=== PATIENT | female | born 1965 | race Caucasian/White ===

== ENCOUNTER 2017-02-28 13:21 | Inpatient (IN) | payer OTHER ==
[2017-02-28] MEDS: SOD CHLORIDE 0.9% 1,000 ML IV ×2 (13:58→19:38)
[2017-02-28 14:04] LABS: ABNORMAL IP MESSAGE 1; HEMATOCRIT 34.6 % (37.0-47.0); MEAN CORPUSCULAR HEMOGLOBIN 30.1 pg (29.0-33.0); MEAN CORPUSCULAR HGB CONC 31.8 g/dl (32.0-37.0); MEAN CORPUSCULAR VOLUME 94.5 fl (82.0-101.0); MEAN PLATELET VOLUME 11.5 fl (7.4-10.4); NUCLEATED RED BLOOD CELLS% 0.1 /100WBC (0.0-0.0); PLATELET COUNT 403 10^3/UL (140-415); RED BLOOD COUNT 3.66 10^6/ul (4.20-5.40)
[2017-02-28 14:04] LABS: WHITE BLOOD COUNT 38.8 10^3/ul (4.8-10.8)
[2017-02-28 14:05] LABS: POSITIVE DIFF @See below
[2017-02-28 14:06] LABS: ADD MAN DIFF? YES
[2017-02-28 14:19] LABS: INR 1.16; PARTIAL THROMBOPLASTIN TIME 26.4 Sec (25.0-35.0); PROTIME 14.8 Sec (12.2-14.2); PT RATIO 1.2
[2017-02-28 14:21] LABS: ALANINE AMINOTRANSFERASE 29 IU/L (13-69); ALBUMIN 2.8 g/dl (3.3-4.9); ALBUMIN/GLOBULIN RATIO 0.77; ALKALINE PHOSPHATASE 102 IU/L (42-121); ANION GAP 28 (8-16); ASPARTATE AMINO TRANSFERASE 15 IU/L (15-46); BLOOD UREA NITROGEN 88 mg/dl (7-20); CALCIUM 7.5 mg/dl (8.4-10.2); CARBON DIOXIDE 19 mmol/L (21-31); CHLORIDE 94 mmol/L (97-110); CREATININE 6.68 mg/dl (0.44-1.00); GLUCOSE 90 mg/dl (70-220); POTASSIUM 3.8 mmol/L (3.5-5.1); SODIUM 137 mmol/L (135-144); TOTAL PROTEIN 6.4 g/dl (6.1-8.1)
[2017-02-28] MEDS: VANCOMYCIN 1 GM (PMX) 250 ML IVPB (14:24)
[2017-02-28 14:32] LABS: TROPONIN-I < 0.012 ng/ml (0.00-0.12)
[2017-02-28 14:34] LABS: LACTIC ACID 3.2 mmol/L (0.5-2.0)
[2017-02-28 14:36] LABS: BAND NEUTROPHILS #M 9.3 10^3/ul (0.0-0.6); BAND NEUTROPHILS % (M) 24 % (0-4); GIANT THROMBO% (M) 1 % (0-0); LYMPHOCYTES #M 3.1 10^3/ul (0.8-2.9); LYMPHOCYTES % (M) 8 % (15-51); MONOCYTE #M 6.2 10^3/ul (0.3-0.9); MONOCYTES % (M) 16 % (0-11); PLATELET ESTIMATE NORMAL; POIKILOCYTOSIS 1+ (0-0); POLYCHROMASIA 1+ (0-0); RBC MORPHOLOGY COMMENT @See below; SEG NEUT #M 23.8 10^3/ul (1.7-7.5); SEGMENTED NEUTROPHILS (M) % 52 % (39-77); WBC MORPHOLOGY COMMENT @See below
[2017-02-28 14:43] LABS: LIPASE 10 U/L (23-300)
[2017-02-28] MEDS: AZTREONAM 1 GM/NS (PMX) 50 ML IVPB (15:11)
[2017-02-28] MEDS: NORepinephrine 8MG/250 ML (PMX 250 ML IV (16:29)
[2017-02-28 17:18] LABS: LACTIC ACID 2.3 mmol/L (0.5-2.0)
[2017-02-28] MEDS: CIPROFLOXACIN 400 MG in D5W 200 ML IVPB (18:00)
[2017-02-28] MEDS ORDERED: morphine 4 MG/ML VIAL (18:21)
[2017-02-28] MEDS: morphine 4 MG/ML VIAL IV (18:25)
[2017-02-28] MEDS ORDERED: GLUCOSE GEL 15 GRAM TUBE PO ×4 (19:30→21:00)
[2017-02-28] MEDS ORDERED: GLUCAGON 1 MG INJ IM ×2 (19:30→21:00)
[2017-02-28] MEDS ORDERED: GLUCOSE GEL 15 GRAM TUBE BUCCAL ×2 (19:30→21:00)
[2017-02-28] MEDS ORDERED: DEXTROSE 50% 50 ML SYRINGE IV ×4 (19:30→21:00)
[2017-02-28] MEDS ORDERED: CIPROFLOXACIN 200 MG/D5W IVPB 100 ML IVPB (21:00)
[2017-02-28] MEDS: DOCUSATE SODIUM 100 MG CAP PO (21:00)
[2017-02-28] MEDS: INSULIN ASPART [NOVOLOG] 3 ML PEN SC (21:00)
[2017-02-28] MEDS: LEVETIRACETAM (100 MG/ML) 5ML CUP PO (21:34)
[2017-02-28] MEDS: GABAPENTIN 300 MG CAP PO (21:34)
[2017-02-28] MEDS: metroNIDAZOLE 500 MG/NS (PMX) 250 MG in EVAC CONTAINER 1 BOTTLE IVPB (22:07)
[2017-03-01] MEDS: VANCOMYCIN HCL 250 MG/5ML POSYG PO ×4 (00:18→18:54)
[2017-03-01] MEDS: HYDROCODONE/APAP (5/325) TAB PO ×4 (00:53→17:34)
[2017-03-01] MEDS: ACCU-CHEK XX (01:55)
[2017-03-01 05:51] LABS: ABNORMAL IP MESSAGE 1; HEMATOCRIT 36.5 % (37.0-47.0); MEAN CORPUSCULAR HEMOGLOBIN 30.5 pg (29.0-33.0); MEAN CORPUSCULAR HGB CONC 32.9 g/dl (32.0-37.0); MEAN CORPUSCULAR VOLUME 92.6 fl (82.0-101.0); MEAN PLATELET VOLUME 11.4 fl (7.4-10.4); PLATELET COUNT 509 10^3/UL (140-415); RED BLOOD COUNT 3.94 10^6/ul (4.20-5.40); RED CELL DISTRIBUTION WIDTH 15.1 % (11.5-14.5)
[2017-03-01 05:51] LABS: WHITE BLOOD COUNT 49.6 10^3/ul (4.8-10.8)
[2017-03-01 06:02] LABS: POSITIVE DIFF @See below
[2017-03-01 06:03] LABS: ADD MAN DIFF? YES
[2017-03-01] MEDS: metroNIDAZOLE 500 MG/NS (PMX) 250 MG in EVAC CONTAINER 1 BOTTLE IVPB (06:11)
[2017-03-01 06:21] LABS: ALANINE AMINOTRANSFERASE 29 IU/L (13-69); ALBUMIN 2.6 g/dl (3.3-4.9); ALBUMIN/GLOBULIN RATIO 0.74; ALKALINE PHOSPHATASE 116 IU/L (42-121); ANION GAP 26 (8-16); ASPARTATE AMINO TRANSFERASE 16 IU/L (15-46); BLOOD UREA NITROGEN 93 mg/dl (7-20); CARBON DIOXIDE 17 mmol/L (21-31); CHLORIDE 100 mmol/L (97-110); GLUCOSE 95 mg/dl (70-220); POTASSIUM 3.8 mmol/L (3.5-5.1); SODIUM 139 mmol/L (135-144); TOTAL PROTEIN 6.1 g/dl (6.1-8.1)
[2017-03-01 06:30] LABS: CREATININE 6.85 mg/dl (0.44-1.00)
[2017-03-01 06:58] LABS: ANISOCYTOSIS 1+ (0-0); BAND NEUTROPHILS #M 9.4 10^3/ul (0.0-0.6); BAND NEUTROPHILS % (M) 19 % (0-4); EOSINOPHILS % (M) 1 % (0-7); LYMPHOCYTES #M 3.4 10^3/ul (0.8-2.9); LYMPHOCYTES % (M) 7 % (15-51); METAMYELOCYTES #M 0.9 10^3/ul (0.0-0.0); METAMYELOCYTES %M 2 % (0-0); MONOCYTE #M 2.9 10^3/ul (0.3-0.9); MONOCYTES % (M) 6 % (0-11); PLATELET ESTIMATE NORMAL; POIKILOCYTOSIS 2+ (0-0); POLYCHROMASIA 3+ (0-0); PROMYELOCYTES #M 0.4 10^3/ul (0-0); PROMYELOCYTES % (M) 1 % (0-0); SEG NEUT #M 36.4 10^3/ul (1.7-7.5); SEGMENTED NEUTROPHILS (M) % 64 % (39-77); SMUDGE%M 2 % (0-0)
[2017-03-01] MEDS ORDERED: PHENYLephrine 20MG IN 250 ML 250 ML ×2 (07:18→10:03)
[2017-03-01] MEDS ORDERED: NORepinephrine 8MG/250 ML (PMX 250 ML IV (07:30)
[2017-03-01] MEDS: INSULIN ASPART [NOVOLOG] 3 ML PEN SC ×7 (07:35→20:21)
[2017-03-01] MEDS: SOD CHLORIDE 0.9% 500 ML IV (08:30)
[2017-03-01] MEDS ORDERED: PANTOPRAZOLE 40 MG INJ IV (09:00)
[2017-03-01] MEDS: SOD CHLORIDE 0.9% 1,000 ML IV ×2 (09:01→20:22)
[2017-03-01] MEDS: ZINC SULFATE 220 MG CAP PO (09:13)
[2017-03-01] MEDS: FLUOXETINE 20 MG CAP PO (09:13)
[2017-03-01] MEDS: LEVETIRACETAM (100 MG/ML) 5ML CUP PO ×2 (09:13→20:18)
[2017-03-01] MEDS: MULTIVIT/CA CARB/B CMPLX/FA TAB PO (09:13)
[2017-03-01] MEDS: CALCIUM CARBONATE 1.25 GM TAB PO (09:13)
[2017-03-01] MEDS: PANTOPRAZOLE (EC) 40 MG TAB PO (09:13)
[2017-03-01] MEDS: VITAMIN B COMPLEX/VIT C CAP PO (09:14)
[2017-03-01] MEDS: ASPIRIN (EC) 81 MG TAB PO (09:14)
[2017-03-01] MEDS: FOLIC ACID 1 MG TAB PO (09:14)
[2017-03-01] MEDS: MULTIVITAMINS THERAPEUTIC TAB PO (09:14)
[2017-03-01] MEDS: GABAPENTIN 300 MG CAP PO ×3 (09:14→20:18)
[2017-03-01] MEDS: ENOXAPARIN 30 MG/0.3 ML SYG SC (09:15)
[2017-03-01] MEDS: PHENYLephrine 160 MG in DEXTROSE 5% 484 ML IV ×2 (12:20→13:02)
[2017-03-01] MEDS ORDERED: AMIKACIN IV PER PHARMACY XX (13:00)
[2017-03-01] MEDS: metroNIDAZOLE 500 MG/NS (PMX) 100 ML IVPB ×2 (14:54→20:18)
[2017-03-01] MEDS: AMIKACIN 500 MG in DEXTROSE 5% 100 ML IVPB (17:00)
[2017-03-01] MEDS: DOCUSATE SODIUM 100 MG CAP PO (20:23)
[2017-03-02] MEDS: VANCOMYCIN HCL 250 MG/5ML POSYG PO ×5 (00:15→23:29)
[2017-03-02] MEDS: NORepinephrine 32 MG in DEXTROSE 5% 218 ML IV ×3 (01:32→20:51)
[2017-03-02] MEDS: ACCU-CHEK XX (01:59)
[2017-03-02 05:45] LABS: ABNORMAL IP MESSAGE 1; HEMATOCRIT 41.4 % (37.0-47.0); HEMOGLOBIN 13.1 g/dl (12.0-16.0); MEAN CORPUSCULAR HEMOGLOBIN 29.4 pg (29.0-33.0); MEAN CORPUSCULAR HGB CONC 31.6 g/dl (32.0-37.0); MEAN CORPUSCULAR VOLUME 92.8 fl (82.0-101.0); MEAN PLATELET VOLUME 11.3 fl (7.4-10.4); PLATELET COUNT 572 10^3/UL (140-415); RED BLOOD COUNT 4.46 10^6/ul (4.20-5.40); RED CELL DISTRIBUTION WIDTH 14.9 % (11.5-14.5)
[2017-03-02 05:45] LABS: WHITE BLOOD COUNT 60.5 10^3/ul (4.8-10.8)
[2017-03-02 05:48] LABS: ADD MAN DIFF? YES; POSITIVE DIFF @See below
[2017-03-02 06:31] LABS: ALANINE AMINOTRANSFERASE 24 IU/L (13-69); ALBUMIN 2.3 g/dl (3.3-4.9); ALBUMIN/GLOBULIN RATIO 0.69; ALKALINE PHOSPHATASE 140 IU/L (42-121); ANION GAP 27 (8-16); ASPARTATE AMINO TRANSFERASE 27 IU/L (15-46); BLOOD UREA NITROGEN 90 mg/dl (7-20); CALCIUM 7.3 mg/dl (8.4-10.2); CARBON DIOXIDE 13 mmol/L (21-31); CHLORIDE 98 mmol/L (97-110); GLUCOSE 237 mg/dl (70-220); POTASSIUM 3.7 mmol/L (3.5-5.1); SODIUM 134 mmol/L (135-144); TOTAL PROTEIN 5.6 g/dl (6.1-8.1)
[2017-03-02 06:42] LABS: CREATININE 7.04 mg/dl (0.44-1.00)
[2017-03-02] MEDS: SOD CHLORIDE 0.9% 1,000 ML IV ×2 (06:55→16:07)
[2017-03-02] MEDS: HYDROCODONE/APAP (5/325) TAB PO (09:20)
[2017-03-02] MEDS: INSULIN ASPART [NOVOLOG] 3 ML PEN SC ×7 (09:24→20:43)
[2017-03-02] MEDS: LEVETIRACETAM (100 MG/ML) 5ML CUP PO ×2 (09:39→20:42)
[2017-03-02] MEDS: ALBUMIN HUMAN 25% 100 ML IV (09:40)
[2017-03-02] MEDS: VITAMIN B COMPLEX/VIT C CAP PO (09:40)
[2017-03-02] MEDS: MULTIVIT/CA CARB/B CMPLX/FA TAB PO (09:40)
[2017-03-02] MEDS: ZINC SULFATE 220 MG CAP PO (09:41)
[2017-03-02] MEDS: ASPIRIN (EC) 81 MG TAB PO (09:41)
[2017-03-02] MEDS: PANTOPRAZOLE (EC) 40 MG TAB PO (09:41)
[2017-03-02] MEDS: metroNIDAZOLE 500 MG/NS (PMX) 100 ML IVPB ×2 (09:41→20:42)
[2017-03-02] MEDS: GABAPENTIN 300 MG CAP PO ×3 (09:41→20:42)
[2017-03-02] MEDS: FOLIC ACID 1 MG TAB PO (09:41)
[2017-03-02] MEDS: FLUOXETINE 20 MG CAP PO (09:41)
[2017-03-02] MEDS: CALCIUM CARBONATE 1.25 GM TAB PO (09:41)
[2017-03-02] MEDS: MULTIVITAMINS THERAPEUTIC TAB PO (09:42)
[2017-03-02] MEDS: ENOXAPARIN 30 MG/0.3 ML SYG SC (09:43)
[2017-03-02] MEDS: COLLAGENASE 30 GM TUBE TOP ×2 (10:00→13:00)
[2017-03-02 10:20] LABS: ANISOCYTOSIS 1+ (0-0); BAND NEUTROPHILS #M 12.1 10^3/ul (0.0-0.6); BAND NEUTROPHILS % (M) 20 % (0-4); BURR CELLS 3+ (0-0); GIANT THROMBO% (M) 1 % (0-0); LYMPHOCYTES #M 1.2 10^3/ul (0.8-2.9); LYMPHOCYTES % (M) 2 % (15-51); MONOCYTES % (M) 10 % (0-11); PLATELET ESTIMATE INCREASED; POIKILOCYTOSIS 3+ (0-0); POLYCHROMASIA 2+ (0-0); SEG NEUT #M 48.5 10^3/ul (1.7-7.5); SEGMENTED NEUTROPHILS (M) % 68 % (39-77); SMUDGE%M 8 % (0-0)
[2017-03-02] MEDS: AMIKACIN 350 MG in DEXTROSE 5% 100 ML IVPB (16:07)
[2017-03-02] MEDS: LINEZOLID 600 MG/D5W (PMX) 300 ML IVPB ×2 (16:08→23:29)
[2017-03-02] MEDS: DOCUSATE SODIUM 100 MG CAP PO (20:39)
[2017-03-02] MEDS: SACCHAROMYCES BOULARDII 250 MG CAP PO (20:42)
[2017-03-02] MEDS: ACETAMINOPHEN 650MG/20.3ML CUP PO (23:39)
[2017-03-03] MEDS: HYDROCODONE/APAP (5/325) TAB PO ×2 (01:40→05:36)
[2017-03-03] MEDS: ACCU-CHEK XX ×8 (02:28→23:00)
[2017-03-03 05:12] LABS: ABNORMAL IP MESSAGE 1; HEMATOCRIT 42.4 % (37.0-47.0); HEMOGLOBIN 13.4 g/dl (12.0-16.0); MEAN CORPUSCULAR HEMOGLOBIN 29.1 pg (29.0-33.0); MEAN CORPUSCULAR HGB CONC 31.6 g/dl (32.0-37.0); MEAN PLATELET VOLUME 11.4 fl (7.4-10.4); PLATELET COUNT 523 10^3/UL (140-415); RED BLOOD COUNT 4.61 10^6/ul (4.20-5.40); RED CELL DISTRIBUTION WIDTH 15.2 % (11.5-14.5)
[2017-03-03 05:29] LABS: POSITIVE DIFF @See below
[2017-03-03 05:30] LABS: WHITE BLOOD COUNT 53.5 10^3/ul (4.8-10.8)
[2017-03-03 05:31] LABS: ADD MAN DIFF? YES
[2017-03-03] MEDS: SOD CHLORIDE 0.9% 1,000 ML IV ×2 (05:35→13:04)
[2017-03-03] MEDS: VANCOMYCIN HCL 250 MG/5ML POSYG PO ×3 (05:35→18:28)
[2017-03-03] MEDS: ACETAMINOPHEN 650MG/20.3ML CUP PO (05:35)
[2017-03-03 05:54] LABS: ALANINE AMINOTRANSFERASE 28 IU/L (13-69); ALBUMIN 2.2 g/dl (3.3-4.9); ALBUMIN/GLOBULIN RATIO 0.84; ALKALINE PHOSPHATASE 113 IU/L (42-121); ANION GAP 20 (8-16); ASPARTATE AMINO TRANSFERASE 11 IU/L (15-46); BLOOD UREA NITROGEN 55 mg/dl (7-20); CALCIUM 7.7 mg/dl (8.4-10.2); CARBON DIOXIDE 16 mmol/L (21-31); CHLORIDE 103 mmol/L (97-110); GLUCOSE 269 mg/dl (70-220); POTASSIUM 3.1 mmol/L (3.5-5.1); SODIUM 136 mmol/L (135-144); TOTAL PROTEIN 4.8 g/dl (6.1-8.1)
[2017-03-03 06:14] LABS: CREATININE 5.23 mg/dl (0.44-1.00)
[2017-03-03 07:41] LABS: ANISOCYTOSIS 1+ (0-0); BAND NEUTROPHILS % (M) 15 % (0-4); BURR CELLS 1+ (0-0); HYPOCHROMASIA 1+ (0-0); LYMPHOCYTES #M 5.3 10^3/ul (0.8-2.9); LYMPHOCYTES % (M) 10 % (15-51); METAMYELOCYTES #M 1.6 10^3/ul (0.0-0.0); METAMYELOCYTES %M 3 % (0-0); MONOCYTE #M 2.6 10^3/ul (0.3-0.9); MONOCYTES % (M) 5 % (0-11); PLATELET ESTIMATE INCREASED; POIKILOCYTOSIS 1+ (0-0); POLYCHROMASIA 2+ (0-0); PROMYELOCYTES #M 0.5 10^3/ul (0-0); PROMYELOCYTES % (M) 1 % (0-0); SEG NEUT #M 38.5 10^3/ul (1.7-7.5); SEGMENTED NEUTROPHILS (M) % 64 % (39-77)
[2017-03-03] MEDS: metroNIDAZOLE 500 MG/NS (PMX) 100 ML IVPB ×2 (09:10→21:46)
[2017-03-03] MEDS: PANTOPRAZOLE (EC) 40 MG TAB PO (09:10)
[2017-03-03] MEDS: ASPIRIN (EC) 81 MG TAB PO (09:10)
[2017-03-03] MEDS: MULTIVITAMINS THERAPEUTIC TAB PO (09:10)
[2017-03-03] MEDS: SACCHAROMYCES BOULARDII 250 MG CAP PO ×2 (09:10→21:47)
[2017-03-03] MEDS: VITAMIN B COMPLEX/VIT C CAP PO (09:10)
[2017-03-03] MEDS: FOLIC ACID 1 MG TAB PO (09:10)
[2017-03-03] MEDS: GABAPENTIN 300 MG CAP PO ×3 (09:10→21:47)
[2017-03-03] MEDS: MULTIVIT/CA CARB/B CMPLX/FA TAB PO (09:10)
[2017-03-03] MEDS: FLUOXETINE 20 MG CAP PO (09:10)
[2017-03-03] MEDS: LINEZOLID 600 MG/D5W (PMX) 300 ML IVPB ×2 (09:10→21:47)
[2017-03-03] MEDS: CALCIUM CARBONATE 1.25 GM TAB PO (09:10)
[2017-03-03] MEDS: LEVETIRACETAM (100 MG/ML) 5ML CUP PO ×2 (09:10→21:47)
[2017-03-03] MEDS: ZINC SULFATE 220 MG CAP PO (09:10)
[2017-03-03] MEDS: INSULIN ASPART [NOVOLOG] 3 ML PEN SC ×4 (09:14→13:03)
[2017-03-03] MEDS: ENOXAPARIN 30 MG/0.3 ML SYG SC (09:16)
[2017-03-03] MEDS: PHENYLephrine 160 MG in DEXTROSE 5% 484 ML IV (11:21)
[2017-03-03] MEDS: POTASSIUM CHLORIDE 30 MEQ in DEXTROSE 5% 250 ML IVPB (11:45)
[2017-03-03 15:05] LABS: ANION GAP 23 (8-16); BLOOD UREA NITROGEN 62 mg/dl (7-20); CALCIUM 7.5 mg/dl (8.4-10.2); CARBON DIOXIDE 11 mmol/L (21-31); CHLORIDE 101 mmol/L (97-110); POTASSIUM 3.2 mmol/L (3.5-5.1); SODIUM 132 mmol/L (135-144)
[2017-03-03 15:35] LABS: CREATININE 5.45 mg/dl (0.44-1.00); GLUCOSE 424 mg/dl (70-220)
[2017-03-03] MEDS: INSULIN GLARGINE [LANtus] 3 ML PEN SC (15:46)
[2017-03-03] MEDS ORDERED: DEXTROSE 50% 50 ML SYRINGE IV ×2 (17:00)
[2017-03-03] MEDS: POTASSIUM CHLORIDE 30 MEQ in SOD CHLORIDE 0.9% 150 ML IVPB (18:21)
[2017-03-03] MEDS: INSULIN HUMAN REGULAR 100 UNIT in SOD CHLORIDE 0.9% 99 ML IV (18:24)
[2017-03-03] MEDS ORDERED: SODIUM BICARBONATE (IV ADD) 100 MEQ in DEXTROSE 5% 1,000 ML IV (19:00)
[2017-03-03] MEDS: SODIUM BICARBONATE (IV ADD) 100 MEQ in SOD CHLORIDE 0.45% 900 ML IV (21:00)
[2017-03-03] MEDS: DOCUSATE SODIUM 100 MG CAP PO (21:00)
[2017-03-04] MEDS: VANCOMYCIN HCL 250 MG/5ML POSYG PO ×4 (00:38→17:38)
[2017-03-04] MEDS: ACCU-CHEK XX ×24 (01:00→23:30)
[2017-03-04] MEDS: PHENYLephrine 160 MG in DEXTROSE 5% 484 ML IV (02:45)
[2017-03-04] MEDS: SODIUM BICARBONATE (IV ADD) 100 MEQ in SOD CHLORIDE 0.45% 900 ML IV ×3 (05:00→20:05)
[2017-03-04] MEDS: ACETAMINOPHEN 325 MG TAB PO (05:07)
[2017-03-04 06:40] LABS: ABNORMAL IP MESSAGE 1; HEMOGLOBIN 12.3 g/dl (12.0-16.0); MEAN CORPUSCULAR HEMOGLOBIN 29.9 pg (29.0-33.0); MEAN CORPUSCULAR HGB CONC 32.4 g/dl (32.0-37.0); MEAN CORPUSCULAR VOLUME 92.2 fl (82.0-101.0); MEAN PLATELET VOLUME 11.3 fl (7.4-10.4); NUCLEATED RED BLOOD CELLS% 0.1 /100WBC (0.0-0.0); PLATELET COUNT 467 10^3/UL (140-415); RED BLOOD COUNT 4.12 10^6/ul (4.20-5.40); RED CELL DISTRIBUTION WIDTH 15.2 % (11.5-14.5)
[2017-03-04 06:40] LABS: WHITE BLOOD COUNT 61.9 10^3/ul (4.8-10.8)
[2017-03-04 06:49] LABS: ADD MAN DIFF? YES; POSITIVE DIFF @See below
[2017-03-04 07:11] LABS: ALANINE AMINOTRANSFERASE 26 IU/L (13-69); ALKALINE PHOSPHATASE 108 IU/L (42-121); ANION GAP 21 (8-16); ASPARTATE AMINO TRANSFERASE 23 IU/L (15-46); BLOOD UREA NITROGEN 74 mg/dl (7-20); CALCIUM 7.9 mg/dl (8.4-10.2); CARBON DIOXIDE 16 mmol/L (21-31); CHLORIDE 101 mmol/L (97-110); GLUCOSE 156 mg/dl (70-220); POTASSIUM 3.2 mmol/L (3.5-5.1); SODIUM 135 mmol/L (135-144); TOTAL PROTEIN 4.5 g/dl (6.1-8.1)
[2017-03-04 07:39] LABS: CREATININE 5.96 mg/dl (0.44-1.00)
[2017-03-04] MEDS: INSULIN HUMAN REGULAR 100 UNIT in SOD CHLORIDE 0.9% 99 ML IV ×3 (08:50→20:48)
[2017-03-04] MEDS: VITAMIN B COMPLEX/VIT C CAP PO (09:03)
[2017-03-04] MEDS: MULTIVITAMINS THERAPEUTIC TAB PO (09:03)
[2017-03-04] MEDS: PANTOPRAZOLE (EC) 40 MG TAB PO (09:03)
[2017-03-04] MEDS: MULTIVIT/CA CARB/B CMPLX/FA TAB PO (09:03)
[2017-03-04] MEDS: FLUOXETINE 20 MG CAP PO (09:03)
[2017-03-04] MEDS: GABAPENTIN 300 MG CAP PO ×3 (09:03→20:36)
[2017-03-04] MEDS: LEVETIRACETAM (100 MG/ML) 5ML CUP PO ×2 (09:03→20:35)
[2017-03-04] MEDS: ZINC SULFATE 220 MG CAP PO (09:03)
[2017-03-04] MEDS: FOLIC ACID 1 MG TAB PO (09:03)
[2017-03-04] MEDS: SACCHAROMYCES BOULARDII 250 MG CAP PO ×2 (09:03→21:28)
[2017-03-04] MEDS: CALCIUM CARBONATE 1.25 GM TAB PO (09:04)
[2017-03-04] MEDS: ASPIRIN (EC) 81 MG TAB PO (09:04)
[2017-03-04 09:08] LABS: ANISOCYTOSIS 1+ (0-0); BAND NEUTROPHILS #M 2.4 10^3/ul (0.0-0.6); BAND NEUTROPHILS % (M) 4 % (0-4); BURR CELLS 2+ (0-0); LYMPHOCYTES #M 5.5 10^3/ul (0.8-2.9); LYMPHOCYTES % (M) 9 % (15-51); MONOCYTE #M 8.6 10^3/ul (0.3-0.9); MONOCYTES % (M) 14 % (0-11); PLATELET ESTIMATE NORMAL; POIKILOCYTOSIS 2+ (0-0); POLYCHROMASIA 1+ (0-0); SEG NEUT #M 46.7 10^3/ul (1.7-7.5); SEGMENTED NEUTROPHILS (M) % 73 % (39-77); SMUDGE%M 3 % (0-0)
[2017-03-04] MEDS: COLLAGENASE 30 GM TUBE TOP (09:10)
[2017-03-04] MEDS: ENOXAPARIN 30 MG/0.3 ML SYG SC (09:13)
[2017-03-04] MEDS: ALBUMIN HUMAN 25% 100 ML IV (09:15)
[2017-03-04] MEDS: LINEZOLID 600 MG/D5W (PMX) 300 ML IVPB ×2 (11:41→20:34)
[2017-03-04] MEDS: metroNIDAZOLE 500 MG/NS (PMX) 100 ML IVPB ×2 (11:41→20:34)
[2017-03-04] MEDS: HYDROCODONE/APAP (5/325) TAB PO ×3 (13:43→20:35)
[2017-03-04] MEDS: FIDAXOMICIN 200 MG TABLET PO ×2 (13:43→23:29)
[2017-03-04] MEDS: DOCUSATE SODIUM 100 MG CAP PO (20:36)
[2017-03-04] MEDS: ZOLPIDEM 5 MG TAB PO (21:28)
[2017-03-04] MEDS: traMADol 50 MG TAB PO (23:29)
[2017-03-05] MEDS: NORepinephrine 32 MG in DEXTROSE 5% 218 ML IV (00:01)
[2017-03-05] MEDS: VANCOMYCIN HCL 250 MG/5ML POSYG PO ×4 (00:43→17:54)
[2017-03-05] MEDS: ACCU-CHEK XX ×16 (01:00→21:02)
[2017-03-05 05:17] LABS: ABNORMAL IP MESSAGE 1; HEMOGLOBIN 11.2 g/dl (12.0-16.0); MEAN CORPUSCULAR HEMOGLOBIN 29.3 pg (29.0-33.0); MEAN CORPUSCULAR HGB CONC 32.9 g/dl (32.0-37.0); MEAN PLATELET VOLUME 11.3 fl (7.4-10.4); NUCLEATED RED BLOOD CELLS% 0.2 /100WBC (0.0-0.0); PLATELET COUNT 385 10^3/UL (140-415); RED BLOOD COUNT 3.82 10^6/ul (4.20-5.40); RED CELL DISTRIBUTION WIDTH 15.5 % (11.5-14.5)
[2017-03-05 05:17] LABS: WHITE BLOOD COUNT 45.7 10^3/ul (4.8-10.8)
[2017-03-05 05:39] LABS: ADD MAN DIFF? YES; POSITIVE DIFF @See below
[2017-03-05 06:08] LABS: ALANINE AMINOTRANSFERASE 23 IU/L (13-69); ALBUMIN 2.2 g/dl (3.3-4.9); ALKALINE PHOSPHATASE 83 IU/L (42-121); ANION GAP 19 (8-16); ASPARTATE AMINO TRANSFERASE 22 IU/L (15-46); BLOOD UREA NITROGEN 52 mg/dl (7-20); CALCIUM 7.2 mg/dl (8.4-10.2); CARBON DIOXIDE 21 mmol/L (21-31); CHLORIDE 94 mmol/L (97-110); CREATININE 4.47 mg/dl (0.44-1.00); GLUCOSE 123 mg/dl (70-220); SODIUM 132 mmol/L (135-144); TOTAL PROTEIN 4.4 g/dl (6.1-8.1)
[2017-03-05] MEDS: SODIUM BICARBONATE (IV ADD) 100 MEQ in SOD CHLORIDE 0.45% 900 ML IV ×2 (06:19→20:57)
[2017-03-05 07:07] LABS: POTASSIUM 2.2 mmol/L (3.5-5.1)
[2017-03-05 07:43] LABS: BAND NEUTROPHILS #M 1.3 10^3/ul (0.0-0.6); BAND NEUTROPHILS % (M) 3 % (0-4); BURR CELLS 1+ (0-0); EOSINOPHILS % (M) 1 % (0-7); LYMPHOCYTES #M 4.1 10^3/ul (0.8-2.9); LYMPHOCYTES % (M) 9 % (15-51); METAMYELOCYTES #M 1.3 10^3/ul (0.0-0.0); METAMYELOCYTES %M 3 % (0-0); MONOCYTE #M 4.1 10^3/ul (0.3-0.9); MONOCYTES % (M) 9 % (0-11); MYELOCYTES #M 0.4 10^3/ul (0.0-0.0); MYELOCYTES % (M) 1 % (0-0); PLATELET ESTIMATE NORMAL; POIKILOCYTOSIS 1+ (0-0); POLYCHROMASIA 1+ (0-0); SEG NEUT #M 34.4 10^3/ul (1.7-7.5); SEGMENTED NEUTROPHILS (M) % 74 % (39-77)
[2017-03-05] MEDS: LINEZOLID 600 MG/D5W (PMX) 300 ML IVPB ×2 (08:07→20:31)
[2017-03-05] MEDS: MULTIVIT/CA CARB/B CMPLX/FA TAB PO (08:08)
[2017-03-05] MEDS: VITAMIN B COMPLEX/VIT C CAP PO (08:08)
[2017-03-05] MEDS: LEVETIRACETAM (100 MG/ML) 5ML CUP PO ×2 (08:08→20:30)
[2017-03-05] MEDS: FOLIC ACID 1 MG TAB PO (08:08)
[2017-03-05] MEDS: ZINC SULFATE 220 MG CAP PO (08:08)
[2017-03-05] MEDS: FIDAXOMICIN 200 MG TABLET PO ×2 (08:08→20:30)
[2017-03-05] MEDS: MULTIVITAMINS THERAPEUTIC TAB PO (08:08)
[2017-03-05] MEDS: SACCHAROMYCES BOULARDII 250 MG CAP PO ×2 (08:08→20:33)
[2017-03-05] MEDS: FLUOXETINE 20 MG CAP PO (08:09)
[2017-03-05] MEDS: PANTOPRAZOLE (EC) 40 MG TAB PO (08:09)
[2017-03-05] MEDS: CALCIUM CARBONATE 1.25 GM TAB PO (08:09)
[2017-03-05] MEDS: GABAPENTIN 300 MG CAP PO ×3 (08:09→20:30)
[2017-03-05] MEDS: ASPIRIN (EC) 81 MG TAB PO (08:09)
[2017-03-05] MEDS: ENOXAPARIN 30 MG/0.3 ML SYG SC (08:13)
[2017-03-05] MEDS: ONDANSETRON 4 MG INJ IV (08:26)
[2017-03-05] MEDS: POTASSIUM CHLORIDE (SR) 20 MEQ TAB PO (08:27)
[2017-03-05] MEDS: metroNIDAZOLE 500 MG/NS (PMX) 100 ML IVPB ×2 (08:27→21:02)
[2017-03-05] MEDS: COLLAGENASE 30 GM TUBE TOP (10:40)
[2017-03-05] MEDS: HYDROCODONE/APAP (5/325) TAB PO ×2 (10:40→20:30)
[2017-03-05] MEDS: POTASSIUM CHLORIDE 250 ML IVPB (11:30)
[2017-03-05] MEDS: INSULIN HUMAN REGULAR 100 UNIT in SOD CHLORIDE 0.9% 99 ML IV (12:44)
[2017-03-05] MEDS: INSULIN ASPART [NOVOLOG] 3 ML PEN SC ×3 (17:05→20:19)
[2017-03-05] MEDS: DOCUSATE SODIUM 100 MG CAP PO (20:33)
[2017-03-05] MEDS: ZOLPIDEM 5 MG TAB PO (22:06)
[2017-03-06] MEDS: VANCOMYCIN HCL 250 MG/5ML POSYG PO ×4 (00:24→17:09)
[2017-03-06] MEDS: ACCU-CHEK XX ×5 (02:00→21:33)
[2017-03-06] MEDS: HYDROCODONE/APAP (5/325) TAB PO ×3 (03:15→17:08)
[2017-03-06] MEDS: NORepinephrine 32 MG in DEXTROSE 5% 218 ML IV (04:12)
[2017-03-06 04:57] LABS: ABNORMAL IP MESSAGE 1; HEMATOCRIT 30.8 % (37.0-47.0); HEMOGLOBIN 10.1 g/dl (12.0-16.0); MEAN CORPUSCULAR HEMOGLOBIN 29.3 pg (29.0-33.0); MEAN CORPUSCULAR HGB CONC 32.8 g/dl (32.0-37.0); MEAN CORPUSCULAR VOLUME 89.3 fl (82.0-101.0); MEAN PLATELET VOLUME 11.5 fl (7.4-10.4); NUCLEATED RED BLOOD CELLS% 0.1 /100WBC (0.0-0.0); PLATELET COUNT 344 10^3/UL (140-415); RED BLOOD COUNT 3.45 10^6/ul (4.20-5.40); RED CELL DISTRIBUTION WIDTH 15.6 % (11.5-14.5)
[2017-03-06 04:57] LABS: WHITE BLOOD COUNT 31.3 10^3/ul (4.8-10.8)
[2017-03-06 05:17] LABS: ADD MAN DIFF? YES; POSITIVE DIFF @See below
[2017-03-06 05:32] LABS: ANION GAP 15 (8-16); BLOOD UREA NITROGEN 57 mg/dl (7-20); CALCIUM 6.3 mg/dl (8.4-10.2); CARBON DIOXIDE 24 mmol/L (21-31); CHLORIDE 92 mmol/L (97-110); GLUCOSE 337 mg/dl (70-220); SODIUM 128 mmol/L (135-144)
[2017-03-06 05:51] LABS: ANISOCYTOSIS 1+ (0-0); BAND NEUTROPHILS #M 1.8 10^3/ul (0.0-0.6); BAND NEUTROPHILS % (M) 6 % (0-4); BURR CELLS 1+ (0-0); EOSINOPHILS % (M) 8 % (0-7); LYMPHOCYTES #M 2.5 10^3/ul (0.8-2.9); LYMPHOCYTES % (M) 8 % (15-51); METAMYELOCYTES #M 0.3 10^3/ul (0.0-0.0); METAMYELOCYTES %M 1 % (0-0); MONOCYTE #M 0.9 10^3/ul (0.3-0.9); MONOCYTES % (M) 3 % (0-11); MYELOCYTES #M 0.3 10^3/ul (0.0-0.0); MYELOCYTES % (M) 1 % (0-0); PLATELET ESTIMATE NORMAL; POIKILOCYTOSIS 2+ (0-0); POLYCHROMASIA 1+ (0-0); PROMYELOCYTES #M 0.3 10^3/ul (0-0); PROMYELOCYTES % (M) 1 % (0-0); REACTIVE LYMPHOCYTES #M 0.3 10^3/ul (0.0-0.0); REACTIVE LYMPHOCYTES% (M) 1 % (0-0); SEG NEUT #M 22.8 10^3/ul (1.7-7.5); SEGMENTED NEUTROPHILS (M) % 71 % (39-77); SMUDGE%M 14 % (0-0)
[2017-03-06 05:55] LABS: POTASSIUM 2.6 mmol/L (3.5-5.1)
[2017-03-06] MEDS: SODIUM BICARBONATE (IV ADD) 100 MEQ in SOD CHLORIDE 0.45% 900 ML IV ×2 (07:00→18:19)
[2017-03-06 07:27] LABS: MAGNESIUM 1.2 mg/dl (1.7-2.5); PHOSPHORUS 4.8 mg/dl (2.5-4.9)
[2017-03-06] MEDS: FOLIC ACID 1 MG TAB PO (09:00)
[2017-03-06] MEDS: CALCIUM CARBONATE 1.25 GM TAB PO (09:00)
[2017-03-06] MEDS: SACCHAROMYCES BOULARDII 250 MG CAP PO ×2 (09:00→20:13)
[2017-03-06] MEDS: MULTIVITAMINS THERAPEUTIC TAB PO (09:00)
[2017-03-06] MEDS: PANTOPRAZOLE (EC) 40 MG TAB PO (09:00)
[2017-03-06] MEDS: ZINC SULFATE 220 MG CAP PO (09:00)
[2017-03-06] MEDS: MULTIVIT/CA CARB/B CMPLX/FA TAB PO (09:00)
[2017-03-06] MEDS: VITAMIN B COMPLEX/VIT C CAP PO (09:00)
[2017-03-06] MEDS: LEVETIRACETAM (100 MG/ML) 5ML CUP PO ×2 (09:09→20:12)
[2017-03-06] MEDS: POTASSIUM CHLORIDE (SR) 20 MEQ TAB PO ×2 (09:09→20:13)
[2017-03-06] MEDS: ASPIRIN (EC) 81 MG TAB PO (09:09)
[2017-03-06] MEDS: GABAPENTIN 300 MG CAP PO ×3 (09:09→20:13)
[2017-03-06] MEDS: INSULIN DETEMIR [LEVEMIR] 3ML CART SC ×2 (09:11→20:28)
[2017-03-06] MEDS: INSULIN ASPART [NOVOLOG] 3 ML PEN SC ×7 (09:12→20:29)
[2017-03-06] MEDS: COLLAGENASE 30 GM TUBE TOP (09:13)
[2017-03-06] MEDS: FIDAXOMICIN 200 MG TABLET PO ×2 (09:22→20:13)
[2017-03-06] MEDS: FLUOXETINE 20 MG CAP PO (09:22)
[2017-03-06] MEDS: ENOXAPARIN 30 MG/0.3 ML SYG SC (09:28)
[2017-03-06] MEDS: POTASSIUM CHLORIDE 250 ML IVPB (10:03)
[2017-03-06] MEDS: LINEZOLID 600 MG/D5W (PMX) 300 ML IVPB ×2 (12:25→20:12)
[2017-03-06] MEDS: metroNIDAZOLE 500 MG/NS (PMX) 100 ML IVPB ×2 (12:26→20:12)
[2017-03-06] MEDS: AMIKACIN 350 MG in DEXTROSE 5% 100 ML IVPB (12:29)
[2017-03-06] MEDS: ZOLPIDEM 5 MG TAB PO (20:12)
[2017-03-06] MEDS: DOCUSATE SODIUM 100 MG CAP PO (20:13)
[2017-03-06] MEDS: traMADol 50 MG TAB PO (20:13)
[2017-03-07] MEDS: VANCOMYCIN HCL 250 MG/5ML POSYG PO ×4 (00:54→18:56)
[2017-03-07] MEDS: HYDROCODONE/APAP (5/325) TAB PO ×3 (00:54→19:35)
[2017-03-07] MEDS: ACCU-CHEK XX ×5 (02:00→20:31)
[2017-03-07] MEDS: SODIUM BICARBONATE (IV ADD) 100 MEQ in SOD CHLORIDE 0.45% 900 ML IV (04:48)
[2017-03-07] MEDS: INSULIN ASPART [NOVOLOG] 3 ML PEN SC ×7 (07:05→20:30)
[2017-03-07 07:22] LABS: ABNORMAL IP MESSAGE 1; HEMATOCRIT 31.5 % (37.0-47.0); HEMOGLOBIN 10.3 g/dl (12.0-16.0); MEAN CORPUSCULAR HEMOGLOBIN 29.6 pg (29.0-33.0); MEAN CORPUSCULAR HGB CONC 32.7 g/dl (32.0-37.0); MEAN CORPUSCULAR VOLUME 90.5 fl (82.0-101.0); MEAN PLATELET VOLUME 11.2 fl (7.4-10.4); NUCLEATED RED BLOOD CELLS% 0.1 /100WBC (0.0-0.0); PLATELET COUNT 337 10^3/UL (140-415); RED BLOOD COUNT 3.48 10^6/ul (4.20-5.40); RED CELL DISTRIBUTION WIDTH 15.6 % (11.5-14.5)
[2017-03-07 07:22] LABS: WHITE BLOOD COUNT 29.6 10^3/ul (4.8-10.8)
[2017-03-07 07:29] LABS: ADD MAN DIFF? YES; POSITIVE DIFF @See below
[2017-03-07] MEDS: INSULIN DETEMIR [LEVEMIR] 3ML CART SC (08:00)
[2017-03-07] MEDS: POTASSIUM CHLORIDE (SR) 20 MEQ TAB PO ×3 (08:29→20:23)
[2017-03-07] MEDS: metroNIDAZOLE 500 MG/NS (PMX) 100 ML IVPB ×2 (08:29→20:23)
[2017-03-07] MEDS: LINEZOLID 600 MG/D5W (PMX) 300 ML IVPB ×2 (08:29→20:22)
[2017-03-07] MEDS: ASPIRIN (EC) 81 MG TAB PO (08:30)
[2017-03-07] MEDS: FOLIC ACID 1 MG TAB PO (08:30)
[2017-03-07] MEDS: SACCHAROMYCES BOULARDII 250 MG CAP PO ×2 (08:30→20:23)
[2017-03-07] MEDS: MULTIVIT/CA CARB/B CMPLX/FA TAB PO (08:30)
[2017-03-07] MEDS: PANTOPRAZOLE (EC) 40 MG TAB PO (08:30)
[2017-03-07] MEDS: FIDAXOMICIN 200 MG TABLET PO ×2 (08:30→20:23)
[2017-03-07] MEDS: GABAPENTIN 300 MG CAP PO ×3 (08:30→20:23)
[2017-03-07] MEDS: LEVETIRACETAM (100 MG/ML) 5ML CUP PO ×2 (08:30→20:23)
[2017-03-07] MEDS: FLUOXETINE 20 MG CAP PO (08:30)
[2017-03-07] MEDS: CALCIUM CARBONATE 1.25 GM TAB PO (08:31)
[2017-03-07 08:39] LABS: ANION GAP 13 (8-16); BLOOD UREA NITROGEN 40 mg/dl (7-20); CALCIUM 6.5 mg/dl (8.4-10.2); CARBON DIOXIDE 27 mmol/L (21-31); CHLORIDE 100 mmol/L (97-110); CREATININE 3.87 mg/dl (0.44-1.00); GLUCOSE 57 mg/dl (70-220); SODIUM 137 mmol/L (135-144)
[2017-03-07 08:43] LABS: POTASSIUM 2.6 mmol/L (3.5-5.1)
[2017-03-07] MEDS: VITAMIN B COMPLEX/VIT C CAP PO (09:30)
[2017-03-07] MEDS: COLLAGENASE 30 GM TUBE TOP (09:30)
[2017-03-07] MEDS: ZINC SULFATE 220 MG CAP PO (09:30)
[2017-03-07] MEDS: MULTIVITAMINS THERAPEUTIC TAB PO (09:30)
[2017-03-07] MEDS: ENOXAPARIN 30 MG/0.3 ML SYG SC (09:31)
[2017-03-07 09:51] LABS: ANISOCYTOSIS 1+ (0-0); BAND NEUTROPHILS #M 0.5 10^3/ul (0.0-0.6); BAND NEUTROPHILS % (M) 2 % (0-4); EOSINOPHILS % (M) 14 % (0-7); ERYTHROBLAST% (NRBC) (M) 1 % (0-0); GIANT THROMBO% (M) 1 % (0-0); HYPOCHROMASIA 2+ (0-0); LYMPHOCYTES #M 5.3 10^3/ul (0.8-2.9); LYMPHOCYTES % (M) 18 % (15-51); METAMYELOCYTES #M 0.2 10^3/ul (0.0-0.0); METAMYELOCYTES %M 1 % (0-0); MONOCYTE #M 1.4 10^3/ul (0.3-0.9); MONOCYTES % (M) 5 % (0-11); PLATELET ESTIMATE NORMAL; POLYCHROMASIA 3+ (0-0); SEG NEUT #M 17.9 10^3/ul (1.7-7.5); SEGMENTED NEUTROPHILS (M) % 60 % (39-77); SMUDGE%M 1 % (0-0)
[2017-03-07] MEDS: POTASSIUM CHLORIDE 250 ML IVPB (12:56)
[2017-03-07] MEDS: DOCUSATE SODIUM 100 MG CAP PO (20:23)
[2017-03-07] MEDS: ZOLPIDEM 5 MG TAB PO (21:44)
[2017-03-08] MEDS: VANCOMYCIN HCL 250 MG/5ML POSYG PO ×4 (01:05→17:30)
[2017-03-08] MEDS: ACCU-CHEK XX ×5 (02:00→21:00)
[2017-03-08] MEDS: HYDROCODONE/APAP (5/325) TAB PO ×4 (02:38→21:37)
[2017-03-08 05:02] LABS: ADD MAN DIFF? NO
[2017-03-08 05:18] LABS: WHITE BLOOD COUNT 30.1 10^3/ul (4.8-10.8)
[2017-03-08 05:18] LABS: ABNORMAL IP MESSAGE 1; BASOPHIL # 0.1 10^3/ul (0.0-0.1); BASOPHILS % 0.5 % (0.0-2.0); EOSINOPHILS # 1.4 10^3/ul (0.0-0.5); EOSINOPHILS % 4.7 % (0.0-7.0); HEMATOCRIT 31.3 % (37.0-47.0); HEMOGLOBIN 10.4 g/dl (12.0-16.0); LYMPHOCYTES # 4.2 10^3/ul (0.8-2.9); LYMPHOCYTES % 13.9 % (15.0-51.0); MEAN CORPUSCULAR HEMOGLOBIN 29.7 pg (29.0-33.0); MEAN CORPUSCULAR HGB CONC 33.2 g/dl (32.0-37.0); MEAN CORPUSCULAR VOLUME 89.4 fl (82.0-101.0); MEAN PLATELET VOLUME 11.4 fl (7.4-10.4); MONOCYTE # 1.8 10^3/ul (0.3-0.9); NEUTROPHILS % 66.5 % (39.0-77.0); NUCLEATED RED BLOOD CELLS% 0.1 /100WBC (0.0-0.0); PLATELET COUNT 385 10^3/UL (140-415)
[2017-03-08 05:30] LABS: POSITIVE DIFF @See below
[2017-03-08 05:52] LABS: ALANINE AMINOTRANSFERASE 35 IU/L (13-69); ALBUMIN/GLOBULIN RATIO 0.95; ALKALINE PHOSPHATASE 64 IU/L (42-121); ANION GAP 13 (8-16); ASPARTATE AMINO TRANSFERASE 23 IU/L (15-46); BLOOD UREA NITROGEN 45 mg/dl (7-20); CALCIUM 6.4 mg/dl (8.4-10.2); CARBON DIOXIDE 24 mmol/L (21-31); CHLORIDE 101 mmol/L (97-110); CREATININE 4.37 mg/dl (0.44-1.00); GLUCOSE 191 mg/dl (70-220); POTASSIUM 3.4 mmol/L (3.5-5.1); SODIUM 135 mmol/L (135-144); TOTAL PROTEIN 4.1 g/dl (6.1-8.1)
[2017-03-08] MEDS: LEVETIRACETAM (100 MG/ML) 5ML CUP PO ×2 (08:08→21:04)
[2017-03-08] MEDS: ASPIRIN (EC) 81 MG TAB PO (08:09)
[2017-03-08] MEDS: VITAMIN B COMPLEX/VIT C CAP PO (08:09)
[2017-03-08] MEDS: MULTIVIT/CA CARB/B CMPLX/FA TAB PO (08:09)
[2017-03-08] MEDS: ZINC SULFATE 220 MG CAP PO (08:09)
[2017-03-08] MEDS: MULTIVITAMINS THERAPEUTIC TAB PO (08:09)
[2017-03-08] MEDS: SACCHAROMYCES BOULARDII 250 MG CAP PO ×2 (08:09→21:03)
[2017-03-08] MEDS: PANTOPRAZOLE (EC) 40 MG TAB PO (08:09)
[2017-03-08] MEDS: POTASSIUM CHLORIDE (SR) 20 MEQ TAB PO ×3 (08:09→21:04)
[2017-03-08] MEDS: GABAPENTIN 300 MG CAP PO ×3 (08:09→21:26)
[2017-03-08] MEDS: FLUOXETINE 20 MG CAP PO (08:09)
[2017-03-08] MEDS: CALCIUM CARBONATE 1.25 GM TAB PO (08:09)
[2017-03-08] MEDS: FIDAXOMICIN 200 MG TABLET PO ×2 (08:09→21:04)
[2017-03-08] MEDS: FOLIC ACID 1 MG TAB PO (08:09)
[2017-03-08] MEDS: COLLAGENASE 30 GM TUBE TOP (08:10)
[2017-03-08] MEDS: LINEZOLID 600 MG/D5W (PMX) 300 ML IVPB ×2 (08:10→21:05)
[2017-03-08] MEDS: metroNIDAZOLE 500 MG/NS (PMX) 100 ML IVPB ×2 (08:10→21:05)
[2017-03-08] MEDS: ENOXAPARIN 30 MG/0.3 ML SYG SC (08:20)
[2017-03-08] MEDS: INSULIN DETEMIR [LEVEMIR] 3ML CART SC (08:30)
[2017-03-08] MEDS: INSULIN ASPART [NOVOLOG] 3 ML PEN SC ×7 (08:34→21:00)
[2017-03-08] MEDS: traMADol 50 MG TAB PO (18:41)
[2017-03-08] MEDS: DOCUSATE SODIUM 100 MG CAP PO (21:00)
[2017-03-08] MEDS: ZOLPIDEM 5 MG TAB PO (21:37)
[2017-03-09] MEDS: HYDROCODONE/APAP (5/325) TAB PO ×4 (01:37→23:52)
[2017-03-09] MEDS: ACCU-CHEK XX ×5 (02:00→21:16)
[2017-03-09 05:49] LABS: ABNORMAL IP MESSAGE 1; HEMOGLOBIN 10.3 g/dl (12.0-16.0); MEAN CORPUSCULAR HEMOGLOBIN 29.3 pg (29.0-33.0); MEAN CORPUSCULAR HGB CONC 32.2 g/dl (32.0-37.0); MEAN CORPUSCULAR VOLUME 91.2 fl (82.0-101.0); MEAN PLATELET VOLUME 10.8 fl (7.4-10.4); PLATELET COUNT 441 10^3/UL (140-415); RED BLOOD COUNT 3.51 10^6/ul (4.20-5.40); RED CELL DISTRIBUTION WIDTH 16.7 % (11.5-14.5)
[2017-03-09] MEDS: VANCOMYCIN HCL 250 MG/5ML POSYG PO ×5 (06:03→23:49)
[2017-03-09 06:20] LABS: POSITIVE DIFF @See below
[2017-03-09 06:21] LABS: ADD MAN DIFF? YES
[2017-03-09 06:43] LABS: ANION GAP 16 (8-16); BLOOD UREA NITROGEN 40 mg/dl (7-20); CALCIUM 7.2 mg/dl (8.4-10.2); CARBON DIOXIDE 24 mmol/L (21-31); CHLORIDE 100 mmol/L (97-110); CREATININE 4.49 mg/dl (0.44-1.00); GLUCOSE 181 mg/dl (70-220); POTASSIUM 3.6 mmol/L (3.5-5.1); SODIUM 136 mmol/L (135-144)
[2017-03-09] MEDS: VITAMIN B COMPLEX/VIT C CAP PO (08:24)
[2017-03-09] MEDS: GABAPENTIN 300 MG CAP PO ×3 (08:24→21:16)
[2017-03-09] MEDS: PANTOPRAZOLE (EC) 40 MG TAB PO (08:24)
[2017-03-09] MEDS: CALCIUM CARBONATE 1.25 GM TAB PO (08:24)
[2017-03-09] MEDS: metroNIDAZOLE 500 MG/NS (PMX) 100 ML IVPB ×2 (08:24→21:16)
[2017-03-09] MEDS: POTASSIUM CHLORIDE (SR) 20 MEQ TAB PO ×3 (08:24→21:15)
[2017-03-09] MEDS: ASPIRIN (EC) 81 MG TAB PO (08:24)
[2017-03-09] MEDS: LEVETIRACETAM (100 MG/ML) 5ML CUP PO ×2 (08:24→21:15)
[2017-03-09] MEDS: ZINC SULFATE 220 MG CAP PO (08:24)
[2017-03-09] MEDS: FIDAXOMICIN 200 MG TABLET PO ×2 (08:24→21:15)
[2017-03-09] MEDS: MULTIVITAMINS THERAPEUTIC TAB PO (08:24)
[2017-03-09] MEDS: MULTIVIT/CA CARB/B CMPLX/FA TAB PO (08:24)
[2017-03-09] MEDS: LINEZOLID 600 MG/D5W (PMX) 300 ML IVPB (08:24)
[2017-03-09] MEDS: FOLIC ACID 1 MG TAB PO (08:24)
[2017-03-09] MEDS: FLUOXETINE 20 MG CAP PO (08:25)
[2017-03-09] MEDS: INSULIN ASPART [NOVOLOG] 3 ML PEN SC ×7 (08:26→21:28)
[2017-03-09] MEDS: ENOXAPARIN 30 MG/0.3 ML SYG SC (08:26)
[2017-03-09] MEDS: INSULIN DETEMIR [LEVEMIR] 3ML CART SC (08:28)
[2017-03-09] MEDS: COLLAGENASE 30 GM TUBE TOP (08:32)
[2017-03-09 09:25] LABS: ANISOCYTOSIS 1+ (0-0); BAND NEUTROPHILS #M 1.3 10^3/ul (0.0-0.6); BAND NEUTROPHILS % (M) 4 % (0-4); EOSINOPHILS % (M) 4 % (0-7); GIANT THROMBO% (M) 2 % (0-0); LYMPHOCYTES #M 2.6 10^3/ul (0.8-2.9); LYMPHOCYTES % (M) 8 % (15-51); METAMYELOCYTES #M 0.6 10^3/ul (0.0-0.0); METAMYELOCYTES %M 2 % (0-0); MONOCYTE #M 0.9 10^3/ul (0.3-0.9); MONOCYTES % (M) 3 % (0-11); MYELOCYTES #M 0.3 10^3/ul (0.0-0.0); MYELOCYTES % (M) 1 % (0-0); OVALOCYTES 1+ (0-0); PLATELET ESTIMATE NORMAL; POLYCHROMASIA 2+ (0-0); SEG NEUT #M 26.2 10^3/ul (1.7-7.5); SEGMENTED NEUTROPHILS (M) % 78 % (39-77); SMUDGE%M 20 % (0-0)
[2017-03-09] MEDS: SACCHAROMYCES BOULARDII 250 MG CAP PO ×2 (10:00→21:15)
[2017-03-09] MEDS ORDERED: VANCOMYCIN IV PER PHARMACY XX (12:00)
[2017-03-09] MEDS: ACETAMINOPHEN 650MG/20.3ML CUP PO (13:22)
[2017-03-09] MEDS: traMADol 50 MG TAB PO (13:23)
[2017-03-09] MEDS: VANCOMYCIN 1.5 GM in SOD CHLORIDE 0.9% 250 ML IVPB (14:18)
[2017-03-09] MEDS ORDERED: AMIKACIN 350 MG in DEXTROSE 5% 100 ML IVPB (15:30)
[2017-03-09] MEDS: DOCUSATE SODIUM 100 MG CAP PO (21:00)
[2017-03-09] MEDS: ZOLPIDEM 5 MG TAB PO (21:47)
[2017-03-10] MEDS: ACCU-CHEK XX ×5 (01:24→21:09)
[2017-03-10 05:01] LABS: ADD MAN DIFF? NO
[2017-03-10 05:12] LABS: ABNORMAL IP MESSAGE 1; BASOPHIL # 0.1 10^3/ul (0.0-0.1); BASOPHILS % 0.4 % (0.0-2.0); EOSINOPHILS # 0.7 10^3/ul (0.0-0.5); EOSINOPHILS % 2.4 % (0.0-7.0); HEMATOCRIT 31.6 % (37.0-47.0); HEMOGLOBIN 10.2 g/dl (12.0-16.0); LYMPHOCYTES # 5.2 10^3/ul (0.8-2.9); LYMPHOCYTES % 17.3 % (15.0-51.0); MEAN CORPUSCULAR HEMOGLOBIN 29.8 pg (29.0-33.0); MEAN CORPUSCULAR HGB CONC 32.3 g/dl (32.0-37.0); MEAN CORPUSCULAR VOLUME 92.4 fl (82.0-101.0); MEAN PLATELET VOLUME 10.9 fl (7.4-10.4); MONOCYTE # 1.9 10^3/ul (0.3-0.9); MONOCYTES % 6.4 % (0.0-11.0); NEUTROPHIL # 20.3 10^3/ul (1.6-7.5); NEUTROPHILS % 67.9 % (39.0-77.0); PLATELET COUNT 445 10^3/UL (140-415); RED BLOOD COUNT 3.42 10^6/ul (4.20-5.40); RED CELL DISTRIBUTION WIDTH 17.2 % (11.5-14.5)
[2017-03-10 05:25] LABS: ALANINE AMINOTRANSFERASE 36 IU/L (13-69); ALBUMIN 1.9 g/dl (3.3-4.9); ALBUMIN/GLOBULIN RATIO 0.79; ALKALINE PHOSPHATASE 53 IU/L (42-121); ANION GAP 16 (8-16); ASPARTATE AMINO TRANSFERASE 14 IU/L (15-46); BLOOD UREA NITROGEN 51 mg/dl (7-20); CALCIUM 7.4 mg/dl (8.4-10.2); CARBON DIOXIDE 21 mmol/L (21-31); CHLORIDE 103 mmol/L (97-110); CREATININE 5.02 mg/dl (0.44-1.00); GLUCOSE 201 mg/dl (70-220); POTASSIUM 3.2 mmol/L (3.5-5.1); SODIUM 137 mmol/L (135-144); TOTAL PROTEIN 4.3 g/dl (6.1-8.1)
[2017-03-10 05:31] LABS: POSITIVE DIFF @See below
[2017-03-10 05:35] LABS: WHITE BLOOD COUNT 29.8 10^3/ul (4.8-10.8)
[2017-03-10] MEDS: VANCOMYCIN HCL 250 MG/5ML POSYG PO ×4 (05:40→23:31)
[2017-03-10] MEDS: HYDROCODONE/APAP (5/325) TAB PO ×2 (05:40→23:31)
[2017-03-10] MEDS: MULTIVIT/CA CARB/B CMPLX/FA TAB PO (08:46)
[2017-03-10] MEDS: VITAMIN B COMPLEX/VIT C CAP PO (08:46)
[2017-03-10] MEDS: POTASSIUM CHLORIDE (SR) 20 MEQ TAB PO ×3 (08:47→20:59)
[2017-03-10] MEDS: FOLIC ACID 1 MG TAB PO (08:47)
[2017-03-10] MEDS: FLUOXETINE 20 MG CAP PO (08:47)
[2017-03-10] MEDS: MULTIVITAMINS THERAPEUTIC TAB PO (08:47)
[2017-03-10] MEDS: GABAPENTIN 300 MG CAP PO ×3 (08:47→20:59)
[2017-03-10] MEDS: CALCIUM CARBONATE 1.25 GM TAB PO (08:47)
[2017-03-10] MEDS: ZINC SULFATE 220 MG CAP PO (08:47)
[2017-03-10] MEDS: PANTOPRAZOLE (EC) 40 MG TAB PO (08:47)
[2017-03-10] MEDS: FIDAXOMICIN 200 MG TABLET PO ×2 (08:47→20:59)
[2017-03-10] MEDS: metroNIDAZOLE 500 MG/NS (PMX) 100 ML IVPB ×2 (08:47→21:00)
[2017-03-10] MEDS: LEVETIRACETAM (100 MG/ML) 5ML CUP PO ×2 (08:47→20:59)
[2017-03-10] MEDS: SACCHAROMYCES BOULARDII 250 MG CAP PO ×2 (08:47→20:59)
[2017-03-10] MEDS: ASPIRIN (EC) 81 MG TAB PO (08:47)
[2017-03-10] MEDS: INSULIN ASPART [NOVOLOG] 3 ML PEN SC ×7 (08:51→21:09)
[2017-03-10] MEDS: ENOXAPARIN 30 MG/0.3 ML SYG SC (08:53)
[2017-03-10] MEDS: INSULIN DETEMIR [LEVEMIR] 3ML CART SC (08:53)
[2017-03-10] MEDS: COLLAGENASE 30 GM TUBE TOP (08:58)
[2017-03-10] MEDS: AMIKACIN 350 MG in DEXTROSE 5% 100 ML IVPB (18:09)
[2017-03-10] MEDS: DOCUSATE SODIUM 100 MG CAP PO (21:00)
[2017-03-11] MEDS ORDERED: ACCU-CHEK XX (02:00)
[2017-03-11] MEDS: ACCU-CHEK XX ×5 (02:59→21:38)
[2017-03-11] MEDS: HYDROCODONE/APAP (5/325) TAB PO ×4 (05:12→21:37)
[2017-03-11] MEDS: VANCOMYCIN HCL 250 MG/5ML POSYG PO ×4 (05:13→23:31)
[2017-03-11 05:51] LABS: ABNORMAL IP MESSAGE 1; HEMATOCRIT 29.9 % (37.0-47.0); HEMOGLOBIN 9.5 g/dl (12.0-16.0); MEAN CORPUSCULAR HEMOGLOBIN 29.4 pg (29.0-33.0); MEAN CORPUSCULAR HGB CONC 31.8 g/dl (32.0-37.0); MEAN CORPUSCULAR VOLUME 92.6 fl (82.0-101.0); MEAN PLATELET VOLUME 10.8 fl (7.4-10.4); PLATELET COUNT 426 10^3/UL (140-415); RED BLOOD COUNT 3.23 10^6/ul (4.20-5.40); RED CELL DISTRIBUTION WIDTH 17.2 % (11.5-14.5)
[2017-03-11 05:51] LABS: WHITE BLOOD COUNT 26.3 10^3/ul (4.8-10.8)
[2017-03-11 06:16] LABS: ALANINE AMINOTRANSFERASE 33 IU/L (13-69); ALBUMIN 1.8 g/dl (3.3-4.9); ALBUMIN/GLOBULIN RATIO 0.85; ALKALINE PHOSPHATASE 48 IU/L (42-121); ANION GAP 14 (8-16); ASPARTATE AMINO TRANSFERASE 15 IU/L (15-46); BLOOD UREA NITROGEN 46 mg/dl (7-20); CALCIUM 7.3 mg/dl (8.4-10.2); CARBON DIOXIDE 21 mmol/L (21-31); CHLORIDE 104 mmol/L (97-110); CREATININE 4.35 mg/dl (0.44-1.00); GLUCOSE 154 mg/dl (70-220); SODIUM 136 mmol/L (135-144); TOTAL PROTEIN 3.9 g/dl (6.1-8.1)
[2017-03-11 06:26] LABS: ADD MAN DIFF? YES; POSITIVE DIFF @See below
[2017-03-11] MEDS: INSULIN ASPART [NOVOLOG] 3 ML PEN SC ×7 (08:19→21:18)
[2017-03-11] MEDS: INSULIN DETEMIR [LEVEMIR] 3ML CART SC ×2 (08:21→21:18)
[2017-03-11 09:52] LABS: ANISOCYTOSIS 1+ (0-0); BAND NEUTROPHILS #M 0.5 10^3/ul (0.0-0.6); BAND NEUTROPHILS % (M) 2 % (0-4); BASOPHIL #M 0.2 10^3/ul (0.0-0.0); BASOPHILS % (M) 1 % (0-2); EOSINOPHILS % (M) 2 % (0-7); LYMPHOCYTES #M 3.1 10^3/ul (0.8-2.9); LYMPHOCYTES % (M) 12 % (15-51); MONOCYTES % (M) 4 % (0-11); MYELOCYTES #M 0.2 10^3/ul (0.0-0.0); MYELOCYTES % (M) 1 % (0-0); PLATELET ESTIMATE NORMAL; POIKILOCYTOSIS 2+ (0-0); POLYCHROMASIA 3+ (0-0); PROMYELOCYTES #M 0.2 10^3/ul (0-0); PROMYELOCYTES % (M) 1 % (0-0); SEG NEUT #M 20.4 10^3/ul (1.7-7.5); SEGMENTED NEUTROPHILS (M) % 77 % (39-77); SMUDGE%M 8 % (0-0)
[2017-03-11] MEDS: metroNIDAZOLE 500 MG/NS (PMX) 100 ML IVPB ×2 (09:57→20:58)
[2017-03-11] MEDS: FOLIC ACID 1 MG TAB PO (10:06)
[2017-03-11] MEDS: GABAPENTIN 300 MG CAP PO ×3 (10:06→20:59)
[2017-03-11] MEDS: FLUOXETINE 20 MG CAP PO (10:06)
[2017-03-11] MEDS: MULTIVITAMINS THERAPEUTIC TAB PO (10:06)
[2017-03-11] MEDS: ZINC SULFATE 220 MG CAP PO (10:06)
[2017-03-11] MEDS: ASPIRIN (EC) 81 MG TAB PO (10:06)
[2017-03-11] MEDS: CALCIUM CARBONATE 1.25 GM TAB PO (10:06)
[2017-03-11] MEDS: PANTOPRAZOLE (EC) 40 MG TAB PO (10:07)
[2017-03-11] MEDS: FIDAXOMICIN 200 MG TABLET PO ×2 (10:07→20:58)
[2017-03-11] MEDS: MULTIVIT/CA CARB/B CMPLX/FA TAB PO (10:07)
[2017-03-11] MEDS: VITAMIN B COMPLEX/VIT C CAP PO (10:07)
[2017-03-11] MEDS: POTASSIUM CHLORIDE (SR) 20 MEQ TAB PO ×3 (10:07→20:59)
[2017-03-11] MEDS: LEVETIRACETAM (100 MG/ML) 5ML CUP PO ×2 (10:07→20:58)
[2017-03-11] MEDS: ENOXAPARIN 30 MG/0.3 ML SYG SC (10:16)
[2017-03-11] MEDS: SOD CHLORIDE 0.9% 500 ML IV ×2 (11:11→12:30)
[2017-03-11] MEDS: SACCHAROMYCES BOULARDII 250 MG CAP PO ×2 (11:20→20:58)
[2017-03-11] MEDS: COLLAGENASE 30 GM TUBE TOP (11:20)
[2017-03-11] MEDS: POTASSIUM CHLORIDE 30 MEQ in DEXTROSE 5% 250 ML IVPB (11:20)
[2017-03-11] MEDS: ALBUMIN HUMAN 25% 50 ML IV ×2 (16:03→23:00)
[2017-03-11] MEDS: DOCUSATE SODIUM 100 MG CAP PO (20:59)
[2017-03-11] MEDS: ZOLPIDEM 5 MG TAB PO (21:16)
[2017-03-11] MEDS: ALBUMIN HUMAN 25% 100 ML IV ×2 (23:32→23:33)
[2017-03-12] MEDS: ACCU-CHEK XX ×5 (01:54→21:08)
[2017-03-12] MEDS: HYDROCODONE/APAP (5/325) TAB PO ×5 (03:34→21:10)
[2017-03-12 05:33] LABS: ADD MAN DIFF? NO
[2017-03-12 05:43] LABS: ABNORMAL IP MESSAGE 1; BASOPHILS % 0.2 % (0.0-2.0); EOSINOPHILS # 0.5 10^3/ul (0.0-0.5); EOSINOPHILS % 2.3 % (0.0-7.0); HEMATOCRIT 26.2 % (37.0-47.0); HEMOGLOBIN 8.4 g/dl (12.0-16.0); LYMPHOCYTES # 3.6 10^3/ul (0.8-2.9); MEAN CORPUSCULAR HEMOGLOBIN 30.2 pg (29.0-33.0); MEAN CORPUSCULAR HGB CONC 32.1 g/dl (32.0-37.0); MEAN CORPUSCULAR VOLUME 94.2 fl (82.0-101.0); MEAN PLATELET VOLUME 10.7 fl (7.4-10.4); MONOCYTE # 1.8 10^3/ul (0.3-0.9); NEUTROPHIL # 15.7 10^3/ul (1.6-7.5); NEUTROPHILS % 69.3 % (39.0-77.0); PLATELET COUNT 349 10^3/UL (140-415); RED BLOOD COUNT 2.78 10^6/ul (4.20-5.40); RED CELL DISTRIBUTION WIDTH 17.6 % (11.5-14.5)
[2017-03-12 05:43] LABS: WHITE BLOOD COUNT 22.6 10^3/ul (4.8-10.8)
[2017-03-12] MEDS: VANCOMYCIN HCL 250 MG/5ML POSYG PO ×3 (05:59→17:33)
[2017-03-12 06:06] LABS: POSITIVE DIFF @See below
[2017-03-12] MEDS: ALBUMIN HUMAN 25% 100 ML IV (06:55)
[2017-03-12] MEDS: ALBUMIN HUMAN 25% 50 ML IV ×2 (07:34→08:23)
[2017-03-12] MEDS: MULTIVITAMINS THERAPEUTIC TAB PO (08:23)
[2017-03-12] MEDS: FLUOXETINE 20 MG CAP PO (08:23)
[2017-03-12] MEDS: FIDAXOMICIN 200 MG TABLET PO ×2 (08:23→21:09)
[2017-03-12] MEDS: LEVETIRACETAM (100 MG/ML) 5ML CUP PO ×2 (08:23→21:10)
[2017-03-12] MEDS: GABAPENTIN 300 MG CAP PO ×3 (08:23→21:09)
[2017-03-12] MEDS: ZINC SULFATE 220 MG CAP PO (08:23)
[2017-03-12] MEDS: FOLIC ACID 1 MG TAB PO (08:23)
[2017-03-12] MEDS: metroNIDAZOLE 500 MG/NS (PMX) 100 ML IVPB ×2 (08:23→21:09)
[2017-03-12] MEDS: SACCHAROMYCES BOULARDII 250 MG CAP PO ×2 (08:23→21:09)
[2017-03-12] MEDS: POTASSIUM CHLORIDE (SR) 20 MEQ TAB PO ×3 (08:24→21:09)
[2017-03-12] MEDS: VITAMIN B COMPLEX/VIT C CAP PO (08:24)
[2017-03-12] MEDS: CALCIUM CARBONATE 1.25 GM TAB PO (08:24)
[2017-03-12] MEDS: ASPIRIN (EC) 81 MG TAB PO (08:24)
[2017-03-12] MEDS: MULTIVIT/CA CARB/B CMPLX/FA TAB PO (08:24)
[2017-03-12] MEDS: PANTOPRAZOLE (EC) 40 MG TAB PO (08:24)
[2017-03-12] MEDS: COLLAGENASE 30 GM TUBE TOP (08:25)
[2017-03-12] MEDS: ENOXAPARIN 30 MG/0.3 ML SYG SC (08:40)
[2017-03-12 08:48] LABS: ALANINE AMINOTRANSFERASE 32 IU/L (13-69); ALBUMIN 1.9 g/dl (3.3-4.9); ALBUMIN/GLOBULIN RATIO 0.95; ALKALINE PHOSPHATASE 40 IU/L (42-121); ANION GAP 15 (8-16); ASPARTATE AMINO TRANSFERASE 32 IU/L (15-46); BLOOD UREA NITROGEN 53 mg/dl (7-20); CALCIUM 7.5 mg/dl (8.4-10.2); CARBON DIOXIDE 18 mmol/L (21-31); CHLORIDE 106 mmol/L (97-110); CREATININE 4.87 mg/dl (0.44-1.00); GLUCOSE 129 mg/dl (70-220); POTASSIUM 3.3 mmol/L (3.5-5.1); SODIUM 136 mmol/L (135-144); TOTAL PROTEIN 3.9 g/dl (6.1-8.1)
[2017-03-12] MEDS: INSULIN ASPART [NOVOLOG] 3 ML PEN SC ×7 (09:40→21:00)
[2017-03-12] MEDS: VANCOMYCIN 1 GM in NS 250 ML IVPB (10:25)
[2017-03-12] MEDS: DOCUSATE SODIUM 100 MG CAP PO (21:00)
[2017-03-12] MEDS: INSULIN DETEMIR [LEVEMIR] 3ML CART SC (21:29)
[2017-03-13] MEDS: traMADol 50 MG TAB PO (00:44)
[2017-03-13] MEDS: VANCOMYCIN HCL 250 MG/5ML POSYG PO ×4 (00:44→18:24)
[2017-03-13] MEDS: ACCU-CHEK XX ×5 (02:00→20:45)
[2017-03-13] MEDS: HYDROCODONE/APAP (5/325) TAB PO ×4 (03:02→20:46)
[2017-03-13] MEDS: INSULIN ASPART [NOVOLOG] 3 ML PEN SC ×7 (08:43→20:50)
[2017-03-13] MEDS: FIDAXOMICIN 200 MG TABLET PO ×2 (09:00→20:44)
[2017-03-13] MEDS: VITAMIN B COMPLEX/VIT C CAP PO (09:11)
[2017-03-13] MEDS: SACCHAROMYCES BOULARDII 250 MG CAP PO ×2 (09:11→20:45)
[2017-03-13] MEDS: metroNIDAZOLE 500 MG/NS (PMX) 100 ML IVPB ×2 (09:11→20:44)
[2017-03-13] MEDS: FOLIC ACID 1 MG TAB PO (09:12)
[2017-03-13] MEDS: LEVETIRACETAM (100 MG/ML) 5ML CUP PO ×2 (09:12→20:44)
[2017-03-13] MEDS: ASPIRIN (EC) 81 MG TAB PO (09:12)
[2017-03-13] MEDS: GABAPENTIN 300 MG CAP PO ×3 (09:12→20:44)
[2017-03-13] MEDS: POTASSIUM CHLORIDE (SR) 20 MEQ TAB PO ×2 (09:12→13:09)
[2017-03-13] MEDS: PANTOPRAZOLE (EC) 40 MG TAB PO (09:12)
[2017-03-13] MEDS: CALCIUM CARBONATE 1.25 GM TAB PO (09:12)
[2017-03-13] MEDS: FLUOXETINE 20 MG CAP PO (09:12)
[2017-03-13] MEDS: MULTIVIT/CA CARB/B CMPLX/FA TAB PO (09:12)
[2017-03-13] MEDS: ZINC SULFATE 220 MG CAP PO (09:13)
[2017-03-13] MEDS: MULTIVITAMINS THERAPEUTIC TAB PO (09:13)
[2017-03-13] MEDS: ENOXAPARIN 30 MG/0.3 ML SYG SC (09:13)
[2017-03-13] MEDS: COLLAGENASE 30 GM TUBE TOP (09:14)
[2017-03-13] MEDS: DOCUSATE SODIUM 100 MG CAP PO (20:45)
[2017-03-13] MEDS: INSULIN DETEMIR [LEVEMIR] 3ML CART SC (20:50)
[2017-03-13] MEDS: ZOLPIDEM 5 MG TAB PO (22:26)
[2017-03-14] MEDS: ACCU-CHEK XX ×5 (01:53→21:00)
[2017-03-14] MEDS: VANCOMYCIN HCL 250 MG/5ML POSYG PO ×5 (05:52→23:07)
[2017-03-14] MEDS: MULTIVIT/CA CARB/B CMPLX/FA TAB PO (08:08)
[2017-03-14] MEDS: PANTOPRAZOLE (EC) 40 MG TAB PO (08:08)
[2017-03-14] MEDS: LEVETIRACETAM (100 MG/ML) 5ML CUP PO ×2 (08:08→20:54)
[2017-03-14] MEDS: CALCIUM CARBONATE 1.25 GM TAB PO (08:08)
[2017-03-14] MEDS: VITAMIN B COMPLEX/VIT C CAP PO (08:08)
[2017-03-14] MEDS: GABAPENTIN 300 MG CAP PO ×3 (08:08→20:54)
[2017-03-14] MEDS: SACCHAROMYCES BOULARDII 250 MG CAP PO ×2 (08:08→20:54)
[2017-03-14] MEDS: FOLIC ACID 1 MG TAB PO (08:08)
[2017-03-14] MEDS: FLUOXETINE 20 MG CAP PO (08:08)
[2017-03-14] MEDS: ASPIRIN (EC) 81 MG TAB PO (08:08)
[2017-03-14] MEDS: COLLAGENASE 30 GM TUBE TOP (08:09)
[2017-03-14] MEDS: HYDROCODONE/APAP (5/325) TAB PO ×2 (08:09→15:43)
[2017-03-14] MEDS: INSULIN ASPART [NOVOLOG] 3 ML PEN SC ×7 (08:18→21:03)
[2017-03-14] MEDS: ENOXAPARIN 30 MG/0.3 ML SYG SC (08:18)
[2017-03-14] MEDS: metroNIDAZOLE 500 MG/NS (PMX) 100 ML IVPB ×2 (08:19→20:54)
[2017-03-14] MEDS: AMIKACIN 350 MG in DEXTROSE 5% 100 ML IVPB (16:28)
[2017-03-14 16:38] LABS: ADD MAN DIFF? NO
[2017-03-14 16:40] LABS: WHITE BLOOD COUNT 18.8 10^3/ul (4.8-10.8)
[2017-03-14 16:40] LABS: BASOPHIL # 0.1 10^3/ul (0.0-0.1); BASOPHILS % 0.3 % (0.0-2.0); EOSINOPHILS # 0.4 10^3/ul (0.0-0.5); EOSINOPHILS % 1.9 % (0.0-7.0); HEMATOCRIT 25.2 % (37.0-47.0); HEMOGLOBIN 7.9 g/dl (12.0-16.0); LYMPHOCYTES # 2.3 10^3/ul (0.8-2.9); MEAN CORPUSCULAR HGB CONC 31.3 g/dl (32.0-37.0); MEAN CORPUSCULAR VOLUME 95.8 fl (82.0-101.0); MEAN PLATELET VOLUME 10.8 fl (7.4-10.4); MONOCYTE # 1.4 10^3/ul (0.3-0.9); MONOCYTES % 7.7 % (0.0-11.0); NEUTROPHIL # 14.2 10^3/ul (1.6-7.5); NEUTROPHILS % 75.8 % (39.0-77.0); PLATELET COUNT 398 10^3/UL (140-415); RED BLOOD COUNT 2.63 10^6/ul (4.20-5.40); RED CELL DISTRIBUTION WIDTH 18.8 % (11.5-14.5)
[2017-03-14] MEDS: DOCUSATE SODIUM 100 MG CAP PO (20:54)
[2017-03-14] MEDS: INSULIN DETEMIR [LEVEMIR] 3ML CART SC (20:59)
[2017-03-15] MEDS: ALBUTEROL 0.083% (NEB) 2.5 MG/3 ML AMP NEB (01:48)
[2017-03-15] MEDS: ACCU-CHEK XX ×5 (02:00→21:00)
[2017-03-15] MEDS: VANCOMYCIN HCL 250 MG/5ML POSYG PO ×4 (05:10→23:13)
[2017-03-15] MEDS: HYDROCODONE/APAP (5/325) TAB PO ×2 (05:34→18:10)
[2017-03-15 05:44] LABS: ADD MAN DIFF? NO
[2017-03-15 06:00] LABS: BASOPHIL # 0.1 10^3/ul (0.0-0.1); BASOPHILS % 0.4 % (0.0-2.0); EOSINOPHILS # 0.2 10^3/ul (0.0-0.5); EOSINOPHILS % 1.5 % (0.0-7.0); HEMATOCRIT 22.7 % (37.0-47.0); HEMOGLOBIN 7.3 g/dl (12.0-16.0); LYMPHOCYTES # 2.4 10^3/ul (0.8-2.9); LYMPHOCYTES % 14.8 % (15.0-51.0); MEAN CORPUSCULAR HEMOGLOBIN 30.5 pg (29.0-33.0); MEAN CORPUSCULAR HGB CONC 32.2 g/dl (32.0-37.0); MEAN PLATELET VOLUME 10.9 fl (7.4-10.4); MONOCYTE # 1.3 10^3/ul (0.3-0.9); MONOCYTES % 7.7 % (0.0-11.0); NEUTROPHIL # 11.9 10^3/ul (1.6-7.5); NEUTROPHILS % 73.5 % (39.0-77.0); PLATELET COUNT 363 10^3/UL (140-415); RED BLOOD COUNT 2.39 10^6/ul (4.20-5.40); RED CELL DISTRIBUTION WIDTH 18.8 % (11.5-14.5)
[2017-03-15 06:00] LABS: WHITE BLOOD COUNT 16.2 10^3/ul (4.8-10.8)
[2017-03-15 06:20] LABS: ALANINE AMINOTRANSFERASE 34 IU/L (13-69); ALBUMIN 1.9 g/dl (3.3-4.9); ALBUMIN/GLOBULIN RATIO 0.95; ALKALINE PHOSPHATASE 41 IU/L (42-121); ANION GAP 15 (8-16); ASPARTATE AMINO TRANSFERASE 17 IU/L (15-46); BLOOD UREA NITROGEN 43 mg/dl (7-20); CALCIUM 7.4 mg/dl (8.4-10.2); CARBON DIOXIDE 18 mmol/L (21-31); CHLORIDE 108 mmol/L (97-110); CREATININE 3.93 mg/dl (0.44-1.00); GLUCOSE 210 mg/dl (70-220); SODIUM 138 mmol/L (135-144); TOTAL PROTEIN 3.9 g/dl (6.1-8.1)
[2017-03-15 06:27] LABS: POTASSIUM 2.7 mmol/L (3.5-5.1)
[2017-03-15] MEDS: INSULIN ASPART [NOVOLOG] 3 ML PEN SC ×7 (07:55→21:53)
[2017-03-15] MEDS: POTASSIUM CHLORIDE 250 ML IVPB (08:02)
[2017-03-15] MEDS: GABAPENTIN 300 MG CAP PO ×3 (08:57→21:38)
[2017-03-15] MEDS: LEVETIRACETAM (100 MG/ML) 5ML CUP PO ×2 (08:57→21:39)
[2017-03-15] MEDS: FOLIC ACID 1 MG TAB PO (08:57)
[2017-03-15] MEDS: CALCIUM CARBONATE 1.25 GM TAB PO (08:57)
[2017-03-15] MEDS: ASPIRIN (EC) 81 MG TAB PO (08:57)
[2017-03-15] MEDS: FLUOXETINE 20 MG CAP PO (08:57)
[2017-03-15] MEDS: metroNIDAZOLE 500 MG/NS (PMX) 100 ML IVPB (08:58)
[2017-03-15] MEDS: ENOXAPARIN 30 MG/0.3 ML SYG SC (09:01)
[2017-03-15] MEDS: VITAMIN B COMPLEX/VIT C CAP PO (09:12)
[2017-03-15] MEDS: SACCHAROMYCES BOULARDII 250 MG CAP PO ×2 (09:12→21:38)
[2017-03-15] MEDS: PANTOPRAZOLE (EC) 40 MG TAB PO (09:12)
[2017-03-15] MEDS: MULTIVIT/CA CARB/B CMPLX/FA TAB PO (09:21)
[2017-03-15] MEDS: COLLAGENASE 30 GM TUBE TOP (09:21)
[2017-03-15 12:13] LABS: ANION GAP 13 (8-16); BLOOD UREA NITROGEN 45 mg/dl (7-20); CALCIUM 7.4 mg/dl (8.4-10.2); CARBON DIOXIDE 19 mmol/L (21-31); CHLORIDE 108 mmol/L (97-110); CREATININE 3.97 mg/dl (0.44-1.00); GLUCOSE 162 mg/dl (70-220); SODIUM 137 mmol/L (135-144)
[2017-03-15] MEDS: BISACODYL (EC) 5 MG TAB PO ×2 (13:24→21:39)
[2017-03-15] MEDS: PEG/ELECTROLYTES 4L BTL PO ×2 (13:24→21:38)
[2017-03-15 13:33] LABS: IMMEDIATE SPIN CROSSMATCH 1 1
[2017-03-15] MEDS: SOD CHLORIDE 0.9% 250 ML IV* (13:54)
[2017-03-15] MEDS: VANCOMYCIN 1 GM in NS 250 ML IVPB (18:11)
[2017-03-15] MEDS: DOCUSATE SODIUM 100 MG CAP PO (21:39)
[2017-03-15] MEDS: INSULIN DETEMIR [LEVEMIR] 3ML CART SC (21:54)
[2017-03-15] MEDS: ZOLPIDEM 5 MG TAB PO (22:17)
[2017-03-15] MEDS: metroNIDAZOLE 500 MG TAB PO (22:17)
[2017-03-15] MEDS: traMADol 50 MG TAB PO (23:13)
[2017-03-16] MEDS: HYDROCODONE/APAP (5/325) TAB PO ×2 (01:15→14:05)
[2017-03-16] MEDS: ACCU-CHEK XX ×5 (02:00→21:08)
[2017-03-16] MEDS: metroNIDAZOLE 500 MG TAB PO ×3 (06:00→21:07)
[2017-03-16] MEDS: VANCOMYCIN HCL 250 MG/5ML POSYG PO ×4 (06:00→22:38)
[2017-03-16] MEDS: ENOXAPARIN 30 MG/0.3 ML SYG SC (09:00)
[2017-03-16] MEDS: INSULIN ASPART [NOVOLOG] 3 ML PEN SC ×7 (09:27→21:15)
[2017-03-16] MEDS: ASPIRIN (EC) 81 MG TAB PO (09:30)
[2017-03-16] MEDS: LEVETIRACETAM (100 MG/ML) 5ML CUP PO ×2 (09:30→21:07)
[2017-03-16] MEDS: GABAPENTIN 300 MG CAP PO ×3 (09:30→21:07)
[2017-03-16] MEDS: FOLIC ACID 1 MG TAB PO (09:31)
[2017-03-16] MEDS: PANTOPRAZOLE (EC) 40 MG TAB PO (09:31)
[2017-03-16] MEDS: FLUOXETINE 20 MG CAP PO (09:31)
[2017-03-16] MEDS: SACCHAROMYCES BOULARDII 250 MG CAP PO ×2 (09:31→21:07)
[2017-03-16] MEDS: VITAMIN B COMPLEX/VIT C CAP PO (09:31)
[2017-03-16] MEDS: CALCIUM CARBONATE 1.25 GM TAB PO (09:31)
[2017-03-16] MEDS: MULTIVIT/CA CARB/B CMPLX/FA TAB PO (09:31)
[2017-03-16] MEDS: COLLAGENASE 30 GM TUBE TOP (09:36)
[2017-03-16] MEDS: ALBUMIN HUMAN 25% 100 ML IV (10:37)
[2017-03-16] MEDS: ZYVOX 600 MG TAB PO ×2 (14:04→22:38)
[2017-03-16 14:27] LABS: ADD MAN DIFF? NO
[2017-03-16 14:29] LABS: WHITE BLOOD COUNT 18.4 10^3/ul (4.8-10.8)
[2017-03-16 14:29] LABS: BASOPHIL # 0.1 10^3/ul (0.0-0.1); BASOPHILS % 0.4 % (0.0-2.0); EOSINOPHILS # 0.3 10^3/ul (0.0-0.5); EOSINOPHILS % 1.4 % (0.0-7.0); HEMATOCRIT 26.7 % (37.0-47.0); HEMOGLOBIN 8.8 g/dl (12.0-16.0); MEAN CORPUSCULAR HEMOGLOBIN 30.7 pg (29.0-33.0); MEAN PLATELET VOLUME 10.7 fl (7.4-10.4); MONOCYTE # 1.5 10^3/ul (0.3-0.9); MONOCYTES % 8.1 % (0.0-11.0); NEUTROPHIL # 14.3 10^3/ul (1.6-7.5); NEUTROPHILS % 77.5 % (39.0-77.0); PLATELET COUNT 378 10^3/UL (140-415); RED BLOOD COUNT 2.87 10^6/ul (4.20-5.40); RED CELL DISTRIBUTION WIDTH 18.9 % (11.5-14.5)
[2017-03-16 14:57] LABS: ANION GAP 15 (8-16); BLOOD UREA NITROGEN 38 mg/dl (7-20); CARBON DIOXIDE 21 mmol/L (21-31); CHLORIDE 106 mmol/L (97-110); CREATININE 3.48 mg/dl (0.44-1.00); GLUCOSE 162 mg/dl (70-220); SODIUM 139 mmol/L (135-144)
[2017-03-16 14:59] LABS: POTASSIUM 2.9 mmol/L (3.5-5.1)
[2017-03-16] MEDS: POTASSIUM CHLORIDE (SR) 20 MEQ TAB PO (18:32)
[2017-03-16] MEDS: DOCUSATE SODIUM 100 MG CAP PO (21:00)
[2017-03-16] MEDS: INSULIN DETEMIR [LEVEMIR] 3ML CART SC (21:15)
[2017-03-16] MEDS: ZOLPIDEM 5 MG TAB PO (22:38)
[2017-03-17] MEDS: HYDROCODONE/APAP (5/325) TAB PO ×2 (01:20→18:25)
[2017-03-17] MEDS: ACCU-CHEK XX ×5 (02:43→21:00)
[2017-03-17] MEDS: traMADol 50 MG TAB PO (04:16)
[2017-03-17] MEDS: VANCOMYCIN HCL 250 MG/5ML POSYG PO ×3 (05:34→17:46)
[2017-03-17] MEDS: metroNIDAZOLE 500 MG TAB PO ×3 (05:34→21:50)
[2017-03-17] MEDS: ENOXAPARIN 30 MG/0.3 ML SYG SC (09:00)
[2017-03-17 09:20] LABS: ADD MAN DIFF? NO
[2017-03-17] MEDS: INSULIN ASPART [NOVOLOG] 3 ML PEN SC ×7 (09:21→21:28)
[2017-03-17 09:25] LABS: WHITE BLOOD COUNT 17.7 10^3/ul (4.8-10.8)
[2017-03-17 09:25] LABS: BASOPHIL # 0.1 10^3/ul (0.0-0.1); BASOPHILS % 0.5 % (0.0-2.0); EOSINOPHILS # 0.3 10^3/ul (0.0-0.5); EOSINOPHILS % 1.4 % (0.0-7.0); HEMATOCRIT 25.6 % (37.0-47.0); HEMOGLOBIN 8.5 g/dl (12.0-16.0); LYMPHOCYTES # 2.3 10^3/ul (0.8-2.9); LYMPHOCYTES % 12.9 % (15.0-51.0); MEAN CORPUSCULAR HEMOGLOBIN 30.9 pg (29.0-33.0); MEAN CORPUSCULAR HGB CONC 33.2 g/dl (32.0-37.0); MEAN CORPUSCULAR VOLUME 93.1 fl (82.0-101.0); MEAN PLATELET VOLUME 10.8 fl (7.4-10.4); MONOCYTE # 1.4 10^3/ul (0.3-0.9); MONOCYTES % 7.7 % (0.0-11.0); NEUTROPHIL # 13.6 10^3/ul (1.6-7.5); NEUTROPHILS % 76.4 % (39.0-77.0); PLATELET COUNT 373 10^3/UL (140-415); RED BLOOD COUNT 2.75 10^6/ul (4.20-5.40); RED CELL DISTRIBUTION WIDTH 19.7 % (11.5-14.5)
[2017-03-17 09:40] LABS: ANION GAP 16 (8-16); BLOOD UREA NITROGEN 52 mg/dl (7-20); CALCIUM 7.7 mg/dl (8.4-10.2); CARBON DIOXIDE 17 mmol/L (21-31); CHLORIDE 110 mmol/L (97-110); CREATININE 4.34 mg/dl (0.44-1.00); GLUCOSE 186 mg/dl (70-220); POTASSIUM 3.1 mmol/L (3.5-5.1); SODIUM 140 mmol/L (135-144)
[2017-03-17] MEDS: ASPIRIN (EC) 81 MG TAB PO (10:33)
[2017-03-17] MEDS: GABAPENTIN 300 MG CAP PO ×3 (10:33→21:50)
[2017-03-17] MEDS: SACCHAROMYCES BOULARDII 250 MG CAP PO ×2 (10:33→21:49)
[2017-03-17] MEDS: MULTIVIT/CA CARB/B CMPLX/FA TAB PO (10:33)
[2017-03-17] MEDS: VITAMIN B COMPLEX/VIT C CAP PO (10:33)
[2017-03-17] MEDS: FLUOXETINE 20 MG CAP PO (10:34)
[2017-03-17] MEDS: PANTOPRAZOLE (EC) 40 MG TAB PO (10:34)
[2017-03-17] MEDS: FOLIC ACID 1 MG TAB PO (10:34)
[2017-03-17] MEDS: LEVETIRACETAM (100 MG/ML) 5ML CUP PO ×2 (10:34→21:49)
[2017-03-17] MEDS: CALCIUM CARBONATE 1.25 GM TAB PO (10:35)
[2017-03-17] MEDS: ZYVOX 600 MG TAB PO ×2 (10:35→21:50)
[2017-03-17] MEDS: COLLAGENASE 30 GM TUBE TOP (10:50)
[2017-03-17] MEDS: INSULIN DETEMIR [LEVEMIR] 3ML CART SC (21:27)
[2017-03-17] MEDS: DOCUSATE SODIUM 100 MG CAP PO (21:50)
[2017-03-17] MEDS: POTASSIUM CHLORIDE 20 MEQ in DEXTROSE 5% 100 ML IVPB (21:57)
[2017-03-18] MEDS: VANCOMYCIN HCL 250 MG/5ML POSYG PO ×4 (00:09→17:54)
[2017-03-18] MEDS: ACCU-CHEK XX ×5 (02:38→21:46)
[2017-03-18] MEDS ORDERED: VANCOMYCIN IV PER PHARMACY XX (03:00)
[2017-03-18] MEDS: metroNIDAZOLE 500 MG TAB PO ×3 (05:08→21:31)
[2017-03-18] MEDS: traMADol 50 MG TAB PO ×2 (06:51→21:32)
[2017-03-18 07:00] LABS: ADD MAN DIFF? NO
[2017-03-18 07:01] LABS: BASOPHIL # 0.1 10^3/ul (0.0-0.1); BASOPHILS % 0.7 % (0.0-2.0); EOSINOPHILS # 0.4 10^3/ul (0.0-0.5); EOSINOPHILS % 2.5 % (0.0-7.0); HEMATOCRIT 25.5 % (37.0-47.0); HEMOGLOBIN 8.1 g/dl (12.0-16.0); LYMPHOCYTES # 2.6 10^3/ul (0.8-2.9); LYMPHOCYTES % 17.5 % (15.0-51.0); MEAN CORPUSCULAR HEMOGLOBIN 30.5 pg (29.0-33.0); MEAN CORPUSCULAR HGB CONC 31.8 g/dl (32.0-37.0); MEAN CORPUSCULAR VOLUME 95.9 fl (82.0-101.0); MEAN PLATELET VOLUME 11.3 fl (7.4-10.4); MONOCYTE # 1.1 10^3/ul (0.3-0.9); MONOCYTES % 7.5 % (0.0-11.0); NEUTROPHIL # 10.7 10^3/ul (1.6-7.5); NEUTROPHILS % 71.1 % (39.0-77.0); PLATELET COUNT 318 10^3/UL (140-415); RED BLOOD COUNT 2.66 10^6/ul (4.20-5.40); RED CELL DISTRIBUTION WIDTH 19.5 % (11.5-14.5)
[2017-03-18 07:35] LABS: ANION GAP 19 (8-16); BLOOD UREA NITROGEN 65 mg/dl (7-20); CALCIUM 7.5 mg/dl (8.4-10.2); CARBON DIOXIDE 14 mmol/L (21-31); CHLORIDE 109 mmol/L (97-110); CREATININE 4.89 mg/dl (0.44-1.00); GLUCOSE 135 mg/dl (70-220); SODIUM 139 mmol/L (135-144)
[2017-03-18 07:45] LABS: POTASSIUM 2.7 mmol/L (3.5-5.1)
[2017-03-18] MEDS: LOSARTAN 50 MG TAB PO (09:00)
[2017-03-18] MEDS: LIDOCAINE 5% PATCH TD (09:00)
[2017-03-18] MEDS: ENOXAPARIN 30 MG/0.3 ML SYG SC (09:00)
[2017-03-18] MEDS: metroNIDAZOLE 500 MG/NS (PMX) 100 ML IVPB (09:28)
[2017-03-18] MEDS: ASPIRIN (EC) 81 MG TAB PO (09:31)
[2017-03-18] MEDS: FLUOXETINE 20 MG CAP PO (09:32)
[2017-03-18] MEDS: FIDAXOMICIN 200 MG TABLET PO (09:32)
[2017-03-18] MEDS: ASCORBIC ACID 500 MG TAB PO ×3 (09:32→21:32)
[2017-03-18] MEDS: PANTOPRAZOLE (EC) 40 MG TAB PO (09:32)
[2017-03-18] MEDS: ZYVOX 600 MG TAB PO ×2 (09:32→21:32)
[2017-03-18] MEDS: MULTIVIT/CA CARB/B CMPLX/FA TAB PO (09:33)
[2017-03-18] MEDS: NEUTRA-PHOS 250 MG PACKET PO (09:33)
[2017-03-18] MEDS: GABAPENTIN 300 MG CAP PO ×3 (09:33→21:31)
[2017-03-18] MEDS: POTASSIUM CHLORIDE (SR) 20 MEQ TAB PO ×3 (09:33→21:32)
[2017-03-18] MEDS: SACCHAROMYCES BOULARDII 250 MG CAP PO ×2 (09:33→21:31)
[2017-03-18] MEDS: FOLIC ACID 1 MG TAB PO (09:34)
[2017-03-18] MEDS: LEVETIRACETAM (100 MG/ML) 5ML CUP PO ×2 (09:34→21:31)
[2017-03-18] MEDS: CALCIUM CARBONATE 1.25 GM TAB PO (09:34)
[2017-03-18] MEDS: VITAMIN B COMPLEX/VIT C CAP PO (09:35)
[2017-03-18] MEDS: COLLAGENASE 30 GM TUBE TOP (09:47)
[2017-03-18] MEDS: INSULIN ASPART [NOVOLOG] 3 ML PEN SC ×7 (10:01→21:00)
[2017-03-18] MEDS ORDERED: [UNRECOGNIZED DRUG - REMARK] XX (12:00)
[2017-03-18] MEDS: POTASSIUM CHLORIDE 250 ML IVPB (12:33)
[2017-03-18] MEDS: HYDROCODONE/APAP (5/325) TAB PO (13:50)
[2017-03-18] MEDS: AMIKACIN 350 MG in DEXTROSE 5% 100 ML IVPB (17:54)
[2017-03-18] MEDS: AMLODIPINE 5 MG TAB PO (21:00)
[2017-03-18] MEDS: INSULIN DETEMIR [LEVEMIR] 3ML CART SC (21:42)
[2017-03-18] MEDS: ZOLPIDEM 5 MG TAB PO (21:46)
[2017-03-19] MEDS: VANCOMYCIN HCL 250 MG/5ML POSYG PO ×5 (00:48→23:41)
[2017-03-19] MEDS: ACCU-CHEK XX ×5 (02:18→21:16)
[2017-03-19] MEDS: HYDROCODONE/APAP (5/325) TAB PO ×4 (03:17→20:04)
[2017-03-19] MEDS: metroNIDAZOLE 500 MG TAB PO ×3 (05:05→22:33)
[2017-03-19 06:34] LABS: ADD MAN DIFF? NO
[2017-03-19 06:41] LABS: WHITE BLOOD COUNT 15.3 10^3/ul (4.8-10.8)
[2017-03-19 06:41] LABS: BASOPHIL # 0.1 10^3/ul (0.0-0.1); BASOPHILS % 0.6 % (0.0-2.0); EOSINOPHILS # 0.4 10^3/ul (0.0-0.5); EOSINOPHILS % 2.6 % (0.0-7.0); HEMATOCRIT 23.4 % (37.0-47.0); HEMOGLOBIN 7.7 g/dl (12.0-16.0); LYMPHOCYTES # 2.2 10^3/ul (0.8-2.9); LYMPHOCYTES % 14.3 % (15.0-51.0); MEAN CORPUSCULAR HGB CONC 32.9 g/dl (32.0-37.0); MEAN CORPUSCULAR VOLUME 94.4 fl (82.0-101.0); MEAN PLATELET VOLUME 10.8 fl (7.4-10.4); MONOCYTE # 0.9 10^3/ul (0.3-0.9); NEUTROPHIL # 11.5 10^3/ul (1.6-7.5); NEUTROPHILS % 75.1 % (39.0-77.0); PLATELET COUNT 336 10^3/UL (140-415); RED BLOOD COUNT 2.48 10^6/ul (4.20-5.40); RED CELL DISTRIBUTION WIDTH 18.9 % (11.5-14.5)
[2017-03-19 07:04] LABS: ANION GAP 20 (8-16); BLOOD UREA NITROGEN 76 mg/dl (7-20); CALCIUM 7.7 mg/dl (8.4-10.2); CARBON DIOXIDE 13 mmol/L (21-31); CHLORIDE 111 mmol/L (97-110); CREATININE 5.61 mg/dl (0.44-1.00); GLUCOSE 154 mg/dl (70-220); POTASSIUM 3.5 mmol/L (3.5-5.1); SODIUM 140 mmol/L (135-144)
[2017-03-19] MEDS: CALCIUM CARBONATE 1.25 GM TAB PO (08:14)
[2017-03-19] MEDS: ZYVOX 600 MG TAB PO ×2 (08:14→21:04)
[2017-03-19] MEDS: POTASSIUM CHLORIDE (SR) 20 MEQ TAB PO ×3 (08:14→21:05)
[2017-03-19] MEDS: GABAPENTIN 300 MG CAP PO ×3 (08:14→21:04)
[2017-03-19] MEDS: LEVETIRACETAM (100 MG/ML) 5ML CUP PO ×2 (08:14→21:03)
[2017-03-19] MEDS: VITAMIN B COMPLEX/VIT C CAP PO (08:15)
[2017-03-19] MEDS: MULTIVIT/CA CARB/B CMPLX/FA TAB PO (08:15)
[2017-03-19] MEDS: FOLIC ACID 1 MG TAB PO (08:15)
[2017-03-19] MEDS: PANTOPRAZOLE (EC) 40 MG TAB PO (08:15)
[2017-03-19] MEDS: ASPIRIN (EC) 81 MG TAB PO (08:15)
[2017-03-19] MEDS: SACCHAROMYCES BOULARDII 250 MG CAP PO ×2 (08:15→21:04)
[2017-03-19] MEDS: ASCORBIC ACID 500 MG TAB PO ×3 (08:15→21:05)
[2017-03-19] MEDS: FLUOXETINE 20 MG CAP PO (08:16)
[2017-03-19] MEDS: ENOXAPARIN 30 MG/0.3 ML SYG SC (08:17)
[2017-03-19] MEDS: COLLAGENASE 30 GM TUBE TOP (08:17)
[2017-03-19] MEDS: INSULIN ASPART [NOVOLOG] 3 ML PEN SC ×7 (08:29→21:14)
[2017-03-19] MEDS: INSULIN DETEMIR [LEVEMIR] 3ML CART SC (21:00)
[2017-03-19] MEDS: AMLODIPINE 5 MG TAB PO (21:05)
[2017-03-20] MEDS: HYDROCODONE/APAP (5/325) TAB PO ×5 (00:46→20:27)
[2017-03-20] MEDS: ACCU-CHEK XX ×5 (02:07→20:33)
[2017-03-20] MEDS: metroNIDAZOLE 500 MG TAB PO ×3 (05:49→21:32)
[2017-03-20] MEDS: VANCOMYCIN HCL 250 MG/5ML POSYG PO ×4 (05:49→23:34)
[2017-03-20] MEDS: traMADol 50 MG TAB PO (06:51)
[2017-03-20] MEDS: INSULIN ASPART [NOVOLOG] 3 ML PEN SC ×7 (07:55→20:32)
[2017-03-20] MEDS: POTASSIUM CHLORIDE (SR) 20 MEQ TAB PO ×3 (08:43→20:24)
[2017-03-20] MEDS: MULTIVIT/CA CARB/B CMPLX/FA TAB PO (08:43)
[2017-03-20] MEDS: FLUOXETINE 20 MG CAP PO (08:43)
[2017-03-20] MEDS: LEVETIRACETAM (100 MG/ML) 5ML CUP PO ×2 (08:43→20:26)
[2017-03-20] MEDS: SACCHAROMYCES BOULARDII 250 MG CAP PO ×2 (08:43→20:24)
[2017-03-20] MEDS: CALCIUM CARBONATE 1.25 GM TAB PO (08:43)
[2017-03-20] MEDS: PANTOPRAZOLE (EC) 40 MG TAB PO (08:43)
[2017-03-20] MEDS: GABAPENTIN 300 MG CAP PO ×3 (08:44→20:24)
[2017-03-20] MEDS: ZYVOX 600 MG TAB PO ×2 (08:44→20:24)
[2017-03-20] MEDS: ASPIRIN (EC) 81 MG TAB PO (08:44)
[2017-03-20] MEDS: COLLAGENASE 30 GM TUBE TOP (08:44)
[2017-03-20] MEDS: ASCORBIC ACID 500 MG TAB PO ×2 (08:44→12:28)
[2017-03-20] MEDS: FOLIC ACID 1 MG TAB PO (08:44)
[2017-03-20] MEDS ORDERED: INSULIN ASPART [NOVOLOG] 3 ML PEN SC (17:55)
[2017-03-20] MEDS: AMLODIPINE 5 MG TAB PO (20:25)
[2017-03-20] MEDS: INSULIN DETEMIR [LEVEMIR] 3ML CART SC (20:31)
[2017-03-20] MEDS ORDERED: INSULIN DETEMIR [LEVEMIR] 3ML CART SC ×2 (21:00)
[2017-03-21] MEDS: ACCU-CHEK XX ×5 (01:28→21:50)
[2017-03-21] MEDS: VANCOMYCIN HCL 250 MG/5ML POSYG PO ×4 (06:13→23:21)
[2017-03-21] MEDS: metroNIDAZOLE 500 MG TAB PO ×3 (06:13→21:36)
[2017-03-21] MEDS: ZYVOX 600 MG TAB PO ×2 (08:28→21:36)
[2017-03-21] MEDS: LEVETIRACETAM (100 MG/ML) 5ML CUP PO ×2 (08:28→21:35)
[2017-03-21] MEDS: ASPIRIN (EC) 81 MG TAB PO (08:28)
[2017-03-21] MEDS: CALCIUM CARBONATE 1.25 GM TAB PO (08:28)
[2017-03-21] MEDS: PANTOPRAZOLE (EC) 40 MG TAB PO (08:28)
[2017-03-21] MEDS: SACCHAROMYCES BOULARDII 250 MG CAP PO ×2 (08:28→21:36)
[2017-03-21] MEDS: GABAPENTIN 300 MG CAP PO ×3 (08:28→21:36)
[2017-03-21] MEDS: MULTIVIT/CA CARB/B CMPLX/FA TAB PO (08:28)
[2017-03-21] MEDS: POTASSIUM CHLORIDE (SR) 20 MEQ TAB PO (08:28)
[2017-03-21] MEDS: FLUOXETINE 20 MG CAP PO (08:28)
[2017-03-21] MEDS: HYDROCODONE/APAP (5/325) TAB PO (08:29)
[2017-03-21] MEDS: INSULIN ASPART [NOVOLOG] 3 ML PEN SC ×7 (08:40→21:00)
[2017-03-21] MEDS: COLLAGENASE 30 GM TUBE TOP (08:41)
[2017-03-21 11:13] LABS: ADD MAN DIFF? NO
[2017-03-21 11:26] LABS: BASOPHIL # 0.1 10^3/ul (0.0-0.1); BASOPHILS % 0.4 % (0.0-2.0); EOSINOPHILS # 0.3 10^3/ul (0.0-0.5); EOSINOPHILS % 2.4 % (0.0-7.0); HEMATOCRIT 23.3 % (37.0-47.0); HEMOGLOBIN 7.4 g/dl (12.0-16.0); LYMPHOCYTES # 1.9 10^3/ul (0.8-2.9); LYMPHOCYTES % 13.1 % (15.0-51.0); MEAN CORPUSCULAR HEMOGLOBIN 30.7 pg (29.0-33.0); MEAN CORPUSCULAR HGB CONC 31.8 g/dl (32.0-37.0); MEAN CORPUSCULAR VOLUME 96.7 fl (82.0-101.0); MEAN PLATELET VOLUME 10.9 fl (7.4-10.4); MONOCYTES % 6.7 % (0.0-11.0); NEUTROPHIL # 10.9 10^3/ul (1.6-7.5); NEUTROPHILS % 76.7 % (39.0-77.0); PLATELET COUNT 316 10^3/UL (140-415); RED BLOOD COUNT 2.41 10^6/ul (4.20-5.40); RED CELL DISTRIBUTION WIDTH 18.4 % (11.5-14.5)
[2017-03-21 11:26] LABS: WHITE BLOOD COUNT 14.3 10^3/ul (4.8-10.8)
[2017-03-21 11:49] LABS: ANION GAP 22 (8-16); BLOOD UREA NITROGEN 86 mg/dl (7-20); CALCIUM 6.8 mg/dl (8.4-10.2); CARBON DIOXIDE 11 mmol/L (21-31); CHLORIDE 109 mmol/L (97-110); CREATININE 5.64 mg/dl (0.44-1.00); GLUCOSE 136 mg/dl (70-220); POTASSIUM 3.6 mmol/L (3.5-5.1); SODIUM 138 mmol/L (135-144)
[2017-03-21] MEDS: CHOLESTYRAMINE 4 GM PACKET PO ×2 (12:58→21:36)
[2017-03-21] MEDS: FIDAXOMICIN 200 MG TABLET PO (21:36)
[2017-03-21] MEDS: INSULIN DETEMIR [LEVEMIR] 3ML CART SC (21:50)
[2017-03-21] MEDS: ZOLPIDEM 5 MG TAB PO (23:11)
[2017-03-22] MEDS: ACCU-CHEK XX ×5 (01:50→21:01)
[2017-03-22] MEDS: metroNIDAZOLE 500 MG TAB PO ×3 (05:33→21:25)
[2017-03-22] MEDS: VANCOMYCIN HCL 250 MG/5ML POSYG PO ×4 (05:33→23:49)
[2017-03-22] MEDS: HYDROCODONE/APAP (5/325) TAB PO ×4 (05:38→21:00)
[2017-03-22] MEDS: INSULIN ASPART [NOVOLOG] 3 ML PEN SC ×7 (07:55→20:59)
[2017-03-22] MEDS: PANTOPRAZOLE (EC) 40 MG TAB PO (10:05)
[2017-03-22] MEDS: CHOLESTYRAMINE 4 GM PACKET PO ×2 (10:05→21:00)
[2017-03-22] MEDS: MULTIVIT/CA CARB/B CMPLX/FA TAB PO (10:05)
[2017-03-22] MEDS: SACCHAROMYCES BOULARDII 250 MG CAP PO ×2 (10:05→21:00)
[2017-03-22] MEDS: ASPIRIN (EC) 81 MG TAB PO (10:05)
[2017-03-22] MEDS: FLUOXETINE 20 MG CAP PO (10:05)
[2017-03-22] MEDS: GABAPENTIN 300 MG CAP PO ×3 (10:05→21:00)
[2017-03-22] MEDS: FIDAXOMICIN 200 MG TABLET PO (10:05)
[2017-03-22] MEDS: ZYVOX 600 MG TAB PO ×2 (10:05→21:00)
[2017-03-22] MEDS: LEVETIRACETAM (100 MG/ML) 5ML CUP PO ×2 (10:05→21:00)
[2017-03-22] MEDS: COLLAGENASE 30 GM TUBE TOP (10:07)
[2017-03-22] MEDS: traMADol 50 MG TAB PO (14:09)
[2017-03-22] MEDS: AMIKACIN 350 MG in DEXTROSE 5% 100 ML IVPB (18:29)
[2017-03-22] MEDS: INSULIN DETEMIR [LEVEMIR] 3ML CART SC (21:08)
[2017-03-22] MEDS: ZOLPIDEM 5 MG TAB PO (21:25)
[2017-03-23] MEDS: ACCU-CHEK XX ×4 (02:21→21:00)
[2017-03-23] MEDS: HYDROCODONE/APAP (5/325) TAB PO ×3 (03:21→20:45)
[2017-03-23] MEDS: metroNIDAZOLE 500 MG TAB PO ×3 (06:11→21:46)
[2017-03-23] MEDS: VANCOMYCIN HCL 250 MG/5ML POSYG PO ×3 (06:11→20:42)
[2017-03-23] MEDS: traMADol 50 MG TAB PO ×2 (06:34→18:06)
[2017-03-23] MEDS: INSULIN ASPART [NOVOLOG] 3 ML PEN SC ×9 (07:55→20:55)
[2017-03-23] MEDS: CHOLESTYRAMINE 4 GM PACKET PO ×2 (09:00→20:46)
[2017-03-23 09:15] LABS: WHITE BLOOD COUNT 13.3 10^3/ul (4.8-10.8)
[2017-03-23 09:15] LABS: ABNORMAL IP MESSAGE 1; HEMATOCRIT 18.5 % (37.0-47.0); MEAN CORPUSCULAR HEMOGLOBIN 30.7 pg (29.0-33.0); MEAN CORPUSCULAR HGB CONC 33.5 g/dl (32.0-37.0); MEAN CORPUSCULAR VOLUME 91.6 fl (82.0-101.0); MEAN PLATELET VOLUME 10.8 fl (7.4-10.4); PLATELET COUNT 232 10^3/UL (140-415); RED BLOOD COUNT 2.02 10^6/ul (4.20-5.40); RED CELL DISTRIBUTION WIDTH 18.1 % (11.5-14.5)
[2017-03-23] MEDS: GABAPENTIN 300 MG CAP PO ×3 (09:21→20:42)
[2017-03-23] MEDS: MULTIVIT/CA CARB/B CMPLX/FA TAB PO (09:21)
[2017-03-23] MEDS: PANTOPRAZOLE (EC) 40 MG TAB PO (09:21)
[2017-03-23] MEDS: LEVETIRACETAM (100 MG/ML) 5ML CUP PO ×2 (09:22→20:42)
[2017-03-23] MEDS: FLUOXETINE 20 MG CAP PO (09:22)
[2017-03-23] MEDS: SACCHAROMYCES BOULARDII 250 MG CAP PO ×2 (09:23→21:01)
[2017-03-23] MEDS: ZYVOX 600 MG TAB PO ×2 (09:23→20:46)
[2017-03-23] MEDS: ASPIRIN (EC) 81 MG TAB PO (09:28)
[2017-03-23 09:41] LABS: HEMOGLOBIN 6.2 g/dl (12.0-16.0)
[2017-03-23 09:42] LABS: ADD MAN DIFF? YES; POSITIVE DIFF @See below
[2017-03-23 09:50] LABS: PHOSPHORUS 12.2 mg/dl (2.5-4.9)
[2017-03-23 09:50] LABS: MAGNESIUM 1.2 mg/dl (1.7-2.5)
[2017-03-23 09:59] LABS: ALANINE AMINOTRANSFERASE 32 IU/L (13-69); ALBUMIN 2.1 g/dl (3.3-4.9); ALKALINE PHOSPHATASE 43 IU/L (42-121); ANION GAP 21 (8-16); ASPARTATE AMINO TRANSFERASE 17 IU/L (15-46); BLOOD UREA NITROGEN 87 mg/dl (7-20); CARBON DIOXIDE 14 mmol/L (21-31); CHLORIDE 103 mmol/L (97-110); CREATININE 5.27 mg/dl (0.44-1.00); GLUCOSE 84 mg/dl (70-220); SODIUM 135 mmol/L (135-144); TOTAL PROTEIN 4.7 g/dl (6.1-8.1)
[2017-03-23 10:01] LABS: CALCIUM 5.7 mg/dl (8.4-10.2); POTASSIUM 2.8 mmol/L (3.5-5.1)
[2017-03-23 10:23] LABS: ANISOCYTOSIS 1+ (0-0); BASOPHIL #M 0.2 10^3/ul (0.0-0.0); BASOPHILS % (M) 2 % (0-2); EOSINOPHILS % (M) 7 % (0-7); GIANT THROMBO% (M) 1 % (0-0); LYMPHOCYTES #M 0.9 10^3/ul (0.8-2.9); LYMPHOCYTES % (M) 7 % (15-51); MONOCYTE #M 0.7 10^3/ul (0.3-0.9); MONOCYTES % (M) 6 % (0-11); PLATELET ESTIMATE NORMAL; POIKILOCYTOSIS 1+ (0-0); SEGMENTED NEUTROPHILS (M) % 78 % (39-77); SMUDGE%M 4 % (0-0)
[2017-03-23] MEDS: CALCIUM ACETATE 667 MG CAP NGT ×2 (12:15→17:57)
[2017-03-23] MEDS ORDERED: POTASSIUM CHLORIDE 30 MEQ in DEXTROSE 5% 250 ML IVPB (13:00)
[2017-03-23] MEDS: POTASSIUM CHLORIDE (SR) 20 MEQ TAB PO ×3 (13:18→20:45)
[2017-03-23] MEDS: MAGNESIUM OXIDE 400 MG TAB PO (13:19)
[2017-03-23] MEDS: ACETAMINOPHEN 650MG/20.3ML CUP PO (13:20)
[2017-03-23] MEDS ORDERED: MAGNESIUM SULFATE 2 GM/50 ML 50 ML IVPB (13:30)
[2017-03-23 15:02] LABS: MAGNESIUM 1.2 mg/dl (1.7-2.5)
[2017-03-23 15:02] LABS: POTASSIUM 3.4 mmol/L (3.5-5.1)
[2017-03-23] MEDS: COLLAGENASE 30 GM TUBE TOP (16:22)
[2017-03-23] MEDS: SOD CHLORIDE 0.9% 250 ML IV* (16:24)
[2017-03-23] MEDS: INSULIN DETEMIR [LEVEMIR] 3ML CART SC (20:59)
[2017-03-24] MEDS: VANCOMYCIN HCL 250 MG/5ML POSYG PO ×5 (00:33→23:54)
[2017-03-24] MEDS: ZOLPIDEM 5 MG TAB PO (00:33)
[2017-03-24] MEDS: ACCU-CHEK XX ×5 (00:50→20:42)
[2017-03-24] MEDS: HYDROCODONE/APAP (5/325) TAB PO ×5 (02:56→22:42)
[2017-03-24] MEDS: metroNIDAZOLE 500 MG TAB PO ×3 (05:32→21:43)
[2017-03-24 06:09] LABS: ABNORMAL IP MESSAGE 1; HEMATOCRIT 19.6 % (37.0-47.0); MEAN CORPUSCULAR HEMOGLOBIN 30.5 pg (29.0-33.0); MEAN CORPUSCULAR HGB CONC 34.2 g/dl (32.0-37.0); MEAN CORPUSCULAR VOLUME 89.1 fl (82.0-101.0); MEAN PLATELET VOLUME 10.5 fl (7.4-10.4); PLATELET COUNT 181 10^3/UL (140-415); RED CELL DISTRIBUTION WIDTH 18.1 % (11.5-14.5)
[2017-03-24 06:09] LABS: WHITE BLOOD COUNT 11.1 10^3/ul (4.8-10.8)
[2017-03-24 06:41] LABS: MAGNESIUM 1.3 mg/dl (1.7-2.5)
[2017-03-24 06:41] LABS: PHOSPHORUS 8.1 mg/dl (2.5-4.9)
[2017-03-24 06:59] LABS: POSITIVE DIFF @See below
[2017-03-24 07:00] LABS: ADD MAN DIFF? YES; ALANINE AMINOTRANSFERASE 31 IU/L (13-69); ALBUMIN 2.2 g/dl (3.3-4.9); ALBUMIN/GLOBULIN RATIO 0.78; ALKALINE PHOSPHATASE 45 IU/L (42-121); ANION GAP 21 (8-16); ASPARTATE AMINO TRANSFERASE 14 IU/L (15-46); BLOOD UREA NITROGEN 66 mg/dl (7-20); CALCIUM 6.1 mg/dl (8.4-10.2); CARBON DIOXIDE 17 mmol/L (21-31); CHLORIDE 105 mmol/L (97-110); CREATININE 4.17 mg/dl (0.44-1.00); GLUCOSE 136 mg/dl (70-220); HEMOGLOBIN 6.7 g/dl (12.0-16.0); POTASSIUM 3.1 mmol/L (3.5-5.1); SODIUM 140 mmol/L (135-144)
[2017-03-24] MEDS: INSULIN ASPART [NOVOLOG] 3 ML PEN SC ×7 (08:15→20:41)
[2017-03-24] MEDS: COLLAGENASE 30 GM TUBE TOP (09:00)
[2017-03-24] MEDS: CALCIUM ACETATE 667 MG CAP NGT ×3 (09:18→17:41)
[2017-03-24] MEDS: LEVETIRACETAM (100 MG/ML) 5ML CUP PO ×2 (09:23→20:41)
[2017-03-24] MEDS: SACCHAROMYCES BOULARDII 250 MG CAP PO ×2 (09:23→20:41)
[2017-03-24] MEDS: ASPIRIN (EC) 81 MG TAB PO (09:23)
[2017-03-24] MEDS: FLUOXETINE 20 MG CAP PO (09:24)
[2017-03-24] MEDS: GABAPENTIN 300 MG CAP PO ×3 (09:24→20:41)
[2017-03-24] MEDS: PANTOPRAZOLE (EC) 40 MG TAB PO (09:24)
[2017-03-24] MEDS: POTASSIUM CHLORIDE (SR) 20 MEQ TAB PO ×3 (09:24→20:42)
[2017-03-24] MEDS: ZYVOX 600 MG TAB PO ×2 (09:25→20:42)
[2017-03-24] MEDS: MULTIVIT/CA CARB/B CMPLX/FA TAB PO (09:25)
[2017-03-24] MEDS: ACETAMINOPHEN 650MG/20.3ML CUP PO (09:25)
[2017-03-24 09:38] LABS: IMMEDIATE SPIN CROSSMATCH 1 5
[2017-03-24] MEDS: CHOLESTYRAMINE 4 GM PACKET PO ×2 (11:45→20:42)
[2017-03-24] MEDS: MAGNESIUM SULFATE 2 GM/50 ML 50 ML IVPB (14:00)
[2017-03-24] MEDS: traMADol 50 MG TAB PO (14:08)
[2017-03-24 16:15] LABS: ADD MAN DIFF? NO
[2017-03-24 16:19] LABS: ABNORMAL IP MESSAGE 1; BASOPHIL # 0.1 10^3/ul (0.0-0.1); BASOPHILS % 0.4 % (0.0-2.0); EOSINOPHILS # 0.5 10^3/ul (0.0-0.5); EOSINOPHILS % 4.4 % (0.0-7.0); HEMATOCRIT 22.9 % (37.0-47.0); HEMOGLOBIN 7.8 g/dl (12.0-16.0); MEAN CORPUSCULAR HEMOGLOBIN 30.4 pg (29.0-33.0); MEAN CORPUSCULAR HGB CONC 34.1 g/dl (32.0-37.0); MEAN CORPUSCULAR VOLUME 89.1 fl (82.0-101.0); MEAN PLATELET VOLUME 10.5 fl (7.4-10.4); MONOCYTE # 1.7 10^3/ul (0.3-0.9); MONOCYTES % 14.1 % (0.0-11.0); NEUTROPHIL # 7.4 10^3/ul (1.6-7.5); NEUTROPHILS % 63.2 % (39.0-77.0); PLATELET COUNT 177 10^3/UL (140-415); RED BLOOD COUNT 2.57 10^6/ul (4.20-5.40); RED CELL DISTRIBUTION WIDTH 17.9 % (11.5-14.5)
[2017-03-24 16:19] LABS: WHITE BLOOD COUNT 11.7 10^3/ul (4.8-10.8)
[2017-03-24 16:26] LABS: POSITIVE DIFF @See below
[2017-03-24] MEDS: POTASSIUM CHLORIDE 30 MEQ in DEXTROSE 5% 250 ML IVPB (16:32)
[2017-03-24] MEDS: INSULIN DETEMIR [LEVEMIR] 3ML CART SC (20:46)
[2017-03-25] MEDS: ACCU-CHEK XX ×5 (01:56→21:00)
[2017-03-25] MEDS: HYDROCODONE/APAP (5/325) TAB PO ×4 (03:15→20:56)
[2017-03-25] MEDS: metroNIDAZOLE 500 MG TAB PO ×3 (05:58→22:00)
[2017-03-25] MEDS: VANCOMYCIN HCL 250 MG/5ML POSYG PO ×3 (05:58→17:55)
[2017-03-25] MEDS: traMADol 50 MG TAB PO ×2 (06:03→19:16)
[2017-03-25] MEDS: INSULIN ASPART [NOVOLOG] 3 ML PEN SC ×7 (08:15→21:00)
[2017-03-25] MEDS: SACCHAROMYCES BOULARDII 250 MG CAP PO ×2 (08:41→20:57)
[2017-03-25] MEDS: GABAPENTIN 300 MG CAP PO ×3 (08:42→20:56)
[2017-03-25] MEDS: LEVETIRACETAM (100 MG/ML) 5ML CUP PO ×2 (08:42→20:57)
[2017-03-25] MEDS: ASPIRIN (EC) 81 MG TAB PO (08:42)
[2017-03-25] MEDS: POTASSIUM CHLORIDE (SR) 20 MEQ TAB PO ×3 (08:42→20:56)
[2017-03-25] MEDS: PANTOPRAZOLE (EC) 40 MG TAB PO (08:42)
[2017-03-25] MEDS: MULTIVIT/CA CARB/B CMPLX/FA TAB PO (08:43)
[2017-03-25] MEDS: ZYVOX 600 MG TAB PO (08:43)
[2017-03-25] MEDS: FLUOXETINE 20 MG CAP PO (08:43)
[2017-03-25] MEDS: CALCIUM ACETATE 667 MG CAP NGT ×3 (08:44→17:47)
[2017-03-25 10:58] LABS: ADD MAN DIFF? NO
[2017-03-25 11:01] LABS: WHITE BLOOD COUNT 12.6 10^3/ul (4.8-10.8)
[2017-03-25 11:01] LABS: BASOPHIL # 0.1 10^3/ul (0.0-0.1); BASOPHILS % 0.4 % (0.0-2.0); EOSINOPHILS # 0.6 10^3/ul (0.0-0.5); EOSINOPHILS % 4.8 % (0.0-7.0); HEMOGLOBIN 7.8 g/dl (12.0-16.0); LYMPHOCYTES # 1.8 10^3/ul (0.8-2.9); LYMPHOCYTES % 14.4 % (15.0-51.0); MEAN CORPUSCULAR HGB CONC 33.9 g/dl (32.0-37.0); MEAN CORPUSCULAR VOLUME 91.3 fl (82.0-101.0); MEAN PLATELET VOLUME 10.8 fl (7.4-10.4); MONOCYTE # 1.3 10^3/ul (0.3-0.9); MONOCYTES % 10.7 % (0.0-11.0); NEUTROPHIL # 8.7 10^3/ul (1.6-7.5); NEUTROPHILS % 68.8 % (39.0-77.0); PLATELET COUNT 170 10^3/UL (140-415); RED BLOOD COUNT 2.52 10^6/ul (4.20-5.40); RED CELL DISTRIBUTION WIDTH 18.3 % (11.5-14.5)
[2017-03-25 11:20] LABS: ANION GAP 21 (8-16); BLOOD UREA NITROGEN 83 mg/dl (7-20); CALCIUM 6.2 mg/dl (8.4-10.2); CARBON DIOXIDE 12 mmol/L (21-31); CHLORIDE 105 mmol/L (97-110); CREATININE 4.88 mg/dl (0.44-1.00); GLUCOSE 120 mg/dl (70-220); POTASSIUM 3.4 mmol/L (3.5-5.1); SODIUM 135 mmol/L (135-144)
[2017-03-25] MEDS: CHOLESTYRAMINE 4 GM PACKET PO ×3 (11:40→20:57)
[2017-03-25] MEDS: ALBUMIN HUMAN 25% 100 ML IV (15:01)
[2017-03-25] MEDS: COLLAGENASE 30 GM TUBE TOP (16:05)
[2017-03-25] MEDS: DAPTOMYCIN IVPB (16:05)
[2017-03-25] MEDS: SOD CHLORIDE 0.9% IVPB (16:05)
[2017-03-25] MEDS ORDERED: INSULIN DETEMIR [LEVEMIR] 3ML CART SC (21:00)
[2017-03-25] MEDS: INSULIN DETEMIR [LEVEMIR] 3ML CART SC (21:08)
[2017-03-26] MEDS: ACCU-CHEK XX ×5 (02:00→21:20)
[2017-03-26] MEDS: VANCOMYCIN HCL 250 MG/5ML POSYG PO ×5 (06:00→23:51)
[2017-03-26] MEDS: metroNIDAZOLE 500 MG TAB PO ×3 (06:00→21:17)
[2017-03-26] MEDS: COLLAGENASE 30 GM TUBE TOP ×2 (06:15→09:52)
[2017-03-26] MEDS: HYDROCODONE/APAP (5/325) TAB PO ×3 (06:20→21:16)
[2017-03-26 07:19] LABS: CREATINE KINASE 36 IU/L (23-200)
[2017-03-26] MEDS: INSULIN ASPART [NOVOLOG] 3 ML PEN SC ×7 (08:25→21:20)
[2017-03-26] MEDS: FLUOXETINE 20 MG CAP PO (09:00)
[2017-03-26] MEDS: ASPIRIN (EC) 81 MG TAB PO (09:39)
[2017-03-26] MEDS: POTASSIUM CHLORIDE (SR) 20 MEQ TAB PO ×3 (09:39→21:17)
[2017-03-26] MEDS: GABAPENTIN 300 MG CAP PO ×3 (09:39→21:16)
[2017-03-26] MEDS: SACCHAROMYCES BOULARDII 250 MG CAP PO ×2 (09:39→21:17)
[2017-03-26] MEDS: MULTIVIT/CA CARB/B CMPLX/FA TAB PO (09:39)
[2017-03-26] MEDS: PANTOPRAZOLE (EC) 40 MG TAB PO (09:40)
[2017-03-26] MEDS: CALCIUM ACETATE 667 MG CAP NGT ×3 (09:42→17:39)
[2017-03-26] MEDS: LEVETIRACETAM (100 MG/ML) 5ML CUP PO ×2 (09:43→21:15)
[2017-03-26] MEDS: CHOLESTYRAMINE 4 GM PACKET PO ×3 (09:43→21:16)
[2017-03-26] MEDS: AMIKACIN 350 MG in DEXTROSE 5% 100 ML IVPB (16:35)
[2017-03-26] MEDS: INSULIN DETEMIR [LEVEMIR] 3ML CART SC (21:19)
[2017-03-26] MEDS: ZOLPIDEM 5 MG TAB PO (22:12)
[2017-03-27] MEDS: ACCU-CHEK XX ×5 (02:00→21:49)
[2017-03-27] MEDS: VANCOMYCIN HCL 250 MG/5ML POSYG PO ×4 (05:50→23:56)
[2017-03-27] MEDS: metroNIDAZOLE 500 MG TAB PO ×3 (05:50→21:30)
[2017-03-27 06:25] LABS: ANION GAP 22 (8-16); BLOOD UREA NITROGEN 81 mg/dl (7-20); CARBON DIOXIDE 15 mmol/L (21-31); CHLORIDE 111 mmol/L (97-110); CREATININE 5.33 mg/dl (0.44-1.00); GLUCOSE 146 mg/dl (70-220); POTASSIUM 3.6 mmol/L (3.5-5.1); SODIUM 144 mmol/L (135-144)
[2017-03-27] MEDS: INSULIN ASPART [NOVOLOG] 3 ML PEN SC ×7 (08:15→21:00)
[2017-03-27] MEDS: MULTIVIT/CA CARB/B CMPLX/FA TAB PO (08:37)
[2017-03-27] MEDS: FLUOXETINE 20 MG CAP PO (08:38)
[2017-03-27] MEDS: CHOLESTYRAMINE 4 GM PACKET PO ×3 (08:38→21:31)
[2017-03-27] MEDS: GABAPENTIN 300 MG CAP PO ×3 (08:38→21:31)
[2017-03-27] MEDS: ASPIRIN (EC) 81 MG TAB PO (08:38)
[2017-03-27] MEDS: PANTOPRAZOLE (EC) 40 MG TAB PO (08:38)
[2017-03-27] MEDS: SACCHAROMYCES BOULARDII 250 MG CAP PO ×2 (08:38→21:48)
[2017-03-27] MEDS: LEVETIRACETAM (100 MG/ML) 5ML CUP PO ×2 (08:38→21:30)
[2017-03-27] MEDS: POTASSIUM CHLORIDE (SR) 20 MEQ TAB PO ×3 (08:38→21:48)
[2017-03-27] MEDS: CALCIUM ACETATE 667 MG CAP NGT ×2 (08:39→12:33)
[2017-03-27] MEDS: COLLAGENASE 30 GM TUBE TOP (09:19)
[2017-03-27] MEDS: DAPTOMYCIN IVPB (12:33)
[2017-03-27] MEDS: SOD CHLORIDE 0.9% IVPB (12:33)
[2017-03-27] MEDS: HYDROCODONE/APAP (5/325) TAB PO ×2 (12:51→18:39)
[2017-03-27] MEDS: CHOLECALCIFEROL 2,000 UNIT CAP PO (14:30)
[2017-03-27] MEDS: SEVELAMER 400 MG TAB PO (18:37)
[2017-03-27] MEDS: BISACODYL (EC) 5 MG TAB PO ×2 (18:38→21:31)
[2017-03-27] MEDS: PEG/ELECTROLYTES 4L BTL PO ×2 (18:40→21:32)
[2017-03-27] MEDS: INSULIN DETEMIR [LEVEMIR] 3ML CART SC (22:26)
[2017-03-27] MEDS: ZOLPIDEM 5 MG TAB PO (23:56)
[2017-03-28] MEDS: ACCU-CHEK XX ×5 (01:59→20:54)
[2017-03-28] MEDS: metroNIDAZOLE 500 MG TAB PO (05:53)
[2017-03-28] MEDS: VANCOMYCIN HCL 250 MG/5ML POSYG PO ×3 (05:53→17:34)
[2017-03-28 05:55] LABS: ADD MAN DIFF? NO
[2017-03-28 06:23] LABS: WHITE BLOOD COUNT 9.4 10^3/ul (4.8-10.8)
[2017-03-28 06:23] LABS: BASOPHIL # 0.1 10^3/ul (0.0-0.1); BASOPHILS % 0.6 % (0.0-2.0); EOSINOPHILS % 10.6 % (0.0-7.0); HEMOGLOBIN 7.8 g/dl (12.0-16.0); LYMPHOCYTES # 1.7 10^3/ul (0.8-2.9); LYMPHOCYTES % 18.3 % (15.0-51.0); MEAN CORPUSCULAR HEMOGLOBIN 30.6 pg (29.0-33.0); MEAN CORPUSCULAR HGB CONC 32.5 g/dl (32.0-37.0); MEAN CORPUSCULAR VOLUME 94.1 fl (82.0-101.0); MEAN PLATELET VOLUME 10.7 fl (7.4-10.4); MONOCYTE # 1.2 10^3/ul (0.3-0.9); MONOCYTES % 12.5 % (0.0-11.0); NEUTROPHIL # 5.3 10^3/ul (1.6-7.5); NEUTROPHILS % 56.9 % (39.0-77.0); PLATELET COUNT 250 10^3/UL (140-415); RED BLOOD COUNT 2.55 10^6/ul (4.20-5.40); RED CELL DISTRIBUTION WIDTH 17.6 % (11.5-14.5)
[2017-03-28 06:47] LABS: ALANINE AMINOTRANSFERASE 27 IU/L (13-69); ALBUMIN 2.7 g/dl (3.3-4.9); ALBUMIN/GLOBULIN RATIO 0.87; ALKALINE PHOSPHATASE 50 IU/L (42-121); ANION GAP 18 (8-16); ASPARTATE AMINO TRANSFERASE 18 IU/L (15-46); BLOOD UREA NITROGEN 56 mg/dl (7-20); CALCIUM 7.5 mg/dl (8.4-10.2); CARBON DIOXIDE 22 mmol/L (21-31); CHLORIDE 110 mmol/L (97-110); CREATININE 3.84 mg/dl (0.44-1.00); GLUCOSE 130 mg/dl (70-220); POTASSIUM 3.3 mmol/L (3.5-5.1); SODIUM 147 mmol/L (135-144); TOTAL PROTEIN 5.8 g/dl (6.1-8.1)
[2017-03-28] MEDS: SEVELAMER 400 MG TAB PO ×3 (08:05→17:34)
[2017-03-28] MEDS: INSULIN ASPART [NOVOLOG] 3 ML PEN SC ×7 (08:05→20:53)
[2017-03-28] MEDS: ASPIRIN (EC) 81 MG TAB PO (08:06)
[2017-03-28] MEDS: SACCHAROMYCES BOULARDII 250 MG CAP PO ×2 (08:06→20:45)
[2017-03-28] MEDS: POTASSIUM CHLORIDE (SR) 20 MEQ TAB PO ×3 (08:06→20:45)
[2017-03-28] MEDS: GABAPENTIN 300 MG CAP PO ×3 (08:06→20:45)
[2017-03-28] MEDS: LEVETIRACETAM (100 MG/ML) 5ML CUP PO ×2 (08:06→20:44)
[2017-03-28] MEDS: MULTIVIT/CA CARB/B CMPLX/FA TAB PO (08:07)
[2017-03-28] MEDS: FLUOXETINE 20 MG CAP PO (08:07)
[2017-03-28] MEDS: CHOLESTYRAMINE 4 GM PACKET PO ×3 (08:07→20:46)
[2017-03-28] MEDS: CHOLECALCIFEROL 2,000 UNIT CAP PO (08:07)
[2017-03-28] MEDS: PANTOPRAZOLE (EC) 40 MG TAB PO (08:07)
[2017-03-28] MEDS: COLLAGENASE 30 GM TUBE TOP (08:08)
[2017-03-28] MEDS: LIDOCAINE 2% (SDV) 5 ML INJ (10:08)
[2017-03-28] MEDS: PROPOFOL 60 ML (10:08)
[2017-03-28] MEDS: ZOLPIDEM 5 MG TAB PO (22:30)
[2017-03-28] MEDS: INSULIN DETEMIR [LEVEMIR] 3ML CART SC (22:51)
[2017-03-29] MEDS: VANCOMYCIN HCL 250 MG/5ML POSYG PO ×4 (00:13→17:46)
[2017-03-29] MEDS: ACCU-CHEK XX ×5 (02:00→20:37)
[2017-03-29] MEDS: DIPHENHYDRAMINE 50 MG INJ IV ×2 (05:20→21:36)
[2017-03-29] MEDS: INSULIN ASPART [NOVOLOG] 3 ML PEN SC ×7 (08:11→20:37)
[2017-03-29] MEDS: SEVELAMER 400 MG TAB PO ×3 (08:12→17:46)
[2017-03-29] MEDS: CHOLECALCIFEROL 2,000 UNIT CAP PO (08:14)
[2017-03-29] MEDS: PANTOPRAZOLE (EC) 40 MG TAB PO (08:14)
[2017-03-29] MEDS: FLUOXETINE 20 MG CAP PO (08:14)
[2017-03-29] MEDS: MULTIVIT/CA CARB/B CMPLX/FA TAB PO (08:14)
[2017-03-29] MEDS: SACCHAROMYCES BOULARDII 250 MG CAP PO ×2 (08:14→20:36)
[2017-03-29] MEDS: LEVETIRACETAM (100 MG/ML) 5ML CUP PO ×2 (08:14→20:36)
[2017-03-29] MEDS: POTASSIUM CHLORIDE (SR) 20 MEQ TAB PO ×3 (08:14→20:36)
[2017-03-29] MEDS: GABAPENTIN 300 MG CAP PO ×3 (08:14→20:36)
[2017-03-29] MEDS: ASPIRIN (EC) 81 MG TAB PO (08:14)
[2017-03-29] MEDS: HYDROCODONE/APAP (5/325) TAB PO ×2 (08:15→09:26)
[2017-03-29 08:24] LABS: ANION GAP 20 (8-16); BLOOD UREA NITROGEN 66 mg/dl (7-20); CALCIUM 7.2 mg/dl (8.4-10.2); CARBON DIOXIDE 20 mmol/L (21-31); CHLORIDE 112 mmol/L (97-110); CREATININE 4.75 mg/dl (0.44-1.00); GLUCOSE 126 mg/dl (70-220); POTASSIUM 3.4 mmol/L (3.5-5.1); SODIUM 149 mmol/L (135-144)
[2017-03-29] MEDS: CHOLESTYRAMINE 4 GM PACKET PO ×3 (11:34→20:36)
[2017-03-29] MEDS: COLLAGENASE 30 GM TUBE TOP (11:35)
[2017-03-29 13:01] LABS: ANION GAP 20 (8-16); BLOOD UREA NITROGEN 59 mg/dl (7-20); CARBON DIOXIDE 21 mmol/L (21-31); CHLORIDE 111 mmol/L (97-110); CREATININE 4.55 mg/dl (0.44-1.00); GLUCOSE 146 mg/dl (70-220); POTASSIUM 3.7 mmol/L (3.5-5.1); SODIUM 148 mmol/L (135-144)
[2017-03-29] MEDS: traMADol 50 MG TAB PO (14:08)
[2017-03-29] MEDS: INSULIN DETEMIR [LEVEMIR] 3ML CART SC (20:48)
[2017-03-30] MEDS: VANCOMYCIN HCL 250 MG/5ML POSYG PO ×4 (00:14→17:50)
[2017-03-30] MEDS: ACCU-CHEK XX ×5 (02:00→20:38)
[2017-03-30 06:40] LABS: ADD MAN DIFF? NO
[2017-03-30 06:45] LABS: WHITE BLOOD COUNT 10.3 10^3/ul (4.8-10.8)
[2017-03-30 06:45] LABS: BASOPHIL # 0.1 10^3/ul (0.0-0.1); BASOPHILS % 0.6 % (0.0-2.0); EOSINOPHILS # 1.3 10^3/ul (0.0-0.5); EOSINOPHILS % 12.2 % (0.0-7.0); HEMATOCRIT 25.3 % (37.0-47.0); LYMPHOCYTES # 2.4 10^3/ul (0.8-2.9); LYMPHOCYTES % 23.4 % (15.0-51.0); MEAN CORPUSCULAR HEMOGLOBIN 30.2 pg (29.0-33.0); MEAN CORPUSCULAR HGB CONC 31.6 g/dl (32.0-37.0); MEAN CORPUSCULAR VOLUME 95.5 fl (82.0-101.0); MEAN PLATELET VOLUME 11.3 fl (7.4-10.4); MONOCYTE # 1.2 10^3/ul (0.3-0.9); MONOCYTES % 11.7 % (0.0-11.0); NEUTROPHIL # 5.3 10^3/ul (1.6-7.5); NEUTROPHILS % 51.2 % (39.0-77.0); PLATELET COUNT 292 10^3/UL (140-415); RED BLOOD COUNT 2.65 10^6/ul (4.20-5.40); RED CELL DISTRIBUTION WIDTH 17.2 % (11.5-14.5)
[2017-03-30 06:55] LABS: POSITIVE DIFF @See below
[2017-03-30 07:03] LABS: PHOSPHORUS 5.9 mg/dl (2.5-4.9)
[2017-03-30 07:03] LABS: MAGNESIUM 1.6 mg/dl (1.7-2.5)
[2017-03-30 07:12] LABS: ANION GAP 19 (8-16); BLOOD UREA NITROGEN 53 mg/dl (7-20); CARBON DIOXIDE 22 mmol/L (21-31); CHLORIDE 110 mmol/L (97-110); CREATININE 4.37 mg/dl (0.44-1.00); GLUCOSE 122 mg/dl (70-220); POTASSIUM 3.8 mmol/L (3.5-5.1); SODIUM 147 mmol/L (135-144)
[2017-03-30] MEDS: HYDROCODONE/APAP (5/325) TAB PO ×2 (07:43→20:30)
[2017-03-30] MEDS: INSULIN ASPART [NOVOLOG] 3 ML PEN SC ×7 (08:15→20:34)
[2017-03-30] MEDS: SEVELAMER 400 MG TAB PO ×3 (08:27→17:50)
[2017-03-30] MEDS: SACCHAROMYCES BOULARDII 250 MG CAP PO ×2 (08:28→20:20)
[2017-03-30] MEDS: ASPIRIN (EC) 81 MG TAB PO (08:29)
[2017-03-30] MEDS: POTASSIUM CHLORIDE (SR) 20 MEQ TAB PO ×3 (08:29→20:19)
[2017-03-30] MEDS: CHOLECALCIFEROL 2,000 UNIT CAP PO (08:29)
[2017-03-30] MEDS: MULTIVIT/CA CARB/B CMPLX/FA TAB PO (08:29)
[2017-03-30] MEDS: LEVETIRACETAM (100 MG/ML) 5ML CUP PO ×2 (08:29→20:20)
[2017-03-30] MEDS: FLUOXETINE 20 MG CAP PO (08:29)
[2017-03-30] MEDS: GABAPENTIN 300 MG CAP PO ×3 (08:29→20:19)
[2017-03-30] MEDS: PANTOPRAZOLE (EC) 40 MG TAB PO (08:29)
[2017-03-30] MEDS: COLLAGENASE 30 GM TUBE TOP (08:30)
[2017-03-30] MEDS: CHOLESTYRAMINE 4 GM PACKET PO ×3 (10:21→20:20)
[2017-03-30] MEDS: MAGNESIUM SULFATE 2 GM/50 ML 50 ML IVPB (10:24)
[2017-03-30] MEDS ORDERED: LIDOCAINE 1% (MDV) 20 ML INJ (10:52)
[2017-03-30] MEDS: DIPHENHYDRAMINE 50 MG INJ IV (13:24)
[2017-03-30] MEDS: SILVER NITRATE SWAB TOP (13:30)
[2017-03-30 16:55] LABS: HAAIG REFLEX REFLEX FILED
[2017-03-30 17:53] LABS: HEPATITIS B SURFACE ANTIGEN NEGATIVE (NEGATIVE)
[2017-03-30 18:11] LABS: HEPATITIS B CORE ANTIBODY NEGATIVE (NEGATIVE)
[2017-03-30 18:20] LABS: HEPATITIS C VIRAL ANTIBODY REACTIVE (NEGATIVE)
[2017-03-30] MEDS: INSULIN DETEMIR [LEVEMIR] 3ML CART SC (20:29)
[2017-03-30] MEDS: ZOLPIDEM 5 MG TAB PO (22:13)
[2017-03-31] MEDS: VANCOMYCIN HCL 250 MG/5ML POSYG PO ×5 (00:06→23:07)
[2017-03-31] MEDS: ACCU-CHEK XX ×5 (02:00→21:00)
[2017-03-31] MEDS: INSULIN ASPART [NOVOLOG] 3 ML PEN SC ×7 (08:15→21:00)
[2017-03-31] MEDS: MULTIVIT/CA CARB/B CMPLX/FA TAB PO (08:36)
[2017-03-31] MEDS: LEVETIRACETAM (100 MG/ML) 5ML CUP PO ×2 (08:36→20:32)
[2017-03-31] MEDS: CHOLESTYRAMINE 4 GM PACKET PO ×3 (08:36→20:32)
[2017-03-31] MEDS: SEVELAMER 400 MG TAB PO ×3 (08:36→17:33)
[2017-03-31] MEDS: PANTOPRAZOLE (EC) 40 MG TAB PO (08:37)
[2017-03-31] MEDS: GABAPENTIN 300 MG CAP PO ×3 (08:37→20:32)
[2017-03-31] MEDS: CHOLECALCIFEROL 2,000 UNIT CAP PO (08:37)
[2017-03-31] MEDS: SACCHAROMYCES BOULARDII 250 MG CAP PO ×2 (08:37→20:32)
[2017-03-31] MEDS: FLUOXETINE 20 MG CAP PO (08:38)
[2017-03-31] MEDS: POTASSIUM CHLORIDE (SR) 20 MEQ TAB PO ×3 (08:38→20:32)
[2017-03-31] MEDS: ASPIRIN (EC) 81 MG TAB PO (08:38)
[2017-03-31] MEDS: DIPHENHYDRAMINE 25 MG CAP PO ×2 (08:38→20:32)
[2017-03-31] MEDS: COLLAGENASE 30 GM TUBE TOP (08:40)
[2017-03-31] MEDS: ACETAMINOPHEN 650MG/20.3ML CUP PO (13:27)
[2017-03-31] MEDS: ZOLPIDEM 5 MG TAB PO (21:43)
[2017-03-31] MEDS: INSULIN DETEMIR [LEVEMIR] 3ML CART SC (21:44)
[2017-04-01] MEDS: ACCU-CHEK XX ×5 (02:00→21:45)
[2017-04-01] MEDS: DIPHENHYDRAMINE 25 MG CAP PO (05:01)
[2017-04-01] MEDS: VANCOMYCIN HCL 250 MG/5ML POSYG PO ×3 (05:01→17:44)
[2017-04-01] MEDS: HYDROCODONE/APAP (5/325) TAB PO ×3 (06:17→19:03)
[2017-04-01] MEDS: INSULIN ASPART [NOVOLOG] 3 ML PEN SC ×7 (08:15→21:00)
[2017-04-01] MEDS: CHOLESTYRAMINE 4 GM PACKET PO ×3 (08:17→21:39)
[2017-04-01] MEDS: SEVELAMER 400 MG TAB PO ×3 (08:18→17:44)
[2017-04-01] MEDS: POTASSIUM CHLORIDE (SR) 20 MEQ TAB PO ×3 (08:18→21:40)
[2017-04-01] MEDS: CHOLECALCIFEROL 2,000 UNIT CAP PO (08:18)
[2017-04-01] MEDS: GABAPENTIN 300 MG CAP PO ×3 (08:18→21:40)
[2017-04-01] MEDS: MULTIVIT/CA CARB/B CMPLX/FA TAB PO (08:18)
[2017-04-01] MEDS: SACCHAROMYCES BOULARDII 250 MG CAP PO ×2 (08:18→21:40)
[2017-04-01] MEDS: LEVETIRACETAM (100 MG/ML) 5ML CUP PO ×2 (08:18→21:40)
[2017-04-01] MEDS: FLUOXETINE 20 MG CAP PO (08:18)
[2017-04-01] MEDS: PANTOPRAZOLE (EC) 40 MG TAB PO (08:18)
[2017-04-01] MEDS: ASPIRIN (EC) 81 MG TAB PO (08:19)
[2017-04-01] MEDS: DIPHENHYDRAMINE 50 MG INJ IV (10:16)
[2017-04-01] MEDS: COLLAGENASE 30 GM TUBE TOP (17:44)
[2017-04-01] MEDS: ZOLPIDEM 5 MG TAB PO (21:41)
[2017-04-01] MEDS: INSULIN DETEMIR [LEVEMIR] 3ML CART SC (21:43)
[2017-04-02] MEDS: VANCOMYCIN HCL 250 MG/5ML POSYG PO ×4 (00:31→17:27)
[2017-04-02] MEDS: ACCU-CHEK XX ×5 (02:00→20:40)
[2017-04-02] MEDS: POTASSIUM CHLORIDE (SR) 20 MEQ TAB PO ×3 (08:27→20:36)
[2017-04-02] MEDS: GABAPENTIN 300 MG CAP PO ×3 (08:27→20:36)
[2017-04-02] MEDS: LEVETIRACETAM (100 MG/ML) 5ML CUP PO ×2 (08:27→20:36)
[2017-04-02] MEDS: FLUOXETINE 20 MG CAP PO (08:27)
[2017-04-02] MEDS: ASPIRIN (EC) 81 MG TAB PO (08:27)
[2017-04-02] MEDS: MULTIVIT/CA CARB/B CMPLX/FA TAB PO (08:27)
[2017-04-02] MEDS: PANTOPRAZOLE (EC) 40 MG TAB PO (08:27)
[2017-04-02] MEDS: CHOLECALCIFEROL 2,000 UNIT CAP PO (08:27)
[2017-04-02] MEDS: SEVELAMER 400 MG TAB PO ×3 (08:27→17:27)
[2017-04-02] MEDS: SACCHAROMYCES BOULARDII 250 MG CAP PO ×2 (08:27→20:36)
[2017-04-02] MEDS: COLLAGENASE 30 GM TUBE TOP (08:28)
[2017-04-02] MEDS: CHOLESTYRAMINE 4 GM PACKET PO ×3 (08:28→20:36)
[2017-04-02] MEDS: INSULIN ASPART [NOVOLOG] 3 ML PEN SC ×7 (08:29→20:39)
[2017-04-02] MEDS: DIPHENHYDRAMINE 25 MG CAP PO (12:29)
[2017-04-02] MEDS: INSULIN DETEMIR [LEVEMIR] 3ML CART SC (20:47)
[2017-04-02] MEDS: ZOLPIDEM 5 MG TAB PO (22:36)
[2017-04-03] MEDS: VANCOMYCIN HCL 250 MG/5ML POSYG PO ×4 (00:14→17:24)
[2017-04-03] MEDS: ACCU-CHEK XX ×5 (02:00→21:00)
[2017-04-03] MEDS: INSULIN ASPART [NOVOLOG] 3 ML PEN SC ×7 (08:15→21:09)
[2017-04-03] MEDS: SEVELAMER 400 MG TAB PO ×3 (08:31→17:24)
[2017-04-03] MEDS: LEVETIRACETAM (100 MG/ML) 5ML CUP PO ×2 (08:31→20:58)
[2017-04-03] MEDS: POTASSIUM CHLORIDE (SR) 20 MEQ TAB PO ×3 (08:31→20:58)
[2017-04-03] MEDS: PANTOPRAZOLE (EC) 40 MG TAB PO (08:31)
[2017-04-03] MEDS: FLUOXETINE 20 MG CAP PO (08:31)
[2017-04-03] MEDS: CHOLESTYRAMINE 4 GM PACKET PO ×3 (08:31→20:59)
[2017-04-03] MEDS: SACCHAROMYCES BOULARDII 250 MG CAP PO ×2 (08:32→20:59)
[2017-04-03] MEDS: MULTIVIT/CA CARB/B CMPLX/FA TAB PO (08:32)
[2017-04-03] MEDS: ASPIRIN (EC) 81 MG TAB PO (08:32)
[2017-04-03] MEDS: GABAPENTIN 300 MG CAP PO ×3 (08:32→20:59)
[2017-04-03] MEDS: CHOLECALCIFEROL 2,000 UNIT CAP PO (08:32)
[2017-04-03] MEDS: COLLAGENASE 30 GM TUBE TOP (08:33)
[2017-04-03] MEDS: DIPHENHYDRAMINE 25 MG CAP PO ×2 (09:46→20:59)
[2017-04-03] MEDS: HYDROCODONE/APAP (5/325) TAB PO (16:11)
[2017-04-03] MEDS: INSULIN DETEMIR [LEVEMIR] 3ML CART SC (21:08)
[2017-04-03] MEDS: ZOLPIDEM 5 MG TAB PO (22:17)
[2017-04-04] MEDS: VANCOMYCIN HCL 250 MG/5ML POSYG PO ×5 (00:40→23:45)
[2017-04-04] MEDS: ACCU-CHEK XX ×5 (02:00→21:00)
[2017-04-04] MEDS: DIPHENHYDRAMINE 25 MG CAP PO ×2 (04:40→16:01)
[2017-04-04] MEDS: CHOLESTYRAMINE 4 GM PACKET PO ×3 (08:32→21:28)
[2017-04-04] MEDS: GABAPENTIN 300 MG CAP PO ×3 (08:32→21:28)
[2017-04-04] MEDS: SEVELAMER 400 MG TAB PO ×3 (08:32→17:48)
[2017-04-04] MEDS: CHOLECALCIFEROL 2,000 UNIT CAP PO (08:33)
[2017-04-04] MEDS: FLUOXETINE 20 MG CAP PO (08:33)
[2017-04-04] MEDS: POTASSIUM CHLORIDE (SR) 20 MEQ TAB PO ×2 (08:33→12:03)
[2017-04-04] MEDS: ASPIRIN (EC) 81 MG TAB PO (08:33)
[2017-04-04] MEDS: LEVETIRACETAM (100 MG/ML) 5ML CUP PO ×2 (08:33→21:28)
[2017-04-04] MEDS: PANTOPRAZOLE (EC) 40 MG TAB PO (08:33)
[2017-04-04] MEDS: SACCHAROMYCES BOULARDII 250 MG CAP PO ×2 (08:33→21:28)
[2017-04-04] MEDS: MULTIVIT/CA CARB/B CMPLX/FA TAB PO (08:33)
[2017-04-04] MEDS: INSULIN ASPART [NOVOLOG] 3 ML PEN SC ×7 (08:58→21:00)
[2017-04-04] MEDS: COLLAGENASE 30 GM TUBE TOP (09:00)
[2017-04-04 12:50] LABS: ANION GAP 21 (8-16); BLOOD UREA NITROGEN 67 mg/dl (7-20); CALCIUM 8.4 mg/dl (8.4-10.2); CARBON DIOXIDE 18 mmol/L (21-31); CHLORIDE 112 mmol/L (97-110); CREATININE 5.24 mg/dl (0.44-1.00); GLUCOSE 125 mg/dl (70-220); SODIUM 145 mmol/L (135-144)
[2017-04-04] MEDS: NA POLYST SULFON 15 GM/60 ML BTL PO ×2 (16:02→22:35)
[2017-04-04 21:22] LABS: POTASSIUM 6.3 mmol/L (3.5-5.1)
[2017-04-04] MEDS: INSULIN DETEMIR [LEVEMIR] 3ML CART SC (21:33)
[2017-04-04] MEDS: HYDROCODONE/APAP (5/325) TAB PO (22:31)
[2017-04-04] MEDS: ZOLPIDEM 5 MG TAB PO (23:48)
[2017-04-05] MEDS: ACCU-CHEK XX ×5 (02:00→21:00)
[2017-04-05] MEDS: NA POLYST SULFON 15 GM/60 ML BTL PO (02:35)
[2017-04-05] MEDS: VANCOMYCIN HCL 250 MG/5ML POSYG PO ×2 (05:50→21:46)
[2017-04-05 07:31] LABS: POTASSIUM 5.4 mmol/L (3.5-5.1)
[2017-04-05] MEDS: MULTIVIT/CA CARB/B CMPLX/FA TAB PO (08:08)
[2017-04-05] MEDS: LEVETIRACETAM (100 MG/ML) 5ML CUP PO ×2 (08:08→21:32)
[2017-04-05] MEDS: ASPIRIN (EC) 81 MG TAB PO (08:08)
[2017-04-05] MEDS: GABAPENTIN 300 MG CAP PO ×3 (08:08→21:33)
[2017-04-05] MEDS: SEVELAMER 400 MG TAB PO ×3 (08:08→17:19)
[2017-04-05] MEDS: PANTOPRAZOLE (EC) 40 MG TAB PO (08:09)
[2017-04-05] MEDS: CHOLECALCIFEROL 2,000 UNIT CAP PO (08:09)
[2017-04-05] MEDS: FLUOXETINE 20 MG CAP PO (08:09)
[2017-04-05] MEDS: COLLAGENASE 30 GM TUBE TOP (08:10)
[2017-04-05] MEDS: INSULIN ASPART [NOVOLOG] 3 ML PEN SC ×7 (08:14→21:00)
[2017-04-05] MEDS: CHOLESTYRAMINE 4 GM PACKET PO ×3 (08:17→21:36)
[2017-04-05] MEDS: SACCHAROMYCES BOULARDII 250 MG CAP PO ×2 (08:23→21:33)
[2017-04-05] MEDS: DIPHENHYDRAMINE 25 MG CAP PO ×2 (13:31→21:33)
[2017-04-05] MEDS: INSULIN DETEMIR [LEVEMIR] 3ML CART SC (21:43)
[2017-04-05] MEDS: ZOLPIDEM 5 MG TAB PO (22:42)
[2017-04-06] MEDS: ACCU-CHEK XX ×5 (02:00→21:16)
[2017-04-06] MEDS: INSULIN ASPART [NOVOLOG] 3 ML PEN SC ×7 (08:15→21:00)
[2017-04-06] MEDS: CHOLESTYRAMINE 4 GM PACKET PO ×3 (08:29→21:16)
[2017-04-06] MEDS: MULTIVIT/CA CARB/B CMPLX/FA TAB PO (08:29)
[2017-04-06] MEDS: SACCHAROMYCES BOULARDII 250 MG CAP PO ×2 (08:29→21:16)
[2017-04-06] MEDS: GABAPENTIN 300 MG CAP PO ×3 (08:29→21:16)
[2017-04-06] MEDS: CHOLECALCIFEROL 2,000 UNIT CAP PO (08:29)
[2017-04-06] MEDS: SEVELAMER 400 MG TAB PO ×3 (08:29→17:43)
[2017-04-06] MEDS: LEVETIRACETAM (100 MG/ML) 5ML CUP PO ×2 (08:29→21:16)
[2017-04-06] MEDS: FLUOXETINE 20 MG CAP PO (08:30)
[2017-04-06] MEDS: PANTOPRAZOLE (EC) 40 MG TAB PO (08:30)
[2017-04-06] MEDS: ASPIRIN (EC) 81 MG TAB PO (08:30)
[2017-04-06] MEDS: COLLAGENASE 30 GM TUBE TOP (08:31)
[2017-04-06] MEDS: VANCOMYCIN HCL 250 MG/5ML POSYG PO ×2 (09:27→21:16)
[2017-04-06] MEDS: DIPHENHYDRAMINE 25 MG CAP PO ×2 (13:08→22:35)
[2017-04-06] MEDS: INSULIN DETEMIR [LEVEMIR] 3ML CART SC (21:24)
[2017-04-07] MEDS: ACCU-CHEK XX ×5 (01:04→20:48)
[2017-04-07 06:54] LABS: ANION GAP 30 (8-16); BLOOD UREA NITROGEN 84 mg/dl (7-20); CALCIUM 7.3 mg/dl (8.4-10.2); CARBON DIOXIDE 14 mmol/L (21-31); CHLORIDE 109 mmol/L (97-110); CREATININE 5.45 mg/dl (0.44-1.00); GLUCOSE 117 mg/dl (70-220); POTASSIUM 4.4 mmol/L (3.5-5.1); SODIUM 149 mmol/L (135-144)
[2017-04-07] MEDS: INSULIN ASPART [NOVOLOG] 3 ML PEN SC ×7 (08:15→20:55)
[2017-04-07] MEDS: MULTIVIT/CA CARB/B CMPLX/FA TAB PO (08:31)
[2017-04-07] MEDS: CHOLECALCIFEROL 2,000 UNIT CAP PO (08:31)
[2017-04-07] MEDS: CHOLESTYRAMINE 4 GM PACKET PO ×3 (08:31→20:48)
[2017-04-07] MEDS: SEVELAMER 400 MG TAB PO ×3 (08:31→17:03)
[2017-04-07] MEDS: ASPIRIN (EC) 81 MG TAB PO (08:31)
[2017-04-07] MEDS: FLUOXETINE 20 MG CAP PO (08:31)
[2017-04-07] MEDS: GABAPENTIN 300 MG CAP PO ×3 (08:31→20:48)
[2017-04-07] MEDS: LEVETIRACETAM (100 MG/ML) 5ML CUP PO ×2 (08:31→20:48)
[2017-04-07] MEDS: SACCHAROMYCES BOULARDII 250 MG CAP PO ×2 (08:31→20:48)
[2017-04-07] MEDS: VANCOMYCIN HCL 250 MG/5ML POSYG PO ×2 (08:31→20:48)
[2017-04-07] MEDS: PANTOPRAZOLE (EC) 40 MG TAB PO (08:31)
[2017-04-07] MEDS: COLLAGENASE 30 GM TUBE TOP (09:00)
[2017-04-07] MEDS: DIPHENHYDRAMINE 25 MG CAP PO ×2 (10:49→17:03)
[2017-04-07] MEDS: ACETAMINOPHEN 650MG/20.3ML CUP PO (17:03)
[2017-04-07] MEDS: INSULIN DETEMIR [LEVEMIR] 3ML CART SC (20:57)
[2017-04-08] MEDS: ACCU-CHEK XX ×5 (01:41→20:34)
[2017-04-08] MEDS: HYDROCODONE/APAP (5/325) TAB PO ×3 (02:47→18:31)
[2017-04-08] MEDS: INSULIN ASPART [NOVOLOG] 3 ML PEN SC ×7 (08:15→20:34)
[2017-04-08] MEDS: DIPHENHYDRAMINE 25 MG CAP PO ×2 (08:37→18:31)
[2017-04-08] MEDS: MULTIVIT/CA CARB/B CMPLX/FA TAB PO (08:37)
[2017-04-08] MEDS: SACCHAROMYCES BOULARDII 250 MG CAP PO ×2 (08:37→20:31)
[2017-04-08] MEDS: FLUOXETINE 20 MG CAP PO (08:38)
[2017-04-08] MEDS: CHOLECALCIFEROL 2,000 UNIT CAP PO (08:38)
[2017-04-08] MEDS: GABAPENTIN 300 MG CAP PO ×3 (08:38→20:31)
[2017-04-08] MEDS: LEVETIRACETAM (100 MG/ML) 5ML CUP PO ×2 (08:38→20:31)
[2017-04-08] MEDS: CHOLESTYRAMINE 4 GM PACKET PO ×3 (08:38→20:31)
[2017-04-08] MEDS: PANTOPRAZOLE (EC) 40 MG TAB PO (08:38)
[2017-04-08] MEDS: SEVELAMER 400 MG TAB PO ×3 (08:50→17:35)
[2017-04-08] MEDS: ASPIRIN (EC) 81 MG TAB PO (09:28)
[2017-04-08] MEDS: VANCOMYCIN HCL 250 MG/5ML POSYG PO ×2 (10:52→20:31)
[2017-04-08] MEDS: COLLAGENASE 30 GM TUBE TOP (13:52)
[2017-04-08] MEDS: INSULIN DETEMIR [LEVEMIR] 3ML CART SC (20:37)
[2017-04-08] MEDS: ZOLPIDEM 5 MG TAB PO (21:59)
[2017-04-09] MEDS: ACCU-CHEK XX ×5 (01:13→21:09)
[2017-04-09] MEDS: INSULIN ASPART [NOVOLOG] 3 ML PEN SC ×7 (08:15→21:00)
[2017-04-09] MEDS: FLUOXETINE 20 MG CAP PO (08:44)
[2017-04-09] MEDS: CHOLECALCIFEROL 2,000 UNIT CAP PO (08:44)
[2017-04-09] MEDS: LEVETIRACETAM (100 MG/ML) 5ML CUP PO ×2 (08:44→21:07)
[2017-04-09] MEDS: SEVELAMER 400 MG TAB PO ×3 (08:44→18:21)
[2017-04-09] MEDS: MULTIVIT/CA CARB/B CMPLX/FA TAB PO (08:44)
[2017-04-09] MEDS: ASPIRIN (EC) 81 MG TAB PO (08:44)
[2017-04-09] MEDS: VANCOMYCIN HCL 250 MG/5ML POSYG PO ×2 (08:44→21:07)
[2017-04-09] MEDS: PANTOPRAZOLE (EC) 40 MG TAB PO (08:44)
[2017-04-09] MEDS: GABAPENTIN 300 MG CAP PO ×3 (08:44→21:07)
[2017-04-09] MEDS: SACCHAROMYCES BOULARDII 250 MG CAP PO ×2 (08:44→21:07)
[2017-04-09] MEDS: COLLAGENASE 30 GM TUBE TOP (08:45)
[2017-04-09] MEDS: CHOLESTYRAMINE 4 GM PACKET PO ×3 (08:46→21:07)
[2017-04-09] MEDS: DIPHENHYDRAMINE 25 MG CAP PO ×2 (10:37→21:06)
[2017-04-09] MEDS: HYDROCODONE/APAP (5/325) TAB PO (21:06)
[2017-04-09] MEDS: INSULIN DETEMIR [LEVEMIR] 3ML CART SC (21:14)
[2017-04-09] MEDS: ZOLPIDEM 5 MG TAB PO (22:07)
[2017-04-10] MEDS: ACCU-CHEK XX ×5 (01:58→21:03)
[2017-04-10] MEDS: INSULIN ASPART [NOVOLOG] 3 ML PEN SC ×7 (08:25→21:00)
[2017-04-10] MEDS: CHOLESTYRAMINE 4 GM PACKET PO ×3 (08:52→21:03)
[2017-04-10] MEDS: LEVETIRACETAM (100 MG/ML) 5ML CUP PO ×2 (08:52→21:01)
[2017-04-10] MEDS: COLLAGENASE 30 GM TUBE TOP (08:52)
[2017-04-10] MEDS: SACCHAROMYCES BOULARDII 250 MG CAP PO ×2 (08:53→21:01)
[2017-04-10] MEDS: PANTOPRAZOLE (EC) 40 MG TAB PO (08:53)
[2017-04-10] MEDS: ASPIRIN (EC) 81 MG TAB PO (08:53)
[2017-04-10] MEDS: FLUOXETINE 20 MG CAP PO (08:53)
[2017-04-10] MEDS: SEVELAMER 400 MG TAB PO ×3 (08:53→17:20)
[2017-04-10] MEDS: CHOLECALCIFEROL 2,000 UNIT CAP PO (08:53)
[2017-04-10] MEDS: MULTIVIT/CA CARB/B CMPLX/FA TAB PO (08:53)
[2017-04-10] MEDS: GABAPENTIN 300 MG CAP PO ×3 (08:53→21:02)
[2017-04-10] MEDS: VANCOMYCIN HCL 250 MG/5ML POSYG PO ×2 (09:30→21:01)
[2017-04-10] MEDS: DIPHENHYDRAMINE 25 MG CAP PO ×2 (10:41→21:02)
[2017-04-10] MEDS: HYDROCODONE/APAP (5/325) TAB PO (21:02)
[2017-04-10] MEDS: INSULIN DETEMIR [LEVEMIR] 3ML CART SC (21:12)
[2017-04-11] MEDS: ACCU-CHEK XX ×5 (01:42→21:23)
[2017-04-11 06:52] LABS: ANION GAP 23 (8-16); BLOOD UREA NITROGEN 77 mg/dl (7-20); CALCIUM 8.3 mg/dl (8.4-10.2); CARBON DIOXIDE 21 mmol/L (21-31); CHLORIDE 102 mmol/L (97-110); CREATININE 5.37 mg/dl (0.44-1.00); GLUCOSE 105 mg/dl (70-220); POTASSIUM 4.9 mmol/L (3.5-5.1); SODIUM 141 mmol/L (135-144)
[2017-04-11] MEDS: INSULIN ASPART [NOVOLOG] 3 ML PEN SC ×7 (08:15→21:00)
[2017-04-11] MEDS: ASPIRIN (EC) 81 MG TAB PO (08:16)
[2017-04-11] MEDS: CHOLESTYRAMINE 4 GM PACKET PO ×3 (08:16→21:08)
[2017-04-11] MEDS: SACCHAROMYCES BOULARDII 250 MG CAP PO ×2 (08:16→21:07)
[2017-04-11] MEDS: LEVETIRACETAM (100 MG/ML) 5ML CUP PO ×2 (08:16→21:08)
[2017-04-11] MEDS: MULTIVIT/CA CARB/B CMPLX/FA TAB PO (08:16)
[2017-04-11] MEDS: CHOLECALCIFEROL 2,000 UNIT CAP PO (08:16)
[2017-04-11] MEDS: PANTOPRAZOLE (EC) 40 MG TAB PO (08:16)
[2017-04-11] MEDS: GABAPENTIN 300 MG CAP PO ×3 (08:16→21:08)
[2017-04-11] MEDS: FLUOXETINE 20 MG CAP PO (08:16)
[2017-04-11] MEDS: SEVELAMER 400 MG TAB PO ×3 (08:16→17:26)
[2017-04-11] MEDS: VANCOMYCIN HCL 250 MG/5ML POSYG PO ×2 (09:21→21:07)
[2017-04-11] MEDS: DIPHENHYDRAMINE 25 MG CAP PO (09:21)
[2017-04-11] MEDS: COLLAGENASE 30 GM TUBE TOP (09:21)
[2017-04-11] MEDS: INSULIN DETEMIR [LEVEMIR] 3ML CART SC (21:23)
[2017-04-11] MEDS: ZOLPIDEM 5 MG TAB PO (22:11)
[2017-04-12] MEDS: ACCU-CHEK XX ×5 (01:03→21:02)
[2017-04-12] MEDS: INSULIN ASPART [NOVOLOG] 3 ML PEN SC ×7 (08:08→21:00)
[2017-04-12] MEDS: MULTIVIT/CA CARB/B CMPLX/FA TAB PO (08:19)
[2017-04-12] MEDS: SEVELAMER 400 MG TAB PO ×3 (08:19→17:54)
[2017-04-12] MEDS: LEVETIRACETAM (100 MG/ML) 5ML CUP PO ×2 (08:19→20:55)
[2017-04-12] MEDS: CHOLESTYRAMINE 4 GM PACKET PO ×3 (08:19→20:56)
[2017-04-12] MEDS: ASPIRIN (EC) 81 MG TAB PO (08:19)
[2017-04-12] MEDS: SACCHAROMYCES BOULARDII 250 MG CAP PO ×2 (08:20→20:56)
[2017-04-12] MEDS: CHOLECALCIFEROL 2,000 UNIT CAP PO (08:20)
[2017-04-12] MEDS: PANTOPRAZOLE (EC) 40 MG TAB PO (08:20)
[2017-04-12] MEDS: GABAPENTIN 300 MG CAP PO ×3 (08:20→20:56)
[2017-04-12] MEDS: FLUOXETINE 20 MG CAP PO (08:21)
[2017-04-12] MEDS: COLLAGENASE 30 GM TUBE TOP (08:21)
[2017-04-12] MEDS: VANCOMYCIN HCL 250 MG/5ML POSYG PO ×2 (08:24→20:56)
[2017-04-12] MEDS: DIPHENHYDRAMINE 25 MG CAP PO ×2 (10:22→20:56)
[2017-04-12] MEDS: INSULIN DETEMIR [LEVEMIR] 3ML CART SC (21:01)
[2017-04-12] MEDS: ZOLPIDEM 5 MG TAB PO (22:12)
[2017-04-13] MEDS: ACCU-CHEK XX ×5 (01:39→20:52)
[2017-04-13] MEDS: INSULIN ASPART [NOVOLOG] 3 ML PEN SC ×7 (08:15→20:42)
[2017-04-13] MEDS: PANTOPRAZOLE (EC) 40 MG TAB PO (08:51)
[2017-04-13] MEDS: SEVELAMER 400 MG TAB PO ×3 (08:51→17:42)
[2017-04-13] MEDS: GABAPENTIN 300 MG CAP PO ×3 (08:51→20:30)
[2017-04-13] MEDS: CHOLECALCIFEROL 2,000 UNIT CAP PO (08:51)
[2017-04-13] MEDS: ASPIRIN (EC) 81 MG TAB PO (08:51)
[2017-04-13] MEDS: LEVETIRACETAM (100 MG/ML) 5ML CUP PO ×2 (08:51→20:30)
[2017-04-13] MEDS: MULTIVIT/CA CARB/B CMPLX/FA TAB PO (08:51)
[2017-04-13] MEDS: SACCHAROMYCES BOULARDII 250 MG CAP PO ×2 (08:51→20:30)
[2017-04-13] MEDS: FLUOXETINE 20 MG CAP PO (08:51)
[2017-04-13] MEDS: CHOLESTYRAMINE 4 GM PACKET PO ×3 (08:51→20:31)
[2017-04-13] MEDS: COLLAGENASE 30 GM TUBE TOP (08:53)
[2017-04-13] MEDS: VANCOMYCIN HCL 250 MG/5ML POSYG PO (09:44)
[2017-04-13] MEDS: INSULIN DETEMIR [LEVEMIR] 3ML CART SC (20:42)
[2017-04-13] MEDS: ZOLPIDEM 5 MG TAB PO (21:32)
[2017-04-14] MEDS: ACCU-CHEK XX ×5 (02:37→20:18)
[2017-04-14] MEDS: HYDROCODONE/APAP (5/325) TAB PO ×2 (06:00→19:04)
[2017-04-14 06:01] LABS: ADD MAN DIFF? NO
[2017-04-14] MEDS: COLLAGENASE 30 GM TUBE TOP ×2 (06:24→08:56)
[2017-04-14 07:00] LABS: ANION GAP 21 (8-16); BLOOD UREA NITROGEN 60 mg/dl (7-20); CALCIUM 8.4 mg/dl (8.4-10.2); CARBON DIOXIDE 24 mmol/L (21-31); CHLORIDE 99 mmol/L (97-110); CREATININE 4.23 mg/dl (0.44-1.00); GLUCOSE 124 mg/dl (70-220); POTASSIUM 4.4 mmol/L (3.5-5.1); SODIUM 140 mmol/L (135-144)
[2017-04-14 07:37] LABS: PHOSPHORUS 6.3 mg/dl (2.5-4.9)
[2017-04-14 07:37] LABS: MAGNESIUM 1.6 mg/dl (1.7-2.5)
[2017-04-14] MEDS: INSULIN ASPART [NOVOLOG] 3 ML PEN SC ×7 (08:15→20:23)
[2017-04-14] MEDS: SACCHAROMYCES BOULARDII 250 MG CAP PO ×2 (08:24→20:18)
[2017-04-14] MEDS: CHOLESTYRAMINE 4 GM PACKET PO ×3 (08:24→20:18)
[2017-04-14] MEDS: PANTOPRAZOLE (EC) 40 MG TAB PO (08:24)
[2017-04-14] MEDS: MULTIVIT/CA CARB/B CMPLX/FA TAB PO (08:24)
[2017-04-14] MEDS: FLUOXETINE 20 MG CAP PO (08:24)
[2017-04-14] MEDS: CHOLECALCIFEROL 2,000 UNIT CAP PO (08:24)
[2017-04-14] MEDS: ASPIRIN (EC) 81 MG TAB PO (08:25)
[2017-04-14] MEDS: LEVETIRACETAM (100 MG/ML) 5ML CUP PO ×2 (08:25→20:18)
[2017-04-14] MEDS: GABAPENTIN 300 MG CAP PO ×3 (08:25→20:18)
[2017-04-14] MEDS: SEVELAMER 400 MG TAB PO ×3 (08:25→17:37)
[2017-04-14] MEDS: VANCOMYCIN HCL 250 MG/5ML POSYG PO (08:56)
[2017-04-14 12:25] LABS: BASOPHIL # 0.1 10^3/ul (0.0-0.1); BASOPHILS % 0.6 % (0.0-2.0); EOSINOPHILS # 0.5 10^3/ul (0.0-0.5); EOSINOPHILS % 5.2 % (0.0-7.0); HEMATOCRIT 25.3 % (37.0-47.0); HEMOGLOBIN 8.1 g/dl (12.0-16.0); LYMPHOCYTES # 2.4 10^3/ul (0.8-2.9); LYMPHOCYTES % 27.1 % (15.0-51.0); MEAN CORPUSCULAR HEMOGLOBIN 30.1 pg (29.0-33.0); MEAN CORPUSCULAR VOLUME 94.1 fl (82.0-101.0); MEAN PLATELET VOLUME 11.9 fl (7.4-10.4); MONOCYTE # 1.3 10^3/ul (0.3-0.9); MONOCYTES % 14.3 % (0.0-11.0); NEUTROPHIL # 4.6 10^3/ul (1.6-7.5); NEUTROPHILS % 52.5 % (39.0-77.0); PLATELET COUNT 291 10^3/UL (140-415); RED BLOOD COUNT 2.69 10^6/ul (4.20-5.40)
[2017-04-14 12:25] LABS: WHITE BLOOD COUNT 8.7 10^3/ul (4.8-10.8)
[2017-04-14] MEDS: MAGNESIUM OXIDE 400 MG TAB PO (17:37)
[2017-04-14] MEDS: CALCIUM CARBONATE 500 MG CHEW TAB PO (17:37)
[2017-04-14] MEDS: INSULIN DETEMIR [LEVEMIR] 3ML CART SC (20:24)
[2017-04-15] MEDS: ACCU-CHEK XX ×5 (02:54→21:00)
[2017-04-15 05:53] LABS: ADD MAN DIFF? NO
[2017-04-15 05:55] LABS: WHITE BLOOD COUNT 8.7 10^3/ul (4.8-10.8)
[2017-04-15 05:55] LABS: BASOPHIL # 0.1 10^3/ul (0.0-0.1); BASOPHILS % 0.6 % (0.0-2.0); EOSINOPHILS # 0.5 10^3/ul (0.0-0.5); EOSINOPHILS % 5.9 % (0.0-7.0); HEMATOCRIT 24.9 % (37.0-47.0); HEMOGLOBIN 8.2 g/dl (12.0-16.0); LYMPHOCYTES # 2.8 10^3/ul (0.8-2.9); LYMPHOCYTES % 32.1 % (15.0-51.0); MEAN CORPUSCULAR HEMOGLOBIN 30.6 pg (29.0-33.0); MEAN CORPUSCULAR HGB CONC 32.9 g/dl (32.0-37.0); MEAN CORPUSCULAR VOLUME 92.9 fl (82.0-101.0); MEAN PLATELET VOLUME 11.9 fl (7.4-10.4); MONOCYTE # 1.3 10^3/ul (0.3-0.9); MONOCYTES % 14.8 % (0.0-11.0); NEUTROPHILS % 46.3 % (39.0-77.0); PLATELET COUNT 293 10^3/UL (140-415); RED BLOOD COUNT 2.68 10^6/ul (4.20-5.40); RED CELL DISTRIBUTION WIDTH 13.9 % (11.5-14.5)
[2017-04-15 06:34] LABS: ALANINE AMINOTRANSFERASE 28 IU/L (13-69); ALBUMIN 3.4 g/dl (3.3-4.9); ALBUMIN/GLOBULIN RATIO 0.97; ALKALINE PHOSPHATASE 65 IU/L (42-121); ANION GAP 22 (8-16); ASPARTATE AMINO TRANSFERASE 24 IU/L (15-46); BLOOD UREA NITROGEN 88 mg/dl (7-20); CALCIUM 8.6 mg/dl (8.4-10.2); CARBON DIOXIDE 22 mmol/L (21-31); CHLORIDE 100 mmol/L (97-110); CREATININE 5.79 mg/dl (0.44-1.00); GLUCOSE 114 mg/dl (70-220); POTASSIUM 4.5 mmol/L (3.5-5.1); SODIUM 139 mmol/L (135-144); TOTAL PROTEIN 6.9 g/dl (6.1-8.1)
[2017-04-15 07:40] LABS: MAGNESIUM 1.7 mg/dl (1.7-2.5)
[2017-04-15] MEDS: INSULIN ASPART [NOVOLOG] 3 ML PEN SC ×7 (08:13→20:38)
[2017-04-15] MEDS: CHOLESTYRAMINE 4 GM PACKET PO ×3 (09:01→20:35)
[2017-04-15] MEDS: LEVETIRACETAM (100 MG/ML) 5ML CUP PO ×2 (09:01→20:34)
[2017-04-15] MEDS: GABAPENTIN 300 MG CAP PO ×3 (09:02→20:34)
[2017-04-15] MEDS: CALCIUM CARBONATE 500 MG CHEW TAB PO ×3 (09:02→17:53)
[2017-04-15] MEDS: SEVELAMER 400 MG TAB PO ×3 (09:02→17:53)
[2017-04-15] MEDS: SACCHAROMYCES BOULARDII 250 MG CAP PO ×2 (09:02→20:34)
[2017-04-15] MEDS: traMADol 50 MG TAB PO ×2 (09:03→20:34)
[2017-04-15] MEDS: FLUOXETINE 20 MG CAP PO (09:03)
[2017-04-15] MEDS: MULTIVIT/CA CARB/B CMPLX/FA TAB PO (09:03)
[2017-04-15] MEDS: MAGNESIUM OXIDE 400 MG TAB PO (09:03)
[2017-04-15] MEDS: PANTOPRAZOLE (EC) 40 MG TAB PO (09:03)
[2017-04-15] MEDS: ASPIRIN (EC) 81 MG TAB PO (09:03)
[2017-04-15] MEDS: CHOLECALCIFEROL 2,000 UNIT CAP PO (09:03)
[2017-04-15] MEDS: COLLAGENASE 30 GM TUBE TOP (09:05)
[2017-04-15] MEDS: VANCOMYCIN HCL 250 MG/5ML POSYG PO (09:09)
[2017-04-15] MEDS: DIPHENHYDRAMINE 25 MG CAP PO (20:34)
[2017-04-15] MEDS: INSULIN DETEMIR [LEVEMIR] 3ML CART SC (20:50)
[2017-04-15] MEDS: ZOLPIDEM 5 MG TAB PO (23:38)
[2017-04-16] MEDS: ACCU-CHEK XX ×5 (01:32→21:38)
[2017-04-16] MEDS: COLLAGENASE 30 GM TUBE TOP ×2 (06:09→08:47)
[2017-04-16] MEDS: HYDROCODONE/APAP (5/325) TAB PO ×3 (06:39→19:50)
[2017-04-16] MEDS: INSULIN ASPART [NOVOLOG] 3 ML PEN SC ×7 (08:15→20:41)
[2017-04-16] MEDS: MAGNESIUM OXIDE 400 MG TAB PO (08:46)
[2017-04-16] MEDS: GABAPENTIN 300 MG CAP PO ×3 (08:46→20:38)
[2017-04-16] MEDS: FLUOXETINE 20 MG CAP PO (08:46)
[2017-04-16] MEDS: SEVELAMER 400 MG TAB PO ×3 (08:46→17:20)
[2017-04-16] MEDS: LEVETIRACETAM (100 MG/ML) 5ML CUP PO ×2 (08:46→20:38)
[2017-04-16] MEDS: SACCHAROMYCES BOULARDII 250 MG CAP PO ×2 (08:46→20:38)
[2017-04-16] MEDS: ASPIRIN (EC) 81 MG TAB PO (08:46)
[2017-04-16] MEDS: CHOLECALCIFEROL 2,000 UNIT CAP PO (08:46)
[2017-04-16] MEDS: MULTIVIT/CA CARB/B CMPLX/FA TAB PO (08:46)
[2017-04-16] MEDS: CHOLESTYRAMINE 4 GM PACKET PO ×3 (08:47→20:39)
[2017-04-16] MEDS: PANTOPRAZOLE (EC) 40 MG TAB PO (08:47)
[2017-04-16] MEDS: CALCIUM CARBONATE 500 MG CHEW TAB PO ×3 (08:47→17:20)
[2017-04-16] MEDS: VANCOMYCIN HCL 250 MG/5ML POSYG PO (08:55)
[2017-04-16] MEDS: DIPHENHYDRAMINE 25 MG CAP PO (20:38)
[2017-04-16] MEDS: INSULIN DETEMIR [LEVEMIR] 3ML CART SC (20:48)
[2017-04-16] MEDS: ZOLPIDEM 5 MG TAB PO (21:36)
[2017-04-16] MEDS: traMADol 50 MG TAB PO (22:22)
[2017-04-17] MEDS: ACCU-CHEK XX ×5 (02:00→21:34)
[2017-04-17] MEDS: SEVELAMER 400 MG TAB PO ×3 (08:29→17:27)
[2017-04-17] MEDS: VANCOMYCIN HCL 250 MG/5ML POSYG PO (08:30)
[2017-04-17] MEDS: SACCHAROMYCES BOULARDII 250 MG CAP PO ×2 (08:30→21:13)
[2017-04-17] MEDS: ASPIRIN (EC) 81 MG TAB PO (08:30)
[2017-04-17] MEDS: MULTIVIT/CA CARB/B CMPLX/FA TAB PO (08:30)
[2017-04-17] MEDS: CALCIUM CARBONATE 500 MG CHEW TAB PO ×3 (08:30→17:27)
[2017-04-17] MEDS: LEVETIRACETAM (100 MG/ML) 5ML CUP PO ×2 (08:30→21:13)
[2017-04-17] MEDS: GABAPENTIN 300 MG CAP PO ×3 (08:30→21:13)
[2017-04-17] MEDS: CHOLESTYRAMINE 4 GM PACKET PO ×3 (08:30→21:00)
[2017-04-17] MEDS: PANTOPRAZOLE (EC) 40 MG TAB PO (08:31)
[2017-04-17] MEDS: CHOLECALCIFEROL 2,000 UNIT CAP PO (08:31)
[2017-04-17] MEDS: FLUOXETINE 20 MG CAP PO (08:31)
[2017-04-17] MEDS: MAGNESIUM OXIDE 400 MG TAB PO (08:31)
[2017-04-17] MEDS: COLLAGENASE 30 GM TUBE TOP (08:33)
[2017-04-17] MEDS: INSULIN ASPART [NOVOLOG] 3 ML PEN SC ×7 (08:35→21:00)
[2017-04-17] MEDS: HYDROCODONE/APAP (5/325) TAB PO ×3 (11:03→21:12)
[2017-04-17] MEDS: DIPHENHYDRAMINE 25 MG CAP PO (18:38)
[2017-04-17] MEDS: INSULIN DETEMIR [LEVEMIR] 3ML CART SC (21:31)
[2017-04-17] MEDS: ZOLPIDEM 5 MG TAB PO (22:11)
[2017-04-18] MEDS: ACCU-CHEK XX ×5 (02:00→23:54)
[2017-04-18] MEDS: HYDROCODONE/APAP (5/325) TAB PO ×2 (04:16→23:53)
[2017-04-18] MEDS: INSULIN ASPART [NOVOLOG] 3 ML PEN SC ×8 (08:15→23:53)
[2017-04-18] MEDS: COLLAGENASE 30 GM TUBE TOP ×2 (09:00→17:54)
[2017-04-18] MEDS: SEVELAMER 400 MG TAB PO ×3 (09:25→17:43)
[2017-04-18] MEDS: MULTIVIT/CA CARB/B CMPLX/FA TAB PO (09:26)
[2017-04-18] MEDS: MAGNESIUM OXIDE 400 MG TAB PO (09:26)
[2017-04-18] MEDS: CHOLECALCIFEROL 2,000 UNIT CAP PO (09:26)
[2017-04-18] MEDS: GABAPENTIN 300 MG CAP PO ×3 (09:26→23:52)
[2017-04-18] MEDS: SACCHAROMYCES BOULARDII 250 MG CAP PO ×2 (09:26→23:52)
[2017-04-18] MEDS: ASPIRIN (EC) 81 MG TAB PO (09:26)
[2017-04-18] MEDS: FLUOXETINE 20 MG CAP PO (09:26)
[2017-04-18] MEDS: CALCIUM CARBONATE 500 MG CHEW TAB PO ×3 (09:27→17:43)
[2017-04-18] MEDS: PANTOPRAZOLE (EC) 40 MG TAB PO (09:27)
[2017-04-18] MEDS: LEVETIRACETAM (100 MG/ML) 5ML CUP PO ×2 (09:27→23:53)
[2017-04-18] MEDS: CHOLESTYRAMINE 4 GM PACKET PO ×3 (09:27→23:52)
[2017-04-18] MEDS: VANCOMYCIN HCL 250 MG/5ML POSYG PO (09:27)
[2017-04-18] MEDS: DIPHENHYDRAMINE 25 MG CAP PO (16:02)
[2017-04-18] MEDS: INSULIN DETEMIR [LEVEMIR] 3ML CART SC (23:58)
[2017-04-19] MEDS: ACCU-CHEK XX ×5 (02:00→21:47)
[2017-04-19] MEDS: INSULIN ASPART [NOVOLOG] 3 ML PEN SC ×7 (08:15→21:08)
[2017-04-19] MEDS: MAGNESIUM OXIDE 400 MG TAB PO (08:34)
[2017-04-19] MEDS: LEVETIRACETAM (100 MG/ML) 5ML CUP PO ×2 (08:34→21:00)
[2017-04-19] MEDS: CALCIUM CARBONATE 500 MG CHEW TAB PO ×3 (08:34→17:34)
[2017-04-19] MEDS: SEVELAMER 400 MG TAB PO ×3 (08:35→17:34)
[2017-04-19] MEDS: PANTOPRAZOLE (EC) 40 MG TAB PO (08:35)
[2017-04-19] MEDS: CHOLECALCIFEROL 2,000 UNIT CAP PO (08:35)
[2017-04-19] MEDS: MULTIVIT/CA CARB/B CMPLX/FA TAB PO (08:35)
[2017-04-19] MEDS: FLUOXETINE 20 MG CAP PO (08:35)
[2017-04-19] MEDS: SACCHAROMYCES BOULARDII 250 MG CAP PO ×2 (08:35→21:00)
[2017-04-19] MEDS: ASPIRIN (EC) 81 MG TAB PO (08:35)
[2017-04-19] MEDS: GABAPENTIN 300 MG CAP PO ×3 (08:35→21:00)
[2017-04-19] MEDS: COLLAGENASE 30 GM TUBE TOP (08:41)
[2017-04-19] MEDS: CHOLESTYRAMINE 4 GM PACKET PO ×3 (08:42→21:00)
[2017-04-19] MEDS: VANCOMYCIN HCL 250 MG/5ML POSYG PO (09:41)
[2017-04-19] MEDS: HYDROCODONE/APAP (5/325) TAB PO ×3 (10:38→18:49)
[2017-04-19] MEDS: ZOLPIDEM 5 MG TAB PO (21:00)
[2017-04-19] MEDS: INSULIN DETEMIR [LEVEMIR] 3ML CART SC (21:07)
[2017-04-20] MEDS: ACCU-CHEK XX ×5 (01:39→20:30)
[2017-04-20] MEDS: CALCIUM CARBONATE 500 MG CHEW TAB PO ×3 (08:18→17:46)
[2017-04-20] MEDS: SEVELAMER 400 MG TAB PO ×3 (08:19→17:46)
[2017-04-20] MEDS: INSULIN ASPART [NOVOLOG] 3 ML PEN SC ×7 (08:20→20:39)
[2017-04-20] MEDS: ASPIRIN (EC) 81 MG TAB PO (08:22)
[2017-04-20] MEDS: MAGNESIUM OXIDE 400 MG TAB PO (08:22)
[2017-04-20] MEDS: CHOLESTYRAMINE 4 GM PACKET PO ×3 (08:22→20:27)
[2017-04-20] MEDS: LEVETIRACETAM (100 MG/ML) 5ML CUP PO ×2 (08:22→20:30)
[2017-04-20] MEDS: VANCOMYCIN HCL 250 MG/5ML POSYG PO (08:22)
[2017-04-20] MEDS: FLUOXETINE 20 MG CAP PO (08:23)
[2017-04-20] MEDS: CHOLECALCIFEROL 2,000 UNIT CAP PO (08:23)
[2017-04-20] MEDS: PANTOPRAZOLE (EC) 40 MG TAB PO (08:23)
[2017-04-20] MEDS: MULTIVIT/CA CARB/B CMPLX/FA TAB PO (08:23)
[2017-04-20] MEDS: GABAPENTIN 300 MG CAP PO ×3 (09:53→20:41)
[2017-04-20] MEDS: SACCHAROMYCES BOULARDII 250 MG CAP PO ×2 (09:53→20:27)
[2017-04-20] MEDS: COLLAGENASE 30 GM TUBE TOP (09:54)
[2017-04-20 19:19] LABS: INR 1.09; PARTIAL THROMBOPLASTIN TIME 31.1 Sec (25.0-35.0); PROTIME 14.2 Sec (11.9-14.9); PT RATIO 1.1
[2017-04-20] MEDS: HYDROCODONE/APAP (5/325) TAB PO (20:26)
[2017-04-20] MEDS: INSULIN DETEMIR [LEVEMIR] 3ML CART SC (20:40)
[2017-04-20] MEDS: ZOLPIDEM 5 MG TAB PO (21:57)
[2017-04-21] MEDS: ACCU-CHEK XX ×5 (01:30→22:00)
[2017-04-21] MEDS ORDERED: CIPRO 400 MG/200 ML D5W IVPB (07:00)
[2017-04-21] MEDS: CALCIUM CARBONATE 500 MG CHEW TAB PO ×3 (08:15→17:56)
[2017-04-21] MEDS: SEVELAMER 400 MG TAB PO ×3 (08:15→17:56)
[2017-04-21] MEDS: INSULIN ASPART [NOVOLOG] 3 ML PEN SC ×7 (08:15→21:58)
[2017-04-21] MEDS: ASPIRIN (EC) 81 MG TAB PO (08:26)
[2017-04-21] MEDS: LEVETIRACETAM (100 MG/ML) 5ML CUP PO ×2 (08:26→22:00)
[2017-04-21] MEDS: FLUOXETINE 20 MG CAP PO (08:27)
[2017-04-21] MEDS: PANTOPRAZOLE (EC) 40 MG TAB PO (08:27)
[2017-04-21] MEDS: MAGNESIUM OXIDE 400 MG TAB PO (08:27)
[2017-04-21] MEDS: SACCHAROMYCES BOULARDII 250 MG CAP PO ×2 (08:27→22:00)
[2017-04-21] MEDS: CHOLESTYRAMINE 4 GM PACKET PO ×3 (08:27→22:00)
[2017-04-21] MEDS: GABAPENTIN 300 MG CAP PO ×3 (08:27→22:00)
[2017-04-21] MEDS: VANCOMYCIN HCL 250 MG/5ML POSYG PO (08:28)
[2017-04-21] MEDS: CHOLECALCIFEROL 2,000 UNIT CAP PO (08:28)
[2017-04-21] MEDS: MULTIVIT/CA CARB/B CMPLX/FA TAB PO (08:28)
[2017-04-21] MEDS: COLLAGENASE 30 GM TUBE TOP (09:50)
[2017-04-21 12:29] LABS: TROPONIN-I < 0.012 ng/ml (0.00-0.12)
[2017-04-21] MEDS ORDERED: ROCURONIUM 50 MG INJ (16:14)
[2017-04-21] MEDS ORDERED: PROPOFOL 20 ML (16:14)
[2017-04-21] MEDS ORDERED: NEOSTIGMINE 3 MG/3 ML SYRINGE ×2 (16:14→18:49)
[2017-04-21] MEDS ORDERED: SUCCINYLCHOLINE CHLORIDE 100 MG/5 ML SYG IV (16:14)
[2017-04-21] MEDS ORDERED: GLYCOPYRROLATE 0.4 MG INJ ×2 (16:14→18:49)
[2017-04-21] MEDS ORDERED: MEPERIDINE 100 MG INJ (16:15)
[2017-04-21] MEDS ORDERED: DIPHENHYDRAMINE 50 MG INJ IV (16:30)
[2017-04-21] MEDS ORDERED: MEPERIDINE 25 MG INJ IV (16:30)
[2017-04-21] MEDS ORDERED: FENTAnyl 50 MCG/ML VIAL IV ×3 (16:30)
[2017-04-21] MEDS ORDERED: hydrALAzine 20 MG INJ IV (16:30)
[2017-04-21] MEDS ORDERED: METOCLOPRAMIDE 10 MG INJ IV (16:30)
[2017-04-21] MEDS ORDERED: ONDANSETRON 4 MG INJ IV (16:30)
[2017-04-21] MEDS ORDERED: LABETALOL HCL 20MG INJ IV (16:30)
[2017-04-21] MEDS ORDERED: HYDROmorphONE (0.2 MG/ML) 10ML SYG IV ×3 (16:30)
[2017-04-21] MEDS ORDERED: MIDAZOLAM 1 MG/ML 2 ML INJ IV (16:30)
[2017-04-21] MEDS ORDERED: EPHEDrine SULFATE 50 MG/5 ML SYG IV (16:30)
[2017-04-21] MEDS ORDERED: OXYCODONE/ACETAMINOPHEN (5/325) TAB PO ×2 (16:30)
[2017-04-21] MEDS: BUPIVACAINE 0.5% (SDV) 30 ML INJ (17:41)
[2017-04-21] MEDS ORDERED: ONDANSETRON 4 MG INJ (18:49)
[2017-04-21] MEDS ORDERED: METOCLOPRAMIDE 10 MG INJ (18:50)
[2017-04-21] MEDS ORDERED: LIDOCAINE 100 MG SYRINGE (20:32)
[2017-04-21] MEDS: ONDANSETRON 4 MG INJ IV (21:44)
[2017-04-21] MEDS: morphine 2 MG INJ IV (21:54)
[2017-04-21] MEDS: INSULIN DETEMIR [LEVEMIR] 3ML CART SC (21:56)
[2017-04-21] MEDS: HYDROCODONE/APAP (5/325) TAB PO (23:36)
[2017-04-22] MEDS: morphine 2 MG INJ IV ×3 (01:50→20:59)
[2017-04-22] MEDS: ACCU-CHEK XX ×5 (02:09→20:59)
[2017-04-22] MEDS: ZOLPIDEM 5 MG TAB PO ×2 (02:40→21:56)
[2017-04-22] MEDS: HYDROCODONE/APAP (5/325) TAB PO ×2 (04:55→13:26)
[2017-04-22 06:14] LABS: ADD MAN DIFF? NO
[2017-04-22 06:29] LABS: WHITE BLOOD COUNT 11.1 10^3/ul (4.8-10.8)
[2017-04-22 06:29] LABS: BASOPHIL # 0.1 10^3/ul (0.0-0.1); BASOPHILS % 0.5 % (0.0-2.0); EOSINOPHILS # 0.1 10^3/ul (0.0-0.5); EOSINOPHILS % 0.6 % (0.0-7.0); HEMOGLOBIN 8.1 g/dl (12.0-16.0); LYMPHOCYTES # 1.8 10^3/ul (0.8-2.9); LYMPHOCYTES % 16.4 % (15.0-51.0); MEAN CORPUSCULAR HEMOGLOBIN 29.8 pg (29.0-33.0); MEAN CORPUSCULAR HGB CONC 31.2 g/dl (32.0-37.0); MEAN CORPUSCULAR VOLUME 95.6 fl (82.0-101.0); MEAN PLATELET VOLUME 11.7 fl (7.4-10.4); MONOCYTE # 0.8 10^3/ul (0.3-0.9); MONOCYTES % 7.6 % (0.0-11.0); NEUTROPHIL # 8.2 10^3/ul (1.6-7.5); NEUTROPHILS % 74.3 % (39.0-77.0); PLATELET COUNT 298 10^3/UL (140-415); RED BLOOD COUNT 2.72 10^6/ul (4.20-5.40); RED CELL DISTRIBUTION WIDTH 13.3 % (11.5-14.5)
[2017-04-22 07:11] LABS: ALANINE AMINOTRANSFERASE 50 IU/L (13-69); ALBUMIN 3.6 g/dl (3.3-4.9); ALBUMIN/GLOBULIN RATIO 0.94; ALKALINE PHOSPHATASE 78 IU/L (42-121); ANION GAP 22 (8-16); ASPARTATE AMINO TRANSFERASE 51 IU/L (15-46); BLOOD UREA NITROGEN 84 mg/dl (7-20); CALCIUM 8.9 mg/dl (8.4-10.2); CARBON DIOXIDE 21 mmol/L (21-31); CHLORIDE 101 mmol/L (97-110); CREATININE 5.58 mg/dl (0.44-1.00); GLUCOSE 178 mg/dl (70-220); SODIUM 138 mmol/L (135-144); TOTAL PROTEIN 7.4 g/dl (6.1-8.1)
[2017-04-22 07:14] LABS: CHOLESTEROL 120 mg/dl (100-200)
[2017-04-22 07:14] LABS: CHOL/HDL RATIO 4.4 RATIO; HDL CHOLESTEROL 27 mg/dl (37-92); LDL CHOLESTEROL,CALCULATED 58 mg/dl; TRIGLYCERIDES 174 mg/dl (0-149)
[2017-04-22 07:17] LABS: POTASSIUM 6.3 mmol/L (3.5-5.1)
[2017-04-22] MEDS: INSULIN ASPART [NOVOLOG] 3 ML PEN SC ×7 (08:08→20:49)
[2017-04-22] MEDS: ASPIRIN (EC) 81 MG TAB PO (08:34)
[2017-04-22] MEDS: GABAPENTIN 300 MG CAP PO ×3 (08:34→20:49)
[2017-04-22] MEDS: CALCIUM CARBONATE 500 MG CHEW TAB PO ×3 (08:35→17:35)
[2017-04-22] MEDS: CHOLESTYRAMINE 4 GM PACKET PO ×3 (08:35→20:49)
[2017-04-22] MEDS: SEVELAMER 400 MG TAB PO ×3 (08:35→17:35)
[2017-04-22] MEDS: FLUOXETINE 20 MG CAP PO (08:35)
[2017-04-22] MEDS: CHOLECALCIFEROL 2,000 UNIT CAP PO (08:35)
[2017-04-22] MEDS: PANTOPRAZOLE (EC) 40 MG TAB PO (08:35)
[2017-04-22] MEDS: MULTIVIT/CA CARB/B CMPLX/FA TAB PO (08:35)
[2017-04-22] MEDS: LEVETIRACETAM (100 MG/ML) 5ML CUP PO ×2 (08:35→20:49)
[2017-04-22] MEDS: SACCHAROMYCES BOULARDII 250 MG CAP PO ×2 (08:35→20:49)
[2017-04-22] MEDS: VANCOMYCIN HCL 250 MG/5ML POSYG PO (08:39)
[2017-04-22] MEDS: COLLAGENASE 30 GM TUBE TOP (15:33)
[2017-04-22 17:46] LABS: ANION GAP 21 (8-16); BLOOD UREA NITROGEN 35 mg/dl (7-20); CARBON DIOXIDE 28 mmol/L (21-31); CHLORIDE 99 mmol/L (97-110); CREATININE 2.97 mg/dl (0.44-1.00); GLUCOSE 155 mg/dl (70-220); SODIUM 144 mmol/L (135-144)
[2017-04-22] MEDS: INSULIN DETEMIR [LEVEMIR] 3ML CART SC (20:53)
[2017-04-23] MEDS: DIPHENHYDRAMINE 50 MG INJ IV (00:56)
[2017-04-23] MEDS: morphine 2 MG INJ IV ×3 (00:56→09:40)
[2017-04-23] MEDS: ACCU-CHEK XX ×2 (02:00→08:07)
[2017-04-23] MEDS: INSULIN ASPART [NOVOLOG] 3 ML PEN SC ×5 (08:15→21:00)
[2017-04-23] MEDS: LEVETIRACETAM (100 MG/ML) 5ML CUP PO ×2 (09:29→21:05)
[2017-04-23] MEDS: MULTIVIT/CA CARB/B CMPLX/FA TAB PO (09:29)
[2017-04-23] MEDS: CALCIUM CARBONATE 500 MG CHEW TAB PO ×3 (09:29→17:42)
[2017-04-23] MEDS: SEVELAMER 400 MG TAB PO ×3 (09:29→17:42)
[2017-04-23] MEDS: ASPIRIN (EC) 81 MG TAB PO (09:29)
[2017-04-23] MEDS: FLUOXETINE 20 MG CAP PO (09:30)
[2017-04-23] MEDS: CHOLECALCIFEROL 2,000 UNIT CAP PO (09:30)
[2017-04-23] MEDS: CHOLESTYRAMINE 4 GM PACKET PO ×3 (09:30→21:05)
[2017-04-23] MEDS: GABAPENTIN 300 MG CAP PO ×3 (09:30→21:05)
[2017-04-23] MEDS: PANTOPRAZOLE (EC) 40 MG TAB PO (09:30)
[2017-04-23] MEDS: VANCOMYCIN HCL 250 MG/5ML POSYG PO (09:40)
[2017-04-23] MEDS: SACCHAROMYCES BOULARDII 250 MG CAP PO ×2 (09:41→21:05)
[2017-04-23] MEDS: COLLAGENASE 30 GM TUBE TOP (09:41)
[2017-04-23] MEDS ORDERED: GLUCAGON 1 MG INJ IM (10:30)
[2017-04-23] MEDS ORDERED: GLUCOSE GEL 15 GRAM TUBE PO ×2 (10:30)
[2017-04-23] MEDS ORDERED: DEXTROSE 50% 50 ML SYRINGE IV ×2 (10:30)
[2017-04-23] MEDS ORDERED: GLUCOSE GEL 15 GRAM TUBE BUCCAL (10:30)
[2017-04-23] MEDS: DEXTROSE 5%-0.45% NACL 1,000 ML IV ×3 (11:22→17:52)
[2017-04-23] MEDS: HYDROCODONE/APAP (5/325) TAB PO (15:03)
[2017-04-23] MEDS: DIPHENHYDRAMINE 25 MG CAP PO (17:47)
[2017-04-24] MEDS: ACCU-CHEK XX ×2 (02:00→22:21)
[2017-04-24] MEDS: HYDROCODONE/APAP (5/325) TAB PO ×5 (02:56→22:20)
[2017-04-24] MEDS: DIPHENHYDRAMINE 25 MG CAP PO ×3 (06:48→17:33)
[2017-04-24] MEDS: INSULIN ASPART [NOVOLOG] 3 ML PEN SC ×4 (08:15→22:21)
[2017-04-24] MEDS: SEVELAMER 400 MG TAB PO ×3 (09:07→17:32)
[2017-04-24] MEDS: CALCIUM CARBONATE 500 MG CHEW TAB PO ×3 (09:07→17:23)
[2017-04-24] MEDS: ASPIRIN (EC) 81 MG TAB PO (09:08)
[2017-04-24] MEDS: LEVETIRACETAM (100 MG/ML) 5ML CUP PO ×2 (09:08→22:18)
[2017-04-24] MEDS: GABAPENTIN 300 MG CAP PO ×3 (09:08→22:18)
[2017-04-24] MEDS: SACCHAROMYCES BOULARDII 250 MG CAP PO ×2 (09:08→22:21)
[2017-04-24] MEDS: FLUOXETINE 20 MG CAP PO (09:09)
[2017-04-24] MEDS: VANCOMYCIN HCL 250 MG/5ML POSYG PO (09:09)
[2017-04-24] MEDS: PANTOPRAZOLE (EC) 40 MG TAB PO (09:09)
[2017-04-24] MEDS: MULTIVIT/CA CARB/B CMPLX/FA TAB PO (09:09)
[2017-04-24] MEDS: CHOLESTYRAMINE 4 GM PACKET PO ×3 (09:09→22:18)
[2017-04-24] MEDS: CHOLECALCIFEROL 2,000 UNIT CAP PO (09:09)
[2017-04-24] MEDS: DEXTROSE 5%-0.45% NACL 1,000 ML IV ×2 (10:30→22:22)
[2017-04-24] MEDS: COLLAGENASE 30 GM TUBE TOP (17:32)
[2017-04-24] MEDS: ZOLPIDEM 5 MG TAB PO (22:20)
[2017-04-25] MEDS: INSULIN ASPART [NOVOLOG] 3 ML PEN SC ×4 (08:15→21:32)
[2017-04-25] MEDS: CHOLESTYRAMINE 4 GM PACKET PO ×3 (09:00→21:13)
[2017-04-25] MEDS: LEVETIRACETAM (100 MG/ML) 5ML CUP PO ×2 (09:00→21:12)
[2017-04-25] MEDS: COLLAGENASE 30 GM TUBE TOP (09:00)
[2017-04-25] MEDS: MULTIVIT/CA CARB/B CMPLX/FA TAB PO (09:39)
[2017-04-25] MEDS: SEVELAMER 400 MG TAB PO ×3 (09:39→17:34)
[2017-04-25] MEDS: PANTOPRAZOLE (EC) 40 MG TAB PO (09:39)
[2017-04-25] MEDS: GABAPENTIN 300 MG CAP PO ×3 (09:40→21:13)
[2017-04-25] MEDS: CHOLECALCIFEROL 2,000 UNIT CAP PO (09:40)
[2017-04-25] MEDS: CALCIUM CARBONATE 500 MG CHEW TAB PO ×3 (09:40→17:41)
[2017-04-25] MEDS: SACCHAROMYCES BOULARDII 250 MG CAP PO ×2 (09:40→21:13)
[2017-04-25] MEDS: ASPIRIN (EC) 81 MG TAB PO (09:42)
[2017-04-25] MEDS: FLUOXETINE 20 MG CAP PO (09:42)
[2017-04-25] MEDS: VANCOMYCIN HCL 250 MG/5ML POSYG PO (09:45)
[2017-04-25] MEDS: HYDROCODONE/APAP (5/325) TAB PO ×2 (11:48→17:40)
[2017-04-25 12:08] LABS: ADD MAN DIFF? NO
[2017-04-25 12:22] LABS: BASOPHILS % 0.3 % (0.0-2.0); EOSINOPHILS # 0.9 10^3/ul (0.0-0.5); EOSINOPHILS % 8.2 % (0.0-7.0); HEMATOCRIT 21.4 % (37.0-47.0); HEMOGLOBIN 7.1 g/dl (12.0-16.0); LYMPHOCYTES # 1.6 10^3/ul (0.8-2.9); LYMPHOCYTES % 14.5 % (15.0-51.0); MEAN CORPUSCULAR HEMOGLOBIN 30.6 pg (29.0-33.0); MEAN CORPUSCULAR HGB CONC 33.2 g/dl (32.0-37.0); MEAN CORPUSCULAR VOLUME 92.2 fl (82.0-101.0); MEAN PLATELET VOLUME 11.2 fl (7.4-10.4); MONOCYTE # 0.9 10^3/ul (0.3-0.9); NEUTROPHIL # 7.5 10^3/ul (1.6-7.5); NEUTROPHILS % 68.2 % (39.0-77.0); PLATELET COUNT 224 10^3/UL (140-415); RED BLOOD COUNT 2.32 10^6/ul (4.20-5.40)
[2017-04-25] MEDS: morphine 2 MG INJ IV (13:53)
[2017-04-25] MEDS: DEXTROSE 5%-0.45% NACL 1,000 ML IV (21:13)
[2017-04-25] MEDS: DIPHENHYDRAMINE 25 MG CAP PO (21:13)
[2017-04-25] MEDS: ZOLPIDEM 5 MG TAB PO (21:13)
[2017-04-26] MEDS: ACCU-CHEK XX (02:00)
[2017-04-26] MEDS: HYDROCODONE/APAP (5/325) TAB PO ×2 (03:05→20:25)
[2017-04-26 05:44] LABS: ADD MAN DIFF? NO
[2017-04-26 05:48] LABS: ABNORMAL IP MESSAGE 1; BASOPHILS % 0.3 % (0.0-2.0); EOSINOPHILS % 7.4 % (0.0-7.0); HEMATOCRIT 20.6 % (37.0-47.0); LYMPHOCYTES # 2.1 10^3/ul (0.8-2.9); MEAN CORPUSCULAR HEMOGLOBIN 30.1 pg (29.0-33.0); MEAN CORPUSCULAR VOLUME 94.1 fl (82.0-101.0); MEAN PLATELET VOLUME 11.7 fl (7.4-10.4); MONOCYTE # 0.9 10^3/ul (0.3-0.9); MONOCYTES % 6.9 % (0.0-11.0); NEUTROPHIL # 9.3 10^3/ul (1.6-7.5); PLATELET COUNT 199 10^3/UL (140-415); RED BLOOD COUNT 2.19 10^6/ul (4.20-5.40)
[2017-04-26 05:48] LABS: WHITE BLOOD COUNT 13.4 10^3/ul (4.8-10.8)
[2017-04-26 06:20] LABS: POSITIVE DIFF @See below
[2017-04-26 06:21] LABS: HEMOGLOBIN 6.6 g/dl (12.0-16.0)
[2017-04-26 06:32] LABS: ALANINE AMINOTRANSFERASE 58 IU/L (13-69); ALBUMIN 2.9 g/dl (3.3-4.9); ALBUMIN/GLOBULIN RATIO 0.93; ALKALINE PHOSPHATASE 99 IU/L (42-121); ANION GAP 19 (8-16); ASPARTATE AMINO TRANSFERASE 22 IU/L (15-46); BLOOD UREA NITROGEN 40 mg/dl (7-20); CALCIUM 7.9 mg/dl (8.4-10.2); CARBON DIOXIDE 22 mmol/L (21-31); CHLORIDE 102 mmol/L (97-110); CREATININE 3.44 mg/dl (0.44-1.00); GLUCOSE 140 mg/dl (70-220); POTASSIUM 4.1 mmol/L (3.5-5.1); SODIUM 139 mmol/L (135-144)
[2017-04-26] MEDS: INSULIN ASPART [NOVOLOG] 3 ML PEN SC ×4 (08:14→20:26)
[2017-04-26] MEDS: LEVETIRACETAM (100 MG/ML) 5ML CUP PO ×2 (09:00→20:26)
[2017-04-26] MEDS: CHOLESTYRAMINE 4 GM PACKET PO ×3 (09:00→20:25)
[2017-04-26] MEDS: COLLAGENASE 30 GM TUBE TOP (09:00)
[2017-04-26] MEDS: SOD FERRIC GLUC COMPLX 125 MG in SOD CHLORIDE 0.9% 100 ML IVPB (09:12)
[2017-04-26] MEDS: CALCIUM CARBONATE 500 MG CHEW TAB PO ×3 (09:15→17:51)
[2017-04-26] MEDS: FLUOXETINE 20 MG CAP PO (09:15)
[2017-04-26] MEDS: SEVELAMER 400 MG TAB PO ×3 (09:16→17:51)
[2017-04-26] MEDS: CHOLECALCIFEROL 2,000 UNIT CAP PO (09:16)
[2017-04-26] MEDS: MULTIVIT/CA CARB/B CMPLX/FA TAB PO (09:16)
[2017-04-26] MEDS: ASPIRIN (EC) 81 MG TAB PO (09:16)
[2017-04-26] MEDS: GABAPENTIN 300 MG CAP PO ×3 (09:16→20:26)
[2017-04-26] MEDS: PANTOPRAZOLE (EC) 40 MG TAB PO (09:16)
[2017-04-26] MEDS: SACCHAROMYCES BOULARDII 250 MG CAP PO ×2 (09:17→20:25)
[2017-04-26] MEDS: VANCOMYCIN HCL 250 MG/5ML POSYG PO (09:20)
[2017-04-26] MEDS ORDERED: ALBUMIN HUMAN 25% 50 ML IV (16:30)
[2017-04-26] MEDS: EPOETIN 10000 UNITS/1 ML INJ (ESRD) SC (17:54)
[2017-04-26 20:22] LABS: IMMEDIATE SPIN CROSSMATCH 1 2
[2017-04-26] MEDS: DEXTROSE 5%-0.45% NACL 1,000 ML IV (20:25)
[2017-04-26] MEDS: DIPHENHYDRAMINE 25 MG CAP PO (20:39)
[2017-04-27] MEDS: HYDROCODONE/APAP (5/325) TAB PO (00:12)
[2017-04-27] MEDS: ACCU-CHEK XX (02:00)
[2017-04-27] MEDS: morphine 2 MG INJ IV (02:48)
[2017-04-27 06:16] LABS: ADD MAN DIFF? NO
[2017-04-27 06:22] LABS: WHITE BLOOD COUNT 14.6 10^3/ul (4.8-10.8)
[2017-04-27 06:22] LABS: BASOPHIL # 0.1 10^3/ul (0.0-0.1); BASOPHILS % 0.3 % (0.0-2.0); EOSINOPHILS # 1.4 10^3/ul (0.0-0.5); EOSINOPHILS % 9.3 % (0.0-7.0); HEMOGLOBIN 8.6 g/dl (12.0-16.0); LYMPHOCYTES # 2.5 10^3/ul (0.8-2.9); LYMPHOCYTES % 17.1 % (15.0-51.0); MEAN CORPUSCULAR HEMOGLOBIN 30.7 pg (29.0-33.0); MEAN CORPUSCULAR HGB CONC 34.4 g/dl (32.0-37.0); MEAN CORPUSCULAR VOLUME 89.3 fl (82.0-101.0); MEAN PLATELET VOLUME 11.2 fl (7.4-10.4); MONOCYTE # 1.3 10^3/ul (0.3-0.9); MONOCYTES % 8.7 % (0.0-11.0); NEUTROPHIL # 9.3 10^3/ul (1.6-7.5); NEUTROPHILS % 63.7 % (39.0-77.0); PLATELET COUNT 242 10^3/UL (140-415); RED CELL DISTRIBUTION WIDTH 14.6 % (11.5-14.5)
[2017-04-27 07:04] LABS: ALBUMIN/GLOBULIN RATIO 0.85; ANION GAP 21 (8-16)
[2017-04-27 07:05] LABS: ALANINE AMINOTRANSFERASE 42 IU/L (13-69); ALKALINE PHOSPHATASE 86 IU/L (42-121); ASPARTATE AMINO TRANSFERASE 19 IU/L (15-46); BLOOD UREA NITROGEN 37 mg/dl (7-20); CALCIUM 7.8 mg/dl (8.4-10.2); CARBON DIOXIDE 21 mmol/L (21-31); CHLORIDE 100 mmol/L (97-110); CREATININE 3.29 mg/dl (0.44-1.00); GLUCOSE 180 mg/dl (70-220); POTASSIUM 3.8 mmol/L (3.5-5.1); SODIUM 138 mmol/L (135-144); TOTAL PROTEIN 6.5 g/dl (6.1-8.1)
[2017-04-27] MEDS: LEVETIRACETAM (100 MG/ML) 5ML CUP PO ×2 (09:15→20:42)
[2017-04-27] MEDS: SACCHAROMYCES BOULARDII 250 MG CAP PO ×2 (09:15→20:42)
[2017-04-27] MEDS: CALCIUM CARBONATE 500 MG CHEW TAB PO ×3 (09:15→17:23)
[2017-04-27] MEDS: SEVELAMER 400 MG TAB PO ×3 (09:15→17:23)
[2017-04-27] MEDS: CHOLECALCIFEROL 2,000 UNIT CAP PO (09:15)
[2017-04-27] MEDS: GABAPENTIN 300 MG CAP PO ×3 (09:15→20:42)
[2017-04-27] MEDS: MULTIVIT/CA CARB/B CMPLX/FA TAB PO (09:16)
[2017-04-27] MEDS: PANTOPRAZOLE (EC) 40 MG TAB PO (09:16)
[2017-04-27] MEDS: CHOLESTYRAMINE 4 GM PACKET PO ×3 (09:16→20:43)
[2017-04-27] MEDS: ASPIRIN (EC) 81 MG TAB PO (09:16)
[2017-04-27] MEDS: FLUOXETINE 20 MG CAP PO (09:16)
[2017-04-27] MEDS: COLLAGENASE 30 GM TUBE TOP (09:16)
[2017-04-27] MEDS: INSULIN ASPART [NOVOLOG] 3 ML PEN SC ×4 (09:21→20:45)
[2017-04-27] MEDS: SOD FERRIC GLUC COMPLX 125 MG in SOD CHLORIDE 0.9% 100 ML IVPB (09:34)
[2017-04-27] MEDS: VANCOMYCIN HCL 250 MG/5ML POSYG PO (09:34)
[2017-04-27] MEDS: DEXTROSE 5%-0.45% NACL 1,000 ML IV (09:34)
[2017-04-27] MEDS ORDERED: ERTAPENEM SODIUM 1 GM in SOD CHLORIDE 0.9% 100 ML IVPB (14:00)
[2017-04-27] MEDS ORDERED: VANCOMYCIN IV PER PHARMACY XX (14:00)
[2017-04-27] MEDS: VANCOMYCIN 1.5 GM in DEXTROSE 5% 500 ML IVPB (16:51)
[2017-04-27] MEDS: ACETAMINOPHEN 650MG/20.3ML CUP PO (17:23)
[2017-04-27] MEDS: ERTAPENEM SODIUM 0.5 GM in SOD CHLORIDE 0.9% 100 ML IVPB ×2 (20:58→21:00)
[2017-04-28] MEDS ORDERED: MANNITOL 25% 50 ML IV
[2017-04-28] MEDS: ACCU-CHEK XX (02:00)
[2017-04-28] MEDS: HYDROCODONE/APAP (5/325) TAB PO (02:56)
[2017-04-28] MEDS: COLLAGENASE 30 GM TUBE TOP ×2 (05:27→08:48)
[2017-04-28 06:22] LABS: ADD MAN DIFF? NO
[2017-04-28 06:34] LABS: BASOPHIL # 0.1 10^3/ul (0.0-0.1); BASOPHILS % 0.4 % (0.0-2.0); EOSINOPHILS # 1.6 10^3/ul (0.0-0.5); EOSINOPHILS % 10.9 % (0.0-7.0); HEMATOCRIT 25.1 % (37.0-47.0); HEMOGLOBIN 8.4 g/dl (12.0-16.0); LYMPHOCYTES # 2.2 10^3/ul (0.8-2.9); LYMPHOCYTES % 14.5 % (15.0-51.0); MEAN CORPUSCULAR HEMOGLOBIN 30.1 pg (29.0-33.0); MEAN CORPUSCULAR HGB CONC 33.5 g/dl (32.0-37.0); MONOCYTE # 1.4 10^3/ul (0.3-0.9); NEUTROPHIL # 9.6 10^3/ul (1.6-7.5); NEUTROPHILS % 63.9 % (39.0-77.0); PLATELET COUNT 256 10^3/UL (140-415); RED BLOOD COUNT 2.79 10^6/ul (4.20-5.40)
[2017-04-28] MEDS: PANTOPRAZOLE (EC) 40 MG TAB PO (08:47)
[2017-04-28] MEDS: CALCIUM CARBONATE 500 MG CHEW TAB PO ×3 (08:47→18:03)
[2017-04-28] MEDS: MULTIVIT/CA CARB/B CMPLX/FA TAB PO (08:47)
[2017-04-28] MEDS: ASPIRIN (EC) 81 MG TAB PO (08:48)
[2017-04-28] MEDS: CHOLECALCIFEROL 2,000 UNIT CAP PO (08:48)
[2017-04-28] MEDS: FLUOXETINE 20 MG CAP PO (08:48)
[2017-04-28] MEDS: GABAPENTIN 300 MG CAP PO ×3 (08:48→23:14)
[2017-04-28] MEDS: SEVELAMER 400 MG TAB PO ×3 (08:48→17:25)
[2017-04-28] MEDS: CHOLESTYRAMINE 4 GM PACKET PO ×3 (08:49→23:13)
[2017-04-28] MEDS: SACCHAROMYCES BOULARDII 250 MG CAP PO ×2 (08:49→23:15)
[2017-04-28] MEDS: LEVETIRACETAM (100 MG/ML) 5ML CUP PO ×2 (08:49→23:13)
[2017-04-28] MEDS: INSULIN ASPART [NOVOLOG] 3 ML PEN SC ×4 (08:51→21:00)
[2017-04-28] MEDS: SOD FERRIC GLUC COMPLX 125 MG in SOD CHLORIDE 0.9% 100 ML IVPB (09:54)
[2017-04-28] MEDS: EPOETIN 10000 UNITS/1 ML INJ (ESRD) SC (17:00)
[2017-04-28] MEDS: DEXTROSE 5%-0.45% NACL 1,000 ML IV (17:23)
[2017-04-28] MEDS: ERTAPENEM SODIUM 0.5 GM in SOD CHLORIDE 0.9% 100 ML IVPB (23:16)
[2017-04-29] MEDS: ACCU-CHEK XX (02:00)
[2017-04-29] MEDS: EPOETIN 10000 UNITS/1 ML INJ (ESRD) SC (02:26)
[2017-04-29 05:54] LABS: ADD MAN DIFF? NO; BASOPHIL # 0.1 10^3/ul (0.0-0.1); BASOPHILS % 0.5 % (0.0-2.0); EOSINOPHILS # 1.6 10^3/ul (0.0-0.5); EOSINOPHILS % 13.5 % (0.0-7.0); HEMATOCRIT 25.4 % (37.0-47.0); HEMOGLOBIN 8.6 g/dl (12.0-16.0); LYMPHOCYTES % 16.6 % (15.0-51.0); MEAN CORPUSCULAR HEMOGLOBIN 30.6 pg (29.0-33.0); MEAN CORPUSCULAR HGB CONC 33.9 g/dl (32.0-37.0); MEAN CORPUSCULAR VOLUME 90.4 fl (82.0-101.0); MEAN PLATELET VOLUME 10.7 fl (7.4-10.4); MONOCYTE # 1.2 10^3/ul (0.3-0.9); MONOCYTES % 9.6 % (0.0-11.0); NEUTROPHIL # 7.1 10^3/ul (1.6-7.5); NEUTROPHILS % 58.6 % (39.0-77.0); PLATELET COUNT 283 10^3/UL (140-415); RED BLOOD COUNT 2.81 10^6/ul (4.20-5.40); RED CELL DISTRIBUTION WIDTH 13.6 % (11.5-14.5)
[2017-04-29 05:54] LABS: WHITE BLOOD COUNT 12.2 10^3/ul (4.8-10.8)
[2017-04-29 06:29] LABS: VANCOMYCIN,RANDOM 15.4 ug/ml
[2017-04-29] MEDS: CHOLESTYRAMINE 4 GM PACKET PO ×3 (08:23→21:22)
[2017-04-29] MEDS: ASPIRIN (EC) 81 MG TAB PO (08:23)
[2017-04-29] MEDS: CALCIUM CARBONATE 500 MG CHEW TAB PO ×3 (08:24→17:10)
[2017-04-29] MEDS: SEVELAMER 400 MG TAB PO ×3 (08:24→17:10)
[2017-04-29] MEDS: MULTIVIT/CA CARB/B CMPLX/FA TAB PO (08:24)
[2017-04-29] MEDS: PANTOPRAZOLE (EC) 40 MG TAB PO (08:24)
[2017-04-29] MEDS: GABAPENTIN 300 MG CAP PO ×3 (08:24→21:21)
[2017-04-29] MEDS: SACCHAROMYCES BOULARDII 250 MG CAP PO ×2 (08:25→21:21)
[2017-04-29] MEDS: FLUOXETINE 20 MG CAP PO (08:25)
[2017-04-29] MEDS: CHOLECALCIFEROL 2,000 UNIT CAP PO (08:25)
[2017-04-29] MEDS: LEVETIRACETAM (100 MG/ML) 5ML CUP PO ×2 (08:26→21:21)
[2017-04-29] MEDS: INSULIN ASPART [NOVOLOG] 3 ML PEN SC ×4 (08:33→21:00)
[2017-04-29] MEDS: COLLAGENASE 30 GM TUBE TOP (08:35)
[2017-04-29] MEDS: SOD FERRIC GLUC COMPLX 125 MG in SOD CHLORIDE 0.9% 100 ML IVPB (09:52)
[2017-04-29] MEDS: DEXTROSE 5%-0.45% NACL 1,000 ML IV (09:53)
[2017-04-29] MEDS: HYDROCODONE/APAP (5/325) TAB PO (11:56)
[2017-04-29] MEDS: VANCOMYCIN 1 GM 250 ML IVPB (17:13)
[2017-04-29] MEDS: ERTAPENEM SODIUM 0.5 GM in SOD CHLORIDE 0.9% 100 ML IVPB (21:21)
[2017-04-30] MEDS: ACCU-CHEK XX (02:00)
[2017-04-30 05:47] LABS: HAAIG REFLEX REFLEX FILED
[2017-04-30 06:52] LABS: HEPATITIS B SURFACE ANTIGEN NEGATIVE (NEGATIVE)
[2017-04-30 07:10] LABS: HEPATITIS B CORE ANTIBODY NEGATIVE (NEGATIVE)
[2017-04-30 07:12] LABS: HEPATITIS C VIRAL ANTIBODY REACTIVE (NEGATIVE)
[2017-04-30] MEDS: INSULIN ASPART [NOVOLOG] 3 ML PEN SC ×4 (08:45→21:11)
[2017-04-30] MEDS: COLLAGENASE 30 GM TUBE TOP (08:46)
[2017-04-30] MEDS: SEVELAMER 400 MG TAB PO ×3 (08:55→17:30)
[2017-04-30] MEDS: CALCIUM CARBONATE 500 MG CHEW TAB PO ×3 (08:55→17:30)
[2017-04-30] MEDS: CHOLESTYRAMINE 4 GM PACKET PO ×3 (08:55→21:08)
[2017-04-30] MEDS: LEVETIRACETAM (100 MG/ML) 5ML CUP PO ×2 (08:55→21:07)
[2017-04-30] MEDS: FLUOXETINE 20 MG CAP PO (08:56)
[2017-04-30] MEDS: GABAPENTIN 300 MG CAP PO ×3 (08:56→21:07)
[2017-04-30] MEDS: PANTOPRAZOLE (EC) 40 MG TAB PO (08:56)
[2017-04-30] MEDS: SACCHAROMYCES BOULARDII 250 MG CAP PO ×2 (08:56→21:07)
[2017-04-30] MEDS: CHOLECALCIFEROL 2,000 UNIT CAP PO (08:56)
[2017-04-30] MEDS: ASPIRIN (EC) 81 MG TAB PO (08:56)
[2017-04-30] MEDS: MULTIVIT/CA CARB/B CMPLX/FA TAB PO (08:56)
[2017-04-30] MEDS: SOD FERRIC GLUC COMPLX 125 MG in SOD CHLORIDE 0.9% 100 ML IVPB (11:01)
[2017-04-30] MEDS: DEXTROSE 5%-0.45% NACL 1,000 ML IV (11:01)
[2017-04-30] MEDS: HYDROCODONE/APAP (5/325) TAB PO (11:05)
[2017-04-30] MEDS: EPOETIN 10000 UNITS/1 ML INJ (ESRD) SC (17:32)
[2017-04-30 17:59] LABS: ANION GAP 15 (8-16); BLOOD UREA NITROGEN 49 mg/dl (7-20); CALCIUM 8.5 mg/dl (8.4-10.2); CARBON DIOXIDE 24 mmol/L (21-31); CHLORIDE 102 mmol/L (97-110); CREATININE 4.54 mg/dl (0.44-1.00); GLUCOSE 196 mg/dl (70-220); POTASSIUM 3.8 mmol/L (3.5-5.1); SODIUM 137 mmol/L (135-144)
[2017-04-30] MEDS ORDERED: INSULIN DETEMIR [LEVEMIR] 3ML CART SC (21:00)
[2017-04-30] MEDS: ERTAPENEM SODIUM 0.5 GM in SOD CHLORIDE 0.9% 100 ML IVPB (21:07)
[2017-04-30] MEDS: INSULIN GLARGINE [LANtus] 3 ML PEN SC (21:10)
[2017-05-01] MEDS: ACCU-CHEK XX (01:54)
[2017-05-01] MEDS: INSULIN ASPART [NOVOLOG] 3 ML PEN SC ×4 (08:15→20:52)
[2017-05-01] MEDS: FLUOXETINE 20 MG CAP PO (09:43)
[2017-05-01] MEDS: SACCHAROMYCES BOULARDII 250 MG CAP PO ×2 (09:43→20:42)
[2017-05-01] MEDS: LEVETIRACETAM (100 MG/ML) 5ML CUP PO ×2 (09:43→20:42)
[2017-05-01] MEDS: CALCIUM CARBONATE 500 MG CHEW TAB PO ×3 (09:44→17:55)
[2017-05-01] MEDS: GABAPENTIN 300 MG CAP PO ×3 (09:44→20:43)
[2017-05-01] MEDS: CHOLECALCIFEROL 2,000 UNIT CAP PO (09:44)
[2017-05-01] MEDS: SEVELAMER 400 MG TAB PO ×3 (09:44→17:55)
[2017-05-01] MEDS: ASPIRIN (EC) 81 MG TAB PO (09:44)
[2017-05-01] MEDS: PANTOPRAZOLE (EC) 40 MG TAB PO (09:44)
[2017-05-01] MEDS: MULTIVIT/CA CARB/B CMPLX/FA TAB PO (09:44)
[2017-05-01] MEDS: HYDROCODONE/APAP (5/325) TAB PO (09:45)
[2017-05-01] MEDS: COLLAGENASE 30 GM TUBE TOP (09:49)
[2017-05-01] MEDS: CHOLESTYRAMINE 4 GM PACKET PO ×3 (09:49→20:43)
[2017-05-01] MEDS: DEXTROSE 5%-0.45% NACL 1,000 ML IV ×2 (10:30→23:30)
[2017-05-01] MEDS: SOD FERRIC GLUC COMPLX 125 MG in SOD CHLORIDE 0.9% 100 ML IVPB (10:40)
[2017-05-01] MEDS: ERTAPENEM SODIUM 0.5 GM in SOD CHLORIDE 0.9% 100 ML IVPB (20:42)
[2017-05-01] MEDS: INSULIN GLARGINE [LANtus] 3 ML PEN SC (20:51)
[2017-05-01] MEDS: ZOLPIDEM 5 MG TAB PO (22:23)
[2017-05-02] MEDS: ACCU-CHEK XX (01:57)
[2017-05-02] MEDS: INSULIN ASPART [NOVOLOG] 3 ML PEN SC ×4 (08:00→21:05)
[2017-05-02] MEDS: LEVETIRACETAM (100 MG/ML) 5ML CUP PO ×2 (08:34→20:58)
[2017-05-02] MEDS: SEVELAMER 400 MG TAB PO ×3 (08:34→17:44)
[2017-05-02] MEDS: CHOLESTYRAMINE 4 GM PACKET PO ×3 (08:34→20:57)
[2017-05-02] MEDS: CALCIUM CARBONATE 500 MG CHEW TAB PO ×3 (08:34→17:44)
[2017-05-02] MEDS: SACCHAROMYCES BOULARDII 250 MG CAP PO ×2 (08:35→20:58)
[2017-05-02] MEDS: ASPIRIN (EC) 81 MG TAB PO (08:35)
[2017-05-02] MEDS: CHOLECALCIFEROL 2,000 UNIT CAP PO (08:35)
[2017-05-02] MEDS: GABAPENTIN 300 MG CAP PO ×3 (08:35→20:58)
[2017-05-02] MEDS: FLUOXETINE 20 MG CAP PO (08:35)
[2017-05-02] MEDS: MULTIVIT/CA CARB/B CMPLX/FA TAB PO (08:35)
[2017-05-02] MEDS: PANTOPRAZOLE (EC) 40 MG TAB PO (08:35)
[2017-05-02] MEDS: COLLAGENASE 30 GM TUBE TOP (08:36)
[2017-05-02 09:37] LABS: ADD MAN DIFF? NO
[2017-05-02] MEDS: HYDROCODONE/APAP (5/325) TAB PO (09:37)
[2017-05-02 09:42] LABS: BASOPHIL # 0.1 10^3/ul (0.0-0.1); BASOPHILS % 0.5 % (0.0-2.0); EOSINOPHILS # 1.8 10^3/ul (0.0-0.5); EOSINOPHILS % 11.1 % (0.0-7.0); HEMATOCRIT 27.7 % (37.0-47.0); HEMOGLOBIN 9.1 g/dl (12.0-16.0); LYMPHOCYTES # 3.2 10^3/ul (0.8-2.9); LYMPHOCYTES % 19.7 % (15.0-51.0); MEAN CORPUSCULAR HEMOGLOBIN 30.5 pg (29.0-33.0); MEAN CORPUSCULAR HGB CONC 32.9 g/dl (32.0-37.0); MONOCYTE # 1.4 10^3/ul (0.3-0.9); MONOCYTES % 8.8 % (0.0-11.0); NEUTROPHIL # 9.5 10^3/ul (1.6-7.5); NEUTROPHILS % 57.9 % (39.0-77.0); PLATELET COUNT 348 10^3/UL (140-415); RED BLOOD COUNT 2.98 10^6/ul (4.20-5.40); RED CELL DISTRIBUTION WIDTH 13.5 % (11.5-14.5)
[2017-05-02 09:42] LABS: WHITE BLOOD COUNT 16.4 10^3/ul (4.8-10.8)
[2017-05-02 10:09] LABS: ANION GAP 15 (8-16); BLOOD UREA NITROGEN 35 mg/dl (7-20); CARBON DIOXIDE 26 mmol/L (21-31); CHLORIDE 102 mmol/L (97-110); CREATININE 3.73 mg/dl (0.44-1.00); GLUCOSE 144 mg/dl (70-220); POTASSIUM 4.5 mmol/L (3.5-5.1); SODIUM 138 mmol/L (135-144)
[2017-05-02 10:17] LABS: MAGNESIUM 1.6 mg/dl (1.7-2.5)
[2017-05-02 10:17] LABS: PHOSPHORUS 2.9 mg/dl (2.5-4.9)
[2017-05-02] MEDS: DEXTROSE 5%-0.45% NACL 1,000 ML IV (10:30)
[2017-05-02] MEDS: morphine LIQ (10 MG/5 ML) CUP PO (15:30)
[2017-05-02] MEDS ORDERED: MAGNESIUM SULFATE 1 GM/D5W 100 ML IVPB (16:30)
[2017-05-02] MEDS: MAGNESIUM SULFATE 1 GM/D5W 100 ML IVPB (16:58)
[2017-05-02] MEDS: ERTAPENEM SODIUM 0.5 GM in SOD CHLORIDE 0.9% 100 ML IVPB (20:58)
[2017-05-02] MEDS: INSULIN GLARGINE [LANtus] 3 ML PEN SC (21:04)
[2017-05-03] MEDS: ACCU-CHEK XX (02:00)
[2017-05-03] MEDS: morphine LIQ (10 MG/5 ML) CUP PO (02:43)
[2017-05-03] MEDS: INSULIN ASPART [NOVOLOG] 3 ML PEN SC ×4 (08:08→20:37)
[2017-05-03] MEDS: SEVELAMER 400 MG TAB PO ×3 (08:15→17:28)
[2017-05-03] MEDS: CALCIUM CARBONATE 500 MG CHEW TAB PO ×3 (08:16→17:28)
[2017-05-03] MEDS: ASPIRIN (EC) 81 MG TAB PO (08:16)
[2017-05-03] MEDS: LEVETIRACETAM (100 MG/ML) 5ML CUP PO ×2 (08:16→20:30)
[2017-05-03] MEDS: GABAPENTIN 300 MG CAP PO ×3 (08:16→20:30)
[2017-05-03] MEDS: CHOLESTYRAMINE 4 GM PACKET PO ×3 (08:16→20:30)
[2017-05-03] MEDS: SACCHAROMYCES BOULARDII 250 MG CAP PO ×2 (08:16→20:30)
[2017-05-03] MEDS: PANTOPRAZOLE (EC) 40 MG TAB PO (08:16)
[2017-05-03] MEDS: MULTIVIT/CA CARB/B CMPLX/FA TAB PO (08:16)
[2017-05-03] MEDS: CHOLECALCIFEROL 2,000 UNIT CAP PO (08:17)
[2017-05-03] MEDS: HYDROCODONE/APAP (5/325) TAB PO ×2 (08:57→20:38)
[2017-05-03] MEDS: FLUOXETINE 20 MG CAP PO (08:57)
[2017-05-03] MEDS: COLLAGENASE 30 GM TUBE TOP (09:04)
[2017-05-03] MEDS: DEXTROSE 5%-0.45% NACL 1,000 ML IV (11:32)
[2017-05-03] MEDS: INSULIN GLARGINE [LANtus] 3 ML PEN SC (20:36)
[2017-05-04] MEDS: EPOETIN 10000 UNITS/1 ML INJ (ESRD) SC (01:41)
[2017-05-04] MEDS: ACCU-CHEK XX (01:53)
[2017-05-04] MEDS: HYDROCODONE/APAP (5/325) TAB PO ×2 (07:05→21:09)
[2017-05-04] MEDS: CALCIUM CARBONATE 500 MG CHEW TAB PO ×3 (08:34→17:04)
[2017-05-04] MEDS: CHOLECALCIFEROL 2,000 UNIT CAP PO (08:34)
[2017-05-04] MEDS: SEVELAMER 400 MG TAB PO ×3 (08:34→17:04)
[2017-05-04] MEDS: COLLAGENASE 30 GM TUBE TOP (08:34)
[2017-05-04] MEDS: GABAPENTIN 300 MG CAP PO ×3 (08:34→21:07)
[2017-05-04] MEDS: MULTIVIT/CA CARB/B CMPLX/FA TAB PO (08:34)
[2017-05-04] MEDS: CHOLESTYRAMINE 4 GM PACKET PO ×3 (08:34→21:00)
[2017-05-04] MEDS: SACCHAROMYCES BOULARDII 250 MG CAP PO ×2 (08:35→21:00)
[2017-05-04] MEDS: ASPIRIN (EC) 81 MG TAB PO (08:35)
[2017-05-04] MEDS: FLUOXETINE 20 MG CAP PO (08:35)
[2017-05-04] MEDS: PANTOPRAZOLE (EC) 40 MG TAB PO (08:35)
[2017-05-04] MEDS: LEVETIRACETAM (100 MG/ML) 5ML CUP PO ×2 (08:35→21:06)
[2017-05-04] MEDS: INSULIN ASPART [NOVOLOG] 3 ML PEN SC ×4 (08:37→21:17)
[2017-05-04 10:19] LABS: HEMOGLOBIN 9.4 g/dl (12.0-16.0)
[2017-05-04 10:19] LABS: HEMATOCRIT 28.8 % (37.0-47.0)
[2017-05-04] MEDS: DEXTROSE 5%-0.45% NACL 1,000 ML IV ×2 (10:30→19:57)
[2017-05-04] MEDS: INSULIN GLARGINE [LANtus] 3 ML PEN SC (21:17)
[2017-05-05] MEDS: ACCU-CHEK XX (02:09)
[2017-05-05] MEDS: HYDROCODONE/APAP (5/325) TAB PO (05:45)
[2017-05-05 06:05] LABS: ADD MAN DIFF? NO
[2017-05-05 06:11] LABS: WHITE BLOOD COUNT 18.8 10^3/ul (4.8-10.8)
[2017-05-05 06:11] LABS: ABNORMAL IP MESSAGE 1; BASOPHIL # 0.1 10^3/ul (0.0-0.1); BASOPHILS % 0.4 % (0.0-2.0); EOSINOPHILS # 2.9 10^3/ul (0.0-0.5); EOSINOPHILS % 15.1 % (0.0-7.0); HEMATOCRIT 25.9 % (37.0-47.0); HEMOGLOBIN 8.2 g/dl (12.0-16.0); LYMPHOCYTES # 3.5 10^3/ul (0.8-2.9); LYMPHOCYTES % 18.4 % (15.0-51.0); MEAN CORPUSCULAR HEMOGLOBIN 29.9 pg (29.0-33.0); MEAN CORPUSCULAR HGB CONC 31.7 g/dl (32.0-37.0); MEAN CORPUSCULAR VOLUME 94.5 fl (82.0-101.0); MEAN PLATELET VOLUME 10.2 fl (7.4-10.4); MONOCYTE # 1.8 10^3/ul (0.3-0.9); MONOCYTES % 9.5 % (0.0-11.0); NEUTROPHIL # 10.4 10^3/ul (1.6-7.5); NEUTROPHILS % 55.4 % (39.0-77.0); PLATELET COUNT 384 10^3/UL (140-415); RED BLOOD COUNT 2.74 10^6/ul (4.20-5.40); RED CELL DISTRIBUTION WIDTH 13.7 % (11.5-14.5)
[2017-05-05 06:29] LABS: POSITIVE DIFF @See below
[2017-05-05 06:44] LABS: ANION GAP 18 (8-16); BLOOD UREA NITROGEN 41 mg/dl (7-20); CALCIUM 7.4 mg/dl (8.4-10.2); CARBON DIOXIDE 17 mmol/L (21-31); CHLORIDE 100 mmol/L (97-110); CREATININE 3.52 mg/dl (0.44-1.00); SODIUM 131 mmol/L (135-144)
[2017-05-05 06:46] LABS: GLUCOSE 591 mg/dl (70-220)
[2017-05-05] MEDS: INSULIN ASPART [NOVOLOG] 3 ML PEN SC ×4 (08:15→21:00)
[2017-05-05] MEDS: SEVELAMER 400 MG TAB PO ×3 (08:31→17:37)
[2017-05-05] MEDS: CALCIUM CARBONATE 500 MG CHEW TAB PO ×3 (08:32→17:36)
[2017-05-05] MEDS: SACCHAROMYCES BOULARDII 250 MG CAP PO ×2 (08:32→21:25)
[2017-05-05] MEDS: GABAPENTIN 300 MG CAP PO ×3 (08:32→21:25)
[2017-05-05] MEDS: FLUOXETINE 20 MG CAP PO (08:32)
[2017-05-05] MEDS: CHOLECALCIFEROL 2,000 UNIT CAP PO (08:32)
[2017-05-05] MEDS: LEVETIRACETAM (100 MG/ML) 5ML CUP PO ×2 (08:32→21:25)
[2017-05-05] MEDS: ASPIRIN (EC) 81 MG TAB PO (08:32)
[2017-05-05] MEDS: MULTIVIT/CA CARB/B CMPLX/FA TAB PO (08:32)
[2017-05-05] MEDS: PANTOPRAZOLE (EC) 40 MG TAB PO (08:32)
[2017-05-05] MEDS: CHOLESTYRAMINE 4 GM PACKET PO ×3 (08:35→21:26)
[2017-05-05 09:29] LABS: GLUCOSE 122 mg/dl (70-220)
[2017-05-05] MEDS: DEXTROSE 5%-0.45% NACL 1,000 ML IV (10:30)
[2017-05-05] MEDS: COLLAGENASE 30 GM TUBE TOP (12:34)
[2017-05-05] MEDS: EPOETIN 10000 UNITS/1 ML INJ (ESRD) SC (17:39)
[2017-05-05] MEDS ORDERED: HEPARIN 1000 UNITS/ML 10 ML INJ HE (20:00)
[2017-05-05] MEDS ORDERED: SODIUM CHLORIDE 0.9% 1L BAG IV (20:00)
[2017-05-05] MEDS: INSULIN GLARGINE [LANtus] 3 ML PEN SC (21:29)
[2017-05-05] MEDS: ZOLPIDEM 5 MG TAB PO (22:44)
[2017-05-06] MEDS: HYDROCODONE/APAP (5/325) TAB PO ×2 (00:11→21:17)
[2017-05-06] MEDS: ACCU-CHEK XX (00:59)
[2017-05-06 06:27] LABS: ADD MAN DIFF? NO
[2017-05-06 06:33] LABS: WHITE BLOOD COUNT 18.1 10^3/ul (4.8-10.8)
[2017-05-06 06:33] LABS: ABNORMAL IP MESSAGE 1; BASOPHIL # 0.1 10^3/ul (0.0-0.1); BASOPHILS % 0.5 % (0.0-2.0); EOSINOPHILS # 3.2 10^3/ul (0.0-0.5); EOSINOPHILS % 17.4 % (0.0-7.0); HEMATOCRIT 26.8 % (37.0-47.0); HEMOGLOBIN 8.6 g/dl (12.0-16.0); LYMPHOCYTES # 3.5 10^3/ul (0.8-2.9); LYMPHOCYTES % 19.3 % (15.0-51.0); MEAN CORPUSCULAR HEMOGLOBIN 29.7 pg (29.0-33.0); MEAN CORPUSCULAR HGB CONC 32.1 g/dl (32.0-37.0); MEAN CORPUSCULAR VOLUME 92.4 fl (82.0-101.0); MEAN PLATELET VOLUME 10.3 fl (7.4-10.4); MONOCYTE # 1.6 10^3/ul (0.3-0.9); MONOCYTES % 8.9 % (0.0-11.0); NEUTROPHIL # 9.5 10^3/ul (1.6-7.5); NEUTROPHILS % 52.6 % (39.0-77.0); PLATELET COUNT 425 10^3/UL (140-415); RED CELL DISTRIBUTION WIDTH 13.5 % (11.5-14.5)
[2017-05-06 06:51] LABS: POSITIVE DIFF @See below
[2017-05-06 07:16] LABS: ANION GAP 18 (8-16); BLOOD UREA NITROGEN 60 mg/dl (7-20); CALCIUM 8.6 mg/dl (8.4-10.2); CARBON DIOXIDE 20 mmol/L (21-31); CHLORIDE 103 mmol/L (97-110); CREATININE 4.95 mg/dl (0.44-1.00); GLUCOSE 93 mg/dl (70-220); SODIUM 136 mmol/L (135-144)
[2017-05-06 07:19] LABS: PHOSPHORUS 4.9 mg/dl (2.5-4.9)
[2017-05-06 07:19] LABS: MAGNESIUM 1.7 mg/dl (1.7-2.5)
[2017-05-06 07:25] LABS: POTASSIUM 5.2 mmol/L (3.5-5.1)
[2017-05-06] MEDS: INSULIN ASPART [NOVOLOG] 3 ML PEN SC ×4 (08:15→21:28)
[2017-05-06] MEDS: SOD CHLORIDE 0.9% 100 ML (08:15)
[2017-05-06] MEDS: IODIXANOL LOCM 100 ML BTL (08:16)
[2017-05-06] MEDS: CALCIUM CARBONATE 500 MG CHEW TAB PO ×3 (09:16→17:17)
[2017-05-06] MEDS: FLUOXETINE 20 MG CAP PO (09:16)
[2017-05-06] MEDS: ASPIRIN (EC) 81 MG TAB PO (09:16)
[2017-05-06] MEDS: SACCHAROMYCES BOULARDII 250 MG CAP PO ×2 (09:16→21:16)
[2017-05-06] MEDS: LEVETIRACETAM (100 MG/ML) 5ML CUP PO ×2 (09:16→21:16)
[2017-05-06] MEDS: GABAPENTIN 300 MG CAP PO ×3 (09:16→21:16)
[2017-05-06] MEDS: SEVELAMER 400 MG TAB PO ×3 (09:16→17:16)
[2017-05-06] MEDS: CHOLESTYRAMINE 4 GM PACKET PO ×3 (09:16→21:18)
[2017-05-06] MEDS: MULTIVIT/CA CARB/B CMPLX/FA TAB PO (09:16)
[2017-05-06] MEDS: CHOLECALCIFEROL 2,000 UNIT CAP PO (09:17)
[2017-05-06] MEDS: COLLAGENASE 30 GM TUBE TOP (09:18)
[2017-05-06] MEDS: PANTOPRAZOLE (EC) 40 MG TAB PO (09:40)
[2017-05-06] MEDS ORDERED: VANCOMYCIN IV PER PHARMACY XX (13:00)
[2017-05-06] MEDS: MEROPENEM 500MG/50 ML (PMX) 50 ML IVPB (17:12)
[2017-05-06] MEDS: VANCOMYCIN 1.5 GM in DEXTROSE 5% 500 ML IVPB (18:03)
[2017-05-06] MEDS: INSULIN GLARGINE [LANtus] 3 ML PEN SC (21:27)
[2017-05-07] MEDS: ACCU-CHEK XX (02:12)
[2017-05-07] MEDS: INSULIN ASPART [NOVOLOG] 3 ML PEN SC ×4 (08:15→21:00)
[2017-05-07] MEDS: GABAPENTIN 300 MG CAP PO ×3 (08:20→20:20)
[2017-05-07] MEDS: CALCIUM CARBONATE 500 MG CHEW TAB PO ×3 (08:20→17:34)
[2017-05-07] MEDS: SEVELAMER 400 MG TAB PO ×3 (08:20→17:33)
[2017-05-07] MEDS: SACCHAROMYCES BOULARDII 250 MG CAP PO ×2 (08:20→20:20)
[2017-05-07] MEDS: CHOLECALCIFEROL 2,000 UNIT CAP PO (08:21)
[2017-05-07] MEDS: CHOLESTYRAMINE 4 GM PACKET PO ×3 (08:21→20:22)
[2017-05-07] MEDS: PANTOPRAZOLE (EC) 40 MG TAB PO (08:21)
[2017-05-07] MEDS: FLUOXETINE 20 MG CAP PO (08:21)
[2017-05-07] MEDS: MULTIVIT/CA CARB/B CMPLX/FA TAB PO (08:21)
[2017-05-07] MEDS: LEVETIRACETAM (100 MG/ML) 5ML CUP PO ×2 (08:21→20:20)
[2017-05-07] MEDS: ASPIRIN (EC) 81 MG TAB PO (08:21)
[2017-05-07] MEDS: COLLAGENASE 30 GM TUBE TOP (08:22)
[2017-05-07] MEDS: HYDROCODONE/APAP (5/325) TAB PO ×3 (08:23→20:21)
[2017-05-07 11:58] LABS: ADD MAN DIFF? NO
[2017-05-07 12:09] LABS: ABNORMAL IP MESSAGE 1; BASOPHIL # 0.1 10^3/ul (0.0-0.1); BASOPHILS % 0.7 % (0.0-2.0); EOSINOPHILS # 3.2 10^3/ul (0.0-0.5); EOSINOPHILS % 20.2 % (0.0-7.0); HEMATOCRIT 26.8 % (37.0-47.0); HEMOGLOBIN 8.6 g/dl (12.0-16.0); LYMPHOCYTES # 2.8 10^3/ul (0.8-2.9); MEAN CORPUSCULAR HEMOGLOBIN 29.4 pg (29.0-33.0); MEAN CORPUSCULAR HGB CONC 32.1 g/dl (32.0-37.0); MEAN CORPUSCULAR VOLUME 91.5 fl (82.0-101.0); MEAN PLATELET VOLUME 10.3 fl (7.4-10.4); MONOCYTE # 1.3 10^3/ul (0.3-0.9); MONOCYTES % 8.6 % (0.0-11.0); NEUTROPHIL # 8.1 10^3/ul (1.6-7.5); NEUTROPHILS % 51.4 % (39.0-77.0); PLATELET COUNT 495 10^3/UL (140-415); RED BLOOD COUNT 2.93 10^6/ul (4.20-5.40); RED CELL DISTRIBUTION WIDTH 13.5 % (11.5-14.5)
[2017-05-07 12:09] LABS: WHITE BLOOD COUNT 15.7 10^3/ul (4.8-10.8)
[2017-05-07 12:10] LABS: POSITIVE DIFF @See below
[2017-05-07] MEDS: DOCUSATE SODIUM 100 MG CAP PO ×2 (13:25→20:20)
[2017-05-07] MEDS: MEROPENEM 500MG/50 ML (PMX) 50 ML IVPB (13:26)
[2017-05-07] MEDS: NA POLYST SULFON 15 GM/60 ML BTL PR (17:32)
[2017-05-07] MEDS: EPOETIN 10000 UNITS/1 ML INJ (ESRD) SC (17:33)
[2017-05-07] MEDS: INSULIN GLARGINE [LANtus] 3 ML PEN SC (22:04)
[2017-05-08] MEDS: ACCU-CHEK XX (02:00)
[2017-05-08 05:21] LABS: VANCOMYCIN,RANDOM 25.1 ug/ml
[2017-05-08 07:28] LABS: INR 1.24; PARTIAL THROMBOPLASTIN TIME 36.2 Sec (25.0-35.0); PROTIME 15.8 Sec (11.9-14.9); PT RATIO 1.2
[2017-05-08] MEDS: HYDROCODONE/APAP (5/325) TAB PO ×2 (08:06→12:46)
[2017-05-08] MEDS: INSULIN ASPART [NOVOLOG] 3 ML PEN SC ×4 (08:09→21:00)
[2017-05-08] MEDS: SEVELAMER 400 MG TAB PO ×3 (08:15→17:29)
[2017-05-08] MEDS: CALCIUM CARBONATE 500 MG CHEW TAB PO ×3 (08:15→17:29)
[2017-05-08] MEDS: CHOLESTYRAMINE 4 GM PACKET PO ×2 (09:00→12:41)
[2017-05-08] MEDS: CHOLECALCIFEROL 2,000 UNIT CAP PO ×2 (09:00→12:43)
[2017-05-08] MEDS: GABAPENTIN 300 MG CAP PO ×3 (09:00→21:00)
[2017-05-08] MEDS: PANTOPRAZOLE (EC) 40 MG TAB PO ×2 (09:00→12:42)
[2017-05-08] MEDS: SACCHAROMYCES BOULARDII 250 MG CAP PO ×2 (09:00→21:00)
[2017-05-08] MEDS: LEVETIRACETAM (100 MG/ML) 5ML CUP PO ×2 (09:00→21:00)
[2017-05-08] MEDS: FLUOXETINE 20 MG CAP PO ×2 (09:00→12:43)
[2017-05-08] MEDS: ASPIRIN (EC) 81 MG TAB PO ×2 (09:00→12:43)
[2017-05-08] MEDS: COLLAGENASE 30 GM TUBE TOP ×2 (09:00→12:43)
[2017-05-08] MEDS: MULTIVIT/CA CARB/B CMPLX/FA TAB PO ×2 (09:00→12:42)
[2017-05-08] MEDS ORDERED: VITAMIN A & D 5 GM OINT PACKET TOP (11:58)
[2017-05-08] MEDS: MEROPENEM 500MG/50 ML (PMX) 50 ML IVPB (14:30)
[2017-05-08] MEDS: INSULIN GLARGINE [LANtus] 3 ML PEN SC (21:00)
[2017-05-09] MEDS: GABAPENTIN 300 MG CAP PO ×4 (01:51→21:06)
[2017-05-09] MEDS: SACCHAROMYCES BOULARDII 250 MG CAP PO ×3 (01:51→21:05)
[2017-05-09] MEDS: LEVETIRACETAM (100 MG/ML) 5ML CUP PO ×3 (01:51→21:06)
[2017-05-09] MEDS: INSULIN GLARGINE [LANtus] 3 ML PEN SC ×2 (02:00→21:12)
[2017-05-09] MEDS: ACCU-CHEK XX (02:00)
[2017-05-09] MEDS: HYDROCODONE/APAP (5/325) TAB PO ×2 (03:05→17:31)
[2017-05-09 06:08] LABS: ADD MAN DIFF? NO
[2017-05-09 06:18] LABS: ABNORMAL IP MESSAGE 1; BASOPHIL # 0.1 10^3/ul (0.0-0.1); BASOPHILS % 0.8 % (0.0-2.0); EOSINOPHILS # 3.7 10^3/ul (0.0-0.5); HEMATOCRIT 27.3 % (37.0-47.0); HEMOGLOBIN 8.8 g/dl (12.0-16.0); LYMPHOCYTES # 2.4 10^3/ul (0.8-2.9); LYMPHOCYTES % 14.5 % (15.0-51.0); MEAN CORPUSCULAR HEMOGLOBIN 29.4 pg (29.0-33.0); MEAN CORPUSCULAR HGB CONC 32.2 g/dl (32.0-37.0); MEAN CORPUSCULAR VOLUME 91.3 fl (82.0-101.0); MEAN PLATELET VOLUME 9.9 fl (7.4-10.4); MONOCYTE # 1.3 10^3/ul (0.3-0.9); NEUTROPHIL # 8.6 10^3/ul (1.6-7.5); NEUTROPHILS % 52.6 % (39.0-77.0); PLATELET COUNT 561 10^3/UL (140-415); RED BLOOD COUNT 2.99 10^6/ul (4.20-5.40); RED CELL DISTRIBUTION WIDTH 13.5 % (11.5-14.5)
[2017-05-09 06:18] LABS: WHITE BLOOD COUNT 16.3 10^3/ul (4.8-10.8)
[2017-05-09 06:57] LABS: ALANINE AMINOTRANSFERASE 27 IU/L (13-69); ALBUMIN 2.9 g/dl (3.3-4.9); ALBUMIN/GLOBULIN RATIO 0.85; ALKALINE PHOSPHATASE 84 IU/L (42-121); ANION GAP 13 (8-16); ASPARTATE AMINO TRANSFERASE 17 IU/L (15-46); BLOOD UREA NITROGEN 31 mg/dl (7-20); CALCIUM 8.8 mg/dl (8.4-10.2); CARBON DIOXIDE 28 mmol/L (21-31); CHLORIDE 102 mmol/L (97-110); CREATININE 3.41 mg/dl (0.44-1.00); GLUCOSE 180 mg/dl (70-220); POTASSIUM 4.3 mmol/L (3.5-5.1); SODIUM 139 mmol/L (135-144); TOTAL PROTEIN 6.3 g/dl (6.1-8.1)
[2017-05-09 07:15] LABS: POSITIVE DIFF @See below
[2017-05-09 07:16] LABS: EOSINOPHILS % 22.8 % (0.0-7.0)
[2017-05-09] MEDS: INSULIN ASPART [NOVOLOG] 3 ML PEN SC ×4 (08:14→21:13)
[2017-05-09] MEDS: ASPIRIN (EC) 81 MG TAB PO (08:45)
[2017-05-09] MEDS: CHOLECALCIFEROL 2,000 UNIT CAP PO (08:45)
[2017-05-09] MEDS: CALCIUM CARBONATE 500 MG CHEW TAB PO ×3 (08:45→17:30)
[2017-05-09] MEDS: PANTOPRAZOLE (EC) 40 MG TAB PO (08:45)
[2017-05-09] MEDS: MULTIVIT/CA CARB/B CMPLX/FA TAB PO (08:45)
[2017-05-09] MEDS: SEVELAMER 400 MG TAB PO ×3 (08:46→17:30)
[2017-05-09] MEDS: FLUOXETINE 20 MG CAP PO (08:53)
[2017-05-09] MEDS: COLLAGENASE 30 GM TUBE TOP (08:55)
[2017-05-09] MEDS: MEROPENEM 500MG/50 ML (PMX) 50 ML IVPB (15:35)
[2017-05-10] MEDS: ACCU-CHEK XX (01:52)
[2017-05-10] MEDS: HYDROCODONE/APAP (5/325) TAB PO ×3 (01:53→17:29)
[2017-05-10] MEDS: VANCOMYCIN 1 GM 250 ML IVPB (05:30)
[2017-05-10 06:11] LABS: ADD MAN DIFF? NO
[2017-05-10 06:15] LABS: WHITE BLOOD COUNT 15.8 10^3/ul (4.8-10.8)
[2017-05-10 06:15] LABS: ABNORMAL IP MESSAGE 1; BASOPHIL # 0.1 10^3/ul (0.0-0.1); BASOPHILS % 0.6 % (0.0-2.0); EOSINOPHILS # 3.8 10^3/ul (0.0-0.5); EOSINOPHILS % 24.2 % (0.0-7.0); HEMATOCRIT 26.2 % (37.0-47.0); HEMOGLOBIN 8.2 g/dl (12.0-16.0); LYMPHOCYTES # 3.3 10^3/ul (0.8-2.9); LYMPHOCYTES % 21.1 % (15.0-51.0); MEAN CORPUSCULAR HEMOGLOBIN 28.8 pg (29.0-33.0); MEAN CORPUSCULAR HGB CONC 31.3 g/dl (32.0-37.0); MEAN CORPUSCULAR VOLUME 91.9 fl (82.0-101.0); MEAN PLATELET VOLUME 10.1 fl (7.4-10.4); MONOCYTE # 1.5 10^3/ul (0.3-0.9); MONOCYTES % 9.4 % (0.0-11.0); NEUTROPHIL # 6.8 10^3/ul (1.6-7.5); NEUTROPHILS % 42.9 % (39.0-77.0); PLATELET COUNT 584 10^3/UL (140-415); RED BLOOD COUNT 2.85 10^6/ul (4.20-5.40); RED CELL DISTRIBUTION WIDTH 13.7 % (11.5-14.5)
[2017-05-10 06:21] LABS: POSITIVE DIFF @See below
[2017-05-10 06:52] LABS: ANION GAP 18 (8-16); BLOOD UREA NITROGEN 52 mg/dl (7-20); CALCIUM 8.2 mg/dl (8.4-10.2); CARBON DIOXIDE 24 mmol/L (21-31); CHLORIDE 105 mmol/L (97-110); CREATININE 4.56 mg/dl (0.44-1.00); GLUCOSE 155 mg/dl (70-220); POTASSIUM 4.7 mmol/L (3.5-5.1); SODIUM 142 mmol/L (135-144)
[2017-05-10] MEDS: SEVELAMER 400 MG TAB PO ×3 (08:19→17:29)
[2017-05-10] MEDS: CALCIUM CARBONATE 500 MG CHEW TAB PO ×3 (08:19→17:29)
[2017-05-10] MEDS: SACCHAROMYCES BOULARDII 250 MG CAP PO ×2 (08:19→20:34)
[2017-05-10] MEDS: CHOLECALCIFEROL 2,000 UNIT CAP PO (08:19)
[2017-05-10] MEDS: PANTOPRAZOLE (EC) 40 MG TAB PO (08:19)
[2017-05-10] MEDS: MULTIVIT/CA CARB/B CMPLX/FA TAB PO (08:19)
[2017-05-10] MEDS: FLUOXETINE 20 MG CAP PO (08:19)
[2017-05-10] MEDS: LEVETIRACETAM (100 MG/ML) 5ML CUP PO ×2 (08:19→20:34)
[2017-05-10] MEDS: GABAPENTIN 300 MG CAP PO ×3 (08:20→20:34)
[2017-05-10] MEDS: ASPIRIN (EC) 81 MG TAB PO (08:20)
[2017-05-10] MEDS: COLLAGENASE 30 GM TUBE TOP (08:21)
[2017-05-10] MEDS: INSULIN ASPART [NOVOLOG] 3 ML PEN SC ×4 (08:30→20:38)
[2017-05-10] MEDS: MEROPENEM 500MG/50 ML (PMX) 50 ML IVPB (13:34)
[2017-05-10] MEDS: EPOETIN 10000 UNITS/1 ML INJ (ESRD) SC (17:29)
[2017-05-10] MEDS ORDERED: SODIUM CHLORIDE 0.9% 1L BAG IV (19:00)
[2017-05-10] MEDS ORDERED: ALBUMIN HUMAN 25% 50 ML IV (19:00)
[2017-05-10] MEDS ORDERED: HEPARIN 1000 UNITS/ML 10 ML INJ CATHETER (19:00)
[2017-05-10] MEDS: INSULIN GLARGINE [LANtus] 3 ML PEN SC (20:41)
[2017-05-11] MEDS: HYDROCODONE/APAP (5/325) TAB PO ×3 (00:20→16:40)
[2017-05-11] MEDS: ACCU-CHEK XX (01:06)
[2017-05-11] MEDS: SACCHAROMYCES BOULARDII 250 MG CAP PO ×2 (08:06→21:35)
[2017-05-11] MEDS: PANTOPRAZOLE (EC) 40 MG TAB PO (08:06)
[2017-05-11] MEDS: SEVELAMER 400 MG TAB PO ×3 (08:07→17:41)
[2017-05-11] MEDS: GABAPENTIN 300 MG CAP PO ×3 (08:07→21:35)
[2017-05-11] MEDS: CALCIUM CARBONATE 500 MG CHEW TAB PO ×3 (08:07→17:41)
[2017-05-11] MEDS: ASPIRIN (EC) 81 MG TAB PO (08:07)
[2017-05-11] MEDS: LEVETIRACETAM (100 MG/ML) 5ML CUP PO ×2 (08:07→21:35)
[2017-05-11] MEDS: FLUOXETINE 20 MG CAP PO (08:07)
[2017-05-11] MEDS: CHOLECALCIFEROL 2,000 UNIT CAP PO (08:07)
[2017-05-11] MEDS: MULTIVIT/CA CARB/B CMPLX/FA TAB PO (08:07)
[2017-05-11] MEDS: COLLAGENASE 30 GM TUBE TOP (08:08)
[2017-05-11] MEDS: INSULIN ASPART [NOVOLOG] 3 ML PEN SC ×4 (08:13→21:00)
[2017-05-11 10:50] LABS: ADD MAN DIFF? NO
[2017-05-11 10:56] LABS: ABNORMAL IP MESSAGE 1; BASOPHIL # 0.2 10^3/ul (0.0-0.1); BASOPHILS % 0.9 % (0.0-2.0); EOSINOPHILS # 3.4 10^3/ul (0.0-0.5); HEMATOCRIT 27.3 % (37.0-47.0); HEMOGLOBIN 8.8 g/dl (12.0-16.0); LYMPHOCYTES # 3.4 10^3/ul (0.8-2.9); LYMPHOCYTES % 20.5 % (15.0-51.0); MEAN CORPUSCULAR HEMOGLOBIN 29.5 pg (29.0-33.0); MEAN CORPUSCULAR HGB CONC 32.2 g/dl (32.0-37.0); MEAN CORPUSCULAR VOLUME 91.6 fl (82.0-101.0); MEAN PLATELET VOLUME 9.6 fl (7.4-10.4); MONOCYTE # 1.3 10^3/ul (0.3-0.9); MONOCYTES % 8.1 % (0.0-11.0); NEUTROPHIL # 7.8 10^3/ul (1.6-7.5); NEUTROPHILS % 47.9 % (39.0-77.0); PLATELET COUNT 601 10^3/UL (140-415); RED BLOOD COUNT 2.98 10^6/ul (4.20-5.40); RED CELL DISTRIBUTION WIDTH 13.8 % (11.5-14.5)
[2017-05-11 10:56] LABS: WHITE BLOOD COUNT 16.3 10^3/ul (4.8-10.8)
[2017-05-11 11:15] LABS: ANION GAP 21 (8-16); BLOOD UREA NITROGEN 70 mg/dl (7-20); CALCIUM 8.4 mg/dl (8.4-10.2); CARBON DIOXIDE 22 mmol/L (21-31); CHLORIDE 103 mmol/L (97-110); CREATININE 5.97 mg/dl (0.44-1.00); GLUCOSE 159 mg/dl (70-220); POTASSIUM 4.5 mmol/L (3.5-5.1); SODIUM 141 mmol/L (135-144)
[2017-05-11] MEDS: MEROPENEM 500MG/50 ML (PMX) 50 ML IVPB (13:56)
[2017-05-11] MEDS: INSULIN GLARGINE [LANtus] 3 ML PEN SC (21:39)
[2017-05-12] MEDS: HYDROCODONE/APAP (5/325) TAB PO ×4 (00:47→12:15)
[2017-05-12] MEDS: ACCU-CHEK XX (02:00)
[2017-05-12] MEDS: INSULIN ASPART [NOVOLOG] 3 ML PEN SC ×4 (08:15→21:58)
[2017-05-12] MEDS: MULTIVIT/CA CARB/B CMPLX/FA TAB PO (08:43)
[2017-05-12] MEDS: PANTOPRAZOLE (EC) 40 MG TAB PO (08:43)
[2017-05-12] MEDS: SACCHAROMYCES BOULARDII 250 MG CAP PO ×2 (08:43→21:50)
[2017-05-12] MEDS: LEVETIRACETAM (100 MG/ML) 5ML CUP PO ×2 (08:43→21:50)
[2017-05-12] MEDS: SEVELAMER 400 MG TAB PO ×3 (08:43→17:02)
[2017-05-12] MEDS: CALCIUM CARBONATE 500 MG CHEW TAB PO ×3 (08:43→17:02)
[2017-05-12] MEDS: GABAPENTIN 300 MG CAP PO ×3 (08:44→21:50)
[2017-05-12] MEDS: CHOLECALCIFEROL 2,000 UNIT CAP PO (08:44)
[2017-05-12] MEDS: FLUOXETINE 20 MG CAP PO (08:44)
[2017-05-12] MEDS: ASPIRIN (EC) 81 MG TAB PO (08:44)
[2017-05-12] MEDS: COLLAGENASE 30 GM TUBE TOP (08:46)
[2017-05-12] MEDS: MEROPENEM 500MG/50 ML (PMX) 50 ML IVPB (13:25)
[2017-05-12 13:37] LABS: HEMOGLOBIN 8.9 g/dl (12.0-16.0)
[2017-05-12 13:37] LABS: HEMATOCRIT 28.2 % (37.0-47.0)
[2017-05-12] MEDS: EPOETIN 10000 UNITS/1 ML INJ (ESRD) SC (17:03)
[2017-05-12] MEDS ORDERED: SOD CHLORIDE 0.9% 1,000 ML IV (19:39)
[2017-05-12] MEDS ORDERED: ALBUMIN HUMAN 25% 50 ML IV (20:00)
[2017-05-12] MEDS ORDERED: SODIUM CHLORIDE 0.9% 1L BAG IV (20:00)
[2017-05-12] MEDS: INSULIN GLARGINE [LANtus] 3 ML PEN SC (21:58)
[2017-05-12] MEDS: ZOLPIDEM 5 MG TAB PO (22:48)
[2017-05-13] MEDS: ACCU-CHEK XX (02:00)
[2017-05-13 05:52] LABS: ADD MAN DIFF? NO
[2017-05-13 05:59] LABS: WHITE BLOOD COUNT 14.6 10^3/ul (4.8-10.8)
[2017-05-13 05:59] LABS: ABNORMAL IP MESSAGE 1; BASOPHIL # 0.1 10^3/ul (0.0-0.1); BASOPHILS % 0.8 % (0.0-2.0); EOSINOPHILS # 3.3 10^3/ul (0.0-0.5); EOSINOPHILS % 22.4 % (0.0-7.0); HEMATOCRIT 27.9 % (37.0-47.0); LYMPHOCYTES # 3.1 10^3/ul (0.8-2.9); LYMPHOCYTES % 20.9 % (15.0-51.0); MEAN CORPUSCULAR HEMOGLOBIN 28.8 pg (29.0-33.0); MEAN CORPUSCULAR HGB CONC 32.3 g/dl (32.0-37.0); MEAN CORPUSCULAR VOLUME 89.4 fl (82.0-101.0); MEAN PLATELET VOLUME 9.5 fl (7.4-10.4); MONOCYTE # 1.4 10^3/ul (0.3-0.9); MONOCYTES % 9.2 % (0.0-11.0); NEUTROPHIL # 6.6 10^3/ul (1.6-7.5); NEUTROPHILS % 45.2 % (39.0-77.0); PLATELET COUNT 558 10^3/UL (140-415); RED BLOOD COUNT 3.12 10^6/ul (4.20-5.40); RED CELL DISTRIBUTION WIDTH 13.8 % (11.5-14.5)
[2017-05-13 06:29] LABS: POSITIVE DIFF @See below
[2017-05-13 06:44] LABS: ANION GAP 16 (8-16); BLOOD UREA NITROGEN 60 mg/dl (7-20); CALCIUM 8.6 mg/dl (8.4-10.2); CARBON DIOXIDE 24 mmol/L (21-31); CHLORIDE 103 mmol/L (97-110); GLUCOSE 104 mg/dl (70-220); POTASSIUM 4.4 mmol/L (3.5-5.1); SODIUM 139 mmol/L (135-144)
[2017-05-13 06:45] LABS: MAGNESIUM 1.5 mg/dl (1.7-2.5)
[2017-05-13 06:45] LABS: PHOSPHORUS 3.7 mg/dl (2.5-4.9)
[2017-05-13] MEDS: INSULIN ASPART [NOVOLOG] 3 ML PEN SC ×4 (08:02→20:54)
[2017-05-13] MEDS: MULTIVIT/CA CARB/B CMPLX/FA TAB PO (08:15)
[2017-05-13] MEDS: SEVELAMER 400 MG TAB PO ×3 (08:15→17:21)
[2017-05-13] MEDS: FLUOXETINE 20 MG CAP PO (08:15)
[2017-05-13] MEDS: CALCIUM CARBONATE 500 MG CHEW TAB PO ×3 (08:15→17:21)
[2017-05-13] MEDS: ASPIRIN (EC) 81 MG TAB PO (08:16)
[2017-05-13] MEDS: GABAPENTIN 300 MG CAP PO ×3 (08:16→20:50)
[2017-05-13] MEDS: SACCHAROMYCES BOULARDII 250 MG CAP PO ×2 (08:16→20:50)
[2017-05-13] MEDS: CHOLECALCIFEROL 2,000 UNIT CAP PO (08:16)
[2017-05-13] MEDS: PANTOPRAZOLE (EC) 40 MG TAB PO (08:16)
[2017-05-13] MEDS: LEVETIRACETAM (100 MG/ML) 5ML CUP PO ×2 (08:16→20:50)
[2017-05-13] MEDS: COLLAGENASE 30 GM TUBE TOP (08:17)
[2017-05-13] MEDS: MAGNESIUM OXIDE 400 MG TAB NGT ×2 (13:48→20:50)
[2017-05-13] MEDS: MEROPENEM 500MG/50 ML (PMX) 50 ML IVPB (15:17)
[2017-05-13] MEDS: INSULIN GLARGINE [LANtus] 3 ML PEN SC (20:55)
[2017-05-13] MEDS: ZOLPIDEM 5 MG TAB PO (21:56)
[2017-05-14] MEDS: ACCU-CHEK XX (02:00)
[2017-05-14 07:33] LABS: VANCOMYCIN,TROUGH 16.5 ug/ml (10.0-20.0)
[2017-05-14] MEDS: SEVELAMER 400 MG TAB PO ×3 (08:03→18:06)
[2017-05-14] MEDS: HYDROCODONE/APAP (5/325) TAB PO ×2 (08:03→18:16)
[2017-05-14] MEDS: CALCIUM CARBONATE 500 MG CHEW TAB PO ×3 (08:03→18:06)
[2017-05-14] MEDS: INSULIN ASPART [NOVOLOG] 3 ML PEN SC ×4 (08:15→20:55)
[2017-05-14] MEDS: VANCOMYCIN 1 GM 250 ML IVPB (08:16)
[2017-05-14] MEDS: FLUOXETINE 20 MG CAP PO (10:20)
[2017-05-14] MEDS: PANTOPRAZOLE (EC) 40 MG TAB PO (10:20)
[2017-05-14] MEDS: SACCHAROMYCES BOULARDII 250 MG CAP PO ×2 (10:20→20:54)
[2017-05-14] MEDS: CHOLECALCIFEROL 2,000 UNIT CAP PO (10:21)
[2017-05-14] MEDS: MULTIVIT/CA CARB/B CMPLX/FA TAB PO (10:21)
[2017-05-14] MEDS: ASPIRIN (EC) 81 MG TAB PO (10:21)
[2017-05-14] MEDS: GABAPENTIN 300 MG CAP PO ×3 (10:21→20:54)
[2017-05-14] MEDS: LEVETIRACETAM (100 MG/ML) 5ML CUP PO ×2 (10:21→20:54)
[2017-05-14] MEDS: COLLAGENASE 30 GM TUBE TOP (10:22)
[2017-05-14] MEDS: MEROPENEM 500MG/50 ML (PMX) 50 ML IVPB (13:43)
[2017-05-14] MEDS: EPOETIN 10000 UNITS/1 ML INJ (ESRD) SC (18:07)
[2017-05-14] MEDS: INSULIN GLARGINE [LANtus] 3 ML PEN SC (20:59)
[2017-05-14] MEDS: ZOLPIDEM 5 MG TAB PO (22:20)
[2017-05-15] MEDS: ACCU-CHEK XX (02:00)
[2017-05-15] MEDS: HYDROCODONE/APAP (5/325) TAB PO ×2 (07:30→15:13)
[2017-05-15] MEDS: INSULIN ASPART [NOVOLOG] 3 ML PEN SC ×4 (08:15→21:00)
[2017-05-15] MEDS: CALCIUM CARBONATE 500 MG CHEW TAB PO ×3 (10:37→17:43)
[2017-05-15] MEDS: SEVELAMER 400 MG TAB PO ×3 (10:37→17:42)
[2017-05-15] MEDS: SACCHAROMYCES BOULARDII 250 MG CAP PO ×2 (10:39→21:40)
[2017-05-15] MEDS: FLUOXETINE 20 MG CAP PO (10:39)
[2017-05-15] MEDS: GABAPENTIN 300 MG CAP PO ×3 (10:39→21:40)
[2017-05-15] MEDS: LEVETIRACETAM (100 MG/ML) 5ML CUP PO ×2 (10:39→21:40)
[2017-05-15] MEDS: PANTOPRAZOLE (EC) 40 MG TAB PO (10:39)
[2017-05-15] MEDS: ASPIRIN (EC) 81 MG TAB PO (10:39)
[2017-05-15] MEDS: MULTIVIT/CA CARB/B CMPLX/FA TAB PO (10:40)
[2017-05-15] MEDS: CHOLECALCIFEROL 2,000 UNIT CAP PO (10:40)
[2017-05-15] MEDS: COLLAGENASE 30 GM TUBE TOP (10:41)
[2017-05-15] MEDS: MEROPENEM 500MG/50 ML (PMX) 50 ML IVPB (13:14)
[2017-05-15] MEDS: INSULIN GLARGINE [LANtus] 3 ML PEN SC (21:46)
[2017-05-16] MEDS: ACCU-CHEK XX (01:55)
[2017-05-16 05:20] LABS: ADD MAN DIFF? NO
[2017-05-16 05:32] LABS: ABNORMAL IP MESSAGE 1; BASOPHIL # 0.1 10^3/ul (0.0-0.1); BASOPHILS % 0.8 % (0.0-2.0); EOSINOPHILS # 3.7 10^3/ul (0.0-0.5); EOSINOPHILS % 24.1 % (0.0-7.0); HEMATOCRIT 27.9 % (37.0-47.0); LYMPHOCYTES # 3.4 10^3/ul (0.8-2.9); LYMPHOCYTES % 22.1 % (15.0-51.0); MEAN CORPUSCULAR HEMOGLOBIN 28.7 pg (29.0-33.0); MEAN CORPUSCULAR HGB CONC 32.3 g/dl (32.0-37.0); MEAN CORPUSCULAR VOLUME 88.9 fl (82.0-101.0); MEAN PLATELET VOLUME 9.7 fl (7.4-10.4); MONOCYTE # 1.2 10^3/ul (0.3-0.9); MONOCYTES % 7.5 % (0.0-11.0); NEUTROPHIL # 6.8 10^3/ul (1.6-7.5); NEUTROPHILS % 44.1 % (39.0-77.0); PLATELET COUNT 511 10^3/UL (140-415); RED BLOOD COUNT 3.14 10^6/ul (4.20-5.40); RED CELL DISTRIBUTION WIDTH 14.3 % (11.5-14.5)
[2017-05-16 05:32] LABS: WHITE BLOOD COUNT 15.5 10^3/ul (4.8-10.8)
[2017-05-16 05:39] LABS: POSITIVE DIFF @See below
[2017-05-16 06:14] LABS: ALANINE AMINOTRANSFERASE 19 IU/L (13-69); ALBUMIN 2.9 g/dl (3.3-4.9); ALBUMIN/GLOBULIN RATIO 0.82; ALKALINE PHOSPHATASE 69 IU/L (42-121); ANION GAP 20 (8-16); ASPARTATE AMINO TRANSFERASE 20 IU/L (15-46); BLOOD UREA NITROGEN 67 mg/dl (7-20); CALCIUM 8.9 mg/dl (8.4-10.2); CARBON DIOXIDE 22 mmol/L (21-31); CHLORIDE 104 mmol/L (97-110); CREATININE 5.93 mg/dl (0.44-1.00); GLUCOSE 178 mg/dl (70-220); POTASSIUM 4.8 mmol/L (3.5-5.1); SODIUM 141 mmol/L (135-144); TOTAL PROTEIN 6.4 g/dl (6.1-8.1)
[2017-05-16] MEDS: LEVETIRACETAM (100 MG/ML) 5ML CUP PO ×2 (08:23→21:20)
[2017-05-16] MEDS: ASPIRIN (EC) 81 MG TAB PO (08:24)
[2017-05-16] MEDS: CALCIUM CARBONATE 500 MG CHEW TAB PO ×3 (08:24→17:04)
[2017-05-16] MEDS: SACCHAROMYCES BOULARDII 250 MG CAP PO ×2 (08:24→21:20)
[2017-05-16] MEDS: PANTOPRAZOLE (EC) 40 MG TAB PO (08:24)
[2017-05-16] MEDS: CHOLECALCIFEROL 2,000 UNIT CAP PO (08:24)
[2017-05-16] MEDS: COLLAGENASE 30 GM TUBE TOP (08:24)
[2017-05-16] MEDS: SEVELAMER 400 MG TAB PO ×3 (08:24→17:03)
[2017-05-16] MEDS: FLUOXETINE 20 MG CAP PO (08:24)
[2017-05-16] MEDS: GABAPENTIN 300 MG CAP PO ×3 (08:24→21:20)
[2017-05-16] MEDS: MULTIVIT/CA CARB/B CMPLX/FA TAB PO (08:24)
[2017-05-16] MEDS: INSULIN ASPART [NOVOLOG] 3 ML PEN SC ×4 (08:36→21:25)
[2017-05-16] MEDS: BARIUM SULF 2% 450 ML BTL (BERRY SMOOTHIE) PO (12:00)
[2017-05-16] MEDS: MEROPENEM 500MG/50 ML (PMX) 50 ML IVPB (14:01)
[2017-05-16] MEDS: INSULIN GLARGINE [LANtus] 3 ML PEN SC (21:24)
[2017-05-17] MEDS: ZOLPIDEM 5 MG TAB PO ×2 (00:08→22:42)
[2017-05-17] MEDS: ACCU-CHEK XX (02:00)
[2017-05-17 06:03] LABS: ADD MAN DIFF? NO
[2017-05-17 06:12] LABS: WHITE BLOOD COUNT 15.2 10^3/ul (4.8-10.8)
[2017-05-17 06:12] LABS: ABNORMAL IP MESSAGE 1; BASOPHIL # 0.1 10^3/ul (0.0-0.1); BASOPHILS % 0.9 % (0.0-2.0); EOSINOPHILS # 3.2 10^3/ul (0.0-0.5); EOSINOPHILS % 20.8 % (0.0-7.0); HEMATOCRIT 29.4 % (37.0-47.0); HEMOGLOBIN 9.5 g/dl (12.0-16.0); LYMPHOCYTES # 3.5 10^3/ul (0.8-2.9); LYMPHOCYTES % 23.2 % (15.0-51.0); MEAN CORPUSCULAR HEMOGLOBIN 28.8 pg (29.0-33.0); MEAN CORPUSCULAR HGB CONC 32.3 g/dl (32.0-37.0); MEAN CORPUSCULAR VOLUME 89.1 fl (82.0-101.0); MEAN PLATELET VOLUME 9.9 fl (7.4-10.4); MONOCYTE # 1.4 10^3/ul (0.3-0.9); MONOCYTES % 8.9 % (0.0-11.0); NEUTROPHIL # 6.9 10^3/ul (1.6-7.5); PLATELET COUNT 516 10^3/UL (140-415); RED CELL DISTRIBUTION WIDTH 14.2 % (11.5-14.5)
[2017-05-17 06:21] LABS: POSITIVE DIFF @See below
[2017-05-17] MEDS: INSULIN ASPART [NOVOLOG] 3 ML PEN SC ×4 (08:15→20:15)
[2017-05-17] MEDS: SEVELAMER 400 MG TAB PO ×3 (08:41→17:04)
[2017-05-17] MEDS: MULTIVIT/CA CARB/B CMPLX/FA TAB PO (08:41)
[2017-05-17] MEDS: LEVETIRACETAM (100 MG/ML) 5ML CUP PO ×2 (08:41→20:10)
[2017-05-17] MEDS: CALCIUM CARBONATE 500 MG CHEW TAB PO ×3 (08:42→17:04)
[2017-05-17] MEDS: SACCHAROMYCES BOULARDII 250 MG CAP PO ×2 (08:42→20:10)
[2017-05-17] MEDS: ASPIRIN (EC) 81 MG TAB PO (08:43)
[2017-05-17] MEDS: CHOLECALCIFEROL 2,000 UNIT CAP PO (08:43)
[2017-05-17] MEDS: PANTOPRAZOLE (EC) 40 MG TAB PO (08:43)
[2017-05-17] MEDS: GABAPENTIN 300 MG CAP PO ×3 (08:43→20:10)
[2017-05-17] MEDS: FLUOXETINE 20 MG CAP PO (08:43)
[2017-05-17] MEDS: COLLAGENASE 30 GM TUBE TOP (08:44)
[2017-05-17] MEDS: MEROPENEM 500MG/50 ML (PMX) 50 ML IVPB (13:42)
[2017-05-17] MEDS: HYDROCODONE/APAP (5/325) TAB PO (16:38)
[2017-05-17] MEDS ORDERED: SOD CHLORIDE 0.9% 1,000 ML IV (16:52)
[2017-05-17] MEDS ORDERED: ALBUMIN HUMAN 25% 50 ML IV (17:00)
[2017-05-17] MEDS ORDERED: SODIUM CHLORIDE 0.9% 1L BAG IV (17:00)
[2017-05-17] MEDS: EPOETIN 10000 UNITS/1 ML INJ (ESRD) SC (17:05)
[2017-05-17] MEDS: INSULIN GLARGINE [LANtus] 3 ML PEN SC (20:16)
[2017-05-18] MEDS: COLLAGENASE 30 GM TUBE TOP ×2 (00:05→05:33)
[2017-05-18] MEDS: ACCU-CHEK XX (02:26)
[2017-05-18] MEDS: VANCOMYCIN 1 GM 250 ML IVPB (05:34)
[2017-05-18] MEDS: SOD CHLORIDE 0.9% 100 ML (09:07)
[2017-05-18] MEDS: IOHEXOL 300MG/ML 150 ML BTL (09:08)
[2017-05-18] MEDS: SEVELAMER 400 MG TAB PO ×3 (09:20→17:33)
[2017-05-18] MEDS: CALCIUM CARBONATE 500 MG CHEW TAB PO ×3 (09:20→17:33)
[2017-05-18] MEDS: PANTOPRAZOLE (EC) 40 MG TAB PO (09:21)
[2017-05-18] MEDS: ASPIRIN (EC) 81 MG TAB PO (09:21)
[2017-05-18] MEDS: MULTIVIT/CA CARB/B CMPLX/FA TAB PO (09:21)
[2017-05-18] MEDS: LEVETIRACETAM (100 MG/ML) 5ML CUP PO ×2 (09:21→20:50)
[2017-05-18] MEDS: GABAPENTIN 300 MG CAP PO ×3 (09:21→20:49)
[2017-05-18] MEDS: CHOLECALCIFEROL 2,000 UNIT CAP PO (09:21)
[2017-05-18] MEDS: FLUOXETINE 20 MG CAP PO (09:21)
[2017-05-18] MEDS: SACCHAROMYCES BOULARDII 250 MG CAP PO ×2 (09:21→20:49)
[2017-05-18] MEDS: INSULIN ASPART [NOVOLOG] 3 ML PEN SC ×4 (09:25→20:53)
[2017-05-18] MEDS: MEROPENEM 500MG/50 ML (PMX) 50 ML IVPB (16:39)
[2017-05-18] MEDS: LUBIPROSTONE 24 MCG CAP PO (20:49)
[2017-05-18] MEDS: INSULIN GLARGINE [LANtus] 3 ML PEN SC (20:52)
[2017-05-18] MEDS: ZOLPIDEM 5 MG TAB PO (22:13)
[2017-05-19] MEDS: HYDROCODONE/APAP (5/325) TAB PO ×2 (01:52→05:23)
[2017-05-19] MEDS: ACCU-CHEK XX (02:21)
[2017-05-19] MEDS: traMADol 50 MG TAB PO (04:15)
[2017-05-19] MEDS: CALCIUM CARBONATE 500 MG CHEW TAB PO ×2 (08:33→11:56)
[2017-05-19] MEDS: SEVELAMER 400 MG TAB PO ×2 (08:33→11:56)
[2017-05-19] MEDS: SACCHAROMYCES BOULARDII 250 MG CAP PO (08:34)
[2017-05-19] MEDS: CHOLECALCIFEROL 2,000 UNIT CAP PO (08:34)
[2017-05-19] MEDS: GABAPENTIN 300 MG CAP PO ×2 (08:34→13:13)
[2017-05-19] MEDS: ASPIRIN (EC) 81 MG TAB PO (08:34)
[2017-05-19] MEDS: PANTOPRAZOLE (EC) 40 MG TAB PO (08:34)
[2017-05-19] MEDS: MULTIVIT/CA CARB/B CMPLX/FA TAB PO (08:34)
[2017-05-19] MEDS: LUBIPROSTONE 24 MCG CAP PO (08:34)
[2017-05-19] MEDS: LEVETIRACETAM (100 MG/ML) 5ML CUP PO (08:36)
[2017-05-19] MEDS: FLUOXETINE 20 MG CAP PO (08:36)
[2017-05-19] MEDS: INSULIN ASPART [NOVOLOG] 3 ML PEN SC ×2 (08:38→11:57)
[2017-05-19] MEDS: COLLAGENASE 30 GM TUBE TOP (11:56)
[2017-05-19] MEDS: MEROPENEM 500MG/50 ML (PMX) 50 ML IVPB (14:41)
[2017-05-19] MEDS ORDERED: INSULIN GLARGINE [LANtus] 3 ML PEN SC (21:00)
== END 2017-05-19 16:20 | DRG 853 ==
LOC: TEL 03-13 15:57 → MS2 03-23 12:01 → E/R 13:21 → ICU 14:59
PROC: 05HM33Z Insertion of Infusion Device into Right Internal Jugular Vein, Percutaneous Approach (ICD-10-PCS; principal; 2017-03-28 10:00)
PROC: 0TT04ZZ Resection of Right Kidney, Percutaneous Endoscopic Approach (ICD-10-PCS; 2017-03-28 10:00)
PROC: 07BD4ZX Excision of Aortic Lymphatic, Percutaneous Endoscopic Approach, Diagnostic (ICD-10-PCS; 2017-03-28 10:00)
PROC: 0JB70ZZ Excision of Back Subcutaneous Tissue and Fascia, Open Approach (ICD-10-PCS; 2017-03-28 10:00)
PROC: 0DBN8ZX Excision of Sigmoid Colon, Via Natural or Artificial Opening Endoscopic, Diagnostic (ICD-10-PCS; 2017-03-28 10:00)
PROC: 5A1D70Z Performance of Urinary Filtration, Intermittent, Less than 6 Hours Per Day (ICD-10-PCS; 2017-03-28 10:00)
PROC: 30233N1 Transfusion of Nonautologous Red Blood Cells into Peripheral Vein, Percutaneous Approach (ICD-10-PCS; 2017-03-28 10:00)
DX: A41.9 Sepsis, unspecified organism (principal); R65.21 Severe sepsis with septic shock; J18.9 Pneumonia, unspecified organism; L89.153 Pressure ulcer of sacral region, stage 3; K63.3 Ulcer of intestine; N18.6 End stage renal disease; E87.2 Acidosis; A04.72 Enterocolitis due to Clostridium difficile, not specified as recurrent; I12.0 Hypertensive chronic kidney disease with stage 5 chronic kidney disease or end stage renal disease; T87.43 Infection of amputation stump, right lower extremity; C64.1 Malignant neoplasm of right kidney, except renal pelvis; L97.328 Non-pressure chronic ulcer of left ankle with other specified severity; N39.0 Urinary tract infection, site not specified; K62.5 Hemorrhage of anus and rectum; K51.40 Inflammatory polyps of colon without complications; E11.22 Type 2 diabetes mellitus with diabetic chronic kidney disease; E11.40 Type 2 diabetes mellitus with diabetic neuropathy, unspecified; G40.909 Epilepsy, unspecified, not intractable, without status epilepticus; E11.621 Type 2 diabetes mellitus with foot ulcer; E11.622 Type 2 diabetes mellitus with other skin ulcer; I70.209 Unspecified atherosclerosis of native arteries of extremities, unspecified extremity; E83.51 Hypocalcemia; E88.09 Other disorders of plasma-protein metabolism, not elsewhere classified; D64.9 Anemia, unspecified; E87.6 Hypokalemia; T87.89 Other complications of amputation stump; Y83.5 Amputation of limb(s) as the cause of abnormal reaction of the patient, or of later complication, without mention of misadventure at the time of the procedure; Y92.89 Other specified places as the place of occurrence of the external cause; B95.61 Methicillin susceptible Staphylococcus aureus infection as the cause of diseases classified elsewhere; B96.89 Other specified bacterial agents as the cause of diseases classified elsewhere; B95.4 Other streptococcus as the cause of diseases classified elsewhere; K63.5 Polyp of colon; B19.20 Unspecified viral hepatitis C without hepatic coma; B96.1 Klebsiella pneumoniae [K. pneumoniae] as the cause of diseases classified elsewhere; Z79.4 Long term (current) use of insulin; Z99.2 Dependence on renal dialysis; Z89.511 Acquired absence of right leg below knee
CPT/HCPCS: 36415; 36430; 71010; 71045; 73600-50; 74000; 74176; 74177; 76937; 80048; 80053; 80061; 80150; 80202; 82533; 82550; 82947; 82962; 83605; 83690; 83735; 84100; 84132; 84484; 85014; 85018; 85025; 85610; 85730; 86644; 86704; 86709; 86803; 86850; 86900; 86901; 86920; 87040; 87045; 87070; 87075; 87081; 87340; 88305; 88307; 90935; 93005; 93306; 94640; 96361; 96365; 96367; 96375; 99291-25

== ENCOUNTER 2017-06-09 10:17 | Inpatient (IN) | payer OTHER ==
[2017-06-09] MEDS: SOD CHLORIDE 0.9% 1,000 ML IV (12:50)
[2017-06-09] MEDS: morphine 4 MG/ML VIAL IV (12:50)
[2017-06-09 13:20] LABS: ADD MAN DIFF? NO
[2017-06-09 13:23] LABS: BASOPHIL # 0.1 10^3/ul (0.0-0.1); BASOPHILS % 0.4 % (0.0-2.0); EOSINOPHILS # 0.6 10^3/ul (0.0-0.5); EOSINOPHILS % 3.6 % (0.0-7.0); HEMATOCRIT 25.9 % (37.0-47.0); HEMOGLOBIN 7.9 g/dl (12.0-16.0); LYMPHOCYTES # 1.7 10^3/ul (0.8-2.9); LYMPHOCYTES % 10.4 % (15.0-51.0); MEAN CORPUSCULAR HEMOGLOBIN 26.2 pg (29.0-33.0); MEAN CORPUSCULAR HGB CONC 30.5 g/dl (32.0-37.0); MEAN PLATELET VOLUME 10.5 fl (7.4-10.4); NEUTROPHIL # 12.6 10^3/ul (1.6-7.5); NEUTROPHILS % 77.9 % (39.0-77.0); PLATELET COUNT 468 10^3/UL (140-415); RED BLOOD COUNT 3.01 10^6/ul (4.20-5.40); RED CELL DISTRIBUTION WIDTH 16.6 % (11.5-14.5)
[2017-06-09 13:23] LABS: WHITE BLOOD COUNT 16.2 10^3/ul (4.8-10.8)
[2017-06-09 13:42] LABS: ANION GAP 21 (8-16); BLOOD UREA NITROGEN 68 mg/dl (7-20); CALCIUM 8.2 mg/dl (8.4-10.2); CARBON DIOXIDE 25 mmol/L (21-31); CHLORIDE 102 mmol/L (97-110); CREATININE 5.13 mg/dl (0.44-1.00); GLUCOSE 284 mg/dl (70-220); POTASSIUM 4.3 mmol/L (3.5-5.1); SODIUM 144 mmol/L (135-144)
[2017-06-09 13:47] LABS: INR 1.18; PROTIME 15.2 Sec (11.9-14.9); PT RATIO 1.2
[2017-06-09 13:48] LABS: PARTIAL THROMBOPLASTIN TIME 35.6 Sec (25.0-35.0)
[2017-06-09] MEDS: CEFEPIME 2GM/50 ML (PMX) 50 ML IVPB ×2 (14:10→14:41)
[2017-06-09] MEDS ORDERED: ONDANSETRON 4 MG INJ IV ×2 (15:00→17:00)
[2017-06-09] MEDS ORDERED: ACETAMINOPHEN 325 MG TAB PO (15:00)
[2017-06-09] MEDS: LEVOFLOXACIN 500MG/D5W (PMX) 100 ML IVPB (15:44)
[2017-06-09] MEDS ORDERED: NACL 0.9% 3 ML SYG IV (17:00)
[2017-06-09] MEDS ORDERED: VANCOMYCIN IV PER PHARMACY XX (17:00)
[2017-06-09] MEDS ORDERED: ALBUTEROL 0.083% (NEB) 2.5 MG/3 ML AMP NEB (17:00)
[2017-06-09] MEDS ORDERED: DOCUSATE SODIUM 100 MG CAP PO (17:00)
[2017-06-09] MEDS ORDERED: BISACODYL (EC) 5 MG TAB PO (17:00)
[2017-06-09] MEDS: HYDROmorphONE 0.5 MG/0.5 ML SYG IV ×2 (17:46→22:11)
[2017-06-09] MEDS ORDERED: GLUCAGON 1 MG INJ IM (18:00)
[2017-06-09] MEDS ORDERED: SEVELAMER 800 MG TAB PO (18:00)
[2017-06-09] MEDS ORDERED: GLUCOSE GEL 15 GRAM TUBE BUCCAL (18:00)
[2017-06-09] MEDS ORDERED: DEXTROSE 50% 50 ML SYRINGE IV ×2 (18:00)
[2017-06-09] MEDS ORDERED: GLUCOSE GEL 15 GRAM TUBE PO ×2 (18:00)
[2017-06-09] MEDS: INSULIN ASPART [NOVOLOG] 3 ML PEN SC ×2 (19:00→21:26)
[2017-06-09] MEDS: HYDROCODONE/APAP (5/325) TAB PO (19:00)
[2017-06-09] MEDS: VANCOMYCIN 1.75 GM in SOD CHLORIDE 0.9% 500 ML IVPB (21:12)
[2017-06-09] MEDS: CHOLESTYRAMINE 4 GM PACKET PO (21:13)
[2017-06-09] MEDS: GABAPENTIN 300 MG CAP PO (21:13)
[2017-06-09] MEDS: HEPARIN 5,000 UNIT/0.5 ML VIAL SC (21:25)
[2017-06-09] MEDS: INSULIN GLARGINE [LANtus] 3 ML PEN SC (21:26)
[2017-06-09] MEDS: SACCHAROMYCES BOULARDII 250 MG CAP PO (22:06)
[2017-06-09] MEDS: LEVETIRACETAM (100 MG/ML) 5ML CUP PO (22:06)
[2017-06-10] MEDS: HYDROCODONE/APAP (5/325) TAB PO ×3 (00:29→20:27)
[2017-06-10] MEDS: ACCU-CHEK XX (02:00)
[2017-06-10] MEDS: MEROPENEM 500MG/50 ML (PMX) 50 ML IVPB ×2 (02:10→20:11)
[2017-06-10] MEDS: HYDROmorphONE 0.5 MG/0.5 ML SYG IV (05:59)
[2017-06-10] MEDS: PANTOPRAZOLE (EC) 40 MG TAB PO (05:59)
[2017-06-10 06:12] LABS: ALANINE AMINOTRANSFERASE 24 IU/L (13-69); ALBUMIN 2.9 g/dl (3.3-4.9); ALKALINE PHOSPHATASE 76 IU/L (42-121); ANION GAP 25 (8-16); ASPARTATE AMINO TRANSFERASE 16 IU/L (15-46); BLOOD UREA NITROGEN 77 mg/dl (7-20); CALCIUM 7.9 mg/dl (8.4-10.2); CARBON DIOXIDE 24 mmol/L (21-31); CHLORIDE 105 mmol/L (97-110); CREATININE 5.49 mg/dl (0.44-1.00); GLUCOSE 118 mg/dl (70-220); MAGNESIUM 1.5 mg/dl (1.7-2.5); PHOSPHORUS 6.4 mg/dl (2.5-4.9); SODIUM 149 mmol/L (135-144); TOTAL PROTEIN 6.5 g/dl (6.1-8.1)
[2017-06-10] MEDS: HEPARIN 5,000 UNIT/0.5 ML VIAL SC ×3 (06:18→22:04)
[2017-06-10] MEDS: INSULIN ASPART [NOVOLOG] 3 ML PEN SC ×4 (07:50→20:40)
[2017-06-10] MEDS: FLUOXETINE 20 MG CAP PO (09:00)
[2017-06-10] MEDS: CHOLECALCIFEROL 1,000 UNIT TAB PO (09:00)
[2017-06-10] MEDS: ASCORBIC ACID 500 MG TAB PO (09:00)
[2017-06-10] MEDS: SACCHAROMYCES BOULARDII 250 MG CAP PO ×2 (09:00→20:29)
[2017-06-10] MEDS: GABAPENTIN 300 MG CAP PO ×3 (09:00→20:30)
[2017-06-10] MEDS: ASPIRIN (EC) 81 MG TAB PO (09:00)
[2017-06-10] MEDS: FOLIC ACID 1 MG TAB PO (09:00)
[2017-06-10] MEDS: SEVELAMER 400 MG TAB PO ×3 (09:01→17:57)
[2017-06-10] MEDS: MULTIVIT/CA CARB/B CMPLX/FA TAB PO (09:01)
[2017-06-10] MEDS: CHOLESTYRAMINE 4 GM PACKET PO ×3 (09:01→22:03)
[2017-06-10] MEDS: LEVETIRACETAM (100 MG/ML) 5ML CUP PO ×2 (09:04→20:29)
[2017-06-10 09:47] LABS: ADD MAN DIFF? NO
[2017-06-10 09:52] LABS: WHITE BLOOD COUNT 15.1 10^3/ul (4.8-10.8)
[2017-06-10 09:52] LABS: BASOPHIL # 0.1 10^3/ul (0.0-0.1); BASOPHILS % 0.5 % (0.0-2.0); EOSINOPHILS # 0.9 10^3/ul (0.0-0.5); EOSINOPHILS % 6.2 % (0.0-7.0); HEMATOCRIT 24.8 % (37.0-47.0); HEMOGLOBIN 7.5 g/dl (12.0-16.0); LYMPHOCYTES # 2.1 10^3/ul (0.8-2.9); LYMPHOCYTES % 14.2 % (15.0-51.0); MEAN CORPUSCULAR HGB CONC 30.2 g/dl (32.0-37.0); MEAN CORPUSCULAR VOLUME 86.1 fl (82.0-101.0); MEAN PLATELET VOLUME 10.4 fl (7.4-10.4); MONOCYTE # 1.2 10^3/ul (0.3-0.9); MONOCYTES % 8.1 % (0.0-11.0); NEUTROPHIL # 10.5 10^3/ul (1.6-7.5); NEUTROPHILS % 69.5 % (39.0-77.0); PLATELET COUNT 430 10^3/UL (140-415); RED BLOOD COUNT 2.88 10^6/ul (4.20-5.40); RED CELL DISTRIBUTION WIDTH 16.5 % (11.5-14.5)
[2017-06-10 14:32] LABS: HEPATITIS B SURFACE ANTIGEN NEGATIVE (NEGATIVE)
[2017-06-10] MEDS: ZINC SULFATE 220 MG CAP PO (16:21)
[2017-06-10] MEDS: BALSAM PERU/CASTOR OIL 60 GM TUBE TOP (17:00)
[2017-06-10] MEDS: INSULIN GLARGINE [LANtus] 3 ML PEN SC (20:40)
[2017-06-11] MEDS: ACCU-CHEK XX (01:32)
[2017-06-11 05:44] LABS: ADD MAN DIFF? NO
[2017-06-11 05:53] LABS: WHITE BLOOD COUNT 17.4 10^3/ul (4.8-10.8)
[2017-06-11 05:53] LABS: ABNORMAL IP MESSAGE 1; BASOPHIL # 0.1 10^3/ul (0.0-0.1); BASOPHILS % 0.5 % (0.0-2.0); EOSINOPHILS % 5.9 % (0.0-7.0); HEMATOCRIT 25.1 % (37.0-47.0); HEMOGLOBIN 7.6 g/dl (12.0-16.0); LYMPHOCYTES # 2.7 10^3/ul (0.8-2.9); LYMPHOCYTES % 15.6 % (15.0-51.0); MEAN CORPUSCULAR HEMOGLOBIN 26.6 pg (29.0-33.0); MEAN CORPUSCULAR HGB CONC 30.3 g/dl (32.0-37.0); MEAN CORPUSCULAR VOLUME 87.8 fl (82.0-101.0); MEAN PLATELET VOLUME 10.9 fl (7.4-10.4); MONOCYTE # 1.5 10^3/ul (0.3-0.9); MONOCYTES % 8.7 % (0.0-11.0); NEUTROPHIL # 11.8 10^3/ul (1.6-7.5); NEUTROPHILS % 67.9 % (39.0-77.0); PLATELET COUNT 384 10^3/UL (140-415); RED BLOOD COUNT 2.86 10^6/ul (4.20-5.40)
[2017-06-11] MEDS: PANTOPRAZOLE (EC) 40 MG TAB PO (06:19)
[2017-06-11 06:22] LABS: POSITIVE DIFF @See below
[2017-06-11] MEDS: HEPARIN 5,000 UNIT/0.5 ML VIAL SC ×3 (06:22→22:20)
[2017-06-11 06:26] LABS: VANCOMYCIN,RANDOM 21.5 ug/ml
[2017-06-11 06:34] LABS: ANION GAP 20 (8-16); BLOOD UREA NITROGEN 45 mg/dl (7-20); CALCIUM 8.1 mg/dl (8.4-10.2); CARBON DIOXIDE 29 mmol/L (21-31); CHLORIDE 104 mmol/L (97-110); CREATININE 3.81 mg/dl (0.44-1.00); GLUCOSE 144 mg/dl (70-220); POTASSIUM 4.7 mmol/L (3.5-5.1); SODIUM 148 mmol/L (135-144)
[2017-06-11] MEDS: HYDROCODONE/APAP (5/325) TAB PO ×2 (08:38→13:28)
[2017-06-11] MEDS: LEVETIRACETAM (100 MG/ML) 5ML CUP PO ×2 (08:39→20:37)
[2017-06-11] MEDS: SEVELAMER 400 MG TAB PO ×3 (08:39→17:55)
[2017-06-11] MEDS: MULTIVIT/CA CARB/B CMPLX/FA TAB PO (08:40)
[2017-06-11] MEDS: FLUOXETINE 20 MG CAP PO (08:40)
[2017-06-11] MEDS: ZINC SULFATE 220 MG CAP PO (08:40)
[2017-06-11] MEDS: ASPIRIN (EC) 81 MG TAB PO (08:40)
[2017-06-11] MEDS: SACCHAROMYCES BOULARDII 250 MG CAP PO ×2 (08:40→20:38)
[2017-06-11] MEDS: FOLIC ACID 1 MG TAB PO (08:40)
[2017-06-11] MEDS: GABAPENTIN 300 MG CAP PO ×3 (08:40→20:38)
[2017-06-11] MEDS: CHOLECALCIFEROL 1,000 UNIT TAB PO (08:40)
[2017-06-11] MEDS: CHOLESTYRAMINE 4 GM PACKET PO ×3 (08:41→20:38)
[2017-06-11] MEDS: ASCORBIC ACID 500 MG TAB PO (08:41)
[2017-06-11] MEDS: BALSAM PERU/CASTOR OIL 60 GM TUBE TOP (08:44)
[2017-06-11] MEDS: INSULIN ASPART [NOVOLOG] 3 ML PEN SC ×4 (08:52→20:42)
[2017-06-11] MEDS ORDERED: GUAIFENESIN 20 MG/ML 5ML CUP PO (14:00)
[2017-06-11] MEDS ORDERED: ALBUTEROL/IPRATROPIUM (NEB) 3 ML AMP HHN (14:00)
[2017-06-11] MEDS: ALBUTEROL/IPRATROPIUM (NEB) 3 ML AMP HHN ×2 (16:57→21:19)
[2017-06-11 17:09] LABS: AADO2 Arterial 159.9 mmHg (7.0-24.0); Allen Test ACCEPTAB; Arterial Base Excess -1.2 mmol/L (-3.0-3); Arterial Blood Gas Oxygen Sat 72.8 mmHG (95.0-98.0); Arterial COHb 2.9 % (0.0-3.0); Arterial Fraction of Oxyhgb 70.5 % (93.0-99.0); Arterial HCO3 24.4 mmol/L (22.0-26.0); Arterial MetHb 0.3 % (0.0-1.5); Arterial Total Hemglobin 7.1 g/dl (12.0-18.0); Arterial pCO2 45.6 mmhg (35-45); MODE NASAL CANNULA; Site Right Radial
[2017-06-11] MEDS: METHYLPREDNISOLONE 125 MG INJ IV (17:10)
[2017-06-11 18:32] LABS: ADD MAN DIFF? NO
[2017-06-11 18:34] LABS: WHITE BLOOD COUNT 18.4 10^3/ul (4.8-10.8)
[2017-06-11 18:34] LABS: BASOPHIL # 0.1 10^3/ul (0.0-0.1); BASOPHILS % 0.4 % (0.0-2.0); EOSINOPHILS # 0.3 10^3/ul (0.0-0.5); EOSINOPHILS % 1.5 % (0.0-7.0); HEMATOCRIT 25.8 % (37.0-47.0); HEMOGLOBIN 7.9 g/dl (12.0-16.0); LYMPHOCYTES # 2.1 10^3/ul (0.8-2.9); LYMPHOCYTES % 11.6 % (15.0-51.0); MEAN CORPUSCULAR HEMOGLOBIN 26.5 pg (29.0-33.0); MEAN CORPUSCULAR HGB CONC 30.6 g/dl (32.0-37.0); MEAN CORPUSCULAR VOLUME 86.6 fl (82.0-101.0); MEAN PLATELET VOLUME 11.1 fl (7.4-10.4); MONOCYTE # 1.1 10^3/ul (0.3-0.9); MONOCYTES % 6.1 % (0.0-11.0); NEUTROPHIL # 14.3 10^3/ul (1.6-7.5); PLATELET COUNT 367 10^3/UL (140-415); RED BLOOD COUNT 2.98 10^6/ul (4.20-5.40); RED CELL DISTRIBUTION WIDTH 16.9 % (11.5-14.5)
[2017-06-11 18:53] LABS: ANION GAP 23 (8-16)
[2017-06-11 18:56] LABS: BLOOD UREA NITROGEN 54 mg/dl (7-20); CALCIUM 8.3 mg/dl (8.4-10.2); CARBON DIOXIDE 26 mmol/L (21-31); CHLORIDE 103 mmol/L (97-110); CREATININE 4.72 mg/dl (0.44-1.00); GLUCOSE 232 mg/dl (70-220); POTASSIUM 5.2 mmol/L (3.5-5.1); SODIUM 147 mmol/L (135-144)
[2017-06-11 19:04] LABS: TROPONIN-I 0.046 ng/ml (0.00-0.12)
[2017-06-11 19:18] LABS: B-TYPE NATRIURETIC PEPTIDE 48200 PG/ML (0-125)
[2017-06-11] MEDS: INSULIN GLARGINE [LANtus] 3 ML PEN SC (20:41)
[2017-06-11] MEDS: MEROPENEM 500MG/50 ML (PMX) 50 ML IVPB (22:18)
[2017-06-12] MEDS: ALBUTEROL/IPRATROPIUM (NEB) 3 ML AMP HHN ×6 (00:10→21:00)
[2017-06-12] MEDS: ACCU-CHEK XX (03:00)
[2017-06-12] MEDS: PANTOPRAZOLE (EC) 40 MG TAB PO (05:15)
[2017-06-12] MEDS: HEPARIN 5,000 UNIT/0.5 ML VIAL SC ×3 (05:21→22:29)
[2017-06-12 05:36] LABS: ADD MAN DIFF? NO
[2017-06-12 05:37] LABS: WHITE BLOOD COUNT 13.7 10^3/ul (4.8-10.8)
[2017-06-12 05:37] LABS: BASOPHILS % 0.1 % (0.0-2.0); HEMATOCRIT 24.9 % (37.0-47.0); HEMOGLOBIN 7.7 g/dl (12.0-16.0); LYMPHOCYTES # 1.5 10^3/ul (0.8-2.9); LYMPHOCYTES % 10.6 % (15.0-51.0); MEAN CORPUSCULAR HEMOGLOBIN 26.6 pg (29.0-33.0); MEAN CORPUSCULAR HGB CONC 30.9 g/dl (32.0-37.0); MEAN CORPUSCULAR VOLUME 86.2 fl (82.0-101.0); MEAN PLATELET VOLUME 11.4 fl (7.4-10.4); MONOCYTE # 0.3 10^3/ul (0.3-0.9); MONOCYTES % 2.2 % (0.0-11.0); NEUTROPHIL # 11.7 10^3/ul (1.6-7.5); NEUTROPHILS % 85.1 % (39.0-77.0); PLATELET COUNT 374 10^3/UL (140-415); RED BLOOD COUNT 2.89 10^6/ul (4.20-5.40)
[2017-06-12 06:05] LABS: ANION GAP 27 (8-16); BLOOD UREA NITROGEN 67 mg/dl (7-20); CALCIUM 8.2 mg/dl (8.4-10.2); CARBON DIOXIDE 23 mmol/L (21-31); CHLORIDE 103 mmol/L (97-110); CREATININE 5.13 mg/dl (0.44-1.00); GLUCOSE 309 mg/dl (70-220); POTASSIUM 5.8 mmol/L (3.5-5.1); SODIUM 147 mmol/L (135-144)
[2017-06-12] MEDS: GABAPENTIN 300 MG CAP PO ×3 (08:46→21:00)
[2017-06-12] MEDS: FOLIC ACID 1 MG TAB PO (08:47)
[2017-06-12] MEDS: ASCORBIC ACID 500 MG TAB PO (08:47)
[2017-06-12] MEDS: FLUOXETINE 20 MG CAP PO (08:47)
[2017-06-12] MEDS: ASPIRIN (EC) 81 MG TAB PO (08:47)
[2017-06-12] MEDS: LEVETIRACETAM (100 MG/ML) 5ML CUP PO ×2 (08:48→20:59)
[2017-06-12] MEDS: BALSAM PERU/CASTOR OIL 60 GM TUBE TOP (08:48)
[2017-06-12] MEDS: MULTIVIT/CA CARB/B CMPLX/FA TAB PO (08:48)
[2017-06-12] MEDS: CHOLESTYRAMINE 4 GM PACKET PO ×3 (08:48→21:00)
[2017-06-12] MEDS: SEVELAMER 400 MG TAB PO ×3 (08:48→17:58)
[2017-06-12] MEDS: INSULIN ASPART [NOVOLOG] 3 ML PEN SC ×5 (08:50→21:12)
[2017-06-12] MEDS: SACCHAROMYCES BOULARDII 250 MG CAP PO ×2 (09:21→20:59)
[2017-06-12] MEDS: ZINC SULFATE 220 MG CAP PO (09:21)
[2017-06-12] MEDS: CHOLECALCIFEROL 1,000 UNIT TAB PO (09:21)
[2017-06-12] MEDS: HYDROmorphONE 0.5 MG/0.5 ML SYG IV ×3 (14:59→18:49)
[2017-06-12] MEDS: HYDROCODONE/APAP (5/325) TAB PO ×2 (17:58→22:35)
[2017-06-12] MEDS: INSULIN GLARGINE [LANtus] 3 ML PEN SC ×2 (20:15→22:25)
[2017-06-12] MEDS: MEROPENEM 500MG/50 ML (PMX) 50 ML IVPB (20:40)
[2017-06-12 20:52] LABS: GLUCOSE 214 mg/dl (70-220)
[2017-06-12] MEDS: VANCOMYCIN 1 GM 250 ML IVPB (21:14)
[2017-06-12] MEDS: NA POLYST SULFON 15 GM/60 ML BTL PO (22:17)
[2017-06-13] MEDS: ALBUTEROL/IPRATROPIUM (NEB) 3 ML AMP HHN ×6 (01:00→21:00)
[2017-06-13] MEDS: HYDROmorphONE 0.5 MG/0.5 ML SYG IV ×4 (01:21→22:42)
[2017-06-13] MEDS: ACCU-CHEK XX ×2 (01:57→01:58)
[2017-06-13] MEDS: HYDROCODONE/APAP (5/325) TAB PO ×3 (04:35→20:42)
[2017-06-13 05:17] LABS: ADD MAN DIFF? NO
[2017-06-13 05:24] LABS: WHITE BLOOD COUNT 16.3 10^3/ul (4.8-10.8)
[2017-06-13 05:24] LABS: ABNORMAL IP MESSAGE 1; BASOPHILS % 0.1 % (0.0-2.0); EOSINOPHILS # 0.4 10^3/ul (0.0-0.5); EOSINOPHILS % 2.2 % (0.0-7.0); HEMATOCRIT 21.8 % (37.0-47.0); LYMPHOCYTES # 3.1 10^3/ul (0.8-2.9); LYMPHOCYTES % 18.8 % (15.0-51.0); MEAN CORPUSCULAR HEMOGLOBIN 26.7 pg (29.0-33.0); MEAN CORPUSCULAR HGB CONC 31.2 g/dl (32.0-37.0); MEAN CORPUSCULAR VOLUME 85.5 fl (82.0-101.0); MEAN PLATELET VOLUME 11.4 fl (7.4-10.4); MONOCYTE # 1.5 10^3/ul (0.3-0.9); MONOCYTES % 9.3 % (0.0-11.0); NEUTROPHILS % 67.8 % (39.0-77.0); PLATELET COUNT 381 10^3/UL (140-415); RED BLOOD COUNT 2.55 10^6/ul (4.20-5.40); RED CELL DISTRIBUTION WIDTH 17.1 % (11.5-14.5)
[2017-06-13 05:42] LABS: ANION GAP 27 (8-16); BLOOD UREA NITROGEN 82 mg/dl (7-20); CALCIUM 7.3 mg/dl (8.4-10.2); CARBON DIOXIDE 22 mmol/L (21-31); CHLORIDE 104 mmol/L (97-110); CREATININE 6.18 mg/dl (0.44-1.00); GLUCOSE 191 mg/dl (70-220); MAGNESIUM 1.7 mg/dl (1.7-2.5); PHOSPHORUS 7.9 mg/dl (2.5-4.9); POTASSIUM 4.6 mmol/L (3.5-5.1); SODIUM 148 mmol/L (135-144)
[2017-06-13 05:50] LABS: HEMOGLOBIN 6.8 g/dl (12.0-16.0)
[2017-06-13 05:51] LABS: POSITIVE DIFF @See below
[2017-06-13] MEDS: HEPARIN 5,000 UNIT/0.5 ML VIAL SC ×3 (06:43→22:45)
[2017-06-13] MEDS: PANTOPRAZOLE (EC) 40 MG TAB PO (06:43)
[2017-06-13] MEDS: SEVELAMER 400 MG TAB PO ×3 (09:14→18:09)
[2017-06-13] MEDS: ASPIRIN (EC) 81 MG TAB PO (09:14)
[2017-06-13] MEDS: CHOLECALCIFEROL 1,000 UNIT TAB PO (09:15)
[2017-06-13] MEDS: FLUOXETINE 20 MG CAP PO (09:15)
[2017-06-13] MEDS: LEVETIRACETAM (100 MG/ML) 5ML CUP PO ×2 (09:15→20:44)
[2017-06-13] MEDS: FOLIC ACID 1 MG TAB PO (09:15)
[2017-06-13] MEDS: SACCHAROMYCES BOULARDII 250 MG CAP PO ×2 (09:15→21:00)
[2017-06-13] MEDS: GABAPENTIN 300 MG CAP PO ×3 (09:15→20:44)
[2017-06-13] MEDS: ASCORBIC ACID 500 MG TAB PO (09:16)
[2017-06-13] MEDS: ZINC SULFATE 220 MG CAP PO (09:16)
[2017-06-13] MEDS: CHOLESTYRAMINE 4 GM PACKET PO ×3 (09:16→20:45)
[2017-06-13] MEDS: INSULIN ASPART [NOVOLOG] 3 ML PEN SC ×7 (09:23→21:00)
[2017-06-13] MEDS: BALSAM PERU/CASTOR OIL 60 GM TUBE TOP (09:43)
[2017-06-13] MEDS: MULTIVIT/CA CARB/B CMPLX/FA TAB PO (09:43)
[2017-06-13] MEDS ORDERED: GENTAMICIN IV PER PHARMACY XX (11:00)
[2017-06-13] MEDS: INSULIN GLARGINE [LANtus] 3 ML PEN SC (20:51)
[2017-06-13] MEDS: GENTAMICIN 140 MG in DEXTROSE 5% 100 ML IVPB (22:42)
[2017-06-14] MEDS: ALBUTEROL/IPRATROPIUM (NEB) 3 ML AMP HHN ×6 (00:51→20:25)
[2017-06-14] MEDS: HYDROmorphONE 0.5 MG/0.5 ML SYG IV ×4 (01:33→17:48)
[2017-06-14] MEDS: ACCU-CHEK XX ×2 (02:00)
[2017-06-14 02:03] LABS: IMMEDIATE SPIN CROSSMATCH 1 1
[2017-06-14] MEDS: DIPHENHYDRAMINE 50 MG INJ IV (04:00)
[2017-06-14] MEDS: PANTOPRAZOLE (EC) 40 MG TAB PO (05:55)
[2017-06-14] MEDS: HYDROCODONE/APAP (5/325) TAB PO ×3 (05:57→20:46)
[2017-06-14] MEDS: HEPARIN 5,000 UNIT/0.5 ML VIAL SC ×4 (05:59→22:01)
[2017-06-14] MEDS: LEVETIRACETAM (100 MG/ML) 5ML CUP PO ×2 (08:27→20:43)
[2017-06-14] MEDS: FLUOXETINE 20 MG CAP PO (08:28)
[2017-06-14] MEDS: GABAPENTIN 300 MG CAP PO ×3 (08:28→20:43)
[2017-06-14] MEDS: INSULIN ASPART [NOVOLOG] 3 ML PEN SC ×7 (08:49→21:00)
[2017-06-14] MEDS: MULTIVIT/CA CARB/B CMPLX/FA TAB PO (09:01)
[2017-06-14] MEDS: ASPIRIN (EC) 81 MG TAB PO (09:01)
[2017-06-14] MEDS: SACCHAROMYCES BOULARDII 250 MG CAP PO ×2 (09:01→20:43)
[2017-06-14] MEDS: CHOLECALCIFEROL 1,000 UNIT TAB PO (09:01)
[2017-06-14] MEDS: SEVELAMER 400 MG TAB PO ×3 (09:01→17:47)
[2017-06-14] MEDS: FOLIC ACID 1 MG TAB PO (09:01)
[2017-06-14] MEDS: ASCORBIC ACID 500 MG TAB PO (09:02)
[2017-06-14] MEDS: CHOLESTYRAMINE 4 GM PACKET PO ×3 (09:02→20:44)
[2017-06-14] MEDS: BALSAM PERU/CASTOR OIL 60 GM TUBE TOP (09:03)
[2017-06-14] MEDS: ZINC SULFATE 220 MG CAP PO (09:04)
[2017-06-14 09:28] LABS: ADD MAN DIFF? NO
[2017-06-14 09:29] LABS: BASOPHILS % 0.3 % (0.0-2.0); EOSINOPHILS # 1.1 10^3/ul (0.0-0.5); EOSINOPHILS % 7.2 % (0.0-7.0); HEMATOCRIT 28.9 % (37.0-47.0); HEMOGLOBIN 9.3 g/dl (12.0-16.0); LYMPHOCYTES # 2.3 10^3/ul (0.8-2.9); LYMPHOCYTES % 14.6 % (15.0-51.0); MEAN CORPUSCULAR HEMOGLOBIN 27.2 pg (29.0-33.0); MEAN CORPUSCULAR HGB CONC 32.2 g/dl (32.0-37.0); MEAN CORPUSCULAR VOLUME 84.5 fl (82.0-101.0); MEAN PLATELET VOLUME 10.8 fl (7.4-10.4); MONOCYTES % 6.2 % (0.0-11.0); NEUTROPHIL # 11.1 10^3/ul (1.6-7.5); NEUTROPHILS % 70.2 % (39.0-77.0); PLATELET COUNT 365 10^3/UL (140-415); RED BLOOD COUNT 3.42 10^6/ul (4.20-5.40); RED CELL DISTRIBUTION WIDTH 16.7 % (11.5-14.5)
[2017-06-14 09:29] LABS: WHITE BLOOD COUNT 15.7 10^3/ul (4.8-10.8)
[2017-06-14 09:54] LABS: PHOSPHORUS 3.7 mg/dl (2.5-4.9)
[2017-06-14 09:54] LABS: MAGNESIUM 1.4 mg/dl (1.7-2.5)
[2017-06-14 09:57] LABS: ANION GAP 20 (8-16); BLOOD UREA NITROGEN 46 mg/dl (7-20); CALCIUM 7.4 mg/dl (8.4-10.2); CARBON DIOXIDE 26 mmol/L (21-31); CHLORIDE 101 mmol/L (97-110); CREATININE 3.71 mg/dl (0.44-1.00); GLUCOSE 172 mg/dl (70-220); POTASSIUM 3.5 mmol/L (3.5-5.1); SODIUM 143 mmol/L (135-144)
[2017-06-14] MEDS ORDERED: SODIUM CHLORIDE 0.9% 1L BAG IV (17:00)
[2017-06-14] MEDS ORDERED: ALBUMIN HUMAN 25% 50 ML IV (17:00)
[2017-06-14] MEDS: MAGNESIUM SULFATE 2 GM/50 ML 50 ML IVPB (19:02)
[2017-06-14] MEDS: INSULIN GLARGINE [LANtus] 3 ML PEN SC (20:57)
[2017-06-15] MEDS: ALBUTEROL/IPRATROPIUM (NEB) 3 ML AMP HHN ×7 (00:27→21:54)
[2017-06-15] MEDS: ACCU-CHEK XX ×2 (02:00)
[2017-06-15] MEDS: PANTOPRAZOLE (EC) 40 MG TAB PO (05:29)
[2017-06-15] MEDS: HYDROmorphONE 0.5 MG/0.5 ML SYG IV ×3 (05:29→21:37)
[2017-06-15] MEDS: HEPARIN 5,000 UNIT/0.5 ML VIAL SC ×3 (05:33→21:26)
[2017-06-15] MEDS: INSULIN ASPART [NOVOLOG] 3 ML PEN SC ×7 (07:50→21:00)
[2017-06-15] MEDS: SEVELAMER 400 MG TAB PO ×3 (07:50→17:37)
[2017-06-15] MEDS: FOLIC ACID 1 MG TAB PO (09:00)
[2017-06-15] MEDS: FLUOXETINE 20 MG CAP PO (09:00)
[2017-06-15] MEDS: ASCORBIC ACID 500 MG TAB PO (09:00)
[2017-06-15] MEDS: CHOLESTYRAMINE 4 GM PACKET PO ×3 (09:00→21:16)
[2017-06-15] MEDS: CHOLECALCIFEROL 1,000 UNIT TAB PO (09:00)
[2017-06-15] MEDS: GABAPENTIN 300 MG CAP PO ×3 (09:00→21:17)
[2017-06-15] MEDS: SACCHAROMYCES BOULARDII 250 MG CAP PO ×2 (09:00→21:17)
[2017-06-15] MEDS: ZINC SULFATE 220 MG CAP PO (09:00)
[2017-06-15] MEDS: ASPIRIN (EC) 81 MG TAB PO (09:00)
[2017-06-15] MEDS: BALSAM PERU/CASTOR OIL 60 GM TUBE TOP (09:00)
[2017-06-15] MEDS: MULTIVIT/CA CARB/B CMPLX/FA TAB PO (09:00)
[2017-06-15] MEDS: HYDROCODONE/APAP (5/325) TAB PO (09:33)
[2017-06-15] MEDS: LEVETIRACETAM (100 MG/ML) 5ML CUP PO ×2 (09:36→21:16)
[2017-06-15] MEDS: SOD CHLORIDE 0.9% 250 ML (09:47)
[2017-06-15] MEDS: HEPARIN 1000 UNITS/ML 10 ML INJ (09:47)
[2017-06-15] MEDS: CEFAZOLIN 1 GM/50 ML (PMX) 50 ML IVPB (09:47)
[2017-06-15] MEDS: LIDOCAINE 1% (MDV) 20 ML INJ (09:47)
[2017-06-15] MEDS: MIDAZOLAM 1 MG/ML 2 ML INJ (10:05)
[2017-06-15] MEDS: FENTAnyl 50 MCG/ML VIAL (10:05)
[2017-06-15] MEDS: LIDOCAINE 2% (SDV) 5 ML INJ (10:05)
[2017-06-15] MEDS: PROPOFOL 20 ML (10:05)
[2017-06-15] MEDS: ONDANSETRON 4 MG INJ (10:06)
[2017-06-15] MEDS: EPHEDrine SULFATE 50 MG/5 ML SYG (10:38)
[2017-06-15] MEDS ORDERED: MEPERIDINE 25 MG INJ IV (12:00)
[2017-06-15] MEDS ORDERED: FENTAnyl 50 MCG/ML VIAL IV (12:00)
[2017-06-15] MEDS ORDERED: METOCLOPRAMIDE 10 MG INJ IV (12:00)
[2017-06-15] MEDS ORDERED: DIPHENHYDRAMINE 50 MG INJ IV (12:00)
[2017-06-15] MEDS ORDERED: HYDROmorphONE (0.2 MG/ML) 10ML SYG IV ×2 (12:00)
[2017-06-15] MEDS ORDERED: ONDANSETRON 4 MG INJ IV (12:00)
[2017-06-15] MEDS ORDERED: LABETALOL HCL 20MG INJ IV (12:00)
[2017-06-15] MEDS: HEPARIN 1000 UNITS/ML 10 ML INJ CATHETER (17:08)
[2017-06-15] MEDS: GENTAMICIN 100 MG in DEXTROSE 5% 100 ML IVPB (17:37)
[2017-06-15] MEDS: INSULIN GLARGINE [LANtus] 3 ML PEN SC (21:23)
[2017-06-16] MEDS: EPOETIN 10000 UNITS/1 ML INJ (ESRD) SC (00:52)
[2017-06-16] MEDS: HYDROCODONE/APAP (5/325) TAB PO ×2 (00:53→09:40)
[2017-06-16] MEDS: HYDROmorphONE 0.5 MG/0.5 ML SYG IV ×4 (02:21→20:54)
[2017-06-16] MEDS: ACCU-CHEK XX ×2 (02:23)
[2017-06-16] MEDS: ALBUTEROL/IPRATROPIUM (NEB) 3 ML AMP HHN ×5 (03:45→21:00)
[2017-06-16 05:36] LABS: ADD MAN DIFF? NO
[2017-06-16 05:46] LABS: WHITE BLOOD COUNT 13.2 10^3/ul (4.8-10.8)
[2017-06-16 05:46] LABS: BASOPHIL # 0.1 10^3/ul (0.0-0.1); BASOPHILS % 0.4 % (0.0-2.0); EOSINOPHILS # 1.2 10^3/ul (0.0-0.5); EOSINOPHILS % 9.3 % (0.0-7.0); HEMATOCRIT 26.6 % (37.0-47.0); HEMOGLOBIN 8.6 g/dl (12.0-16.0); LYMPHOCYTES % 14.8 % (15.0-51.0); MEAN CORPUSCULAR HGB CONC 32.3 g/dl (32.0-37.0); MEAN CORPUSCULAR VOLUME 83.6 fl (82.0-101.0); MEAN PLATELET VOLUME 11.2 fl (7.4-10.4); MONOCYTES % 7.5 % (0.0-11.0); NEUTROPHIL # 8.8 10^3/ul (1.6-7.5); NEUTROPHILS % 66.8 % (39.0-77.0); PLATELET COUNT 340 10^3/UL (140-415); RED BLOOD COUNT 3.18 10^6/ul (4.20-5.40); RED CELL DISTRIBUTION WIDTH 16.8 % (11.5-14.5)
[2017-06-16] MEDS: PANTOPRAZOLE (EC) 40 MG TAB PO (06:40)
[2017-06-16] MEDS: HEPARIN 5,000 UNIT/0.5 ML VIAL SC ×3 (06:44→21:21)
[2017-06-16] MEDS: INSULIN ASPART [NOVOLOG] 3 ML PEN SC ×7 (07:50→20:13)
[2017-06-16] MEDS: MULTIVIT/CA CARB/B CMPLX/FA TAB PO (08:16)
[2017-06-16] MEDS: SEVELAMER 400 MG TAB PO ×3 (08:16→17:09)
[2017-06-16] MEDS: ASCORBIC ACID 500 MG TAB PO (08:16)
[2017-06-16] MEDS: ZINC SULFATE 220 MG CAP PO (08:16)
[2017-06-16] MEDS: FOLIC ACID 1 MG TAB PO (08:16)
[2017-06-16] MEDS: LEVETIRACETAM (100 MG/ML) 5ML CUP PO ×2 (08:16→20:12)
[2017-06-16] MEDS: CHOLECALCIFEROL 1,000 UNIT TAB PO (08:16)
[2017-06-16] MEDS: SACCHAROMYCES BOULARDII 250 MG CAP PO ×2 (08:16→20:12)
[2017-06-16] MEDS: FLUOXETINE 20 MG CAP PO (08:16)
[2017-06-16] MEDS: GABAPENTIN 300 MG CAP PO ×3 (08:16→20:12)
[2017-06-16] MEDS: ASPIRIN (EC) 81 MG TAB PO (08:17)
[2017-06-16] MEDS: CHOLESTYRAMINE 4 GM PACKET PO ×3 (09:00→20:13)
[2017-06-16] MEDS: BALSAM PERU/CASTOR OIL 60 GM TUBE TOP (09:00)
[2017-06-16] MEDS ORDERED: SODIUM CHLORIDE 0.9% 1L BAG IV (19:30)
[2017-06-16] MEDS ORDERED: ALBUMIN HUMAN 25% 50 ML IV (19:30)
[2017-06-16] MEDS ORDERED: HEPARIN 1000 UNITS/ML 10 ML INJ CATHETER (19:30)
[2017-06-16] MEDS: INSULIN GLARGINE [LANtus] 3 ML PEN SC (20:12)
[2017-06-17] MEDS: ALBUTEROL/IPRATROPIUM (NEB) 3 ML AMP HHN ×6 (01:00→21:00)
[2017-06-17] MEDS: HYDROmorphONE 0.5 MG/0.5 ML SYG IV ×4 (01:20→19:00)
[2017-06-17] MEDS: ACCU-CHEK XX (02:00)
[2017-06-17 05:11] LABS: ADD MAN DIFF? NO
[2017-06-17 05:17] LABS: BASOPHIL # 0.1 10^3/ul (0.0-0.1); BASOPHILS % 0.5 % (0.0-2.0); EOSINOPHILS # 1.5 10^3/ul (0.0-0.5); EOSINOPHILS % 11.2 % (0.0-7.0); HEMATOCRIT 28.2 % (37.0-47.0); LYMPHOCYTES # 2.7 10^3/ul (0.8-2.9); LYMPHOCYTES % 20.1 % (15.0-51.0); MEAN CORPUSCULAR HGB CONC 31.9 g/dl (32.0-37.0); MEAN CORPUSCULAR VOLUME 84.7 fl (82.0-101.0); MONOCYTE # 1.1 10^3/ul (0.3-0.9); MONOCYTES % 8.1 % (0.0-11.0); NEUTROPHIL # 7.8 10^3/ul (1.6-7.5); PLATELET COUNT 393 10^3/UL (140-415); RED BLOOD COUNT 3.33 10^6/ul (4.20-5.40); RED CELL DISTRIBUTION WIDTH 17.2 % (11.5-14.5)
[2017-06-17 05:17] LABS: WHITE BLOOD COUNT 13.3 10^3/ul (4.8-10.8)
[2017-06-17] MEDS: HEPARIN 5,000 UNIT/0.5 ML VIAL SC ×3 (05:19→22:14)
[2017-06-17] MEDS: PANTOPRAZOLE (EC) 40 MG TAB PO (05:19)
[2017-06-17 05:31] LABS: ALANINE AMINOTRANSFERASE 18 IU/L (13-69); ALBUMIN/GLOBULIN RATIO 0.93; ALKALINE PHOSPHATASE 84 IU/L (42-121); ANION GAP 19 (8-16); ASPARTATE AMINO TRANSFERASE 16 IU/L (15-46); BLOOD UREA NITROGEN 59 mg/dl (7-20); CALCIUM 8.3 mg/dl (8.4-10.2); CARBON DIOXIDE 27 mmol/L (21-31); CHLORIDE 99 mmol/L (97-110); CREATININE 3.94 mg/dl (0.44-1.00); GLUCOSE 85 mg/dl (70-220); POTASSIUM 4.8 mmol/L (3.5-5.1); SODIUM 140 mmol/L (135-144); TOTAL PROTEIN 6.2 g/dl (6.1-8.1)
[2017-06-17 05:39] LABS: PHOSPHORUS 5.1 mg/dl (2.5-4.9)
[2017-06-17 05:39] LABS: MAGNESIUM 1.7 mg/dl (1.7-2.5)
[2017-06-17] MEDS: INSULIN ASPART [NOVOLOG] 3 ML PEN SC ×7 (07:50→21:00)
[2017-06-17] MEDS: SEVELAMER 400 MG TAB PO ×3 (07:50→17:55)
[2017-06-17] MEDS: GABAPENTIN 300 MG CAP PO ×3 (09:00→20:54)
[2017-06-17] MEDS: MULTIVIT/CA CARB/B CMPLX/FA TAB PO (09:00)
[2017-06-17] MEDS: ASCORBIC ACID 500 MG TAB PO (09:00)
[2017-06-17] MEDS: CHOLESTYRAMINE 4 GM PACKET PO ×3 (09:00→20:54)
[2017-06-17] MEDS: BALSAM PERU/CASTOR OIL 60 GM TUBE TOP (09:00)
[2017-06-17] MEDS: HYDROCODONE/APAP (5/325) TAB PO ×2 (11:09→22:11)
[2017-06-17] MEDS: HEPARIN 1000 UNITS/ML 10 ML INJ CATHETER (11:41)
[2017-06-17] MEDS: ZINC SULFATE 220 MG CAP PO (12:26)
[2017-06-17] MEDS: CHOLECALCIFEROL 1,000 UNIT TAB PO (12:26)
[2017-06-17] MEDS: ASPIRIN (EC) 81 MG TAB PO (12:27)
[2017-06-17] MEDS: FOLIC ACID 1 MG TAB PO (12:27)
[2017-06-17] MEDS: FLUOXETINE 20 MG CAP PO (12:27)
[2017-06-17] MEDS: SACCHAROMYCES BOULARDII 250 MG CAP PO ×2 (12:54→20:54)
[2017-06-17] MEDS: LEVETIRACETAM (100 MG/ML) 5ML CUP PO ×2 (12:55→20:54)
[2017-06-17] MEDS: INSULIN GLARGINE [LANtus] 3 ML PEN SC (20:59)
[2017-06-18] MEDS: ALBUTEROL/IPRATROPIUM (NEB) 3 ML AMP HHN ×6 (01:00→20:31)
[2017-06-18] MEDS: ACCU-CHEK XX (02:00)
[2017-06-18] MEDS: HYDROmorphONE 0.5 MG/0.5 ML SYG IV (03:14)
[2017-06-18] MEDS: PANTOPRAZOLE (EC) 40 MG TAB PO (06:12)
[2017-06-18] MEDS: HEPARIN 5,000 UNIT/0.5 ML VIAL SC ×3 (06:18→22:28)
[2017-06-18] MEDS: HYDROCODONE/APAP (5/325) TAB PO ×3 (07:06→20:30)
[2017-06-18] MEDS: GENTAMICIN 100 MG in DEXTROSE 5% 100 ML IVPB (07:32)
[2017-06-18] MEDS: BALSAM PERU/CASTOR OIL 60 GM TUBE TOP (09:00)
[2017-06-18] MEDS: INSULIN ASPART [NOVOLOG] 3 ML PEN SC ×7 (09:07→20:41)
[2017-06-18] MEDS: ASCORBIC ACID 500 MG TAB PO (09:12)
[2017-06-18] MEDS: LEVETIRACETAM (100 MG/ML) 5ML CUP PO ×2 (09:12→20:31)
[2017-06-18] MEDS: SEVELAMER 400 MG TAB PO ×3 (09:13→18:11)
[2017-06-18] MEDS: ASPIRIN (EC) 81 MG TAB PO (09:13)
[2017-06-18] MEDS: ZINC SULFATE 220 MG CAP PO (09:13)
[2017-06-18] MEDS: SACCHAROMYCES BOULARDII 250 MG CAP PO ×2 (09:13→20:31)
[2017-06-18] MEDS: GABAPENTIN 300 MG CAP PO ×3 (09:13→20:31)
[2017-06-18] MEDS: MULTIVIT/CA CARB/B CMPLX/FA TAB PO (09:13)
[2017-06-18] MEDS: CHOLECALCIFEROL 1,000 UNIT TAB PO (09:14)
[2017-06-18] MEDS: FOLIC ACID 1 MG TAB PO (09:14)
[2017-06-18] MEDS: FLUOXETINE 20 MG CAP PO (09:14)
[2017-06-18] MEDS: CHOLESTYRAMINE 4 GM PACKET PO ×3 (09:17→20:31)
[2017-06-18] MEDS: LINAGLIPTIN 5 MG TABLET PO (15:29)
[2017-06-18 19:07] LABS: OCCULT BLOOD STOOL POSITIVE (NEGATIVE)
[2017-06-18] MEDS: INSULIN GLARGINE [LANtus] 3 ML PEN SC (20:40)
[2017-06-19] MEDS: ALBUTEROL/IPRATROPIUM (NEB) 3 ML AMP HHN ×6 (00:58→21:00)
[2017-06-19] MEDS: ACCU-CHEK XX (02:00)
[2017-06-19] MEDS: HYDROCODONE/APAP (5/325) TAB PO ×4 (03:11→16:39)
[2017-06-19] MEDS: PANTOPRAZOLE (EC) 40 MG TAB PO (06:13)
[2017-06-19] MEDS: HEPARIN 5,000 UNIT/0.5 ML VIAL SC ×3 (06:17→21:58)
[2017-06-19] MEDS: INSULIN ASPART [NOVOLOG] 3 ML PEN SC ×7 (07:50→22:00)
[2017-06-19] MEDS: GABAPENTIN 300 MG CAP PO ×3 (08:18→21:58)
[2017-06-19] MEDS: SEVELAMER 400 MG TAB PO ×3 (08:18→17:32)
[2017-06-19] MEDS: LINAGLIPTIN 5 MG TABLET PO (08:18)
[2017-06-19] MEDS: FLUOXETINE 20 MG CAP PO (08:18)
[2017-06-19] MEDS: FOLIC ACID 1 MG TAB PO (08:18)
[2017-06-19] MEDS: ZINC SULFATE 220 MG CAP PO (08:18)
[2017-06-19] MEDS: MULTIVIT/CA CARB/B CMPLX/FA TAB PO (08:18)
[2017-06-19] MEDS: ASCORBIC ACID 500 MG TAB PO (08:19)
[2017-06-19] MEDS: CHOLECALCIFEROL 1,000 UNIT TAB PO (08:19)
[2017-06-19] MEDS: ASPIRIN (EC) 81 MG TAB PO (08:19)
[2017-06-19] MEDS: BALSAM PERU/CASTOR OIL 60 GM TUBE TOP (09:00)
[2017-06-19] MEDS: LEVETIRACETAM (100 MG/ML) 5ML CUP PO ×2 (09:53→21:58)
[2017-06-19] MEDS: CHOLESTYRAMINE 4 GM PACKET PO ×3 (09:53→21:58)
[2017-06-19] MEDS: SACCHAROMYCES BOULARDII 250 MG CAP PO ×2 (09:53→21:58)
[2017-06-19] MEDS: INSULIN GLARGINE [LANtus] 3 ML PEN SC (21:57)
[2017-06-19] MEDS: RIFAXIMIN 550 MG TAB PO (21:58)
[2017-06-20] MEDS: HYDROCODONE/APAP (5/325) TAB PO ×4 (00:55→17:51)
[2017-06-20] MEDS: ALBUTEROL/IPRATROPIUM (NEB) 3 ML AMP HHN ×5 (01:00→21:00)
[2017-06-20] MEDS: ACCU-CHEK XX (02:00)
[2017-06-20] MEDS: PANTOPRAZOLE (EC) 40 MG TAB PO (05:13)
[2017-06-20] MEDS: HEPARIN 5,000 UNIT/0.5 ML VIAL SC ×3 (05:14→23:59)
[2017-06-20] MEDS: CHOLESTYRAMINE 4 GM PACKET PO ×3 (09:00→20:07)
[2017-06-20] MEDS: INSULIN ASPART [NOVOLOG] 3 ML PEN SC ×7 (09:24→20:18)
[2017-06-20] MEDS: HEPARIN 1000 UNITS/ML 10 ML INJ CATHETER (12:15)
[2017-06-20] MEDS: LEVETIRACETAM (100 MG/ML) 5ML CUP PO ×2 (12:20→20:09)
[2017-06-20] MEDS: RIFAXIMIN 550 MG TAB PO ×2 (12:21→20:06)
[2017-06-20] MEDS: MULTIVIT/CA CARB/B CMPLX/FA TAB PO (12:21)
[2017-06-20] MEDS: CHOLECALCIFEROL 1,000 UNIT TAB PO (12:21)
[2017-06-20] MEDS: SACCHAROMYCES BOULARDII 250 MG CAP PO ×2 (12:21→20:06)
[2017-06-20] MEDS: GABAPENTIN 300 MG CAP PO ×3 (12:21→20:05)
[2017-06-20] MEDS: FLUOXETINE 20 MG CAP PO (12:22)
[2017-06-20] MEDS: ASCORBIC ACID 500 MG TAB PO (12:22)
[2017-06-20] MEDS: LINAGLIPTIN 5 MG TABLET PO (12:22)
[2017-06-20] MEDS: ZINC SULFATE 220 MG CAP PO (12:22)
[2017-06-20] MEDS: SEVELAMER 400 MG TAB PO ×3 (12:23→17:51)
[2017-06-20] MEDS: ASPIRIN (EC) 81 MG TAB PO (12:24)
[2017-06-20] MEDS: FOLIC ACID 1 MG TAB PO (12:24)
[2017-06-20] MEDS: GENTAMICIN IN NACL, ISO-OSM 50 ML IVPB (14:54)
[2017-06-20] MEDS: BALSAM PERU/CASTOR OIL 60 GM TUBE TOP (17:50)
[2017-06-20] MEDS: INSULIN GLARGINE [LANtus] 3 ML PEN SC (20:17)
[2017-06-21] MEDS: ZOLPIDEM 5 MG TAB PO (00:07)
[2017-06-21] MEDS: ALBUTEROL/IPRATROPIUM (NEB) 3 ML AMP HHN ×5 (01:00→20:06)
[2017-06-21] MEDS: ACCU-CHEK XX (02:07)
[2017-06-21] MEDS: HYDROCODONE/APAP (5/325) TAB PO ×3 (03:20→21:54)
[2017-06-21 05:41] LABS: ADD MAN DIFF? NO
[2017-06-21 05:54] LABS: ABNORMAL IP MESSAGE 1; BASOPHIL # 0.1 10^3/ul (0.0-0.1); BASOPHILS % 0.5 % (0.0-2.0); EOSINOPHILS # 1.1 10^3/ul (0.0-0.5); EOSINOPHILS % 8.3 % (0.0-7.0); HEMATOCRIT 26.2 % (37.0-47.0); HEMOGLOBIN 8.3 g/dl (12.0-16.0); LYMPHOCYTES # 2.3 10^3/ul (0.8-2.9); LYMPHOCYTES % 17.4 % (15.0-51.0); MEAN CORPUSCULAR HEMOGLOBIN 27.2 pg (29.0-33.0); MEAN CORPUSCULAR HGB CONC 31.7 g/dl (32.0-37.0); MEAN CORPUSCULAR VOLUME 85.9 fl (82.0-101.0); MEAN PLATELET VOLUME 10.6 fl (7.4-10.4); MONOCYTE # 1.7 10^3/ul (0.3-0.9); MONOCYTES % 12.9 % (0.0-11.0); NEUTROPHIL # 7.6 10^3/ul (1.6-7.5); NEUTROPHILS % 58.9 % (39.0-77.0); PLATELET COUNT 412 10^3/UL (140-415); RED BLOOD COUNT 3.05 10^6/ul (4.20-5.40); RED CELL DISTRIBUTION WIDTH 18.2 % (11.5-14.5)
[2017-06-21 05:54] LABS: WHITE BLOOD COUNT 12.9 10^3/ul (4.8-10.8)
[2017-06-21] MEDS: PANTOPRAZOLE (EC) 40 MG TAB PO (05:59)
[2017-06-21 06:07] LABS: ANION GAP 20 (8-16); BLOOD UREA NITROGEN 59 mg/dl (7-20); CALCIUM 8.7 mg/dl (8.4-10.2); CARBON DIOXIDE 24 mmol/L (21-31); CHLORIDE 100 mmol/L (97-110); CREATININE 3.39 mg/dl (0.44-1.00); GLUCOSE 162 mg/dl (70-220); POTASSIUM 4.5 mmol/L (3.5-5.1); SODIUM 139 mmol/L (135-144)
[2017-06-21] MEDS: HEPARIN 5,000 UNIT/0.5 ML VIAL SC ×3 (06:07→22:08)
[2017-06-21 06:15] LABS: MAGNESIUM 1.5 mg/dl (1.7-2.5)
[2017-06-21 06:15] LABS: PHOSPHORUS 3.6 mg/dl (2.5-4.9)
[2017-06-21 06:21] LABS: POSITIVE DIFF @See below
[2017-06-21] MEDS: INSULIN ASPART [NOVOLOG] 3 ML PEN SC ×7 (07:50→21:00)
[2017-06-21] MEDS: CHOLESTYRAMINE 4 GM PACKET PO ×3 (09:02→21:00)
[2017-06-21] MEDS: SACCHAROMYCES BOULARDII 250 MG CAP PO ×2 (09:04→21:53)
[2017-06-21] MEDS: MULTIVIT/CA CARB/B CMPLX/FA TAB PO (09:04)
[2017-06-21] MEDS: LEVETIRACETAM (100 MG/ML) 5ML CUP PO ×2 (09:04→21:53)
[2017-06-21] MEDS: ASPIRIN (EC) 81 MG TAB PO (09:05)
[2017-06-21] MEDS: FOLIC ACID 1 MG TAB PO (09:05)
[2017-06-21] MEDS: CHOLECALCIFEROL 1,000 UNIT TAB PO (09:05)
[2017-06-21] MEDS: RIFAXIMIN 550 MG TAB PO ×2 (09:05→21:53)
[2017-06-21] MEDS: LINAGLIPTIN 5 MG TABLET PO (09:05)
[2017-06-21] MEDS: FLUOXETINE 20 MG CAP PO (09:06)
[2017-06-21] MEDS: ZINC SULFATE 220 MG CAP PO (09:06)
[2017-06-21] MEDS: ASCORBIC ACID 500 MG TAB PO (09:06)
[2017-06-21] MEDS: SEVELAMER 400 MG TAB PO ×3 (09:06→18:11)
[2017-06-21] MEDS: GABAPENTIN 300 MG CAP PO ×3 (09:06→21:53)
[2017-06-21] MEDS: BALSAM PERU/CASTOR OIL 60 GM TUBE TOP (09:07)
[2017-06-21] MEDS: ACETAMINOPHEN 325 MG TAB PO (12:40)
[2017-06-21] MEDS: MAGNESIUM SULFATE 4 GM/100 ML 100 ML IVPB (16:16)
[2017-06-21] MEDS: INSULIN GLARGINE [LANtus] 3 ML PEN SC (21:55)
[2017-06-22] MEDS: ALBUTEROL/IPRATROPIUM (NEB) 3 ML AMP HHN ×5 (00:50→17:00)
[2017-06-22] MEDS: ACCU-CHEK XX (02:00)
[2017-06-22] MEDS: PANTOPRAZOLE (EC) 40 MG TAB PO (05:43)
[2017-06-22] MEDS: HEPARIN 5,000 UNIT/0.5 ML VIAL SC ×2 (05:44→14:03)
[2017-06-22] MEDS: INSULIN ASPART [NOVOLOG] 3 ML PEN SC ×4 (07:50→13:23)
[2017-06-22] MEDS: SEVELAMER 400 MG TAB PO ×2 (07:50→12:10)
[2017-06-22] MEDS: ACETAMINOPHEN 325 MG TAB PO ×2 (08:36→14:00)
[2017-06-22] MEDS: BALSAM PERU/CASTOR OIL 60 GM TUBE TOP (09:00)
[2017-06-22] MEDS: HEPARIN 1000 UNITS/ML 10 ML INJ CATHETER (11:41)
[2017-06-22] MEDS: ASCORBIC ACID 500 MG TAB PO (12:08)
[2017-06-22] MEDS: ASPIRIN (EC) 81 MG TAB PO (12:08)
[2017-06-22] MEDS: LEVETIRACETAM (100 MG/ML) 5ML CUP PO (12:08)
[2017-06-22] MEDS: FLUOXETINE 20 MG CAP PO (12:08)
[2017-06-22] MEDS: LINAGLIPTIN 5 MG TABLET PO (12:09)
[2017-06-22] MEDS: CHOLECALCIFEROL 1,000 UNIT TAB PO (12:09)
[2017-06-22] MEDS: FOLIC ACID 1 MG TAB PO (12:09)
[2017-06-22] MEDS: SACCHAROMYCES BOULARDII 250 MG CAP PO (12:09)
[2017-06-22] MEDS: GABAPENTIN 300 MG CAP PO ×2 (12:10→13:00)
[2017-06-22] MEDS: ZINC SULFATE 220 MG CAP PO (12:10)
[2017-06-22] MEDS: MULTIVIT/CA CARB/B CMPLX/FA TAB PO (12:10)
[2017-06-22] MEDS: RIFAXIMIN 550 MG TAB PO (12:10)
[2017-06-22] MEDS: CHOLESTYRAMINE 4 GM PACKET PO ×2 (12:10→13:00)
[2017-06-22] MEDS: HYDROCODONE/APAP (5/325) TAB PO (16:08)
== END 2017-06-22 18:05 | DRG 533 ==
LOC: ICU 06-11 18:45 → MS1 06-12 16:15 → E/R 10:17 → MS1 14:32
PROC: 4A033R1 Measurement of Arterial Saturation, Peripheral, Percutaneous Approach (ICD-10-PCS; 2017-06-11)
PROC: 30233N1 Transfusion of Nonautologous Red Blood Cells into Peripheral Vein, Percutaneous Approach (ICD-10-PCS; 2017-06-14)
PROC: 02H633Z Insertion of Infusion Device into Right Atrium, Percutaneous Approach (ICD-10-PCS; principal; 2017-06-15)
PROC: B214YZZ Fluoroscopy of Right Heart using Other Contrast (ICD-10-PCS; 2017-06-15)
PROC: B543ZZA Ultrasonography of Right Jugular Veins, Guidance (ICD-10-PCS; 2017-06-15)
DX: S72.452A Displaced supracondylar fracture without intracondylar extension of lower end of left femur, initial encounter for closed fracture (principal); R65.11 Systemic inflammatory response syndrome (SIRS) of non-infectious origin with acute organ dysfunction; J96.01 Acute respiratory failure with hypoxia; J18.9 Pneumonia, unspecified organism; N18.6 End stage renal disease; E11.22 Type 2 diabetes mellitus with diabetic chronic kidney disease; I12.0 Hypertensive chronic kidney disease with stage 5 chronic kidney disease or end stage renal disease; J44.0 Chronic obstructive pulmonary disease with (acute) lower respiratory infection; S42.412A Displaced simple supracondylar fracture without intercondylar fracture of left humerus, initial encounter for closed fracture; D47.3 Essential (hemorrhagic) thrombocythemia; S82.142A Displaced bicondylar fracture of left tibia, initial encounter for closed fracture; I73.9 Peripheral vascular disease, unspecified; M85.80 Other specified disorders of bone density and structure, unspecified site; E78.00 Pure hypercholesterolemia, unspecified; D63.1 Anemia in chronic kidney disease; G40.909 Epilepsy, unspecified, not intractable, without status epilepticus; B18.2 Chronic viral hepatitis C; Z79.4 Long term (current) use of insulin; Z88.0 Allergy status to penicillin; Z99.2 Dependence on renal dialysis; Z89.611 Acquired absence of right leg above knee; Z79.82 Long term (current) use of aspirin; Z90.5 Acquired absence of kidney; Z85.528 Personal history of other malignant neoplasm of kidney; Z96.641 Presence of right artificial hip joint; W06.XXXA Fall from bed, initial encounter; Y92.122 Bedroom in nursing home as the place of occurrence of the external cause
CPT/HCPCS: 36430; 36561; 36600; 70450; 71045; 72125; 72170; 73030; 73070; 73080-LT; 73200; 73560; 73562; 76942; 80048; 80053; 80202; 82270; 82803; 82947; 82962; 83735; 83880; 84100; 84484; 85025; 85610; 85730; 86850; 86900; 86901; 86920; 87040; 87070; 87081; 87340; 87400; 90935; 93005; 93970; 94640; 94664; 96374; 96375; 99285-25

== ENCOUNTER 2017-07-14 17:11 | Inpatient (IN) | payer OTHER ==
[2017-07-14 19:20] LABS: ADD MAN DIFF? NO
[2017-07-14 19:25] LABS: WHITE BLOOD COUNT 21.2 10^3/ul (4.8-10.8)
[2017-07-14 19:25] LABS: ABNORMAL IP MESSAGE 1; BASOPHIL # 0.1 10^3/ul (0.0-0.1); BASOPHILS % 0.3 % (0.0-2.0); EOSINOPHILS # 1.3 10^3/ul (0.0-0.5); HEMATOCRIT 26.2 % (37.0-47.0); LYMPHOCYTES # 2.9 10^3/ul (0.8-2.9); LYMPHOCYTES % 13.8 % (15.0-51.0); MEAN CORPUSCULAR HEMOGLOBIN 29.3 pg (29.0-33.0); MEAN CORPUSCULAR HGB CONC 30.5 g/dl (32.0-37.0); MEAN PLATELET VOLUME 10.7 fl (7.4-10.4); MONOCYTE # 1.6 10^3/ul (0.3-0.9); MONOCYTES % 7.6 % (0.0-11.0); NEUTROPHIL # 14.5 10^3/ul (1.6-7.5); NEUTROPHILS % 68.3 % (39.0-77.0); PLATELET COUNT 490 10^3/UL (140-415); POSITIVE DIFF @See below; RED BLOOD COUNT 2.73 10^6/ul (4.20-5.40); RED CELL DISTRIBUTION WIDTH 18.5 % (11.5-14.5)
[2017-07-14 19:38] LABS: LACTIC ACID 1.5 mmol/L (0.5-2.0)
[2017-07-14 19:39] LABS: ALANINE AMINOTRANSFERASE 19 IU/L (13-69); ALBUMIN 2.3 g/dl (3.3-4.9); ALBUMIN/GLOBULIN RATIO 0.71; ALKALINE PHOSPHATASE 117 IU/L (42-121); ANION GAP 19 (8-16); ASPARTATE AMINO TRANSFERASE 11 IU/L (15-46); BLOOD UREA NITROGEN 78 mg/dl (7-20); CALCIUM 7.8 mg/dl (8.4-10.2); CARBON DIOXIDE 22 mmol/L (21-31); CHLORIDE 105 mmol/L (97-110); GLUCOSE 105 mg/dl (70-220); LIPASE 63 U/L (23-300); POTASSIUM 3.8 mmol/L (3.5-5.1); SODIUM 142 mmol/L (135-144); TOTAL PROTEIN 5.5 g/dl (6.1-8.1)
[2017-07-14 19:41] LABS: INR 1.01; PROTIME 13.4 Sec (11.9-14.9)
[2017-07-14 19:42] LABS: PARTIAL THROMBOPLASTIN TIME 31.6 Sec (25.0-35.0)
[2017-07-14 19:51] LABS: TROPONIN-I < 0.012 ng/ml (0.00-0.12)
[2017-07-14] MEDS: DOCUSATE SODIUM 100 MG CAP PO (23:00)
[2017-07-14] MEDS ORDERED: ONDANSETRON 4 MG TAB PO (23:00)
[2017-07-14] MEDS ORDERED: ALBUTEROL 0.083% (NEB) 2.5 MG/3 ML AMP NEB (23:00)
[2017-07-14] MEDS ORDERED: ACETAMINOPHEN 325 MG TAB PO (23:00)
[2017-07-14] MEDS ORDERED: GUAIFENESIN 20 MG/ML 5ML CUP PO (23:00)
[2017-07-14 23:39] LABS: LACTIC ACID 1.3 mmol/L (0.5-2.0)
[2017-07-15] MEDS: metroNIDAZOLE 500 MG/NS (PMX) 100 ML IVPB (00:59)
[2017-07-15] MEDS: HYDROCODONE/APAP (5/325) TAB PO (00:59)
[2017-07-15 01:34] LABS: LACTIC ACID 1.3 mmol/L (0.5-2.0)
[2017-07-15] MEDS ORDERED: DEXTROSE 50% 50 ML SYRINGE IV ×2 (02:00)
[2017-07-15] MEDS ORDERED: GLUCOSE GEL 15 GRAM TUBE BUCCAL (02:00)
[2017-07-15] MEDS ORDERED: GLUCAGON 1 MG INJ IM (02:00)
[2017-07-15] MEDS ORDERED: GLUCOSE GEL 15 GRAM TUBE PO ×2 (02:00)
[2017-07-15] MEDS: traMADol 50 MG TAB PO ×2 (02:26→09:47)
[2017-07-15] MEDS: CEFTRIAXONE 1 GM/50 ML (PMX) 50 ML IVPB (02:26)
[2017-07-15] MEDS ORDERED: PENDING SANTYL ORDER FOR WOUND CARE XX (05:00)
[2017-07-15] MEDS: metroNIDAZOLE 500 MG/NS (PMX) 250 MG in EVAC CONTAINER 1 BOTTLE IVPB ×2 (05:55→14:36)
[2017-07-15] MEDS: INSULIN ASPART [NOVOLOG] 3 ML PEN SC ×4 (07:53→21:00)
[2017-07-15] MEDS: PANTOPRAZOLE (EC) 40 MG TAB PO (07:53)
[2017-07-15] MEDS: CHOLESTYRAMINE 4 GM PACKET PO ×3 (09:37→21:14)
[2017-07-15] MEDS: GABAPENTIN 300 MG CAP PO ×3 (09:38→21:14)
[2017-07-15] MEDS: FOLIC ACID 1 MG TAB PO (09:38)
[2017-07-15] MEDS: ASPIRIN (EC) 81 MG TAB PO (09:38)
[2017-07-15] MEDS: MULTIVIT/CA CARB/B CMPLX/FA TAB PO (09:38)
[2017-07-15] MEDS: FLUOXETINE 20 MG CAP PO (09:38)
[2017-07-15] MEDS: SACCHAROMYCES BOULARDII 250 MG CAP PO ×2 (09:38→21:14)
[2017-07-15] MEDS: RIFAXIMIN 550 MG TAB PO ×2 (09:38→21:13)
[2017-07-15] MEDS: LEVETIRACETAM 500 MG TAB PO ×2 (09:38→21:14)
[2017-07-15] MEDS: CHOLECALCIFEROL 2,000 UNIT CAP PO (09:38)
[2017-07-15] MEDS: ASCORBIC ACID 250 MG TAB PO (09:38)
[2017-07-15] MEDS: DOCUSATE SODIUM 100 MG CAP PO ×2 (11:00→23:00)
[2017-07-15] MEDS: metroNIDAZOLE 250 MG TAB PO ×2 (16:04→21:14)
[2017-07-15] MEDS ORDERED: ALBUMIN HUMAN 25% 50 ML IV (16:30)
[2017-07-15] MEDS ORDERED: SODIUM CHLORIDE 0.9% 1L BAG IV (16:30)
[2017-07-15] MEDS ORDERED: SOD FERRIC GLUC COMPLX 125 MG in SOD CHLORIDE 0.9% 100 ML IVPB (17:00)
[2017-07-16] MEDS: ZOLPIDEM 5 MG TAB PO ×2 (00:01→22:24)
[2017-07-16] MEDS: metroNIDAZOLE 250 MG TAB PO ×3 (05:38→22:28)
[2017-07-16] MEDS: PANTOPRAZOLE (EC) 40 MG TAB PO (07:50)
[2017-07-16] MEDS: INSULIN ASPART [NOVOLOG] 3 ML PEN SC ×4 (07:51→20:35)
[2017-07-16 08:34] LABS: ADD MAN DIFF? NO
[2017-07-16 08:46] LABS: BASOPHIL # 0.1 10^3/ul (0.0-0.1); BASOPHILS % 0.5 % (0.0-2.0); EOSINOPHILS # 0.8 10^3/ul (0.0-0.5); EOSINOPHILS % 4.4 % (0.0-7.0); HEMATOCRIT 25.2 % (37.0-47.0); HEMOGLOBIN 7.7 g/dl (12.0-16.0); LYMPHOCYTES # 1.9 10^3/ul (0.8-2.9); LYMPHOCYTES % 9.9 % (15.0-51.0); MEAN CORPUSCULAR HEMOGLOBIN 29.4 pg (29.0-33.0); MEAN CORPUSCULAR HGB CONC 30.6 g/dl (32.0-37.0); MEAN CORPUSCULAR VOLUME 96.2 fl (82.0-101.0); MEAN PLATELET VOLUME 10.8 fl (7.4-10.4); MONOCYTE # 1.5 10^3/ul (0.3-0.9); MONOCYTES % 7.7 % (0.0-11.0); NEUTROPHIL # 14.3 10^3/ul (1.6-7.5); PLATELET COUNT 480 10^3/UL (140-415); RED BLOOD COUNT 2.62 10^6/ul (4.20-5.40)
[2017-07-16 08:46] LABS: WHITE BLOOD COUNT 19.3 10^3/ul (4.8-10.8)
[2017-07-16 09:00] LABS: ANION GAP 24 (8-16); BLOOD UREA NITROGEN 91 mg/dl (7-20); CALCIUM 7.5 mg/dl (8.4-10.2); CARBON DIOXIDE 17 mmol/L (21-31); CHLORIDE 105 mmol/L (97-110); CREATININE 5.49 mg/dl (0.44-1.00); GLUCOSE 169 mg/dl (70-220); SODIUM 141 mmol/L (135-144)
[2017-07-16] MEDS: traMADol 50 MG TAB PO (09:28)
[2017-07-16] MEDS: MULTIVIT/CA CARB/B CMPLX/FA TAB PO (09:29)
[2017-07-16] MEDS: RIFAXIMIN 550 MG TAB PO ×2 (09:29→20:33)
[2017-07-16] MEDS: ASCORBIC ACID 250 MG TAB PO (09:29)
[2017-07-16] MEDS: ASPIRIN (EC) 81 MG TAB PO (09:29)
[2017-07-16] MEDS: CHOLECALCIFEROL 2,000 UNIT CAP PO (09:29)
[2017-07-16] MEDS: LEVETIRACETAM 500 MG TAB PO ×2 (09:29→20:33)
[2017-07-16] MEDS: GABAPENTIN 300 MG CAP PO ×3 (09:29→20:33)
[2017-07-16] MEDS: CHOLESTYRAMINE 4 GM PACKET PO ×3 (09:29→20:33)
[2017-07-16] MEDS: SACCHAROMYCES BOULARDII 250 MG CAP PO ×2 (09:29→20:33)
[2017-07-16] MEDS: FLUOXETINE 20 MG CAP PO (09:29)
[2017-07-16] MEDS: FOLIC ACID 1 MG TAB PO (09:35)
[2017-07-16] MEDS: DOCUSATE SODIUM 100 MG CAP PO ×2 (11:00→23:00)
[2017-07-16 17:27] LABS: HEPATITIS B SURFACE ANTIGEN NEGATIVE (NEGATIVE)
[2017-07-16] MEDS ORDERED: VANCOMYCIN IV PER PHARMACY XX (18:00)
[2017-07-16] MEDS: HEPARIN 1000 UNITS/ML 10 ML INJ CATHETER (19:46)
[2017-07-16] MEDS: VANCOMYCIN 1.5 GM in SOD CHLORIDE 0.9% 250 ML IVPB (20:28)
[2017-07-17] MEDS: traMADol 50 MG TAB PO ×2 (02:41→23:18)
[2017-07-17] MEDS: metroNIDAZOLE 250 MG TAB PO ×3 (05:40→21:11)
[2017-07-17 07:04] LABS: WHITE BLOOD COUNT 12.1 10^3/ul (4.8-10.8)
[2017-07-17 07:04] LABS: ABNORMAL IP MESSAGE 1; HEMATOCRIT 24.9 % (37.0-47.0); HEMOGLOBIN 7.6 g/dl (12.0-16.0); MEAN CORPUSCULAR HEMOGLOBIN 29.3 pg (29.0-33.0); MEAN CORPUSCULAR HGB CONC 30.5 g/dl (32.0-37.0); MEAN CORPUSCULAR VOLUME 96.1 fl (82.0-101.0); MEAN PLATELET VOLUME 10.6 fl (7.4-10.4); PLATELET COUNT 414 10^3/UL (140-415); RED BLOOD COUNT 2.59 10^6/ul (4.20-5.40); RED CELL DISTRIBUTION WIDTH 17.8 % (11.5-14.5)
[2017-07-17 07:07] LABS: ADD MAN DIFF? YES; POSITIVE DIFF @See below
[2017-07-17 07:27] LABS: ANION GAP 17 (8-16); BLOOD UREA NITROGEN 46 mg/dl (7-20); CALCIUM 7.7 mg/dl (8.4-10.2); CARBON DIOXIDE 24 mmol/L (21-31); CHLORIDE 106 mmol/L (97-110); CREATININE 3.25 mg/dl (0.44-1.00); GLUCOSE 230 mg/dl (70-220); POTASSIUM 4.2 mmol/L (3.5-5.1); SODIUM 143 mmol/L (135-144)
[2017-07-17] MEDS: FLUOXETINE 20 MG CAP PO (08:05)
[2017-07-17] MEDS: HYDROCODONE/APAP (5/325) TAB PO ×2 (08:05→21:06)
[2017-07-17] MEDS: MULTIVIT/CA CARB/B CMPLX/FA TAB PO (08:05)
[2017-07-17] MEDS: ASCORBIC ACID 250 MG TAB PO (08:05)
[2017-07-17] MEDS: SACCHAROMYCES BOULARDII 250 MG CAP PO ×2 (08:06→21:05)
[2017-07-17] MEDS: PANTOPRAZOLE (EC) 40 MG TAB PO (08:06)
[2017-07-17] MEDS: CHOLESTYRAMINE 4 GM PACKET PO ×3 (08:06→21:07)
[2017-07-17] MEDS: LEVETIRACETAM 500 MG TAB PO ×2 (08:06→21:05)
[2017-07-17] MEDS: FOLIC ACID 1 MG TAB PO (08:06)
[2017-07-17] MEDS: ASPIRIN (EC) 81 MG TAB PO (08:06)
[2017-07-17] MEDS: RIFAXIMIN 550 MG TAB PO ×2 (08:06→21:05)
[2017-07-17] MEDS: GABAPENTIN 300 MG CAP PO ×3 (08:06→21:05)
[2017-07-17] MEDS: INSULIN ASPART [NOVOLOG] 3 ML PEN SC ×4 (08:11→21:10)
[2017-07-17] MEDS: CHOLECALCIFEROL 2,000 UNIT CAP PO (08:26)
[2017-07-17 09:02] LABS: ANISOCYTOSIS 2+ (0-0); BAND NEUTROPHILS #M 0.3 10^3/ul (0.0-0.6); BAND NEUTROPHILS % (M) 3 % (0-4); LYMPHOCYTES #M 2.1 10^3/ul (0.8-2.9); LYMPHOCYTES % (M) 18 % (15-51); MICROCYTOSIS 2+ (0-0); MONOCYTE #M 0.9 10^3/ul (0.3-0.9); MONOCYTES % (M) 8 % (0-11); PLATELET ESTIMATE NORMAL; POLYCHROMASIA 2+ (0-0); REACTIVE LYMPHOCYTES #M 0.2 10^3/ul (0.0-0.0); REACTIVE LYMPHOCYTES% (M) 2 % (0-0); SEG NEUT #M 8.4 10^3/ul (1.6-7.5); SEGMENTED NEUTROPHILS (M) % 69 % (39-77); SMUDGE%M 12 % (0-0)
[2017-07-17] MEDS: DOCUSATE SODIUM 100 MG CAP PO (11:00)
[2017-07-17] MEDS: ZOLPIDEM 5 MG TAB PO (23:18)
[2017-07-18] MEDS: metroNIDAZOLE 250 MG TAB PO ×3 (04:48→21:17)
[2017-07-18] MEDS: traMADol 50 MG TAB PO ×2 (04:48→12:32)
[2017-07-18] MEDS: PANTOPRAZOLE (EC) 40 MG TAB PO (04:48)
[2017-07-18 06:22] LABS: ADD MAN DIFF? NO
[2017-07-18 06:25] LABS: WHITE BLOOD COUNT 13.4 10^3/ul (4.8-10.8)
[2017-07-18 06:25] LABS: BASOPHIL # 0.1 10^3/ul (0.0-0.1); BASOPHILS % 0.5 % (0.0-2.0); EOSINOPHILS # 0.7 10^3/ul (0.0-0.5); EOSINOPHILS % 4.9 % (0.0-7.0); HEMATOCRIT 23.2 % (37.0-47.0); HEMOGLOBIN 7.2 g/dl (12.0-16.0); LYMPHOCYTES # 2.6 10^3/ul (0.8-2.9); LYMPHOCYTES % 19.5 % (15.0-51.0); MEAN CORPUSCULAR VOLUME 96.7 fl (82.0-101.0); MEAN PLATELET VOLUME 10.6 fl (7.4-10.4); MONOCYTE # 1.3 10^3/ul (0.3-0.9); MONOCYTES % 9.6 % (0.0-11.0); NEUTROPHIL # 8.3 10^3/ul (1.6-7.5); NEUTROPHILS % 61.9 % (39.0-77.0); PLATELET COUNT 395 10^3/UL (140-415)
[2017-07-18 06:47] LABS: ALANINE AMINOTRANSFERASE 16 IU/L (13-69); ALBUMIN 2.4 g/dl (3.3-4.9); ALBUMIN/GLOBULIN RATIO 0.82; ALKALINE PHOSPHATASE 101 IU/L (42-121); ASPARTATE AMINO TRANSFERASE 10 IU/L (15-46); BLOOD UREA NITROGEN 63 mg/dl (7-20); CALCIUM 7.7 mg/dl (8.4-10.2); CARBON DIOXIDE 19 mmol/L (21-31); CREATININE 4.33 mg/dl (0.44-1.00); GLUCOSE 202 mg/dl (70-220); TOTAL PROTEIN 5.3 g/dl (6.1-8.1)
[2017-07-18 06:51] LABS: VANCOMYCIN,RANDOM 15.8 ug/ml
[2017-07-18 06:58] LABS: ANION GAP 20 (8-16); CHLORIDE 108 mmol/L (97-110); POTASSIUM 4.5 mmol/L (3.5-5.1); SODIUM 142 mmol/L (135-144)
[2017-07-18] MEDS: CHOLESTYRAMINE 4 GM PACKET PO ×3 (08:21→21:17)
[2017-07-18] MEDS: HYDROCODONE/APAP (5/325) TAB PO (08:21)
[2017-07-18] MEDS: RIFAXIMIN 550 MG TAB PO ×2 (08:22→21:16)
[2017-07-18] MEDS: SACCHAROMYCES BOULARDII 250 MG CAP PO ×2 (08:22→21:17)
[2017-07-18] MEDS: FLUOXETINE 20 MG CAP PO (08:22)
[2017-07-18] MEDS: CHOLECALCIFEROL 2,000 UNIT CAP PO (08:22)
[2017-07-18] MEDS: MULTIVIT/CA CARB/B CMPLX/FA TAB PO (08:22)
[2017-07-18] MEDS: GABAPENTIN 300 MG CAP PO ×3 (08:22→21:16)
[2017-07-18] MEDS: ASCORBIC ACID 250 MG TAB PO (08:22)
[2017-07-18] MEDS: LEVETIRACETAM 500 MG TAB PO ×2 (08:23→21:17)
[2017-07-18] MEDS: ASPIRIN (EC) 81 MG TAB PO (08:23)
[2017-07-18] MEDS: FOLIC ACID 1 MG TAB PO (08:23)
[2017-07-18] MEDS: INSULIN ASPART [NOVOLOG] 3 ML PEN SC ×4 (08:48→21:21)
[2017-07-18] MEDS: VANCOMYCIN 1 GM 250 ML IVPB (16:57)
[2017-07-18] MEDS ORDERED: ALBUMIN HUMAN 25% 50 ML IV (18:00)
[2017-07-18] MEDS: INSULIN GLARGINE [LANtus] 3 ML PEN SC (21:19)
[2017-07-18] MEDS: ZOLPIDEM 5 MG TAB PO (23:26)
[2017-07-19] MEDS: metroNIDAZOLE 250 MG TAB PO ×3 (05:54→22:08)
[2017-07-19] MEDS: PANTOPRAZOLE (EC) 40 MG TAB PO (05:54)
[2017-07-19] MEDS: INSULIN ASPART [NOVOLOG] 3 ML PEN SC ×4 (08:50→20:28)
[2017-07-19] MEDS: ASCORBIC ACID 250 MG TAB PO (08:50)
[2017-07-19] MEDS: SACCHAROMYCES BOULARDII 250 MG CAP PO ×2 (08:50→21:05)
[2017-07-19] MEDS: FOLIC ACID 1 MG TAB PO (08:51)
[2017-07-19] MEDS: RIFAXIMIN 550 MG TAB PO ×2 (08:51→21:05)
[2017-07-19] MEDS: ASPIRIN (EC) 81 MG TAB PO (08:51)
[2017-07-19] MEDS: LEVETIRACETAM 500 MG TAB PO ×2 (08:51→21:05)
[2017-07-19] MEDS: MULTIVIT/CA CARB/B CMPLX/FA TAB PO (08:51)
[2017-07-19] MEDS: GABAPENTIN 300 MG CAP PO ×3 (08:51→21:05)
[2017-07-19] MEDS: CHOLECALCIFEROL 2,000 UNIT CAP PO (08:51)
[2017-07-19] MEDS: FLUOXETINE 20 MG CAP PO (08:51)
[2017-07-19] MEDS: CHOLESTYRAMINE 4 GM PACKET PO ×3 (08:56→21:06)
[2017-07-19] MEDS: HYDROCODONE/APAP (5/325) TAB PO ×3 (08:56→20:26)
[2017-07-19 09:08] LABS: ANION GAP 21 (8-16); BLOOD UREA NITROGEN 80 mg/dl (7-20); CARBON DIOXIDE 15 mmol/L (21-31); CHLORIDE 109 mmol/L (97-110); CREATININE 5.05 mg/dl (0.44-1.00); GLUCOSE 165 mg/dl (70-220); POTASSIUM 5.3 mmol/L (3.5-5.1); SODIUM 140 mmol/L (135-144)
[2017-07-19 11:51] LABS: ADD MAN DIFF? NO
[2017-07-19 11:57] LABS: BASOPHIL # 0.1 10^3/ul (0.0-0.1); BASOPHILS % 0.3 % (0.0-2.0); EOSINOPHILS # 0.6 10^3/ul (0.0-0.5); EOSINOPHILS % 4.2 % (0.0-7.0); HEMATOCRIT 24.3 % (37.0-47.0); HEMOGLOBIN 7.4 g/dl (12.0-16.0); LYMPHOCYTES # 2.2 10^3/ul (0.8-2.9); LYMPHOCYTES % 15.3 % (15.0-51.0); MEAN CORPUSCULAR HEMOGLOBIN 29.8 pg (29.0-33.0); MEAN CORPUSCULAR HGB CONC 30.5 g/dl (32.0-37.0); MEAN PLATELET VOLUME 10.9 fl (7.4-10.4); MONOCYTE # 1.2 10^3/ul (0.3-0.9); MONOCYTES % 8.5 % (0.0-11.0); NEUTROPHIL # 10.1 10^3/ul (1.6-7.5); NEUTROPHILS % 68.8 % (39.0-77.0); PLATELET COUNT 422 10^3/UL (140-415); RED BLOOD COUNT 2.48 10^6/ul (4.20-5.40); RED CELL DISTRIBUTION WIDTH 17.3 % (11.5-14.5)
[2017-07-19 11:57] LABS: WHITE BLOOD COUNT 14.7 10^3/ul (4.8-10.8)
[2017-07-19 12:38] LABS: RETICULOCYTE COUNT # 0.082 X10^6 (0.020-0.110); RETICULOCYTE COUNT % 3.4 % (0.5-1.5)
[2017-07-19 12:38] LABS: RETICULOCYTE RBC 2.44
[2017-07-19 14:09] LABS: FOLATE > 20.0 ng/ml (2.8-20.0)
[2017-07-19] MEDS: EPOETIN 4000 UNITS/1 ML INJ (ESRD) SC (20:25)
[2017-07-19] MEDS: INSULIN GLARGINE [LANtus] 3 ML PEN SC (20:29)
[2017-07-19] MEDS: COLLAGENASE 30 GM TUBE TOP (21:04)
[2017-07-19] MEDS: HEPARIN 1000 UNITS/ML 10 ML INJ CATHETER (21:06)
[2017-07-19] MEDS: ZOLPIDEM 5 MG TAB PO (23:13)
[2017-07-20 05:57] LABS: ADD MAN DIFF? NO
[2017-07-20 06:07] LABS: BASOPHIL # 0.1 10^3/ul (0.0-0.1); BASOPHILS % 0.5 % (0.0-2.0); EOSINOPHILS # 0.6 10^3/ul (0.0-0.5); EOSINOPHILS % 5.2 % (0.0-7.0); HEMATOCRIT 22.1 % (37.0-47.0); LYMPHOCYTES % 18.2 % (15.0-51.0); MEAN CORPUSCULAR HEMOGLOBIN 30.6 pg (29.0-33.0); MEAN CORPUSCULAR HGB CONC 31.7 g/dl (32.0-37.0); MEAN CORPUSCULAR VOLUME 96.5 fl (82.0-101.0); MEAN PLATELET VOLUME 10.7 fl (7.4-10.4); MONOCYTES % 9.3 % (0.0-11.0); PLATELET COUNT 392 10^3/UL (140-415); RED BLOOD COUNT 2.29 10^6/ul (4.20-5.40); RED CELL DISTRIBUTION WIDTH 17.6 % (11.5-14.5)
[2017-07-20 06:07] LABS: WHITE BLOOD COUNT 10.9 10^3/ul (4.8-10.8)
[2017-07-20] MEDS: metroNIDAZOLE 250 MG TAB PO ×3 (06:12→22:25)
[2017-07-20 06:28] LABS: ANION GAP 16 (8-16); BLOOD UREA NITROGEN 49 mg/dl (7-20); CALCIUM 8.4 mg/dl (8.4-10.2); CARBON DIOXIDE 26 mmol/L (21-31); CHLORIDE 107 mmol/L (97-110); CREATININE 3.21 mg/dl (0.44-1.00); GLUCOSE 91 mg/dl (70-220); POTASSIUM 4.5 mmol/L (3.5-5.1); SODIUM 144 mmol/L (135-144)
[2017-07-20] MEDS: INSULIN ASPART [NOVOLOG] 3 ML PEN SC ×4 (08:00→21:01)
[2017-07-20] MEDS: PANTOPRAZOLE (EC) 40 MG TAB PO (08:25)
[2017-07-20] MEDS: FLUOXETINE 20 MG CAP PO (08:26)
[2017-07-20] MEDS: CHOLESTYRAMINE 4 GM PACKET PO ×3 (08:26→20:55)
[2017-07-20] MEDS: FOLIC ACID 1 MG TAB PO (08:26)
[2017-07-20] MEDS: SACCHAROMYCES BOULARDII 250 MG CAP PO ×2 (08:26→20:55)
[2017-07-20] MEDS: LEVETIRACETAM 500 MG TAB PO ×2 (08:26→20:55)
[2017-07-20] MEDS: MULTIVIT/CA CARB/B CMPLX/FA TAB PO (08:26)
[2017-07-20] MEDS: ASPIRIN (EC) 81 MG TAB PO (08:26)
[2017-07-20] MEDS: GABAPENTIN 300 MG CAP PO ×3 (08:26→20:55)
[2017-07-20] MEDS: CHOLECALCIFEROL 2,000 UNIT CAP PO (08:27)
[2017-07-20] MEDS: HYDROCODONE/APAP (5/325) TAB PO (08:27)
[2017-07-20] MEDS: ASCORBIC ACID 250 MG TAB PO (08:27)
[2017-07-20] MEDS: RIFAXIMIN 550 MG TAB PO ×2 (08:27→20:55)
[2017-07-20] MEDS: COLLAGENASE 30 GM TUBE TOP (09:00)
[2017-07-20 10:57] LABS: OCCULT BLOOD STOOL POSITIVE (NEGATIVE)
[2017-07-20] MEDS ORDERED: SODIUM CHLORIDE 0.9% 1L BAG IV (16:00)
[2017-07-20] MEDS ORDERED: ALBUMIN HUMAN 25% 50 ML IV (16:00)
[2017-07-20] MEDS ORDERED: HEPARIN 1000 UNITS/ML 10 ML INJ CATHETER (16:00)
[2017-07-20] MEDS: INSULIN GLARGINE [LANtus] 3 ML PEN SC (21:00)
[2017-07-21 05:30] LABS: ADD MAN DIFF? NO
[2017-07-21 05:36] LABS: ABNORMAL IP MESSAGE 1; BASOPHILS % 0.4 % (0.0-2.0); EOSINOPHILS # 0.6 10^3/ul (0.0-0.5); EOSINOPHILS % 5.1 % (0.0-7.0); HEMATOCRIT 21.4 % (37.0-47.0); LYMPHOCYTES # 2.3 10^3/ul (0.8-2.9); LYMPHOCYTES % 20.1 % (15.0-51.0); MEAN CORPUSCULAR HEMOGLOBIN 29.7 pg (29.0-33.0); MEAN CORPUSCULAR HGB CONC 30.8 g/dl (32.0-37.0); MEAN CORPUSCULAR VOLUME 96.4 fl (82.0-101.0); MEAN PLATELET VOLUME 10.7 fl (7.4-10.4); MONOCYTE # 1.2 10^3/ul (0.3-0.9); MONOCYTES % 10.4 % (0.0-11.0); NEUTROPHILS % 62.1 % (39.0-77.0); PLATELET COUNT 406 10^3/UL (140-415); RED BLOOD COUNT 2.22 10^6/ul (4.20-5.40); RED CELL DISTRIBUTION WIDTH 17.5 % (11.5-14.5)
[2017-07-21 05:36] LABS: WHITE BLOOD COUNT 11.3 10^3/ul (4.8-10.8)
[2017-07-21 05:44] LABS: ALANINE AMINOTRANSFERASE 20 IU/L (13-69); ALBUMIN 2.4 g/dl (3.3-4.9); ALKALINE PHOSPHATASE 90 IU/L (42-121); ANION GAP 19 (8-16); ASPARTATE AMINO TRANSFERASE 14 IU/L (15-46); BLOOD UREA NITROGEN 67 mg/dl (7-20); CARBON DIOXIDE 23 mmol/L (21-31); CHLORIDE 107 mmol/L (97-110); CREATININE 4.22 mg/dl (0.44-1.00); GLUCOSE 108 mg/dl (70-220); POTASSIUM 4.9 mmol/L (3.5-5.1); SODIUM 144 mmol/L (135-144); TOTAL PROTEIN 5.4 g/dl (6.1-8.1)
[2017-07-21 05:52] LABS: VANCOMYCIN,RANDOM 18.6 ug/ml
[2017-07-21] MEDS: metroNIDAZOLE 250 MG TAB PO ×2 (06:14→13:44)
[2017-07-21 06:37] LABS: MAGNESIUM 1.6 mg/dl (1.7-2.5)
[2017-07-21 06:37] LABS: PHOSPHORUS 5.8 mg/dl (2.5-4.9)
[2017-07-21 06:42] LABS: HEMOGLOBIN 6.6 g/dl (12.0-16.0); POSITIVE DIFF @See below
[2017-07-21 07:22] LABS: ANISOCYTOSIS 1+ (0-0); EOSINOPHILS % (M) 1 % (0-7); LYMPHOCYTES #M 1.8 10^3/ul (0.8-2.9); LYMPHOCYTES % (M) 16 % (15-51); MICROCYTOSIS 1+ (0-0); MONOCYTE #M 0.5 10^3/ul (0.3-0.9); MONOCYTES % (M) 5 % (0-11); PLATELET ESTIMATE NORMAL; POIKILOCYTOSIS 1+ (0-0); POLYCHROMASIA 1+ (0-0); SEGMENTED NEUTROPHILS (M) % 78 % (39-77); SMUDGE%M 5 % (0-0)
[2017-07-21] MEDS: INSULIN ASPART [NOVOLOG] 3 ML PEN SC ×3 (08:00→17:18)
[2017-07-21] MEDS: FLUOXETINE 20 MG CAP PO (08:21)
[2017-07-21] MEDS: SACCHAROMYCES BOULARDII 250 MG CAP PO (08:21)
[2017-07-21] MEDS: MULTIVIT/CA CARB/B CMPLX/FA TAB PO (08:21)
[2017-07-21] MEDS: ASCORBIC ACID 250 MG TAB PO (08:21)
[2017-07-21] MEDS: PANTOPRAZOLE (EC) 40 MG TAB PO (08:21)
[2017-07-21] MEDS: CHOLESTYRAMINE 4 GM PACKET PO ×2 (08:21→13:44)
[2017-07-21] MEDS: RIFAXIMIN 550 MG TAB PO (08:21)
[2017-07-21] MEDS: ASPIRIN (EC) 81 MG TAB PO (08:22)
[2017-07-21] MEDS: GABAPENTIN 300 MG CAP PO ×2 (08:22→13:44)
[2017-07-21] MEDS: CHOLECALCIFEROL 2,000 UNIT CAP PO (08:22)
[2017-07-21] MEDS: COLLAGENASE 30 GM TUBE TOP (08:22)
[2017-07-21] MEDS: LEVETIRACETAM 500 MG TAB PO (08:22)
[2017-07-21] MEDS: FOLIC ACID 1 MG TAB PO (08:22)
[2017-07-21] MEDS: HYDROCODONE/APAP (5/325) TAB PO ×2 (11:04→12:15)
[2017-07-21] MEDS: INSULIN GLARGINE [LANtus] 3 ML PEN SC (20:16)
[2017-07-21 22:32] LABS: IMMEDIATE SPIN CROSSMATCH 1 2
[2017-07-22] MEDS: HEPARIN 1000 UNITS/ML 10 ML INJ CATHETER (00:13)
[2017-07-22] MEDS: RIFAXIMIN 550 MG TAB PO ×3 (00:25→20:49)
[2017-07-22] MEDS: CHOLESTYRAMINE 4 GM PACKET PO ×4 (00:25→20:50)
[2017-07-22] MEDS: metroNIDAZOLE 250 MG TAB PO ×4 (00:26→22:27)
[2017-07-22] MEDS: LEVETIRACETAM 500 MG TAB PO ×3 (00:26→20:49)
[2017-07-22] MEDS: SACCHAROMYCES BOULARDII 250 MG CAP PO ×3 (00:26→20:49)
[2017-07-22] MEDS: GABAPENTIN 300 MG CAP PO ×4 (00:27→20:49)
[2017-07-22] MEDS: INSULIN ASPART [NOVOLOG] 3 ML PEN SC ×5 (00:33→20:49)
[2017-07-22] MEDS: MAGNESIUM SULFATE 2 GM/50 ML 50 ML IVPB (00:45)
[2017-07-22] MEDS: EPOETIN 4000 UNITS/1 ML INJ (ESRD) SC (00:45)
[2017-07-22] MEDS: ZOLPIDEM 5 MG TAB PO (00:45)
[2017-07-22 06:14] LABS: ADD MAN DIFF? NO
[2017-07-22 06:17] LABS: WHITE BLOOD COUNT 13.3 10^3/ul (4.8-10.8)
[2017-07-22 06:17] LABS: BASOPHIL # 0.1 10^3/ul (0.0-0.1); BASOPHILS % 0.5 % (0.0-2.0); EOSINOPHILS # 0.6 10^3/ul (0.0-0.5); EOSINOPHILS % 4.1 % (0.0-7.0); HEMATOCRIT 26.5 % (37.0-47.0); HEMOGLOBIN 8.9 g/dl (12.0-16.0); LYMPHOCYTES # 2.5 10^3/ul (0.8-2.9); MEAN CORPUSCULAR HEMOGLOBIN 31.1 pg (29.0-33.0); MEAN CORPUSCULAR HGB CONC 33.6 g/dl (32.0-37.0); MEAN CORPUSCULAR VOLUME 92.7 fl (82.0-101.0); MEAN PLATELET VOLUME 10.5 fl (7.4-10.4); MONOCYTE # 1.3 10^3/ul (0.3-0.9); MONOCYTES % 9.4 % (0.0-11.0); NEUTROPHIL # 8.7 10^3/ul (1.6-7.5); NEUTROPHILS % 65.2 % (39.0-77.0); PLATELET COUNT 380 10^3/UL (140-415); RED BLOOD COUNT 2.86 10^6/ul (4.20-5.40); RED CELL DISTRIBUTION WIDTH 17.3 % (11.5-14.5)
[2017-07-22 06:45] LABS: MAGNESIUM 2.3 mg/dl (1.7-2.5)
[2017-07-22 06:45] LABS: PHOSPHORUS 4.2 mg/dl (2.5-4.9)
[2017-07-22 06:58] LABS: ANION GAP 16 (8-16); BLOOD UREA NITROGEN 43 mg/dl (7-20); CARBON DIOXIDE 26 mmol/L (21-31); CHLORIDE 105 mmol/L (97-110); CREATININE 2.71 mg/dl (0.44-1.00); GLUCOSE 182 mg/dl (70-220); POTASSIUM 3.9 mmol/L (3.5-5.1); SODIUM 143 mmol/L (135-144)
[2017-07-22] MEDS: MULTIVIT/CA CARB/B CMPLX/FA TAB PO (08:23)
[2017-07-22] MEDS: CHOLECALCIFEROL 2,000 UNIT CAP PO (08:24)
[2017-07-22] MEDS: ASCORBIC ACID 250 MG TAB PO (08:24)
[2017-07-22] MEDS: PANTOPRAZOLE (EC) 40 MG TAB PO (08:24)
[2017-07-22] MEDS: FLUOXETINE 20 MG CAP PO (08:24)
[2017-07-22] MEDS: COLLAGENASE 30 GM TUBE TOP (08:24)
[2017-07-22] MEDS: FOLIC ACID 1 MG TAB PO (08:24)
[2017-07-22] MEDS: ASPIRIN (EC) 81 MG TAB PO (08:24)
[2017-07-22] MEDS: VANCOMYCIN 1 GM 250 ML IVPB (16:36)
[2017-07-22] MEDS ORDERED: SOD CHLORIDE 0.9% 1,000 ML IV (17:16)
[2017-07-22] MEDS ORDERED: ALBUMIN HUMAN 25% 50 ML IV (17:30)
[2017-07-22] MEDS: INSULIN GLARGINE [LANtus] 3 ML PEN SC (20:48)
[2017-07-23] MEDS: ZOLPIDEM 5 MG TAB PO ×2 (00:01→22:58)
[2017-07-23] MEDS: PANTOPRAZOLE (EC) 40 MG TAB PO (06:19)
[2017-07-23] MEDS: metroNIDAZOLE 250 MG TAB PO ×3 (06:20→22:14)
[2017-07-23] MEDS: INSULIN ASPART [NOVOLOG] 3 ML PEN SC ×4 (08:00→20:33)
[2017-07-23] MEDS: SACCHAROMYCES BOULARDII 250 MG CAP PO ×2 (08:20→20:35)
[2017-07-23] MEDS: CHOLESTYRAMINE 4 GM PACKET PO ×3 (08:21→20:34)
[2017-07-23] MEDS: FOLIC ACID 1 MG TAB PO (08:21)
[2017-07-23] MEDS: LEVETIRACETAM 500 MG TAB PO ×2 (08:21→20:34)
[2017-07-23] MEDS: ASPIRIN (EC) 81 MG TAB PO (08:21)
[2017-07-23] MEDS: FLUOXETINE 20 MG CAP PO (08:21)
[2017-07-23] MEDS: GABAPENTIN 300 MG CAP PO ×3 (08:21→20:34)
[2017-07-23] MEDS: RIFAXIMIN 550 MG TAB PO ×2 (08:22→20:34)
[2017-07-23] MEDS: COLLAGENASE 30 GM TUBE TOP (08:22)
[2017-07-23] MEDS: CHOLECALCIFEROL 2,000 UNIT CAP PO (08:22)
[2017-07-23] MEDS: MULTIVIT/CA CARB/B CMPLX/FA TAB PO (08:22)
[2017-07-23] MEDS: ASCORBIC ACID 250 MG TAB PO (08:22)
[2017-07-23] MEDS: HEPARIN 1000 UNITS/ML 10 ML INJ CATHETER (12:22)
[2017-07-23 13:37] LABS: ADD MAN DIFF? NO
[2017-07-23 13:45] LABS: BASOPHIL # 0.1 10^3/ul (0.0-0.1); BASOPHILS % 0.5 % (0.0-2.0); EOSINOPHILS # 0.4 10^3/ul (0.0-0.5); EOSINOPHILS % 2.7 % (0.0-7.0); HEMATOCRIT 29.9 % (37.0-47.0); HEMOGLOBIN 9.6 g/dl (12.0-16.0); LYMPHOCYTES # 1.8 10^3/ul (0.8-2.9); LYMPHOCYTES % 11.9 % (15.0-51.0); MEAN CORPUSCULAR HEMOGLOBIN 30.5 pg (29.0-33.0); MEAN CORPUSCULAR HGB CONC 32.1 g/dl (32.0-37.0); MEAN CORPUSCULAR VOLUME 94.9 fl (82.0-101.0); MEAN PLATELET VOLUME 10.8 fl (7.4-10.4); MONOCYTES % 6.7 % (0.0-11.0); NEUTROPHIL # 11.6 10^3/ul (1.6-7.5); NEUTROPHILS % 77.2 % (39.0-77.0); PLATELET COUNT 356 10^3/UL (140-415); RED BLOOD COUNT 3.15 10^6/ul (4.20-5.40); RED CELL DISTRIBUTION WIDTH 17.2 % (11.5-14.5)
[2017-07-23 13:47] LABS: POSITIVE DIFF @See below
[2017-07-23] MEDS: EPOETIN 4000 UNITS/1 ML INJ (ESRD) SC (17:16)
[2017-07-23] MEDS: INSULIN GLARGINE [LANtus] 3 ML PEN SC (20:32)
[2017-07-24] MEDS: metroNIDAZOLE 250 MG TAB PO ×2 (05:50→13:13)
[2017-07-24] MEDS: INSULIN ASPART [NOVOLOG] 3 ML PEN SC ×3 (08:15→17:12)
[2017-07-24] MEDS: CHOLECALCIFEROL 2,000 UNIT CAP PO (09:20)
[2017-07-24] MEDS: PANTOPRAZOLE (EC) 40 MG TAB PO (09:20)
[2017-07-24] MEDS: ASCORBIC ACID 250 MG TAB PO (09:20)
[2017-07-24] MEDS: ASPIRIN (EC) 81 MG TAB PO (09:20)
[2017-07-24] MEDS: FLUOXETINE 20 MG CAP PO (09:20)
[2017-07-24] MEDS: GABAPENTIN 300 MG CAP PO ×2 (09:20→12:23)
[2017-07-24] MEDS: MULTIVIT/CA CARB/B CMPLX/FA TAB PO (09:20)
[2017-07-24] MEDS: LEVETIRACETAM 500 MG TAB PO (09:20)
[2017-07-24] MEDS: COLLAGENASE 30 GM TUBE TOP (09:20)
[2017-07-24] MEDS: SACCHAROMYCES BOULARDII 250 MG CAP PO (09:20)
[2017-07-24] MEDS: FOLIC ACID 1 MG TAB PO (09:20)
[2017-07-24] MEDS: RIFAXIMIN 550 MG TAB PO (09:20)
[2017-07-24] MEDS: CHOLESTYRAMINE 4 GM PACKET PO ×2 (09:20→12:23)
[2017-07-24] MEDS: HYDROCODONE/APAP (5/325) TAB PO (10:59)
== END 2017-07-24 19:15 | DRG 371 ==
LOC: MS4 21:30 → E/R 17:11 → PP2 07-19 14:11
PROC: 5A1D70Z Performance of Urinary Filtration, Intermittent, Less than 6 Hours Per Day (ICD-10-PCS; 2017-07-16)
PROC: 30233N1 Transfusion of Nonautologous Red Blood Cells into Peripheral Vein, Percutaneous Approach (ICD-10-PCS; principal; 2017-07-21)
DX: A04.72 Enterocolitis due to Clostridium difficile, not specified as recurrent (principal); N18.6 End stage renal disease; I12.0 Hypertensive chronic kidney disease with stage 5 chronic kidney disease or end stage renal disease; J90 Pleural effusion, not elsewhere classified; K80.20 Calculus of gallbladder without cholecystitis without obstruction; D63.8 Anemia in other chronic diseases classified elsewhere; D72.829 Elevated white blood cell count, unspecified; L89.150 Pressure ulcer of sacral region, unstageable; E11.9 Type 2 diabetes mellitus without complications; Z89.611 Acquired absence of right leg above knee; Z99.2 Dependence on renal dialysis; E86.0 Dehydration; G40.909 Epilepsy, unspecified, not intractable, without status epilepticus
CPT/HCPCS: 36415; 36430; 71045; 74176; 80048; 80053; 80202; 82270; 82607; 82728; 82746; 82962; 83605; 83690; 83735; 84100; 84484; 85018; 85025; 85045; 85610; 85730; 86644; 86850; 86900; 86901; 86920; 87040; 87045; 87070; 87075; 87081; 87340; 90935; 93005; 93926; 99285-25

== ENCOUNTER 2018-09-23 18:27 | Emergency (ER) | payer OTHER ==
[2018-09-23] MEDS: HYDROmorphONE 2 MG/ML SYG IM (19:06)
== END 2018-09-23 21:36 | disposition home or self-care (01) ==
LOC: E/R 18:27
DX: S33.5XXA Sprain of ligaments of lumbar spine, initial encounter (principal); E11.22 Type 2 diabetes mellitus with diabetic chronic kidney disease; I12.0 Hypertensive chronic kidney disease with stage 5 chronic kidney disease or end stage renal disease; N18.6 End stage renal disease; J44.9 Chronic obstructive pulmonary disease, unspecified; E66.9 Obesity, unspecified; X58.XXXA Exposure to other specified factors, initial encounter; Y92.129 Unspecified place in nursing home as the place of occurrence of the external cause; Z99.2 Dependence on renal dialysis; Z79.4 Long term (current) use of insulin; Z79.82 Long term (current) use of aspirin; Z68.41 Body mass index [BMI] 40.0-44.9, adult
CPT/HCPCS: 96372; 99284-25

== ENCOUNTER 2018-12-04 05:36 | Inpatient (IN) | payer OTHER ==
[2018-12-04] MEDS: DEXTROSE 5%-0.9% NACL 1,000 ML IV (05:59)
[2018-12-04 06:05] LABS: ADD MAN DIFF? NO
[2018-12-04 06:09] LABS: BASOPHIL # 0.1 10^3/ul (0.0-0.1); BASOPHILS % 0.5 % (0.0-2.0); EOSINOPHILS # 0.2 10^3/ul (0.0-0.5); EOSINOPHILS % 1.8 % (0.0-7.0); HEMATOCRIT 31.7 % (37.0-47.0); HEMOGLOBIN 9.5 g/dl (12.0-16.0); LYMPHOCYTES # 1.2 10^3/ul (0.8-2.9); LYMPHOCYTES % 11.3 % (15.0-51.0); MEAN CORPUSCULAR HEMOGLOBIN 27.7 pg (29.0-33.0); MEAN CORPUSCULAR VOLUME 92.4 fl (82.0-101.0); MEAN PLATELET VOLUME 10.5 fl (7.4-10.4); MONOCYTE # 1.1 10^3/ul (0.3-0.9); MONOCYTES % 9.9 % (0.0-11.0); NEUTROPHIL # 8.3 10^3/ul (1.6-7.5); NEUTROPHILS % 75.6 % (39.0-77.0); PLATELET COUNT 410 10^3/UL (140-415); RED BLOOD COUNT 3.43 10^6/ul (4.20-5.40); RED CELL DISTRIBUTION WIDTH 13.7 % (11.5-14.5)
[2018-12-04 06:27] LABS: ALANINE AMINOTRANSFERASE 20 IU/L (13-69); ALBUMIN 3.1 g/dl (3.3-4.9); ALBUMIN/GLOBULIN RATIO 0.81; ALKALINE PHOSPHATASE 87 IU/L (42-121); ANION GAP 8 (5-13); ASPARTATE AMINO TRANSFERASE 13 IU/L (15-46); BILIRUBIN,INDIRECT 0.1 mg/dl (0-1.1); BILIRUBIN,TOTAL 0.1 mg/dl (0.2-1.3); BLOOD UREA NITROGEN 46 mg/dl (7-20); CALCIUM 8.9 mg/dl (8.4-10.2); CARBON DIOXIDE 35 mmol/L (21-31); CHLORIDE 91 mmol/L (97-110); CREATININE 3.07 mg/dl (0.44-1.00); Estimated GFR 16 mL/min (>60); GLUCOSE 66 mg/dl (70-220); POTASSIUM 4.9 mmol/L (3.5-5.1); SODIUM 134 mmol/L (135-144); TOTAL PROTEIN 6.9 g/dl (6.1-8.1)
[2018-12-04] MEDS: ALBUTEROL 0.083% (NEB) 2.5 MG/3 ML AMP HHN (07:05)
[2018-12-04] MEDS: IPRATROPIUM (NEB) 0.5 MG/2.5 ML AMP HHN (07:05)
[2018-12-04] MEDS: AZTREONAM 1 GM/NS (PMX) 50 ML IVPB (07:45)
[2018-12-04] MEDS ORDERED: ACETAMINOPHEN 325 MG TAB PO (08:30)
[2018-12-04] MEDS ORDERED: ONDANSETRON 4 MG INJ IV (08:30)
[2018-12-04] MEDS: VANCOMYCIN 1 GM (PMX) 250 ML IVPB (08:50)
[2018-12-04 09:28] LABS: LACTIC ACID 0.7 mmol/L (0.5-2.0)
[2018-12-04 11:30] LABS: LACTIC ACID 1.1 mmol/L (0.5-2.0)
[2018-12-04] MEDS: SOD CHLORIDE 0.9% 1,000 ML IV ×2 (12:06→20:17)
[2018-12-04] MEDS ORDERED: NACL 0.9% 3 ML SYG IV (12:30)
[2018-12-04] MEDS ORDERED: GLUCOSE GEL 15 GRAM TUBE BUCCAL (18:00)
[2018-12-04] MEDS ORDERED: DEXTROSE 50% 50 ML SYRINGE IV ×2 (18:00)
[2018-12-04] MEDS ORDERED: GLUCOSE GEL 15 GRAM TUBE PO ×2 (18:00)
[2018-12-04] MEDS ORDERED: GLUCAGON 1 MG INJ IM (18:00)
[2018-12-04] MEDS: INSULIN ASPART [NOVOLOG] 3 ML PEN SC ×3 (18:50→20:45)
[2018-12-04] MEDS: morphine 2 MG INJ IV (18:52)
[2018-12-04] MEDS ORDERED: PENDING SANTYL ORDER FOR WOUND CARE XX (20:00)
[2018-12-04] MEDS: AZTREONAM 0.5 GM in SOD CHLORIDE 0.9% 50 ML IV (20:17)
[2018-12-04] MEDS: ACETAMINOPHEN 325 MG TAB PO (20:17)
[2018-12-04] MEDS: FAMOTIDINE 20 MG INJ IV (20:17)
[2018-12-04] MEDS ORDERED: AZTREONAM 1 GM/NS (PMX) 50 ML IVPB (21:00)
[2018-12-05] MEDS: ACCU-CHEK XX (01:30)
[2018-12-05] MEDS: SOD CHLORIDE 0.9% 1,000 ML IV (04:51)
[2018-12-05] MEDS: morphine 2 MG INJ IV ×3 (04:56→22:49)
[2018-12-05] MEDS: CALCIUM CARBONATE 500 MG CHEW TAB PO (06:52)
[2018-12-05] MEDS: INSULIN ASPART [NOVOLOG] 3 ML PEN SC ×5 (07:57→22:48)
[2018-12-05] MEDS: ENOXAPARIN 30 MG/0.3 ML SYG SC (08:09)
[2018-12-05 08:14] LABS: ADD MAN DIFF? NO
[2018-12-05 08:17] LABS: ABNORMAL IP MESSAGE 1; BASOPHIL # 0.1 10^3/ul (0.0-0.1); BASOPHILS % 0.5 % (0.0-2.0); EOSINOPHILS # 0.3 10^3/ul (0.0-0.5); HEMATOCRIT 22.8 % (37.0-47.0); LYMPHOCYTES # 1.5 10^3/ul (0.8-2.9); LYMPHOCYTES % 15.8 % (15.0-51.0); MEAN CORPUSCULAR HEMOGLOBIN 27.9 pg (29.0-33.0); MEAN CORPUSCULAR HGB CONC 29.8 g/dl (32.0-37.0); MEAN CORPUSCULAR VOLUME 93.4 fl (82.0-101.0); MEAN PLATELET VOLUME 10.4 fl (7.4-10.4); MONOCYTES % 10.5 % (0.0-11.0); NEUTROPHIL # 6.4 10^3/ul (1.6-7.5); NEUTROPHILS % 68.9 % (39.0-77.0); PLATELET COUNT 379 10^3/UL (140-415); RED BLOOD COUNT 2.44 10^6/ul (4.20-5.40); RED CELL DISTRIBUTION WIDTH 13.7 % (11.5-14.5)
[2018-12-05 08:17] LABS: WHITE BLOOD COUNT 9.2 10^3/ul (4.8-10.8)
[2018-12-05 08:31] LABS: POSITIVE DIFF @See below
[2018-12-05 08:32] LABS: HEMOGLOBIN 6.8 g/dl (12.0-16.0)
[2018-12-05 08:33] LABS: PATH REVIEW? YES
[2018-12-05 08:37] LABS: ALANINE AMINOTRANSFERASE 16 IU/L (13-69); ALBUMIN 2.9 g/dl (3.3-4.9); ALKALINE PHOSPHATASE 66 IU/L (42-121); ANION GAP 11 (5-13); ASPARTATE AMINO TRANSFERASE 10 IU/L (15-46); BLOOD UREA NITROGEN 66 mg/dl (7-20); CALCIUM 7.7 mg/dl (8.4-10.2); CARBON DIOXIDE 23 mmol/L (21-31); CHLORIDE 98 mmol/L (97-110); CREATININE 3.95 mg/dl (0.44-1.00); Estimated GFR 12 mL/min (>60); GLUCOSE 172 mg/dl (70-220); POTASSIUM 5.3 mmol/L (3.5-5.1); SODIUM 132 mmol/L (135-144); TOTAL PROTEIN 6.1 g/dl (6.1-8.1)
[2018-12-05] MEDS: AZTREONAM 0.5 GM in SOD CHLORIDE 0.9% 50 ML IV ×2 (09:27→22:49)
[2018-12-05 09:28] LABS: HEMOGLOBIN A1C 7.2 % (0-5.9)
[2018-12-05 09:32] LABS: ANISOCYTOSIS 1+ (0-0); BAND NEUTROPHILS #M 0.4 10^3/ul (0.0-0.6); BAND NEUTROPHILS % (M) 5 % (0-4); BURR CELLS 1+ (0-0); EOSINOPHILS % (M) 5 % (0-7); LYMPHOCYTES #M 1.1 10^3/ul (0.8-2.9); LYMPHOCYTES % (M) 12 % (15-51); MICROCYTOSIS 1+ (0-0); MONOCYTE #M 0.3 10^3/ul (0.3-0.9); MONOCYTES % (M) 4 % (0-11); PLATELET ESTIMATE NORMAL; SEG NEUT #M 6.8 10^3/ul (1.6-7.5); SEGMENTED NEUTROPHILS (M) % 74 % (39-77); SMUDGE%M 5 % (0-0)
[2018-12-05] MEDS: SEVELAMER CARBONATE 0.8 GM PKT PO ×2 (12:10→17:15)
[2018-12-05 12:47] LABS: IRON 78 ug/dl (35-150)
[2018-12-05 12:56] LABS: % IRON SATURATION 46 % SAT (22-52); TOTAL IRON BINDING CAPACITY 169 ug/dl (241-421)
[2018-12-05 14:09] LABS: HEPATITIS B SURFACE ANTIGEN NEGATIVE (NEGATIVE)
[2018-12-05 17:55] LABS: OCCULT BLOOD STOOL NEGATIVE (NEGATIVE)
[2018-12-05 19:44] LABS: IMMEDIATE SPIN CROSSMATCH 1 1
[2018-12-05] MEDS ORDERED: NIACIN 500 MG TAB PO (21:00)
[2018-12-05] MEDS: GABAPENTIN 100 MG CAP PO (22:48)
[2018-12-05] MEDS: FAMOTIDINE 20 MG TAB PO (22:48)
[2018-12-05] MEDS: LEVETIRACETAM 500 MG TAB PO (22:48)
[2018-12-05] MEDS: NIACIN (ER) 500 MG TAB PO (22:50)
[2018-12-05 23:09] LABS: LACTATE DEHYDROGENASE 276 IU/L (313-618)
[2018-12-06 00:17] LABS: FOLATE 13.4 ng/ml (2.8-20.0)
[2018-12-06] MEDS ORDERED: COLLAGENASE 5 GM (UD JAR) TOP (01:00)
[2018-12-06] MEDS: ACCU-CHEK XX (02:02)
[2018-12-06] MEDS: COLLAGENASE 5 GM (UD JAR) TOP ×2 (02:02→08:12)
[2018-12-06 05:52] LABS: ADD MAN DIFF? NO
[2018-12-06 05:58] LABS: WHITE BLOOD COUNT 8.5 10^3/ul (4.8-10.8)
[2018-12-06 05:58] LABS: BASOPHIL # 0.1 10^3/ul (0.0-0.1); BASOPHILS % 0.8 % (0.0-2.0); EOSINOPHILS # 0.3 10^3/ul (0.0-0.5); EOSINOPHILS % 3.3 % (0.0-7.0); HEMATOCRIT 29.1 % (37.0-47.0); HEMOGLOBIN 8.9 g/dl (12.0-16.0); LYMPHOCYTES # 1.4 10^3/ul (0.8-2.9); LYMPHOCYTES % 16.7 % (15.0-51.0); MEAN CORPUSCULAR HEMOGLOBIN 28.2 pg (29.0-33.0); MEAN CORPUSCULAR HGB CONC 30.6 g/dl (32.0-37.0); MEAN CORPUSCULAR VOLUME 92.1 fl (82.0-101.0); MONOCYTE # 0.8 10^3/ul (0.3-0.9); MONOCYTES % 9.3 % (0.0-11.0); NEUTROPHIL # 5.7 10^3/ul (1.6-7.5); NEUTROPHILS % 67.9 % (39.0-77.0); PLATELET COUNT 362 10^3/UL (140-415); RED BLOOD COUNT 3.16 10^6/ul (4.20-5.40); RED CELL DISTRIBUTION WIDTH 13.5 % (11.5-14.5)
[2018-12-06 06:31] LABS: ANION GAP 6 (5-13); CALCIUM 8.4 mg/dl (8.4-10.2); CARBON DIOXIDE 31 mmol/L (21-31); CHLORIDE 99 mmol/L (97-110); Estimated GFR 20 mL/min (>60); GLUCOSE 181 mg/dl (70-220); POTASSIUM 4.2 mmol/L (3.5-5.1); SODIUM 136 mmol/L (135-144)
[2018-12-06 07:18] LABS: BLOOD UREA NITROGEN 38 mg/dl (7-20)
[2018-12-06 07:20] LABS: CREATININE 2.52 mg/dl (0.44-1.00)
[2018-12-06] MEDS: INSULIN ASPART [NOVOLOG] 3 ML PEN SC ×5 (08:10→20:55)
[2018-12-06] MEDS: SEVELAMER CARBONATE 0.8 GM PKT PO ×3 (08:11→17:18)
[2018-12-06] MEDS: LEVETIRACETAM 500 MG TAB PO ×2 (08:11→20:58)
[2018-12-06] MEDS: GABAPENTIN 100 MG CAP PO ×2 (08:11→20:58)
[2018-12-06] MEDS: ENOXAPARIN 30 MG/0.3 ML SYG SC (08:11)
[2018-12-06] MEDS: LOSARTAN 25 MG TAB PO (08:12)
[2018-12-06] MEDS: FLUOXETINE 10 MG CAP PO (08:12)
[2018-12-06] MEDS: AZTREONAM 0.5 GM in SOD CHLORIDE 0.9% 50 ML IV ×2 (09:05→20:58)
[2018-12-06 14:27] LABS: HAPTOGLOBIN 288 mg/dL (43-212)
[2018-12-06] MEDS ORDERED: VANCOMYCIN IV PER PHARMACY XX (14:30)
[2018-12-06] MEDS: VANCOMYCIN 1.5 GM/NS 250 ML 250 ML IVPB (16:47)
[2018-12-06] MEDS: INSULIN GLARGINE [LANTus] (100 UNITS/ML) SYG SC (20:56)
[2018-12-06] MEDS: NIACIN (ER) 500 MG TAB PO (20:58)
[2018-12-06] MEDS: FAMOTIDINE 20 MG TAB PO (20:58)
[2018-12-06] MEDS: morphine 2 MG INJ IV (21:01)
[2018-12-07] MEDS: ACCU-CHEK XX (01:45)
[2018-12-07] MEDS: morphine 2 MG INJ IV ×3 (03:33→21:41)
[2018-12-07] MEDS: ACETAMINOPHEN 325 MG TAB PO ×2 (05:36→18:55)
[2018-12-07 07:16] LABS: ADD MAN DIFF? NO
[2018-12-07 07:24] LABS: WHITE BLOOD COUNT 7.4 10^3/ul (4.8-10.8)
[2018-12-07 07:24] LABS: BASOPHILS % 0.5 % (0.0-2.0); EOSINOPHILS # 0.3 10^3/ul (0.0-0.5); EOSINOPHILS % 4.2 % (0.0-7.0); HEMATOCRIT 26.3 % (37.0-47.0); HEMOGLOBIN 7.9 g/dl (12.0-16.0); LYMPHOCYTES # 1.4 10^3/ul (0.8-2.9); LYMPHOCYTES % 18.6 % (15.0-51.0); MEAN CORPUSCULAR HEMOGLOBIN 28.3 pg (29.0-33.0); MEAN CORPUSCULAR VOLUME 94.3 fl (82.0-101.0); MEAN PLATELET VOLUME 10.2 fl (7.4-10.4); MONOCYTES % 13.2 % (0.0-11.0); NEUTROPHIL # 4.4 10^3/ul (1.6-7.5); NEUTROPHILS % 59.3 % (39.0-77.0); PLATELET COUNT 311 10^3/UL (140-415); RED BLOOD COUNT 2.79 10^6/ul (4.20-5.40); RED CELL DISTRIBUTION WIDTH 13.4 % (11.5-14.5)
[2018-12-07 07:44] LABS: ANION GAP 11 (5-13); BLOOD UREA NITROGEN 58 mg/dl (7-20); CALCIUM 8.2 mg/dl (8.4-10.2); CARBON DIOXIDE 25 mmol/L (21-31); CHLORIDE 99 mmol/L (97-110); Estimated GFR 14 mL/min (>60); GLUCOSE 246 mg/dl (70-220); SODIUM 135 mmol/L (135-144)
[2018-12-07] MEDS: INSULIN ASPART [NOVOLOG] 3 ML PEN SC ×8 (07:57→21:00)
[2018-12-07] MEDS: SEVELAMER CARBONATE 0.8 GM PKT PO ×4 (07:58→17:36)
[2018-12-07] MEDS: ENOXAPARIN 30 MG/0.3 ML SYG SC (08:00)
[2018-12-07] MEDS: LEVETIRACETAM 500 MG TAB PO ×2 (08:01→20:54)
[2018-12-07] MEDS: FLUOXETINE 10 MG CAP PO (08:01)
[2018-12-07] MEDS: GABAPENTIN 100 MG CAP PO ×2 (08:01→20:54)
[2018-12-07] MEDS: LOSARTAN 25 MG TAB PO (08:01)
[2018-12-07] MEDS: COLLAGENASE 5 GM (UD JAR) TOP (08:01)
[2018-12-07 08:34] LABS: POTASSIUM 4.9 mmol/L (3.5-5.1)
[2018-12-07] MEDS: AZTREONAM 0.5 GM in SOD CHLORIDE 0.9% 50 ML IV ×2 (08:42→20:55)
[2018-12-07] MEDS ORDERED: INSULIN GLARGINE [LANTus] (100 UNITS/ML) SYG SC (20:00)
[2018-12-07] MEDS: INSULIN GLARGINE [LANTus] (100 UNITS/ML) SYG SC (20:53)
[2018-12-07] MEDS: FAMOTIDINE 20 MG TAB PO (20:54)
[2018-12-07] MEDS: NIACIN (ER) 500 MG TAB PO (20:54)
[2018-12-08] MEDS: ACCU-CHEK XX (02:00)
[2018-12-08] MEDS: morphine 2 MG INJ IV ×3 (05:15→20:31)
[2018-12-08 07:06] LABS: VANCOMYCIN,RANDOM 17.6 ug/ml
[2018-12-08] MEDS: INSULIN ASPART [NOVOLOG] 3 ML PEN SC ×7 (08:00→20:30)
[2018-12-08] MEDS: GABAPENTIN 100 MG CAP PO ×2 (08:01→20:30)
[2018-12-08] MEDS: FLUOXETINE 10 MG CAP PO (08:01)
[2018-12-08] MEDS: ENOXAPARIN 30 MG/0.3 ML SYG SC (08:01)
[2018-12-08] MEDS: COLLAGENASE 5 GM (UD JAR) TOP (08:01)
[2018-12-08] MEDS: LEVETIRACETAM 500 MG TAB PO ×2 (08:01→20:30)
[2018-12-08] MEDS: SEVELAMER CARBONATE 0.8 GM PKT PO ×3 (08:01→17:25)
[2018-12-08] MEDS: LOSARTAN 25 MG TAB PO (08:02)
[2018-12-08] MEDS: AZTREONAM 0.5 GM in SOD CHLORIDE 0.9% 50 ML IV ×2 (08:56→20:32)
[2018-12-08] MEDS: VANCOMYCIN 1 GM 250 ML IVPB (17:25)
[2018-12-08] MEDS: INSULIN GLARGINE [LANTus] (100 UNITS/ML) SYG SC (20:29)
[2018-12-08] MEDS: FAMOTIDINE 20 MG TAB PO (20:30)
[2018-12-08] MEDS: NIACIN (ER) 500 MG TAB PO (20:30)
[2018-12-08] MEDS: ACETAMINOPHEN 325 MG TAB PO (20:56)
[2018-12-09] MEDS: ACCU-CHEK XX (02:00)
[2018-12-09] MEDS: morphine 2 MG INJ IV ×3 (06:41→16:46)
[2018-12-09] MEDS: INSULIN ASPART [NOVOLOG] 3 ML PEN SC ×7 (08:00→20:43)
[2018-12-09] MEDS: COLLAGENASE 5 GM (UD JAR) TOP (08:05)
[2018-12-09] MEDS: LEVETIRACETAM 500 MG TAB PO ×2 (08:05→20:40)
[2018-12-09] MEDS: GABAPENTIN 100 MG CAP PO ×2 (08:05→20:40)
[2018-12-09] MEDS: SEVELAMER CARBONATE 0.8 GM PKT PO ×3 (08:05→17:16)
[2018-12-09] MEDS: FLUOXETINE 10 MG CAP PO (08:05)
[2018-12-09] MEDS: LOSARTAN 25 MG TAB PO (08:06)
[2018-12-09] MEDS: ENOXAPARIN 30 MG/0.3 ML SYG SC (08:07)
[2018-12-09] MEDS: AZTREONAM 0.5 GM in SOD CHLORIDE 0.9% 50 ML IV ×2 (12:09→20:45)
[2018-12-09 14:36] LABS: OCCULT BLOOD STOOL NEGATIVE (NEGATIVE)
[2018-12-09] MEDS ORDERED: EPOETIN ALFA-EPBX (ESRD) 4,000 UNIT/ML VIAL SC (17:00)
[2018-12-09] MEDS: EPOETIN ALFA-EPBX (ESRD) 3,000 UNIT/ML VIAL SC (17:19)
[2018-12-09] MEDS: ACETAMINOPHEN 325 MG TAB PO (20:40)
[2018-12-09] MEDS: NIACIN (ER) 500 MG TAB PO (20:40)
[2018-12-09] MEDS: INSULIN GLARGINE [LANTus] (100 UNITS/ML) SYG SC (20:40)
[2018-12-09] MEDS: FAMOTIDINE 20 MG TAB PO (20:40)
[2018-12-10] MEDS: ACCU-CHEK XX (02:00)
[2018-12-10] MEDS: INSULIN ASPART [NOVOLOG] 3 ML PEN SC ×8 (02:07→21:11)
[2018-12-10 05:47] LABS: ADD MAN DIFF? NO
[2018-12-10 05:57] LABS: BASOPHIL # 0.1 10^3/ul (0.0-0.1); BASOPHILS % 0.7 % (0.0-2.0); EOSINOPHILS # 0.4 10^3/ul (0.0-0.5); EOSINOPHILS % 5.1 % (0.0-7.0); HEMATOCRIT 27.7 % (37.0-47.0); HEMOGLOBIN 8.4 g/dl (12.0-16.0); LYMPHOCYTES # 2.1 10^3/ul (0.8-2.9); MEAN CORPUSCULAR HEMOGLOBIN 28.4 pg (29.0-33.0); MEAN CORPUSCULAR HGB CONC 30.3 g/dl (32.0-37.0); MEAN CORPUSCULAR VOLUME 93.6 fl (82.0-101.0); MEAN PLATELET VOLUME 9.9 fl (7.4-10.4); MONOCYTE # 0.7 10^3/ul (0.3-0.9); MONOCYTES % 9.2 % (0.0-11.0); NEUTROPHIL # 4.1 10^3/ul (1.6-7.5); NEUTROPHILS % 53.4 % (39.0-77.0); PLATELET COUNT 264 10^3/UL (140-415); RED BLOOD COUNT 2.96 10^6/ul (4.20-5.40); RED CELL DISTRIBUTION WIDTH 13.3 % (11.5-14.5)
[2018-12-10 05:57] LABS: WHITE BLOOD COUNT 7.6 10^3/ul (4.8-10.8)
[2018-12-10 06:25] LABS: ANION GAP 8 (5-13); BLOOD UREA NITROGEN 45 mg/dl (7-20); CALCIUM 8.7 mg/dl (8.4-10.2); CARBON DIOXIDE 29 mmol/L (21-31); CHLORIDE 99 mmol/L (97-110); CREATININE 2.97 mg/dl (0.44-1.00); Estimated GFR 17 mL/min (>60); GLUCOSE 128 mg/dl (70-220); PHOSPHORUS 2.6 mg/dl (2.5-4.9); SODIUM 136 mmol/L (135-144)
[2018-12-10 06:26] LABS: POTASSIUM 4.7 mmol/L (3.5-5.1)
[2018-12-10 07:32] LABS: IRON 51 ug/dl (35-150)
[2018-12-10] MEDS: SEVELAMER CARBONATE 0.8 GM PKT PO ×3 (07:35→17:00)
[2018-12-10 07:41] LABS: % IRON SATURATION 32 % SAT (22-52); TOTAL IRON BINDING CAPACITY 161 ug/dl (241-421)
[2018-12-10] MEDS: ONDANSETRON 4 MG INJ IV (08:08)
[2018-12-10] MEDS: morphine 2 MG INJ IV ×3 (09:34→17:09)
[2018-12-10] MEDS: AZTREONAM 0.5 GM in SOD CHLORIDE 0.9% 50 ML IV ×2 (09:35→21:09)
[2018-12-10] MEDS: FLUOXETINE 10 MG CAP PO (09:40)
[2018-12-10] MEDS: GABAPENTIN 100 MG CAP PO ×2 (09:40→21:22)
[2018-12-10] MEDS: LEVETIRACETAM 500 MG TAB PO ×2 (09:40→21:22)
[2018-12-10] MEDS: LOSARTAN 25 MG TAB PO (09:41)
[2018-12-10] MEDS: HEPARIN 5,000 UNIT/1 ML VIAL SC ×2 (09:49→21:22)
[2018-12-10] MEDS: COLLAGENASE 5 GM (UD JAR) TOP ×2 (14:40→17:19)
[2018-12-10] MEDS: ERGOCALCIFEROL 50,000 UNIT CAP PO (16:56)
[2018-12-10] MEDS: INSULIN GLARGINE [LANTus] (100 UNITS/ML) SYG SC (21:10)
[2018-12-10] MEDS: FAMOTIDINE 20 MG TAB PO (21:22)
[2018-12-10] MEDS: NIACIN (ER) 500 MG TAB PO (21:22)
[2018-12-11] MEDS: ACCU-CHEK XX (02:00)
[2018-12-11 06:12] LABS: VANCOMYCIN,RANDOM 18.6 ug/ml
[2018-12-11] MEDS: INSULIN ASPART [NOVOLOG] 3 ML PEN SC ×7 (08:17→21:00)
[2018-12-11] MEDS: HEPARIN 5,000 UNIT/1 ML VIAL SC ×2 (08:18→21:26)
[2018-12-11] MEDS: COLLAGENASE 5 GM (UD JAR) TOP (08:18)
[2018-12-11] MEDS: SEVELAMER CARBONATE 0.8 GM PKT PO ×3 (08:18→17:23)
[2018-12-11] MEDS: FLUOXETINE 10 MG CAP PO (08:19)
[2018-12-11] MEDS: GABAPENTIN 100 MG CAP PO ×2 (08:19→21:30)
[2018-12-11] MEDS: AZTREONAM 0.5 GM in SOD CHLORIDE 0.9% 50 ML IV (08:19)
[2018-12-11] MEDS: LEVETIRACETAM 500 MG TAB PO ×2 (08:19→21:26)
[2018-12-11] MEDS: morphine 2 MG INJ IV (08:20)
[2018-12-11] MEDS: LOSARTAN 25 MG TAB PO (08:20)
[2018-12-11] MEDS: INSULIN GLARGINE [LANTus] (100 UNITS/ML) SYG SC (21:25)
[2018-12-11] MEDS: FAMOTIDINE 20 MG TAB PO (21:26)
[2018-12-11] MEDS: NIACIN (ER) 500 MG TAB PO (21:27)
[2018-12-12] MEDS: ACCU-CHEK XX (02:00)
[2018-12-12] MEDS: LEVOFLOXACIN 250 MG TAB PO (05:19)
[2018-12-12] MEDS: SEVELAMER CARBONATE 0.8 GM PKT PO ×3 (08:25→17:37)
[2018-12-12] MEDS: INSULIN ASPART [NOVOLOG] 3 ML PEN SC ×7 (08:26→20:31)
[2018-12-12] MEDS: FLUOXETINE 10 MG CAP PO (08:31)
[2018-12-12] MEDS: COLLAGENASE 5 GM (UD JAR) TOP (08:31)
[2018-12-12] MEDS: GABAPENTIN 100 MG CAP PO ×2 (08:32→20:52)
[2018-12-12] MEDS: LEVETIRACETAM 500 MG TAB PO ×2 (08:32→20:52)
[2018-12-12] MEDS: HEPARIN 5,000 UNIT/1 ML VIAL SC ×2 (09:46→20:53)
[2018-12-12] MEDS: LOSARTAN 25 MG TAB PO (09:47)
[2018-12-12] MEDS: morphine 2 MG INJ IV (14:57)
[2018-12-12] MEDS: EPOETIN ALFA-EPBX (ESRD) 3,000 UNIT/ML VIAL SC (17:39)
[2018-12-12] MEDS: NIACIN (ER) 500 MG TAB PO (20:52)
[2018-12-12] MEDS: FAMOTIDINE 20 MG TAB PO (20:52)
[2018-12-12] MEDS ORDERED: VANCOMYCIN 1 GM 250 ML IVPB (21:00)
[2018-12-12] MEDS: INSULIN GLARGINE [LANTus] (100 UNITS/ML) SYG SC (21:51)
[2018-12-13] MEDS: ACCU-CHEK XX (02:00)
[2018-12-13] MEDS: morphine 2 MG INJ IV ×3 (02:10→22:03)
[2018-12-13 06:13] LABS: ADD MAN DIFF? NO
[2018-12-13 06:20] LABS: WHITE BLOOD COUNT 8.3 10^3/ul (4.8-10.8)
[2018-12-13 06:20] LABS: BASOPHILS % 0.5 % (0.0-2.0); EOSINOPHILS # 0.3 10^3/ul (0.0-0.5); EOSINOPHILS % 3.5 % (0.0-7.0); HEMOGLOBIN 8.1 g/dl (12.0-16.0); LYMPHOCYTES # 1.5 10^3/ul (0.8-2.9); MEAN CORPUSCULAR HEMOGLOBIN 27.5 pg (29.0-33.0); MEAN CORPUSCULAR VOLUME 91.5 fl (82.0-101.0); MEAN PLATELET VOLUME 10.3 fl (7.4-10.4); MONOCYTE # 0.7 10^3/ul (0.3-0.9); MONOCYTES % 8.2 % (0.0-11.0); NEUTROPHIL # 5.5 10^3/ul (1.6-7.5); NEUTROPHILS % 65.7 % (39.0-77.0); PLATELET COUNT 275 10^3/UL (140-415); RED BLOOD COUNT 2.95 10^6/ul (4.20-5.40); RED CELL DISTRIBUTION WIDTH 13.5 % (11.5-14.5)
[2018-12-13 06:46] LABS: ANION GAP 9 (5-13); BLOOD UREA NITROGEN 46 mg/dl (7-20); CALCIUM 8.6 mg/dl (8.4-10.2); CARBON DIOXIDE 28 mmol/L (21-31); CHLORIDE 98 mmol/L (97-110); CREATININE 3.13 mg/dl (0.44-1.00); Estimated GFR 16 mL/min (>60); GLUCOSE 136 mg/dl (70-220); POTASSIUM 5.2 mmol/L (3.5-5.1); SODIUM 135 mmol/L (135-144)
[2018-12-13] MEDS: LEVETIRACETAM 500 MG TAB PO ×2 (08:21→20:40)
[2018-12-13] MEDS: GABAPENTIN 100 MG CAP PO ×2 (08:22→20:40)
[2018-12-13] MEDS: LOSARTAN 25 MG TAB PO (08:22)
[2018-12-13] MEDS: FLUOXETINE 10 MG CAP PO (08:22)
[2018-12-13] MEDS: INSULIN ASPART [NOVOLOG] 3 ML PEN SC ×7 (08:24→20:32)
[2018-12-13] MEDS: HEPARIN 5,000 UNIT/1 ML VIAL SC ×2 (08:24→20:42)
[2018-12-13] MEDS: SEVELAMER CARBONATE 0.8 GM PKT PO ×3 (08:27→18:08)
[2018-12-13] MEDS: ACETAMINOPHEN 325 MG TAB PO (08:29)
[2018-12-13] MEDS: COLLAGENASE 5 GM (UD JAR) TOP (11:39)
[2018-12-13] MEDS: NIACIN (ER) 500 MG TAB PO (20:40)
[2018-12-13] MEDS: INSULIN GLARGINE [LANTus] (100 UNITS/ML) SYG SC (20:42)
[2018-12-13] MEDS: FAMOTIDINE 20 MG TAB PO (20:42)
[2018-12-14] MEDS: ACCU-CHEK XX (02:00)
[2018-12-14] MEDS: LEVOFLOXACIN 250 MG TAB PO (05:24)
[2018-12-14] MEDS: INSULIN ASPART [NOVOLOG] 3 ML PEN SC ×7 (08:00→20:48)
[2018-12-14] MEDS: SEVELAMER CARBONATE 0.8 GM PKT PO ×3 (08:27→17:19)
[2018-12-14] MEDS: FLUOXETINE 10 MG CAP PO (08:30)
[2018-12-14] MEDS: ACETAMINOPHEN 325 MG TAB PO (08:30)
[2018-12-14] MEDS: COLLAGENASE 5 GM (UD JAR) TOP (08:30)
[2018-12-14] MEDS: LOSARTAN 25 MG TAB PO ×3 (08:30→10:08)
[2018-12-14] MEDS: GABAPENTIN 100 MG CAP PO ×2 (08:30→20:46)
[2018-12-14] MEDS: LEVETIRACETAM 500 MG TAB PO ×2 (08:31→20:46)
[2018-12-14] MEDS: HEPARIN 5,000 UNIT/1 ML VIAL SC ×2 (08:32→20:48)
[2018-12-14] MEDS: morphine 2 MG INJ IV ×2 (11:55→22:17)
[2018-12-14] MEDS: EPOETIN ALFA-EPBX (ESRD) 3,000 UNIT/ML VIAL SC (17:18)
[2018-12-14] MEDS: FAMOTIDINE 20 MG TAB PO (20:46)
[2018-12-14] MEDS: NIACIN (ER) 500 MG TAB PO (20:46)
[2018-12-14] MEDS: INSULIN GLARGINE [LANTus] (100 UNITS/ML) SYG SC (20:49)
[2018-12-15] MEDS: ACCU-CHEK XX (02:14)
[2018-12-15] MEDS: morphine 2 MG INJ IV ×4 (05:11→18:19)
[2018-12-15] MEDS: INSULIN ASPART [NOVOLOG] 3 ML PEN SC ×7 (07:56→21:15)
[2018-12-15] MEDS: SEVELAMER CARBONATE 0.8 GM PKT PO ×3 (07:57→17:40)
[2018-12-15] MEDS: LOSARTAN 25 MG TAB PO (09:01)
[2018-12-15] MEDS: LEVETIRACETAM 500 MG TAB PO ×2 (09:01→21:00)
[2018-12-15] MEDS: GABAPENTIN 100 MG CAP PO ×2 (09:01→21:00)
[2018-12-15] MEDS: FLUOXETINE 10 MG CAP PO (09:01)
[2018-12-15] MEDS: COLLAGENASE 5 GM (UD JAR) TOP (09:02)
[2018-12-15] MEDS: HEPARIN 5,000 UNIT/1 ML VIAL SC ×2 (09:02→21:02)
[2018-12-15] MEDS: INSULIN GLARGINE [LANTus] (100 UNITS/ML) SYG SC (20:07)
[2018-12-15] MEDS: NIACIN (ER) 500 MG TAB PO (21:00)
[2018-12-15] MEDS: FAMOTIDINE 20 MG TAB PO (21:00)
[2018-12-15] MEDS: NIFEdipine (XL) 30 MG TAB PO (21:55)
[2018-12-16] MEDS: ACCU-CHEK XX (02:00)
[2018-12-16] MEDS: ONDANSETRON 4 MG INJ IV (02:12)
[2018-12-16] MEDS: morphine 2 MG INJ IV ×3 (02:19→14:26)
[2018-12-16] MEDS: LEVOFLOXACIN 250 MG TAB PO (05:26)
[2018-12-16] MEDS: LEVETIRACETAM 500 MG TAB PO ×2 (08:22→20:40)
[2018-12-16] MEDS: FLUOXETINE 10 MG CAP PO (08:22)
[2018-12-16] MEDS: GABAPENTIN 100 MG CAP PO ×2 (08:22→20:41)
[2018-12-16] MEDS: NIFEdipine (XL) 30 MG TAB PO ×2 (08:22→20:44)
[2018-12-16] MEDS: LOSARTAN 25 MG TAB PO (08:22)
[2018-12-16] MEDS: SEVELAMER CARBONATE 0.8 GM PKT PO ×3 (08:23→17:57)
[2018-12-16] MEDS: INSULIN ASPART [NOVOLOG] 3 ML PEN SC ×7 (08:29→20:43)
[2018-12-16] MEDS: HEPARIN 5,000 UNIT/1 ML VIAL SC ×2 (08:31→20:44)
[2018-12-16] MEDS: COLLAGENASE 5 GM (UD JAR) TOP (12:31)
[2018-12-16] MEDS: NIACIN (ER) 500 MG TAB PO (20:41)
[2018-12-16] MEDS: FAMOTIDINE 20 MG TAB PO (20:41)
[2018-12-16] MEDS: INSULIN GLARGINE [LANTus] (100 UNITS/ML) SYG SC (20:44)
[2018-12-16] MEDS: EPOETIN ALFA-EPBX (ESRD) 3,000 UNIT/ML VIAL SC (22:09)
[2018-12-17] MEDS: ACCU-CHEK XX (01:47)
[2018-12-17] MEDS: NIFEdipine (XL) 30 MG TAB PO (08:04)
[2018-12-17] MEDS: GABAPENTIN 100 MG CAP PO (08:04)
[2018-12-17] MEDS: ACETAMINOPHEN 325 MG TAB PO (08:04)
[2018-12-17] MEDS: SEVELAMER CARBONATE 0.8 GM PKT PO ×2 (08:04→11:49)
[2018-12-17] MEDS: COLLAGENASE 5 GM (UD JAR) TOP (08:04)
[2018-12-17] MEDS: LEVETIRACETAM 500 MG TAB PO (08:05)
[2018-12-17] MEDS: LOSARTAN 25 MG TAB PO (08:05)
[2018-12-17] MEDS: FLUOXETINE 10 MG CAP PO (08:05)
[2018-12-17] MEDS: INSULIN ASPART [NOVOLOG] 3 ML PEN SC ×4 (08:06→11:56)
[2018-12-17] MEDS: HEPARIN 5,000 UNIT/1 ML VIAL SC (08:07)
[2018-12-17] MEDS: morphine 2 MG INJ IV (11:43)
[2018-12-17] MEDS: ERGOCALCIFEROL 50,000 UNIT CAP PO (13:04)
[2018-12-17 14:30] LABS: ADD MAN DIFF? NO
[2018-12-17 14:34] LABS: WHITE BLOOD COUNT 12.4 10^3/ul (4.8-10.8)
[2018-12-17 14:34] LABS: BASOPHIL # 0.1 10^3/ul (0.0-0.1); BASOPHILS % 0.4 % (0.0-2.0); EOSINOPHILS # 0.4 10^3/ul (0.0-0.5); EOSINOPHILS % 3.6 % (0.0-7.0); HEMATOCRIT 27.1 % (37.0-47.0); LYMPHOCYTES # 1.9 10^3/ul (0.8-2.9); LYMPHOCYTES % 15.6 % (15.0-51.0); MEAN CORPUSCULAR HEMOGLOBIN 27.3 pg (29.0-33.0); MEAN CORPUSCULAR HGB CONC 29.5 g/dl (32.0-37.0); MEAN CORPUSCULAR VOLUME 92.5 fl (82.0-101.0); MONOCYTE # 1.2 10^3/ul (0.3-0.9); MONOCYTES % 9.8 % (0.0-11.0); NEUTROPHIL # 8.4 10^3/ul (1.6-7.5); NEUTROPHILS % 67.9 % (39.0-77.0); PLATELET COUNT 366 10^3/UL (140-415); RED BLOOD COUNT 2.93 10^6/ul (4.20-5.40); RED CELL DISTRIBUTION WIDTH 13.9 % (11.5-14.5)
[2018-12-17 15:00] LABS: ANION GAP 9 (5-13); BLOOD UREA NITROGEN 45 mg/dl (7-20); CALCIUM 8.8 mg/dl (8.4-10.2); CARBON DIOXIDE 29 mmol/L (21-31); CHLORIDE 98 mmol/L (97-110); CREATININE 3.49 mg/dl (0.44-1.00); Estimated GFR 14 mL/min (>60); GLUCOSE 215 mg/dl (70-220); POTASSIUM 5.3 mmol/L (3.5-5.1); SODIUM 136 mmol/L (135-144)
== END 2018-12-17 16:45 | DRG 637 ==
LOC: E/R 05:36 → PP2 08:14
PROVIDERS: Internal Medicine
PROC: 30233N1 Transfusion of Nonautologous Red Blood Cells into Peripheral Vein, Percutaneous Approach (ICD-10-PCS; principal; 2018-12-05)
PROC: 5A1D70Z Performance of Urinary Filtration, Intermittent, Less than 6 Hours Per Day (ICD-10-PCS; 2018-12-05)
DX: E11.649 Type 2 diabetes mellitus with hypoglycemia without coma (principal); J18.9 Pneumonia, unspecified organism; N18.6 End stage renal disease; E11.22 Type 2 diabetes mellitus with diabetic chronic kidney disease; E11.21 Type 2 diabetes mellitus with diabetic nephropathy; E11.43 Type 2 diabetes mellitus with diabetic autonomic (poly)neuropathy; J44.9 Chronic obstructive pulmonary disease, unspecified; E83.51 Hypocalcemia; E78.5 Hyperlipidemia, unspecified; Z99.2 Dependence on renal dialysis; I10 Essential (primary) hypertension; G40.909 Epilepsy, unspecified, not intractable, without status epilepticus; I73.9 Peripheral vascular disease, unspecified; K21.9 Gastro-esophageal reflux disease without esophagitis; F32.9 Major depressive disorder, single episode, unspecified; D63.8 Anemia in other chronic diseases classified elsewhere; Z72.0 Tobacco use; Z89.611 Acquired absence of right leg above knee
CPT/HCPCS: 36415; 36430; 71045; 80048; 80053; 80202; 82270; 82607; 82652; 82746; 82962; 83010; 83036; 83540; 83605; 83615; 84100; 85025; 86850; 86900; 86901; 86920; 87040-91; 87081; 87340; 90935; 94664; 96374; 97161; 99285-25